=== PATIENT | female | born 1980 | race Caucasian/White ===

== ENCOUNTER 2017-05-06 20:46 | Emergency (ER) | payer MEDICARE, MEDICAID ==
[~2017-05-06] VITALS: Ht 160 cm; Wt 68.0 kg
[2017-05-06] MEDS ORDERED: TOPAMAX50 MG PO (21:05)
[2017-05-06] MEDS ORDERED: FLORICAL TABLE1 EACH PO (21:06)
[2017-05-06] MEDS ORDERED: ACID CONTROL150 MG PO (21:06)
[2017-05-06] MEDS ORDERED: OMEPRAZOLE20 MG PO (21:07)
--- OUTSIDE RECORDS SUMMARY | 2017-05-06 21:26 | XMS | Continuity of Care Document ---
Demographics + + + | Address | [address] | | | [place] [address] | + + + | Home Phone | | + + + | Preferred Language | Unknown | + + + | Marital Status | Unknown | + + + | Sabianism Affiliation | Unknown | + + + | Race | Unknown | + + + | Ethnic Group | Unknown | + + + Author + + + | Author | [facility] | + + + | Organization | [facility] | + + + | Address | Unknown | + + + | Phone | Unavailable | + + + Care Team Providers + + + + | Care Degreasing Solution Mixer Name | Role | Phone | + + + + | Unknown | Unavailable | Unavailable | + + + + Insurance Providers + + + + + | Payer Name | Policy Number | Subscriber Name | Relationship | + + + + + | MEDICARE CRITICAL | [id number] | | SAME PATIENT | | ACCESS | | | | + + + + + Chief Complaint and Reason for Visit + +----+ | Reason for Visit | ER | + +----+ Problems No problem information available. Medications Current Home Medications + +--------+-------+-------+ + + +--------+ | Medicati | Dose | Units | Route | Directio | Days/Qty | Instruct | Start | | on | | | | ns | | ions | Date | + +--------+-------+-------+ + + +--------+ | Cholecal | 50,000 | UNIT | ORAL | ONCE | | | | | ciferol | | | | DAILY | | | | | (Vitamin | | | | | | | | | D3) | | | | | | | | | (Vitamin | | | | | | | | | D) | | | | | | | | | 50,000 | | | | | | | | | UNIT | | | | | | | | | CAPSULE | | | | | | | | + +--------+-------+-------+ + + +--------+ | Folic | 1 | MG | ORAL | ONCE | | | | | Acid 1 | | | | DAILY | | | | | MG | | | | | | | | | TABLET | | | | | | | | + +--------+-------+-------+ + + +--------+ | Lamotrig | 150 | MG | | TWICE | | | | | ine | | | | DAILY | | | | | (Unknown | | | | | | | | | | | | | | | | | | Strength | | | | | | | | | ) TABLET | | | | | | | | + +--------+-------+-------+ + + +--------+ | Levothyr | 100 | MCG | ORAL | EVERY | | | | | oxine | | | | MORNING | | | | | Sodium | | | | BEFORE | | | | | 100 MCG | | | | MEAL | | | | | TABLET | | | | | | | | + +--------+-------+-------+ + + +--------+ | Ranitidi | 150 | MG | ORAL | ONCE | | | | | ne Hcl | | | | DAILY | | | | | 150 MG | | | | | | | | | TABLET | | | | | | | | + +--------+-------+-------+ + + +--------+ | Topirama | 100 | MG | ORAL | TWICE | | | | | te 100 | | | | DAILY | | | | | MG | | | | | | | | | TABLET | | | | | | | | + +--------+-------+-------+ + + +--------+ Past Home Medications + + +---------+ + | Medication | Directions | Ordered | Status | + + +---------+ + | Oxycodone | THREE TIMES DAILY | Unknown | Discontinued | | Hcl/Acetaminophen | | | | | (Oxycodone-Apap | | | | | 5-325 Mg Tab) 1 | | | | | Each Tablet Tablet, | | | | | 1 Tab Oral | | | | + + +---------+ + Social History + + + + + | Query | Response | Start Date | Stop Date | + + + + + | Smoking Status/ | Current Every Day | | | | | Smoker | | | + + + + + Hospital Discharge Instructions No hospital discharge instructions. Plan of Care + + + | Discharge Date | 04/11/17 | + + + | Disposition | DISCHARGE HOME ROUTINE HOME | + + + | Condition at Discharge | Stable | + + + | Instructions/Education Provided | Ingrown Nail (ED) | + + + | Forms Provided | Home Medications/Allergy Form | + + + | Prescriptions | See Medications Section | + + + | Referrals | Unknown - | | | | | | [facility] | | | | | | Reason(s) for Referral: | | | Notes: | | | Call today for an appointment | + + + Functional Status + + + + | Query | Response | Date Recorded | + + + + | Weight LB: | 147.00 | April 11, 2017 2:44pm | + + + + | KG: | 66.67 | April 11, 2017 2:44pm | + + + + | HEIGHT: FT. | 5 | April 11, 2017 2:44pm | + + + + | IN. | 3.00 | April 11, 2017 2:44pm | + + + + Allergies, Adverse Reactions, Alerts + +---------+ + +--------+ + | Allergen | Type | Severity | Reaction | Status | Last Updated | + +---------+ + +--------+ + | PENICILLINS | Allergy | Severe | ANAPHALAXIS | Active | 12/10/16 | + +---------+ + +--------+ + | ALBUTEROL | Allergy | Severe | Anaphylaxis | Active | 12/10/16 | + +---------+ + +--------+ + | IBUPROFEN | Allergy | Severe | Anaphylaxis | Active | 12/10/16 | + +---------+ + +--------+ + | DIPHENHYDRAM | Allergy | Severe | ANAPHALAXIS | Active | 12/10/16 | | INE | | | | | | + +---------+ + +--------+ + Immunizations No Known History of Immunizations. Vital Signs + + + + | Vital Reading | Collection Date/Time | Result | + + + + | Blood Pressure | 04/11/17 3:07pm | 97/57 | + + + + | Temperature | 04/11/17 3:07pm | 98.1 F | + + + + | Respiratory Rate | 04/11/17 3:07pm | 22 | + + + + | Pulse Rate | 04/11/17 3:07pm | 75 | + + + + | Bedside Pulse Oximetry | 04/11/17 3:07pm | 97 | + + + + | Height | 04/11/17 2:44pm | 5 ft 3 in | + + + + | Height | 04/11/17 2:44pm | 160.02 cm | + + + + | Weight | 04/11/17 2:44pm | 147 lb | + + + + | Weight | 04/11/17 2:44pm | 66.67 kg | + + + + | Body Mass Index | 04/11/17 2:44pm | 26.0 kg/m2 | + + + + Results Laboratory Results + + +---------+-------+ + + + + | Test | Result | Units | Flags | Referenc | Collecti | Result | Comments | | Name | | | | e | on | Date/Carlos | | | | | | | | Date/Carlos | e | | | | | | | | e | | | + + +---------+-------+ + + + + | Hemoglob | 12.8 | G/dL | | 11.6-15. | 12/10/16 | 12/10/16 | | | in | | | | 5 | 1:05pm | 1:14pm | | + + +---------+-------+ + + + + | Hematocr | 37.7 | % | | 35-46 | 12/10/16 | 12/10/16 | | | it | | | | | 1:05pm | 1:14pm | | + + +---------+-------+ + + + + | Red | 4.22 | M/uL | | 3.80-5.2 | 12/10/16 | 12/10/16 | | | Blood | | | | 0 | 1:05pm | 1:14pm | | | Count | | | | | | | | + + +---------+-------+ + + + + | Mean | 89.4 | fL | | 81.0-100 | 12/10/16 | 12/10/16 | | | Corpuscu | | | | .0 | 1:05pm | 1:14pm | | | lar | | | | | | | | | Volume | | | | | | | | + + +---------+-------+ + + + + | Mean | 30.2 | pg | | 27.0-34. | 12/10/16 | 12/10/16 | | | Corpuscu | | | | 0 | 1:05pm | 1:14pm | | | lar | | | | | | | | | Hemoglob | | | | | | | | | in | | | | | | | | + + +---------+-------+ + + + + | Mean | 33.8 | g/dL | | 33.0-35. | 12/10/16 | 12/10/16 | | | Corpuscu | | | | 5 | 1:05pm | 1:14pm | | | lar | | | | | | | | | Hemoglob | | | | | | | | | in | | | | | | | | | Concent | | | | | | | | + + +---------+-------+ + + + + | Red Cell | 14.4 | % | | 11.0-15. | 12/10/16 | 12/10/16 | | | | | | | 0 | 1:05pm | 1:14pm | | | Distribu | | | | | | | | | tion | | | | | | | | | Width | | | | | | | | + + +---------+-------+ + + + + | Platelet | 291 | K/uL | | 150-400 | 12/10/16 | 12/10/16 | | | Count | | | | | 1:05pm | 1:14pm | | + + +---------+-------+ + + + + | White | 7.0 | K/uL | | 4.8-10.8 | 12/10/16 | 12/10/16 | | | Blood | | | | | 1:05pm | 1:14pm | | | Count | | | | | | | | + + +---------+-------+ + + + + | Neutroph | 54.8 | % | | 40.0-80. | 12/10/16 | 12/10/16 | | | ils (%) | | | | 0 | 1:05pm | 1:14pm | | | (Auto) | | | | | | | | + + +---------+-------+ + + + + | Lymphocy | 30.7 | % | | 15.0-45. | 12/10/16 | 12/10/16 | | | dea (%) | | | | 0 | 1:05pm | 1:14pm | | | (Auto) | | | | | | | | + + +---------+-------+ + + + + | Monocyte | 7.5 | % | | 0.0-12.0 | 12/10/16 | 12/10/16 | | | s (%) | | | | | 1:05pm | 1:14pm | | | (Auto) | | | | | | | | + + +---------+-------+ + + + + | Eosinoph | 6.0 | % | | 0.0-7.0 | 12/10/16 | 12/10/16 | | | ils (%) | | | | | 1:05pm | 1:14pm | | | (Auto) | | | | | | | | + + +---------+-------+ + + + + | Basophil | 1.0 | % | | 0.0-2.0 | 12/10/16 | 12/10/16 | | | s (%) | | | | | 1:05pm | 1:14pm | | | (Auto) | | | | | | | | + + +---------+-------+ + + + + | Nucleate | 0 | | | | 12/10/16 | 12/10/16 | | | d RBC | | | | | 1:05pm | 1:14pm | | | Relative | | | | | | | | | Count | | | | | | | | | (auto) | | | | | | | | + + +---------+-------+ + + + + | Absolute | 3.80 | k/uL | | 2.00-7.3 | 12/10/16 | 12/10/16 | | | | | | | 0 | 1:05pm | 1:14pm | | | Neutroph | | | | | | | | | ils | | | | | | | | | (auto) | | | | | | | | + + +---------+-------+ + + + + | Absolute | 2.2 | K/uL | | 1.20-3.2 | 12/10/16 | 12/10/16 | | | | | | | 0 | 1:05pm | 1:14pm | | | Lymphocy | | | | | | | | | dea | | | | | | | | | (auto) | | | | | | | | + + +---------+-------+ + + + + | Absolute | 0.50 | K/uL | | 0.30-0.8 | 12/10/16 | 12/10/16 | | | | | | | 0 | 1:05pm | 1:14pm | | | Monocyte | | | | | | | | | s (auto) | | | | | | | | + + +---------+-------+ + + + + | Absolute | 0.40 | K/uL | | 0.00-0.5 | 12/10/16 | 12/10/16 | | | | | | | 0 | 1:05pm | 1:14pm | | | Eosinoph | | | | | | | | | ils | | | | | | | | | (auto) | | | | | | | | + + +---------+-------+ + + + + | Absolute | 0.10 | K/uL | | 0.00-0.1 | 12/10/16 | 12/10/16 | | | | | | | 0 | 1:05pm | 1:14pm | | | Basophil | | | | | | | | | s (auto) | | | | | | | | + + +---------+-------+ + + + + | Nucleate | 0 | /100WBC | | 0-0 | 12/10/16 | 12/10/16 | | | d RBC | | | | | 1:05pm | 1:14pm | | | Absolute | | | | | | | | | Count | | | | | | | | | (auto) | | | | | | | | + + +---------+-------+ + + + + | Urine | URINE | | | | 12/10/16 | 12/10/16 | | | Source | | | | | 1:05pm | 1:16pm | | + + +---------+-------+ + + + + | Urine | YELLOW | | | YELLOW | 12/10/16 | 12/10/16 | | | Color | | | | | 1:05pm | 1:16pm | | + + +---------+-------+ + + + + | Urine | CLEAR | | | CLEAR | 12/10/16 | 12/10/16 | | | Appearan | | | | | 1:05pm | 1:16pm | | | ce | | | | | | | | + + +---------+-------+ + + + + | Urine | 1.015 | | | 1.000-1. | 12/10/16 | 12/10/16 | | | Specific | | | | 030 | 1:05pm | 1:16pm | | | [place] | | | | | | | | + + +---------+-------+ + + + + | Urine pH | 6.0 | | | 5.0 - | 12/10/16 | 12/10/16 | | | | | | | 8.0 | 1:05pm | 1:16pm | | + + +---------+-------+ + + + + | Urine | NEGATIVE | mg/dL | | NEGATIVE | 12/10/16 | 12/10/16 | | | Protein | | | | | 1:05pm | 1:16pm | | + + +---------+-------+ + + + + | Urine | NORMAL | mg/dL | | NEGATIVE | 12/10/16 | 12/10/16 | | | Glucose | | | | | 1:05pm | 1:16pm | | | (UA) | | | | | | | | + + +---------+-------+ + + + + | Urine | NEGATIVE | mg/dL | | NEGATIVE | 12/10/16 | 12/10/16 | | | Ketones | | | | | 1:05pm | 1:16pm | | + + +---------+-------+ + + + + | Urine | NEGATIVE | Cristopher/ul | | NEGATIVE | 12/10/16 | 12/10/16 | | | Occult | | | | | 1:05pm | 1:16pm | | | Blood | | | | | | | | + + +---------+-------+ + + + + | Urine | NEGATIVE | mg/dL | | NEGATIVE | 12/10/16 | 12/10/16 | | | Bilirubi | | | | | 1:05pm | 1:16pm | | | n | | | | | | | | + + +---------+-------+ + + + + | Urine | NEGATIVE | Arelis/uL | | NEGATIVE | 12/10/16 | 12/10/16 | | | Leukocyt | | | | | 1:05pm | 1:16pm | | | e | | | | | | | | | Esterase | | | | | | | | + + +---------+-------+ + + + + | Urine | NEGATIVE | | | NEGATIVE | 12/10/16 | 12/10/16 | | | Nitrite | | | | | 1:05pm | 1:16pm | | + + +---------+-------+ + + + + | Urine | NORMAL | mg/dL | | < 2.0 | 12/10/16 | 12/10/16 | | | Urobilin | | | | | 1:05pm | 1:16pm | | | ogen | | | | | | | | + + +---------+-------+ + + + + | N/A | NOT | | | | 12/10/16 | 12/10/16 | | | | INDICATE | | | | 1:05pm | 1:16pm | | | | D | | | | | | | + + +---------+-------+ + + + + | Urine | CULT NOT | | | | 12/10/16 | 12/10/16 | | | Culture | | | | | 1:05pm | 1:16pm | | | Indicate | INDICATE | | | | | | | | d | D | | | | | | | + + +---------+-------+ + + + + | Sodium | 132 | mmol/L | L | 136-145 | 12/10/16 | 12/10/16 | | | Level | | | | | 1:05pm | 1:26pm | | + + +---------+-------+ + + + + | Potassiu | 3.6 | mmol/L | | 3.5-5.1 | 12/10/16 | 12/10/16 | | | m Level | | | | | 1:05pm | 1:26pm | | + + +---------+-------+ + + + + | Chloride | 101 | mmol/L | | 98-107 | 12/10/16 | 12/10/16 | | | Level | | | | | 1:05pm | 1:26pm | | + + +---------+-------+ + + + + | Carbon | 23 | mmol/L | | 23-29 | 12/10/16 | 12/10/16 | | | Dioxide | | | | | 1:05pm | 1:26pm | | | Level | | | | | | | | + + +---------+-------+ + + + + | Anion | 11.6 | mmol/L | | 5-16 | 12/10/16 | 12/10/16 | | | Gap | | | | | 1:05pm | 1:26pm | | + + +---------+-------+ + + + + | Creatini | 0.8 | mg/dL | | 0.6-1.3 | 12/10/16 | 12/10/16 | | | ne | | | | | 1:05pm | 1:26pm | | + + +---------+-------+ + + + + | Blood | 8 | mg/dL | | 6-20 | 12/10/16 | 12/10/16 | | | Urea | | | | | 1:05pm | 1:26pm | | | Nitrogen | | | | | | | | + + +---------+-------+ + + + + | BUN/Crea | 10.0 | Ratio | | 7.0-24.0 | 12/10/16 | 12/10/16 | | | tinine | | | | | 1:05pm | 1:26pm | | | Ratio | | | | | | | | + + +---------+-------+ + + + + | Glucose | 92.0 | mg/dL | | 65-110 | 12/10/16 | 12/10/16 | | | Level | | | | | 1:05pm | 1:26pm | | + + +---------+-------+ + + + + | Calcium | 8.8 | mg/dL | | 8.6-10.0 | 12/10/16 | 12/10/16 | | | Level | | | | | 1:05pm | 1:26pm | | + + +---------+-------+ + + + + | Serum | 7.3 | g/dL | | 6.0-8.3 | 12/10/16 | 12/10/16 | | | Total | | | | | 1:05pm | 1:26pm | | | Protein | | | | | | | | + + +---------+-------+ + + + + | Albumin | 4.3 | g/dL | | 3.5-5.0 | 12/10/16 | 12/10/16 | | | | | | | | 1:05pm | 1:26pm | | + + +---------+-------+ + + + + | Globulin | 3.0 | g/dL | | 2.3-3.5 | 12/10/16 | 12/10/16 | | | | | | | | 1:05pm | 1:26pm | | + + +---------+-------+ + + + + | Albumin/ | 1.4 | CALC | | 1.1-2.2 | 12/10/16 | 12/10/16 | | | Globulin | | | | | 1:05pm | 1:26pm | | | Ratio | | | | | | | | + + +---------+-------+ + + + + | Total | 0.4 | mg/dL | | 0.3-1.2 | 12/10/16 | 12/10/16 | | | Bilirubi | | | | | 1:05pm | 1:26pm | | | n | | | | | | | | + + +---------+-------+ + + + + | Alanine | 206 | IU/L | H | 14-54 | 12/10/16 | 12/10/16 | | | Aminotra | | | | | 1:05pm | 1:26pm | | | nsferase | | | | | | | | | | | | | | | | | | (ALT/SGP | | | | | | | | | T) | | | | | | | | + + +---------+-------+ + + + + | Alkaline | 278 | IU/L | H | 50-136 | 12/10/16 | 12/10/16 | | | | | | | | 1:05pm | 1:26pm | | | Phosphat | | | | | | | | | ase | | | | | | | | + + +---------+-------+ + + + + | Aspartat | 250 | IU/L | H | 15-41 | 12/10/16 | 12/10/16 | | | e Amino | | | | | 1:05pm | 1:26pm | | | Transf | | | | | | | | | (AST/SGO | | | | | | | | | T) | | | | | | | | + + +---------+-------+ + + + + | Amylase | 47 | U/L | | 28-100 | 12/10/16 | 12/10/16 | | | Level | | | | | 1:05pm | 1:26pm | | + + +---------+-------+ + + + + | Lipase | 26 | U/L | | 22-51 | 12/10/16 | 12/10/16 | | | | | | | | 1:05pm | 1:26pm | | + + +---------+-------+ + + + + | Estimat | > 60 | | | >60 | 12/10/16 | 12/10/16 | Limitati | | Glomerul | | | | | 1:05pm | 1:26pm | ons | | ar | | | | | | | apply. | | Filtrati | | | | | | | This | | on Rate | | | | | | | calculat | | | | | | | | | ion | | | | | | | | | includes | | | | | | | | | | | | | | | | | | variable | | | | | | | | | s | | | | | | | | | forserum | | | | | | | | | | | | | | | | | | creatini | | | | | | | | | ne, age, | | | | | | | | | race | | | | | | | | | and | | | | | | | | | gender. | | | | | | | | | This | | | | | | | | | estimate | | | | | | | | | applies | | | | | | | | | only to | | | | | | | | | stable | | | | | | | | | chronic | | | | | | | | | renal | | | | | | | | | disease | | | | | | | | | states. | | | | | | | | | Below60 | | | | | | | | | | | | | | | | | | ml/min/1 | | | | | | | | | .73 | | | | | | | | | square | | | | | | | | | meters, | | | | | | | | | the | | | | | | | | | prevalen | | | | | | | | | ce | | | | | | | | | ofcompli | | | | | | | | | cations | | | | | | | | | of CKD | | | | | | | | | increase | | | | | | | | | s, as | | | | | | | | | does the | | | | | | | | | risk | | | | | | | | | ofcardio | | | | | | | | | vascular | | | | | | | | | | | | | | | | | | disease. | + + +---------+-------+ + + + + | Influenz | NEGATIVE | | | NEGATIVE | 12/10/16 | 12/10/16 | | | a Type B | | | | | 1:05pm | 1:25pm | | | Antigen | | | | | | | | + + +---------+-------+ + + + + | Influenz | NEGATIVE | | | NEGATIVE | 12/10/16 | 12/10/16 | | | a Type A | | | | | 1:05pm | 1:25pm | | | Antigen | | | | | | | | + + +---------+-------+ + + + + | Hepatiti | Non | | | NR | 12/10/16 | 12/13/16 | | | s A IgM | Reactive | | | | 1:05pm | 9:11am | | | Antibody | | | | | | | | + + +---------+-------+ + + + + | Hepatiti | Non | | | NR | 12/10/16 | 12/13/16 | | | s B | Reactive | | | | 1:05pm | 9:11am | | | Surface | | | | | | | | | Antigen | | | | | | | | + + +---------+-------+ + + + + | Hepatiti | Non | | | NR | 12/10/16 | 12/13/16 | | | s B Core | Reactive | | | | 1:05pm | 9:11am | | | IgM | | | | | | | | | Antibody | | | | | | | | + + +---------+-------+ + + + + | Hepatiti | Non | | | NR | 12/10/16 | 12/13/16 | Hepatiti | | s C | Reactive | | | | 1:05pm | 9:11am | s C: | | Antibody | | | | | | | Absence | | | | | | | | | of | | | | | | | | | antibody | | | | | | | | | | | | | | | | | | suggests | | | | | | | | | no past | | | | | | | | | | | | | | | | | | Hepatiti | | | | | | | | | sC virus | | | | | | | | | | | | | | | | | | infectio | | | | | | | | | n. Since | | | | | | | | | | | | | | | | | | antibody | | | | | | | | | | | | | | | | | | developm | | | | | | | | | ent may | | | | | | | | | bedelaye | | | | | | | | | d up to | | | | | | | | | 6 months | | | | | | | | | after | | | | | | | | | infectio | | | | | | | | | n, | | | | | | | | | retestin | | | | | | | | | g may | | | | | | | | | beindica | | | | | | | | | sommer. | + + +---------+-------+ + + + + | Hepatiti | SEE | | | () | 12/10/16 | 12/13/16 | No | | s | BELOW | | | | 1:05pm | 9:11am | serologi | | Interpre | | | | | | | c | | tation | | | | | | | evidence | | | | | | | | | of HAV, | | | | | | | | | HBV or | | | | | | | | | HCV | | | | | | | | | infectio | | | | | | | | | n.Test | | | | | | | | | Performe | | | | | | | | | d by | | | | | | | | | [facility], | | | | | | | | | [address], | | | | | | | | | [place], | | | | | | | | | [place] | | | | | | | | | [id number] | + + +---------+-------+ + + + + | Lamotrig | 4.6 | ug/mL | | 3.0-14.0 | 12/10/16 | 12/12/16 | The | | ine | | | | | 1:05pm | 12:48pm | proposed | | (Lamicta | | | | | | | | | l) Level | | | | | | | therapeu | | | | | | | | | tic | | | | | | | | | range | | | | | | | | | for | | | | | | | | | seizure | | | | | | | | | control | | | | | | | | | is 3.0to | | | | | | | | | 14.0 | | | | | | | | | ug/mL. | | | | | | | | | Concentr | | | | | | | | | ations | | | | | | | | | that | | | | | | | | | exceed | | | | | | | | | 15 ug/mL | | | | | | | | | | | | | | | | | | maycontr | | | | | | | | | ibute to | | | | | | | | | adverse | | | | | | | | | | | | | | | | | | effects. | | | | | | | | | | | | | | | | | | Pharmoki | | | | | | | | | netics | | | | | | | | | varies | | | | | | | | | widelywi | | | | | | | | | th co | | | | | | | | | medicati | | | | | | | | | ons | | | | | | | | | and/or | | | | | | | | | compromi | | | | | | | | | sed | | | | | | | | | renal | | | | | | | | | function | | | | | | | | | . | | | | | | | | | TestPerf | | | | | | | | | ormed by | | | | | | | | | [facility], | | | | | | | | | [address], | | | | | | | | | [place], | | | | | | | | | [place] | | | | | | | | | [id number] | + + +---------+-------+ + + + + | Topirama | 3.9 | ug/mL | | 2.0-25.0 | 12/10/16 | 12/12/16 | No | | te Level | | | | | 1:05pm | 12:48pm | referenc | | | | | | | | | e range | | | | | | | | | establis | | | | | | | | | hed.Ther | | | | | | | | | apueutic | | | | | | | | | Range: | | | | | | | | | 2.0 to | | | | | | | | | 25.0 | | | | | | | | | ug/mLTox | | | | | | | | | ic: Not | | | | | | | | | well | | | | | | | | | establis | | | | | | | | | hedPharm | | | | | | | | | acokinet | | | | | | | | | ics | | | | | | | | | varies | | | | | | | | | widely, | | | | | | | | | particul | | | | | | | | | kristen | | | | | | | | | withco-m | | | | | | | | | edicatio | | | | | | | | | ns, age, | | | | | | | | | and/or | | | | | | | | | compromi | | | | | | | | | sed | | | | | | | | | renal | | | | | | | | | function | | | | | | | | | .Adverse | | | | | | | | | effects | | | | | | | | | may | | | | | | | | | include | | | | | | | | | somnolen | | | | | | | | | ce, | | | | | | | | | fatigue, | | | | | | | | | | | | | | | | | | anddizzi | | | | | | | | | ness. | | | | | | | | | Test | | | | | | | | | Performe | | | | | | | | | d by | | | | | | | | | [facility], | | | | | | | | | [address] | [address],[place] | | | | | | | | | [place], [place] | | | | | | | | | [id number] | + + +---------+-------+ + + + + Procedures No Known History of Procedures. Encounters + + + + + + | Encounter | Location | Arrival/Admit | Discharge/Depar | Attending | | | | Date | t Date | Provider | + + + + + + | Departed | [facility] | 04/11/17 2:33pm | 04/11/17 3:10pm | [facility] | | Emergency | Hospital | | | | + + + + + + | Departed | [facility] | 12/10/16 | 12/10/16 1:39pm | Marianela Siddiqui | | Emergency | Hospital | 11:56am | | K | + + + + + +"
[2017-05-06] MEDS ORDERED: BACITRAYCIN PLU28 GM TOP (21:30)
[2017-05-06] MEDS ORDERED: TRAMADOL HCL50 MG PO (21:30)
== END 2017-05-06 22:06 | disposition home or self-care (01) ==
LOC: ED 20:46
DX: G89.18 Other acute postprocedural pain (principal); M79.675 Pain in left toe(s); M79.674 Pain in right toe(s); S90.112A Contusion of left great toe without damage to nail, initial encounter; S90.111A Contusion of right great toe without damage to nail, initial encounter; F17.200 Nicotine dependence, unspecified, uncomplicated; Z98.84 Bariatric surgery status; Z90.710 Acquired absence of both cervix and uterus; Z90.89 Acquired absence of other organs; Z88.0 Allergy status to penicillin; Z88.1 Allergy status to other antibiotic agents; Z88.6 Allergy status to analgesic agent; Z79.899 Other long term (current) drug therapy; X58.XXXA Exposure to other specified factors, initial encounter
CPT/HCPCS: 99283

== ENCOUNTER 2018-02-06 22:34 | Emergency (ER) | payer MEDICARE, OTHER ==
[~2018-02-06] VITALS: Ht 160 cm; Wt 68.0 kg
[~2018-02-06 22:34] MED LIST: ACID CONTROL150 MG PO; BACITRAYCIN PLU28 GM TOP; FLORICAL TABLE1 EACH PO; OMEPRAZOLE20 MG PO; TOPAMAX50 MG PO; TRAMADOL HCL50 MG PO
[2018-02-06] MEDS ORDERED: VITAMIN D350000 UNIT PO (22:54)
[2018-02-06] MEDS ORDERED: LAMOTRIGINE25 MG PO (22:54)
[2018-02-06] MEDS ORDERED: SYNTHROID100 MCG PO (22:54)
[2018-02-06] MEDS ORDERED: FOLIC ACID1 MG PO (22:54)
--- OUTSIDE RECORDS SUMMARY | 2018-02-06 23:12 | XMS | Encounter Summary ---
Demographics + + + | Address | [address] | | | [place] [address] | + + + | Home Phone | | + + + | Preferred Language | Unknown | + + + | Marital Status | | + + + | Orthodoxy Affiliation | 1073 | + + + | Race | Unknown | + + + | Ethnic Group | Unknown | + + + Author + + + | Author | [facility] | | | and [place] | + + + | Organization | [facility] | | | and [place] | + + + | Address | Unknown | + + + | Phone | Unavailable | + + + Support + + +---------+ + | Name | Relationship | Address | Phone | + + +---------+ + | Elaine Zambrano | ECON | Unknown | | + + +---------+ + | Rosalia Zambrano | ECON | Unknown | | + + +---------+ + Care Team Providers + +------+ + | Care Digital Sales Manager Name | Role | Phone | + +------+ + | Alberto Christine | PCP | | + +------+ + Reason for Visit +--------+ + | Reason | Comments | +--------+ + | Pain | | +--------+ + Encounter Details +--------+ + + + + | Date | Type | Department | Care Team | Description | +--------+ + + + + | 01/30/ | Emergency | [facility] | Darian Ventura | Incisional pain | | 2018 | | [facility] | MD Deon [address] | (Primary Dx) | | | | CENTER [address] | [facility] | | | | | [place] | [place] [address] | | | | | [address] | [phone] | | | | | [phone] | | | +--------+ + + + + Social History + + + +--------+ + | Tobacco Use | Types | Packs/Day | Years | Date | | | | | Used | | + + + +--------+ + | Current Every Day | Cigarettes | 0.5 | 23 | Started: 02/07/1993 | | Smoker | | | | | + + + +--------+ + + +---+---+--------+ | Smokeless Tobacco: | | | Quit: | | Former User | | | 2009 | + +---+---+--------+ + + | Comments: notes she used to smoke 5 ppd | + + + + +---------+ + | Alcohol Use | Drinks/We | oz/Week | Comments | | | ek | | | + + +---------+ + | No | 0 | 0.0 | | | | Standard | | | | | drinks or | | | | | | | | | | equivalen | | | | | t | | | + + +---------+ + + + + | Sex Assigned at | Date Recorded | | | | + + + | Not on file | | + + + as of this encounter Last Filed Vital Signs + + + + | Vital Sign | Reading | Time Taken | + + + + | Blood Pressure | 112/67 | 01/30/20182253 PDT | + + + + | Pulse | 69 | 01/30/20182253 PDT | + + + + | Temperature | 36.6 C (97.9 F) | 01/30/20182205 PDT | + + + + | Respiratory Rate | 16 | 01/30/20182253 PDT | + + + + | Oxygen Saturation | 97% | 01/30/20182253 PDT | + + + + | Inhaled Oxygen | - | - | | Concentration | | | + + + + | Weight | 63 kg (138 lb 14.2 | 01/30/20182205 PDT | | | oz) | | + + + + | Height | - | - | + + + + | Body Mass Index | 24.6 | 01/30/20182205 PDT | + + + + in this encounter Functional Status + + + + | Functional Status | Response | Date of Assessment | + + + + | Are you deaf or do you have serious | No | 11/27/2017 | | difficulty hearing? | | | + + + + | Are you blind or do you have serious | No | 11/27/2017 | | difficulty seeing, even when wearing | | | | glasses? | | | + + + + | Do you have serious difficulty walking or | No | 11/27/2017 | | climbing stairs? (5 years old or older) | | | + + + + | Do you have difficulty dressing or bathing? | No | 11/27/2017 | | (5 years old or older) | | | + + + + | Because of a physical, mental, or emotional | No | 11/27/2017 | | condition, do you have difficulty doing | | | | errands alone such as visiting a doctor's | | | | office or shopping? [15 years old or | | | | older)] | | | + + + + + + + + | Cognitive Status | Response | Date of Assessment | + + + + | Because of a physical, mental, or emotional | No | 11/27/2017 | | condition, do you have serious difficulty | | | | concentrating, remembering, or making | | | | decisions? (5 years old or older) | | | + + + + as of this encounter Medications at Time of Discharge + + + +---------+ + + | Medication | Sig. | Disp. | Refills | Start | End Date | | | | | | Date | | + + + +---------+ + + | aluminum & | Take 30 mLs by mouth | | 0 | 08/22/20 | | | magnesium | every 4 hours as | | | 16 | | | hydroxide-simethicon | needed for | | | | | | e (MAALOX PLUS | Indigestion. | | | | | | REGULAR STRENGTH) | | | | | | | 200-200-20 mg/5 mL | | | | | | | suspension | | | | | | + + + +---------+ + + | ergocalciferol | Take 50,000 Units by | | | | | | (VITAMIN D-2) 50,000 | mouth Once a week. | | | | | | units capsule | | | | | | + + + +---------+ + + | | Inhale 1 puff into | 1 each | 11 | 04/21/20 | | | fluticasone-salmeter | the lungs Twice | | | 15 | | | ol (ADVAIR) 500-50 | Daily. | | | | | | mcg/puff diskus | | | | | | | inhaler | | | | | | + + + +---------+ + + | folic acid 1 mg | Take 1 tablet by | 30 | 2 | 11/09/19 | | | tablet | mouth Daily. | tablet | | 16 | | + + + +---------+ + + | furosemide (LASIX) | Take 1 tablet by | 30 | 0 | 12/05/19 | | | 20 mg tablet | mouth Daily. | tablet | | 18 | | + + + +---------+ + + | ipratropium | Inhale 2 puffs into | | | | | | (ATROVENT HFA) 17 | the lungs every 6 | | | | | | mcg/puff inhaler | hours as needed for | | | | | | | Wheezing. | | | | | + + + +---------+ + + | lactulose 10 g/15 | Take 30 mLs by mouth | 240 mL | 2 | 11/27/19 | | | mL solution | 2 times daily. For | | | 18 | | | | constipation | | | | | + + + +---------+ + + | lamoTRIgine | Take 150 mg by mouth | | | | | | (LAMICTAL) 150 MG | 2 times daily. | | | | | | tablet | | | | | | + + + +---------+ + + | levalbuterol | Inhale 2 puffs into | | | | | | (XOPENEX HFA) 45 | the lungs every 6 | | | | | | mcg/puff inhaler | hours as needed for | | | | | | | Wheezing. | | | | | + + + +---------+ + + | levothyroxine | Take 100 mcg by | | | 07/18/20 | | | (SYNTHROID) 100 mcg | mouth every morning | | | 17 | | | tablet | (before breakfast). | | | | | + + + +---------+ + + | omeprazole | Take 20 mg by mouth | | | | | | (PRILOSEC) 20 mg | 2 times daily | | | | | | capsule | (before meals). | | | | | + + + +---------+ + + | ondansetron | Take 1 tablet by | 24 | 0 | 10/26/20 | | | (ZOFRAN ODT) 4 mg | mouth every 8 hours | tablet | | 17 | | | disintegrating | as needed for | | | | | | tablet | Nausea. | | | | | + + + +---------+ + + | raNITIdine | Take 150 mg by mouth | | | 11/23/19 | | | (ZANTAC) 150 MG | 2 times daily. | | | 16 | | | capsule | | | | | | + + + +---------+ + + | risperiDONE | | | | 11/14/19 | | | (RISPERDAL) 0.5 mg | | | | 18 | | | tablet | | | | | | + + + +---------+ + + | rizatriptan | as needed. | | | 08/08/20 | | | (MAXALT) 10 mg | | | | 17 | | | tablet | | | | | | + + + +---------+ + + | SYMBICORT 160-4.5 | | | | 11/09/19 | | | MCG/ACT inhaler | | | | 18 | | + + + +---------+ + + | tiZANidine | | | | 11/28/19 | | | (ZANAFLEX) 4 mg | | | | 18 | | | tablet | | | | | | + + + +---------+ + + | topiramate | Take 50 mg by mouth | | | | | | (TOPAMAX) 50 MG | 2 times daily. | | | | | | tablet | | | | | | + + + +---------+ + + | diazePAM (VALIUM) | Take 1-2 tablets by | 90 | 1 | 01/10/20 | | | 5 mg tablet | mouth every 6 hours | tablet | | 18 | 8 | | | as needed for Muscle | | | | | | | spasms. | | | | | + + + +---------+ + + | gabapentin | Take 1 capsule by | 90 | 2 | 01/10/20 | | | (NEURONTIN) 300 mg | mouth 3 times daily. | capsule | | 18 | 8 | | capsule | | | | | | + + + +---------+ + + | oxyCODONE 10 MG | Take 1-2 tablets by | 70 | 0 | 01/19/20 | | | TABS | mouth every 4 hours | tablet | | 18 | 8 | | | as needed. Max 10 | | | | | | | tabs a day.May only | | | | | | | be filled at | | | | | | | [facility] and must | | | | | | | last 7 days.I will | | | | | | | refill on 01/25 | | | | | + + + +---------+ + + as of this encounter Plan of Treatment +--------+---------+ + + + | Date | Type | Specialty | Care Team | Description | +--------+---------+ + + + | 02/08/ | Office | Rehabilitation | Manuel Sparks, | | | 2017 | Visit | | DO [address] | | | | | | [address] [place], | | | | | | [place] [address] | | | | | | [phone] | | | | | | | | | | | | Himanshu Champion | | | | | | D, PT | | +--------+---------+ + + + | 02/15/ | Office | Rehabilitation | Manuel Sparks, | | | 2017 | Visit | | DO [address] | | | | | | [address] [place], | | | | | | [place] [address] | | | | | | [phone] | | | | | | | | | | | | Himanshu Champion | | | | | | D, PT | | +--------+---------+ + + + | 02/20/ | Office | Rehabilitation | Manuel Sparks, | | | 2017 | Visit | | DO [address] | | | | | | [address] [place], | | | | | | [place] [address] | | | | | | [phone] | | | | | | | | | | | | Himanshu Champion | | | | | | D, PT | | +--------+---------+ + + + | 02/22/ | Office | Rehabilitation | Manuel Sparks, | | | 2017 | Visit | | DO [address] | | | | | | [address] [place], | | | | | | [place] [address] | | | | | | [phone] | | | | | | | | | | | | Himanshu Champion | | | | | | D, PT | | +--------+---------+ + + + | 02/22/ | Office | General Surgery | Matthew Garnica | | | 2017 | Visit | | MD Guzman [facility] [address] | | | | [address] [place] | | | | | | [place] [address] | | | | | | [phone] | | | | | | | | +--------+---------+ + + + | 02/27/ | Office | Rehabilitation | Manuel Sparks, | | | 2017 | Visit | | DO [address] | | | | | | [address] [place], | | | | | | [place] [address] | | | | | | [phone] | | | | | | | | | | | | Himanshu Champion | | | | | | D, PT | | +--------+---------+ + + + | 03/01/ | Office | Rehabilitation | Manuel Sparks, | | | 2017 | Visit | | DO [address] | | | | | | [facility] [address] [place], | | | | | | [place] [address] | | | | | | [phone] | | | | | | | | | | | | Himanshu Champion | | | | | | D, PT | | +--------+---------+ + + + | 03/29/ | Office | Cardiology | Prem Call, | | | 2017 | Visit | | MD [address] | | | | | | [place], | | | | | | [place] [address] | | | | | | [phone] | | | | | | | | +--------+---------+ + + + + +--------+ + + | Name | Priori | Associated Diagnoses | Date/Time | | | ty | | | + +--------+ + + | ED INFORMATION EXCHANGE | Routin | | 01/30/2018 2144 PDT | | | e | | | + +--------+ + + as of this encounter Visit Diagnoses + + | Diagnosis | + + | Incisional pain - Primary | + + | Disturbance of skin sensation | + + Administered Medications + +--------+ +------+------+ + | Medication Order | MAR | Action | Dose | Rate | Site | | | Action | Date | | | | + +--------+ +------+------+ + | HYDROmorphone (DILAUDID) | Given | 01/30/2018 | 1 mg | | Deltoid- | | injection 1 mg 1 mg, | | 22:35 | | | Left | | Intramuscular, ONCE, e 01/30/18 | | PDT | | | | | at 2225, For 1 dose | | | | | | + +--------+ +------+------+ + +---+---+ | | | +---+---+ + +-------+ +------+---+---+ | ondansetron (ZOFRAN ZANE) | Given | 01/30/2018 | 4 mg | | | | disintegrating tablet 4 mg 4 mg, | | 22:34 | | | | | Oral, ONCE, e 01/30/18 at 2225, | | PDT | | | | | For 1 dose | | | | | | + +-------+ +------+---+---+ +---+---+ | | | +---+---+ in this encounter"
--- OUTSIDE RECORDS SUMMARY | 2018-02-06 23:12 | XMS | Encounter Summary ---
Demographics + + + | Address | [address] | | | [place] [address] | + + + | Home Phone | | + + + | Preferred Language | Unknown | + + + | Marital Status | | + + + | Rastafari Affiliation | 1073 | + + + | Race | Unknown | + + + | Ethnic Group | Unknown | + + + Author + + + | Author | [facility] | | | and [place] | + + + | Organization | [facility] | | | and [...] Team Providers + +------+ + | Care Meat Loiner Name | Role | Phone | + +------+ + | Alberto Christine | PCP | | + +------+ + Reason for Visit + + + | Reason | Comments | + + + | Back Pain | Proc2 Had low back surgery on of this year per . | | | Bridger and . Early this am a dog jumped on her when she was | | | sleeping. Did not have her brace on. Pain is in abdomen, back and | | | left leg. Leg has hurt since surgery. | + + + | Back Pain | Has no difficulty with urinating or bowel movements. | + + + Encounter Details +--------+---------+ + + + | Date | Type | Department | Care Team | Description | +--------+---------+ + + + | 01/31/ | Office | [facility] | Darian Caban | Chronic bilateral | | 2017 | Visit | CARE [address] | B, DO [address] | low back pain, with | | | | [place], [place] | [place] | sciatica presence | | | | [phone] | [id number] | unspecified (Primary | | | | [phone] | | Dx) | +--------+---------+ + + + Social History + + [...] + + + | Blood Pressure | 117/79 | 01/31/20181536 PDT | + + + + | Pulse | 92 | 01/31/20181536 PDT | + + + + | Temperature | 36.7 C (98.1 F) | 01/31/20181536 PDT | + + + + | Respiratory Rate | 18 | 01/31/20181536 PDT | + + + + | Oxygen Saturation | 100% | 01/31/20181536 PDT | + + + + | Inhaled Oxygen | - | - | | Concentration | | | + + + + | Weight | 61.4 kg (135 lb 5.8 | 01/31/20181536 PDT | | | oz) | | + + + + | Height | 160 cm (5' 3") | 01/31/20181536 PDT | + + + + | Body Mass Index | 23.98 | 01/31/20181536 PDT | + + + + in [...] + + + as of this encounter Progress Notes Darian Caban DO - 01/31/2018 1530 PDTFormatting of this note may be different from the original. Subjective: Chief Complaint: Back Pain (Proc2 Had low back surgery on of this year per Dr. Jaydon nickerson and . Early this am a dog jumped on her when she was sleeping. Did not have her bra ce on. Pain is in abdomen, back and left leg. Leg has hurt since surgery.) and Back Pain (Meyer s no difficulty with urinating or bowel movements.) HPI 37-year-old female presents to the urgent care clinic for chronic lower back pain. She had an ALIF from L4-S1 done on 16 November 2017. Patient states since this time she has had chr onic back and left leg pain. Her significant other states that she was found down by a dog this morning. Old records indicate that she was seen in the emergency department with a pas t 3 days consecutively, with the same complaints. She has been fired by her primary care pr Himanshu dyer. He has also been dismissed from Dr. Manuel Sparks's service for her ch ronic abuse/possibly selling narcotics. Significant other once again states that she needs something for pain. Urine drug screen from ED visit on 30 December 2017 is positive for both op iates and benzodiazepines. Patient here does not appear to be in any acute distress, is smi ling. She is able to ambulate with a rolling walker. She was also able to get up out of a chair, walked to the [facility] step up and sit down without grimacing or showing any signs of a cute pain. She denies any difficulty with bowel or bladder, to include incontinence retenti on. Patient's medications, allergies, past medical, surgical, social and family histories were reviewed and updated as appropriate. Review of Systems Constitutional: Negative for chills and fever. HENT: Negative for congestion and sore throat. Respiratory: Negative for cough. Cardiovascular: Negative for chest pain and leg swelling. Gastrointestinal: Negative for abdominal pain, nausea and vomiting. Genitourinary: Negative for dysuria. Musculoskeletal: Positive for back pain. Skin: Negative for rash. Objective: BP 117/79 | Pulse 92 | Temp 36.7 C (98.1 F) (Temporal) | Resp 18 | Ht 1.6 m (5' 3") | Wt 61.4 kg (135 lb 5.8 oz) | LMP (LMP Unknown) | SpO2 100% | BMI 23.98 kg/m Physical Exam Constitutional: She appears well-developed. Patient walked into the room with a normal gait, does not appear to be in any acute distres s HENT: Right Ear: External ear normal. Left Ear: External ear normal. Mouth/Throat: Oropharynx is clear and moist. Eyes: Pupils are equal, round, and reactive to light. Neck: Neck supple. Cardiovascular: Normal heart sounds. Pulmonary/Chest: Breath sounds normal. Abdominal: Soft. Bowel sounds are normal. She exhibits no distension. There is no tendernes s. Vertical incision is clean dry and intact, without any signs or infection Musculoskeletal: Normal range of motion. Neurological: She displays normal reflexes. No sensory deficit. Coordination normal. Skin: Skin is warm. Assessment and Plans: Chronic back pain: This is a very difficult patient, due to the necessity of her lower back pain, and the poss ibility of her ongoing drug seeking behavior. ( Please look at previous records, to include notes from Dr. Sparks's office) I told her and her significant other that I would not be pre scribing any narcotic pain medications. The patient did not seem to be upset at this, but t he significant other, continued to press the issue. I informed them that she would probably need to be seen by a chronic pain physician. Told them, there was a chronic pain center in the [facility]. Patient already knew of the facility. Patient left the room, smiling, rosanne uld my hand and thanked me for the visit. in this encounter Plan of Treatment +--------+---------+ + [...] | | | | | | [place] [address] | | | | | | [phone] | | | | | | | [...] | | | | | | [place] [address] | | | | | | [phone] | | | | | | | [...] | | | | | | [place] [address] | | | | | | [phone] | | | | | | | [...] | | | | | | [place] [address] | | | | | | [phone] | | | | | | | | | | | | Himanshu Champion | | | | | | D, PT | | +--------+---------+ + + + | 02/22/ | Office | General Surgery | Matthew Garnica | | | 2017 | Visit | | MD Thomas, [facility] [address] | | | [address] [place] | | | | | | [place] [address] | | | | | | [phone] | | | | | | | | +--------+---------+ + + + | 02/27/ | Office | Rehabilitation | Manuel Sparks, | | | 2017 | Visit | | DO [address] | | | | | | [address] [place], | | | | | | [place] [address] | | | | | | [phone] | | | | | | | | | | | | Himanshu Champion | | | | | | D, PT | | +--------+---------+ + + + | 03/01/ | Office | Rehabilitation | Manuel Sparks, | | | 2017 | Visit | | DO [address] | | | | | | [address] [place], | | | | | | [place] [address] | | | | | | [phone] | | | | | | | | | | | | Himanshu Champion | | | | | | Luzma, PT | | +--------+---------+ + + + | 03/29/ | Office | Cardiology | Prem Call, | | | 2017 | Visit | | MD [address] | | | | | | [place], | | | | | | [place] [address] | | | | | | [phone] | | | | | | | | +--------+---------+ + + + as of this encounter Visit Diagnoses + + | Diagnosis | + + | Chronic bilateral low back pain, with sciatica presence unspecified - Primary | + +
--- OUTSIDE RECORDS SUMMARY | 2018-02-06 23:12 | XMS | Clinical Summary ---
Demographics + + + | Address | [address] | | | [place] [address] | + + + | Home Phone | | + + + | Preferred Language | Unknown | + + + | Marital Status | | + + + | Uatsdin Affiliation | [id number] | + + + | Race | Unknown | + + + | Ethnic Group | Unknown | + + + Author + + + | Author | [facility] | | | and [place] | + + + | Organization | [facility] | | | and [place] | + + + | Address | Unknown | + + + | Phone | Unavailable | + + + Support + + +---------+ + | Name | Relationship | Address | Phone | + + +---------+ + | Iesha Zambrano | ECON | Unknown | | + + +---------+ + | Rosalia Zambrano | ECON | Unknown | | + + +---------+ + Care Team Providers + +------+ + | Care Chemical Sales Representative Name | Role | Phone | + +------+ + | Alberto Christine | PP | | + +------+ + Allergies + + + + + + | Active Allergy | Reactions | Severity | Noted | Comments | | | | | Date | | + + + + + + | Albuterol | Swelling | High | 03/02/20 | Tongue swelling | | | | | 14 | | + + + + + + | Amoxicillin | Anaphylaxis | High | 02/24/20 | | | | | | 16 | | + + + + + + | Ciprofloxacin | Shortness Of Breath, | High | 03/27/20 | Stomach pain and | | | Other (See | | 15 | vomitting | | | Comments) | | | | + + + + + + | Clarithromycin | Anaphylaxis | High | | | + + + + + + | Diphenhydramine | Anaphylaxis | High | | | + + + + + + | Fluoxetine | Other (See Comments) | Low | 03/27/20 | Crawling skin | | | | | 15 | | + + + + + + | Hydrocodone | Nausea And Vomiting | Medium | 06/13/20 | | | | | | 17 | | + + + + + + | Hydroxyzine Pamoate | Anaphylaxis | High | 03/27/20 | | | | | | 15 | | + + + + + + | Ibuprofen | Swelling | High | 03/02/20 | Throat Swelling | | | | | 14 | | + + + + + + | Methocarbamol | Shortness Of Breath, | High | 03/27/20 | Other reaction(s): | | | Other (See | | 15 | chest pain Chest | | | Comments) | | | pain | + + + + + + | Paroxetine | Shortness Of Breath | High | 02/24/20 | | | | | | 16 | | + + + + + + | Penicillins | Anaphylaxis | High | | | + + + + + + | Prednisone | Shortness Of Breath | High | 04/21/20 | Throat swells up | | | | | 15 | | + + + + + + | Propranolol | Nausea And Vomiting | Medium | 03/27/20 | | | | | | 15 | | + + + + + + | Sertraline | Other (See Comments) | Low | 03/27/20 | Crawling skin | | | | | 15 | | + + + + + + | Tramadol | Other (See Comments) | High | 12/30/19 | Tramadol | | | | | 18 | | + + + + + + Current Medications + + + +---------+------+------+-------+ | Prescription | Sig. | Disp. | Refills | Star | End | Statu | | | | | | t | Date | s | | | | | | Date | | | + + + +---------+------+------+-------+ | levalbuterol | Inhale 2 puffs into | | | | | Activ | | (XOPENEX HFA) 45 | the lungs every 6 | | | | | e | | mcg/puff inhaler | hours as needed for | | | | | | | | Wheezing. | | | | | | + + + +---------+------+------+-------+ | ipratropium | Inhale 2 puffs into | | | | | Activ | | (ATROVENT HFA) 17 | the lungs every 6 | | | | | e | | mcg/puff inhaler | hours as needed for | | | | | | | | Wheezing. | | | | | | + + + +---------+------+------+-------+ | | Inhale 1 puff into | 1 each | 11 | 06/2 | | Activ | | fluticasone-salmeter | the lungs Twice | | | 3/20 | | e | | ol (ADVAIR) 500-50 | Daily. | | | 15 | | | | mcg/puff diskus | | | | | | | | inhaler | | | | | | | + + + +---------+------+------+-------+ | folic acid 1 mg | Take 1 tablet by | 30 | 2 | 01/ | | Activ | | tablet | mouth Daily. | tablet | | 1/20 | | e | | | | | | 16 | | | + + + +---------+------+------+-------+ | omeprazole | Take 20 mg by mouth | | | | | Activ | | (PRILOSEC) 20 mg | 2 times daily | | | | | e | | capsule | (before meals). | | | | | | + + + +---------+------+------+-------+ | lamoTRIgine | Take 150 mg by mouth | | | | | Activ | | (LAMICTAL) 150 MG | 2 times daily. | | | | | e | | tablet | | | | | | | + + + +---------+------+------+-------+ | ergocalciferol | Take 50,000 Units by | | | | | Activ | | (VITAMIN D-2) 50,000 | mouth Once a week. | | | | | e | | units capsule | | | | | | | + + + +---------+------+------+-------+ | topiramate | Take 50 mg by mouth | | | | | Activ | | (TOPAMAX) 50 MG | 2 times daily. | | | | | e | | tablet | | | | | | | + + + +---------+------+------+-------+ | aluminum & | Take 30 mLs by mouth | | 0 | 08/2 | | Activ | | magnesium | every 4 hours as | | | 2/20 | | e | | hydroxide-simethicon | needed for | | | 16 | | | | e (MAALOX PLUS | Indigestion. | | | | | | | REGULAR STRENGTH) | | | | | | | | 200-200-20 mg/5 mL | | | | | | | | suspension | | | | | | | + + + +---------+------+------+-------+ | raNITIdine | Take 150 mg by mouth | | | / | | Activ | | (ZANTAC) 150 MG | 2 times daily. | | | 03/18 | | e | | capsule | | | | 16 | | | + + + +---------+------+------+-------+ | levothyroxine | Take 100 mcg by | | | 06/30 | | Activ | | (SYNTHROID) 100 mcg | mouth every morning | | | 07/19 | | e | | tablet | (before breakfast). | | | 17 | | | + + + +---------+------+------+-------+ | rizatriptan | as needed. | | | 07/30 | | Activ | | (MAXALT) 10 mg | | | | 020 | | e | | tablet | | | | 17 | | | + + + +---------+------+------+-------+ | ondansetron | Take 1 tablet by | 24 | 0 | 12/ | | Activ | | (ZOFRAN ODT) 4 mg | mouth every 8 hours | tablet | | 06/18 | | e | | disintegrating | as needed for | | | 17 | | | | tablet | Nausea. | | | | | | + + + +---------+------+------+-------+ | lactulose 10 g/15 | Take 30 mLs by mouth | 240 mL | 2 | 01/2 | | Activ | | mL solution | 2 times daily. For | | | 9/20 | | e | | | constipation | | | 18 | | | + + + +---------+------+------+-------+ | SYMBICORT 160-4.5 | | | | 01/1 | | Activ | | MCG/ACT inhaler | | | | 1/20 | | e | | | | | | 18 | | | + + + +---------+------+------+-------+ | tiZANidine | | | | 01/3 | | Activ | | (ZANAFLEX) 4 mg | | | | 0/20 | | e | | tablet | | | | 18 | | | + + + +---------+------+------+-------+ | risperiDONE | | | | 01/1 | | Activ | | (RISPERDAL) 0.5 mg | | | | 6/20 | | e | | tablet | | | | 18 | | | + + + +---------+------+------+-------+ | furosemide (LASIX) | Take 1 tablet by | 30 | 0 | 02/0 | | Activ | | 20 mg tablet | mouth Daily. | tablet | | 6/20 | | e | | | | | | 18 | | | + + + +---------+------+------+-------+ | cyclobenzaprine | Take 1 tablet by | 20 | 0 | 04/0 | 04/1 | Activ | | (FLEXERIL) 10 mg | mouth 3 times daily | tablet | | 5/20 | 9/20 | e | | tablet | as needed for Muscle | | | 18 | 18 | | | | spasms for up to 14 | | | | | | | | days. | | | | | | + + + +---------+------+------+-------+ | diazePAM (VALIUM) | Take 0.5-1 tablets | 90 | 0 | 02/2 | 03/1 | Disco | | 5 mg tablet | by mouth every 6 | tablet | | 1/20 | 3/20 | ntinu | | | hours as needed. | | | 18 | 18 | ed | + + + +---------+------+------+-------+ | oxyCODONE | Take 1 tablet by | 120 | 0 | 03/0 | 03/1 | Disco | | (ROXICODONE) 5 mg | mouth every 6 hours | tablet | | 2/20 | 2/20 | ntinu | | tablet | as needed for Pain. | | | 18 | 18 | ed | | | Take 1-2 tablets | | | | | | | | every 4-6 hours as | | | | | | | | needed for pain | | | | | | + + + +---------+------+------+-------+ | oxyCODONE 10 MG | Take 1 tablet by | 120 | 0 | 03/1 | 03/2 | Disco | | TABS | mouth every 4 hours | tablet | | 2/20 | 1/20 | ntinu | | | as needed for Pain. | | | 18 | 18 | ed | + + + +---------+------+------+-------+ | diazePAM (VALIUM) | Take 1-2 tablets by | 90 | 1 | 03/1 | 04/0 | Disco | | 5 mg tablet | mouth every 6 hours | tablet | | 3/20 | 4/20 | ntinu | | | as needed for Muscle | | | 18 | 18 | ed | | | spasms. | | | | | | + + + +---------+------+------+-------+ | gabapentin | Take 1 capsule by | 90 | 2 | 03/1 | 04/0 | Disco | | (NEURONTIN) 300 mg | mouth 3 times daily. | capsule | | 3/20 | 4/20 | ntinu | | capsule | | | | 18 | 18 | ed | + + + +---------+------+------+-------+ | oxyCODONE 10 MG | Take 1 tablet by | 120 | 0 | 03/2 | 03/2 | Disco | | TABS | mouth every 4 hours | tablet | | 2/20 | 2/20 | ntinu | | | as needed for Pain. | | | 18 | 18 | ed | + + + +---------+------+------+-------+ | oxyCODONE 10 MG | Take 1-2 tablets by | 70 | 0 | 03/2 | 04/0 | Disco | | TABS | mouth every 4 hours | tablet | | 2/20 | /20 | ntinu | | | as needed. Max 10 | | | 18 | 18 | ed | | | tabs a day.May only | | | | | | | | be filled at | | | | | | | | [facility] in [facility] | | | | | | | | [place], [place] and must | | | | | | | | last 7 days.I will | | | | | | | | refill on 01/25 | | | | | | + + + +---------+------+------+-------+ Active Problems + + + | Problem | Noted Date | + + + | Left leg pain | 01/26/2018 | + + + | Influenza B | 11/25/2017 | + + + | Osteoarthritis of lumbar spine | 11/22/2017 | + + + + + | Overview: Osteoarthritis of spine with radiculopathy, lumbar | | region (M47.26), Spinal stenosis, lumbar region, without | | neurogenic claudication (M48.06), Lumbar radiculopathy (M54.16), | | Chronic right-sided low back pain with right-sided sciatica | | (M54.41, G89.29) | + + + + + | Smoker - Daily | 11/22/2017 | + + + | Degeneration of intervertebral disc of cervical region | 09/06/2017 | + + + | H/O gastric bypass | 09/06/2017 | + + + | History of renal calculi | 09/06/2017 | + + + | Hypomagnesemia | 06/18/2016 | + + + | Dizziness, nonspecific | 06/18/2016 | + + + | Chest pain, midsternal | 06/18/2016 | + + + + + | Overview: Stress test 10/05/2016 shows | | electrocardiographically normal stress test, excellent functional | | capacity, normal blood pressure response to exercise, moderate | | risk according to the luque treadmill score due to chest pain with | | exercise. Myranda De La Cruz MD. | + + + + + | Moderate protein-calorie malnutrition (HCC) | 06/18/2016 | + + + | Dehydration | 06/18/2016 | + + + | Chronic left-sided weakness | 06/18/2016 | + + + | Anxiety and depression | 06/18/2016 | + + + | Bacterial UTI | 06/18/2016 | + + + | Symptomatic hypotension | 06/17/2016 | + + + + + | Overview: Echocardiogram 06/18/2016 shows normal 2-D | | echo/M-mode/Doppler/color Doppler study. | + + + + + | Symptomatic sinus bradycardia | 06/17/2016 | + + + | Generalized weakness | 06/17/2016 | + + + | Recurrent falls | 06/17/2016 | + + + | Elevated LFTs | 06/17/2016 | + + + | Medication side effect, initial encounter | 06/17/2016 | + + + | Nephrolithiasis | 01/08/2016 | + + + | Cervical radiculopathy | 10/02/2015 | + + + + + | Overview: S/P C4-C6 cervical fusion by Dr. 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 | | Marital Status: | | Children: 4 | | Exercise: walks daily | | Sunscreen: never | | Caffeine: 10+ cups daily | | Seatbelt Use: 100% | + + + + + | Pulmonary emphysema (HCC) | 08/31/2015 | + + + | Chronic pain syndrome | 08/31/2015 | + + + | Vocal cord dysfunction | 06/05/2015 | + + + | Snoring | 05/26/2015 | + + + | Multiple allergies | 04/21/2015 | + + + | Gastroesophageal reflux disease without esophagitis | 04/21/2015 | + + + | Acute kidney failure (HCC) | 05/30/2013 | + + + | OSTEOARTHRITIS, LUMBOSACRAL SPINE | 04/03/2012 | + + + | Depression | 01/05/2011 | + + + | ANXIETY STATE, UNSPECIFIED | 01/05/2011 | + + + + + | Overview: ICD-10 Record update | | | | Overview: | | chronic | | | | IMO Problem List Replacement - 2017_Regulatory_1 | + + + + + | Hypothyroidism | 01/05/2011 | + + + | Cannabis abuse | 01/05/2011 | + + + | Tobacco use disorder | 01/05/2011 | + + + | SEIZURE DISORDER- NEUROLOGIST [facility] H[facility]EN [facility] | 01/05/2011 | + + + | Anemia | 01/05/2011 | + + + + + | Overview: Overview: | | cant keep iron down, gets B12 | | | | Dx Name changed by system update on 08/11/2017 | + + + + + | VITAMIN B12 DEFICIENCY | 01/05/2011 | + + + | BIPOLAR DISORDER UNSPECIFIED | 01/05/2011 | + + + + + | Overview: ICD-10 Record update | + + + + + | Functional disorder of stomach | 05/01/2007 | + + + + + | Overview: Overview: ELEVATED liver enzymes/alk phos, OPEN | | HAZEL 2004, do U/S if neg HepIMO Problem List Replacement - | | 2016_Regulatory_1 | |IMO Problem List Replacement - 2016_Regulatory_1 | + + + + + | Asthma - INHALERS Used | 03/05/2007 | + + + + + | Overview: Overview: | | Dx name chaged by system update 12/06/2016 | + + + + + | Insomnia | 03/05/2007 | + + + + + | Overview: Overview: | | Temazepam denied 05-01-07 DM | | | | Dx Name changed by system update on 08/11/2017 | + + + + + | Migraine headache | 03/05/2007 | + + + + + | Overview: Overview: | | IMO Problem List Replacement - 2016_Regulatory_1 | + + +---------+ + | Obesity | 03/05/2007 | +---------+ + + + | Overview: Overview: | | gastric bypass 2002 @ 400lbs @ [facility] | | | | Dx Name changed by system update on 08/11/2017 | + + + + + | Hypertension | 10/30/1999 | + + + | DEGENERATIVE DISC DISEASE, LUMBAR SPINE | | + + + | BACK PAIN, LUMBAR | | + + + | DRUG ABUSE, HX OF ILLEGAL | | + + + + + | Overview: ICD-10 Record update | + + + +---+ | PE (pulmonary embolism) | | + +---+ + + | Overview: Following gastric bypass surgery | | 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 | + + + +---+ | Stroke (HCC) | | + +---+ | Shortness of breath | | + +---+ | Reactive airway disease | | + +---+ | Nonspecific abnormal results of function study of pulmonary | | | system | | + +---+ | Lumbago | | + +---+ | Disorder of liver | | + +---+ | Emphysema of lung (HCC) | | + +---+ | Diabetes mellitus type II - DIET Control | | + +---+ + + | Overview: diet controlled | + + + +---+ | DDD (degenerative disc disease), lumbar | | + +---+ Encounters +--------+ + + + + | Date | Type | Specialty | Care Team | Description | +--------+ + + + + | 02/01/ | Emergency | | Zane Jones, | Chronic midline low | | 2017 | | | MD | back pain with | | | | | | bilateral sciatica | | | | | | (Primary Dx) | +--------+ + + + + | 01/31/ | Office | | Darian Caban | Chronic bilateral | | 2017 | Visit | | B, DO | low back pain, with | | | | | | sciatica presence | | | | | | unspecified (Primary | | | | | | Dx) | +--------+ + + + + | 01/30/ | Emergency | | Darian Ventura | Incisional pain | | 2017 | | | MD Deon | (Primary Dx) | +--------+ + + + + | 01/27/ | Emergency | | Levon Lott, | Laceration of | | 2018 - | | | MD Jaguar Dunne | multiple sites of | | | | | MD Jamie | left upper | | 01/28/ | | | | extremity, initial | | 2017 | | | | encounter (Primary | | | | | | Dx); Bipolar | | | | | | affective disorder, | | | | | | currently manic, | | | | | | moderate ([facility]); | | | | | | Chronic pain | | | | | | syndrome; Chronic | | | | | | bilateral low back | | | | | | pain without | | | | | | sciatica | +--------+ + + + + | 01/26/ | Office | | Manuel Sparks, | Chronic midline low | | 2017 | Visit | | DO Jaycee, | back pain with | | | | | Himanshu Segal PT | bilateral sciatica | | | | | | (Primary Dx); Lumbar | | | | | | spondylosis; S/P | | | | | | lumbar fusion; Left | | | | | | leg pain | +--------+ + + + + | 01/25/ | Emergency | | Demario Wilson, | Pain of lower | | 2017 | | | | extremity, | | | | | | unspecified | | | | | | laterality (Primary | | | | | | Dx) | +--------+ + + + + | 01/24/ | Telephone | | Manuel Sparks, | Appointment Question | 2017 | | | DO | | +--------+ + + + + | 01/23/ | Telephone | | Zane Villanueva MD | Care Coordination | | 2017 | | | | | +--------+ + + + + | 01/22/ | Clinical | | Manuel Sparks, | Medication | | 2017 | Support | | DO | management (Primary | | | | | | Dx) | +--------+ + + + + | 01/22/ | Telephone | | Matthew Garnica | No Show | | 2017 | | | MD Guzman FACS | | +--------+ + + + + | 01/22/ | Documentati | | Wali Marquez PT | No Show | | 2017 | on | | | | +--------+ + + + + | 01/18/ | Telephone | | Manuel Sparks, | Rx/Medication Pick | | 2017 | | | DO | Up; Medication | | | | | | Management | +--------+ + + + + | 01/18/ | Orders Only | | Patience Ordaz | S/P lumbar fusion | | 2017 | | | KWAKU Hahn | (Primary Dx); Misuse | | | | | | of drugs (HCC); | | | | | | Arthralgia, | | | | | | unspecified joint | +--------+ + + + + | 01/17/ | Emergency | | Levon Lott, | Acute bilateral low | | 2018 | | | MD | back pain without | | | | | | sciatica (Primary | | | | | | Dx) | +--------+ + + + + | 01/17/ | Refill | | Manuel Sparks, | Medication Refill; | | 2017 | | | DO | Medication Problem | +--------+ + + + + | 01/16/ | Telephone | | Manuel Sparks, | Fall | | 2017 | | | DO | | +--------+ + + + + | 01/15/ | Emergency | | Zane Jones, | Fall from bed, | | 2017 | | | MD | initial encounter | | | | | | (Primary Dx); Acute | | | | | | pain of left | | | | | | shoulder; Acute | | | | | | post-operative pain | +--------+ + + + + | 01/09/ | Office | | Manuel Sparks, | Lumbar spondylosis | | 2017 | Visit | | DO | (Primary Dx); S/P | | | | | | lumbar fusion | +--------+ + + + + | 01/05/ | Telephone | | Manuel Sparks, | ED Follow-up; Case | | 2017 | | | DO | Management (possible | | | | | | SNF placement) | +--------+ + + + + | 01/04/ | Emergency | | Jaguar Dunne, | Left-sided low back | | 2017 | | | MD | pain with left-sided | | | | | | sciatica, | | | | | | unspecified | | | | | | chronicity (Primary | | | | | | Dx) | +--------+ + + + + | 01/02/ | Hospital | | Manuel Sparks, | Lumbar | | 2018 | Encounter | | DO | radiculopathy; S/P | | | | | | lumbar fusion | +--------+ + + + + | 01/01/ | Orders Only | | Manuel Sparks, | Lumbar radiculopathy | | 2017 | | | DO | (Primary Dx); S/P | | | | | | lumbar fusion | +--------+ + + + + | 01/01/ | Telephone | | Manuel Sparks, | Other | | 2017 | | | DO | | +--------+ + + + + | 12/29/ | Office | | Patience Ordaz | Status post lumbar | 2017 | Visit | | KWAKU Hahn | spinal fusion | | | | | | (Primary Dx); Lumbar | | | | | | radiculopathy | +--------+ + + + + | 12/28/ | Hospital | | Manuel Sparks, | Other spondylosis | | 2017 | Encounter | | DO | with radiculopathy, | | | | | | lumbar region; S/P | | | | | | lumbar fusion | +--------+ + + + + | 12/25/ | Office | | Matthew Garnica | Osteoarthritis of | | 2017 | Visit | | MD Guzman FACS | spine with | | | | | | radiculopathy, | | | | | | lumbar region | | | | | | (Primary Dx); Lumbar | | | | | | radiculopathy; | | | | | | Neurogenic | | | | | | claudication; | | | | | | Chronic midline low | | | | | | back pain with | | | | | | bilateral sciatica; | | | | | | Spinal stenosis of | | | | | | lumbar region, | | | | | | unspecified whether | | | | | | neurogenic | | | | | | claudication present | +--------+ + + + + | 12/22/ | Telephone | | Manuel Sparks, | Appointment | | 2017 | | | DO | | +--------+ + + + + | 12/20/ | Refill | | Manuel Sparks, | Medication Refill | | 2017 | | | DO | | +--------+ + + + + | 12/20/ | Telephone | | Manuel Sparks, | Other | | 2017 | | | DO | | +--------+ + + + + | 12/19/ | Office | | Juan David Haile, | Encounter for | | 2017 | Visit | | PA | postoperative wound | | | | | | check (Primary Dx) | +--------+ + + + + | 12/18/ | Emergency | | Darian Ventura | Scott (Primary Dx); | | 2017 | | | MD Deon | Chronic low back | | | | | | pain, unspecified | | | | | | back pain | | | | | | laterality, with | | | | | | sciatica presence | | | | | | unspecified; Opioid | | | | | | dependence with | | | | | | opioid-induced | | | | | | disorder (HCC) | +--------+ + + + + | 12/13/ | Office | | Juan David Haile, | Encounter for | | 2018 | Visit | | PA | postoperative wound | | | | | | check (Primary Dx) | +--------+ + + + + | 12/12/ | Telephone | | Manuel Sparks, | Other | | 2017 | | | DO | | +--------+ + + + + | 12/11/ | Telephone | | Heidy Bethea, | Case Management | | 2018 | | | RN | (shower chair) | +--------+ + + + + | 12/10/ | Emergency | | Deon Mckeon | jayro Elizondo | | 2017 | | | Steven Nye MD | encounter (Primary | | | | | | Dx); Acute bilateral | | | | | | low back pain | | | | | | without sciatica | +--------+ + + + + | 12/06/ | Office | | Patience Oradz | S/P lumbar fusion | | 2018 | Visit | | [facility]U Hahn | (Primary Dx); Wound | | | | | | infection after | | | | | | surgery, initial | | | | | | encounter; Overuse | | | | | | of medication | +--------+ + + + + | 12/06/ | Orders Only | | Patience Ordaz | Status post lumbar | | 2017 | | | [facility]WAKU Hahn | spinal fusion; Wound | | | | | | drainage | +--------+ + + + + | 12/06/ | Orders Only | | Patience Ordaz | Wound drainage | | 2017 | | | [facility] Hahn | (Primary Dx); Status | | | | | | post lumbar spinal | | | | | | fusion | +--------+ + + + + | 12/05/ | Emergency | | Deon Mckeon | Back pain, | | 2017 | | | Steven Nye MD | unspecified back | | | | | | location, | | | | | | unspecified back | | | | | | pain laterality, | | | | | | unspecified | | | | | | chronicity (Primary | | | | | | Dx); Lower extremity | | | | | | edema | +--------+ + + + + | 12/05/ | Hospital | | Alberto Christine, | Leg swelling; Deep | | 2017 | Encounter | | SENIOR STRUCTURAL ENGINEER | venous thrombosis of | | | | | | pelvic vein | +--------+ + + + + | 12/05/ | Refill | | Manuel Sparks, | Medication Refill; | | 2017 | | | DO | Coordination Of Care | | | | | | (PCP, OP CM, ED); | | | | | | Results, Imaging | +--------+ + + + + | 12/05/ | Ancillary | | Alberto Christine, | Leg swelling; Deep | | 2018 | Orders | | SENIOR STRUCTURAL ENGINEER | venous thrombosis of | | | | | | pelvic vein | +--------+ + + + + | 12/04/ | Emergency | | Sherwin, | Hypotension, | | 2017 | | | MD Dano | unspecified | | | | | | hypotension type | | | | | | (Primary Dx); | | | | | | Polypharmacy; Leg | | | | | | swelling | +--------+ + + + + | 12/04/ | Office | | Zane Guardado, | Patient left after | | 2017 | Visit | | | triage (Primary Dx) | +--------+ + + + + | 12/01/ | Telephone | | Manuel Sparks, | Post Op (Post-op | | 2017 | | | DO | call) | +--------+ + + + + | 11/28/ | Emergency | | Deon Mckeon | Left leg pain | | 2017 | | | Steven Nye MD | (Primary Dx) | +--------+ + + + + | 11/28/ | Telephone | | Bridger, Manuel A, | Post-op Problem | | 2018 | | | DO | | +--------+ + + + + | 11/23/ | Hospital | | Manuel Sparks, | S/P lumbar fusion | | 2018 - | Encounter | | DO | (Primary Dx); | | | | | | Right-sided low back | | 11/27/ | | | | pain without | | 2017 | | | | sciatica, | | | | | | unspecified | | | | | | chronicity; | | | | | | Hypotension due to | | | | | | drugs; Symptomatic | | | | | | hypotension; Seizure | | | | | | ([facility]); ONESIMO (acute | | | | | | kidney injury) | | | | | | ([facility]); Degenerative | | | | | | disc disease, lumbar | +--------+ + + + + +---+ + | | Discharge | | | Summaries | | | - Sushma, | | | Patience | | | [place], | | | [facility] - | | | 11/27/2017 | | | 0912 PST | | | Formatting | | | of this | | | note may be | | | different | | | from the | | | original.YIN | | | ELLIOT | | | SUMMARYPt. | | | Name/Age/DO | | | B: Clare | | | Melly Chavez | | | 37 y.o. | | | 1980 | | | | | | Medical | | | Record | | | Number: | | | [id number] | | | Date of | | | Admission: | | | 11/23/2017 | | | Date | | | of | | | Discharge: | | | | | | 11/27/2017Ad | | | mitting | | | Physician: | | | Manuel A | | | Bridger, DO | | | | | | PCP: Alberto | | | B. 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- | | | NEUROLOGIST | | | | | | AT | | | [facility] | | | | | | Anemia | | | VITAMIN | | | B12 | | | DEFICIENCY | | | | | | BIPOLAR | | | DISORDER | | | UNSPECIFIED | | |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 | Needed | | | : | | | NoInst | | | rument | | | s/Spec | | | ial | | | Equipm | | | ent: | | | C-Arm, | | | | | | Drill, | | | | | | Micros | | | cope, | | | METRx, | | | | | | O-arm, | | | | | | Naviga | | | tion | | | Instru | | | ments, | | | | | | Stealt | | | h | | | Biolog | | | ics: | | | Infuse | | | , | | | grafto | | | n All | | | biolog | | | ics | | | approv | | | edTabl | | | e: | | | Jackso | | | n | | | Frame, | | | OSI | | | Flat | | | Top | | | REP: | | | Angel | | | Edy | | | | | | Implan | | | ts: | | | Diverg | | | ence-L | | | , | | | Voyage | | | r | +---+--------+ | | | | | Specia | | | l | | | Needs | | | Angel | | | | | | Edy | | | - | | | Diverg | | | ence-L | | | , | | | Voyage | | | rAll | | | biolog | | | ics | | | approv | | | edTabl | | | e: | | | Jackso | | | n | | | Frame, | | | OSI | | | Flat | | | Top | +---+--------+ from Last 3 Months Results CBC w/ Auto Differential (01/27/20181913) + + + + | Component | Value | Ref Range | + + + + | WBC | 6.6 | 4.0 - 11.0 K/uL | + + + + | RBC | 4.48 | 3.70 - 5.20 M/uL | + + + + | Hgb | 14.1 | 11.5 - 16.0 g/dL | + + + + | Hct | 41.9 | 34.0 - 47.0 % | + + + + | MCV | 93.7 | 83.0 - 101.0 fL | + + + + | MCH | 31.5 | 28.0 - 35.0 pg | + + + + | MCHC | 33.6 | 32.0 - 36.0 g/dL | + + + + | RDW-CV | 15.0 (H) | <15.0 % | + + + + | Platelet Count | 262 | 140 - 440 K/uL | + + + + | MPV | 8.8 | fL | + + + + | % Neutrophils | 50.4 | 45.0 - 82.0 % | + + + + | % Lymphocytes | 33.0 | 20.0 - 45.0 % | + + + + | % Monocytes | 6.6 | 4.0 - 12.0 % | + + + + | % Eosinophils | 8.5 (H) | 0.0 - 5.0 % | + + + + | % Basophils | 1.5 (H) | 0.0 - 1.0 % | + + + + | Absolute Neutrophils | 3.30 | 1.80 - 8.50 K/uL | + + + + | Absolute Lymphocytes | 2.20 | 0.60 - 3.20 K/uL | + + + + | Absolute Monocytes | 0.40 | 0.00 - 1.00 K/uL | + + + + | Absolute Eosinophils | 0.60 (H) | 0.00 - 0.40 K/uL | + + + + | Absolute Basophils | 0.10 | 0.00 - 0.10 K/uL | + + + + + + + | Specimen | Performing Laboratory | + + + | Blood | [facility] [address] | | | [place] [address] | + + + TSH (01/27/20181913) + + + + | Component | Value | Ref Range | + + + + | TSH | 0.10 (L)Comment: This is a third generation | 0.45 - 5.33 uIU/mL | | | TSH test. | | + + + + + + + | Specimen | Performing Laboratory | + + + | Blood | [facility] [address] | | | [place] [address] | + + + Lipase (01/27/20181913) + +-------+ + | Component | Value | Ref Range | + +-------+ + | LIPASE | 34 | 0 - 60 U/L | + +-------+ + + + + | Specimen | Performing Laboratory | + + + | Blood | [facility] [address] | | | [place] [address] | + + + Ethanol (01/27/2018 1914) + +-------+ + | Component | Value | Ref Range | + +-------+ + | ALCOHOL, | <5 | <400 mg/dL | | SERUM/PLASMA | | | + +-------+ + + + + | Specimen | Performing Laboratory | + + + | Blood | [facility] [address] | | | [place] [address] | + + + Acetaminophen Level (01/27/20181913) + +-------+ + | Component | Value | Ref Range | + +-------+ + | Acetaminophen Level | <10 | <10 ug/mL | + +-------+ + + + + | Specimen | Performing Laboratory | + + + | Blood | [facility] [address] | | | [place] [address] | + + + Salicylate Level (01/27/20181913) + +-------+ + | Component | Value | Ref Range | + +-------+ + | Salicylate | <4.0 | <30.0 mg/dL | + +-------+ + + + + | Specimen | Performing Laboratory | + + + | Blood | [facility] [address] | | | [place] [address] | + + + Comprehensive Metabolic Panel (01/27/20181913)Only the most recent of 2 results within the time period is included. + + + + | Component | Value | Ref Range | + + + + | NA | 140 | 136 - 149 mmol/L | + + + + | K | 3.7 | 3.5 - 5.1 mmol/L | + + + + | CL | 109 | 98 - 109 mmol/L | + + + + | CO2 | 26 | 24 - 31 mmol/L | + + + + | ANION GAP | 5 | 3 - 16 mmol/L | + + + + | GLUCOSE | 94 | 70 - 109 mg/dL | + + + + | BUN | 8 | 7 - 18 mg/dL | + + + + | Creatinine, | 0.64 | 0.60 - 1.30 mg/dL | | Serum/Plasma | | | + + + + | eGFR if not | >60Comment: GLOMERULAR FILTRATION | >=60 mL/min/1.73m2 | | OMANI | RATE,ESTIMATED mL/min/1.42t2Gwpx than | | | | 60 Chronic kidney disease,if found over | | | | a 3-month period.Less than 15 Kidney | | | | failureFor Americans,multiply the | | | | calculated GFR by 1.21. | | | | | | | | | | + + + + | CALCIUM | 9.1 | 8.3 - 10.5 mg/dL | + + + + | ALBUMIN | 3.6 | 3.2 - 5.0 g/dL | + + + + | BILIRUBIN TOTAL | 0.5Comment: This is an appended report. | 0.1 - 1.5 mg/dL | | | These results have been appended to a | | | | previously preliminary verified report. | | + + + + | Total protein | 5.7 (L) | 6.0 - 7.8 g/dL | + + + + | AST | 24Comment: This is an appended report. | 10 - 42 U/L | | | These results have been appended to a | | | | previously preliminary verified report. | | + + + + | ALT | 15Comment: This is an appended report. | 6 - 45 U/L | | | These results have been appended to a | | | | previously preliminary verified report. | | + + + + | ALK PHOS | 185 (H)Comment: This is an appended report. | 40 - 110 U/L | | | These results have been appended to a | | | | previously preliminary verified report. | | + + + + | GLOBULIN | 2.1 | 2.1 - 3.8 g/dL | + + + + | Albumin/Globulin | 1.7 | 0.8 - 2.0 | | ratio | | | + + + + | BUN/CREA | 12.5 | | + + + + + + + | Specimen | Performing Laboratory | + + + | Blood | [facility] | | | [place] [address] | + + + Drugs of Abuse, Screen, Urine (01/27/2018 225)Only the most recent of 2 results within the time period is included. + + + + | Component | Value | Ref Range | + + + + | Amphetamine Screen, | Negative | Negative | | Urine | | | + + + + | Barbiturates Screen, | Negative | Negative | | Urine | | | + + + + | Benzodiazepines, | Positive (A) | Negative | | Urine, Screen | | | + + + + | Cannabinoids Screen, | Negative | Negative | | Urine | | | + + + + | Cocaine Screen, | Negative | Negative | | Urine | | | + + + + | Methadone Screen, | Negative | Negative | | Urine | | | + + + + | Opiates Screen, | Positive (A) | Negative | | Urine | | | + + + + + + + | Specimen | Performing Laboratory | + + + | Urine - Urine, clean | [facility] | | catch | [place] [address] | + + + ECG 12 lead (01/27/2018 1850) + + + + | Component | Value | Ref Range | + + + + | VENTRICULAR RATE EKG | 69 | BPM | + + + + | ATRIAL RATE | 69 | BPM | + + + + | P-R INTERVAL | 152 | ms | + + + + | QRS DURATION | 104 | ms | + + + + | Q-T INTERVAL | 422 | ms | + + + + | Q-T INTERVAL | 452 | ms | | (CORRECTED) | | | + + + + | P WAVE AXIS | 45 | degrees | + + + + | QRS AXIS | 18 | degrees | + + + + | T AXIS | 27 | degrees | + + + + | INTERPRETATION TEXT | Normal sinus rhythmNormal ECGWhen compared | | | | with ECG of 21-OCT-2017 03:26,No | | | | significant change was foundConfirmed by | | | | KAILEE DENG MD ([id number]) on 01/29/2018 | | | | 6:07:15 PM | | | | | | + + + + + + + | Specimen | Performing Laboratory | + + + | | [facility] | + + + Drugs of Abuse, Opiates, Confirm, Urine (01/22/2018 1142) + + + + | Component | Value | Ref Range | + + + + | Opiates Screen, | Comment: See Scanned Report | | | Urine | | | + + + + + + + | Specimen | Performing Laboratory | + + + | Urine | [facility] [address] [facility] | | | [place] [address] | + + + XR Knee Left 1 - 2 Vw (01/15/20185) + + | Narrative | + + | CLINICAL INFORMATION: SHOULDER PAIN. COMPARISON: None. FINDINGS: 2 views of | | the left knee. Bones: No fracture or dislocation. No periostitis. Joints: | | Mild medial compartment joint space narrowing. No significant joint effusion. | | Soft tissue: No acute soft tissue abnormality identified. IMPRESSION - No acute | | osseous abnormality. Mild medial compartment osteoarthritis. Dictated and Signed | | by: Jermain Alejandro MD Electronically signed: 01/15/2018 6:29 PM | + + + + | Procedure Note | + + | Tang, Rad Results In - 01/15/2018 1832 PDT CLINICAL INFORMATION: SHOULDER PAIN. | | | | COMPARISON: None. | | | | FINDINGS: | | 2 views of the left knee. | | | | Bones: No fracture or dislocation. No periostitis. | | | | Joints: Mild medial compartment joint space narrowing. No significant joint | | effusion. | | | | Soft tissue: No acute soft tissue abnormality identified. | | | | IMPRESSION - | | No acute osseous abnormality. | | | | Mild medial compartment osteoarthritis. | | | | Dictated and Signed by: Jermain Alejandro MD | | Electronically signed: 01/15/2018 6:29 PM | + + XR Lumbar Spine 2 or 3 Vw (01/15/2018 1704)Only the most recent of 5 results within the period is included. + + | Narrative | + + | CLINICAL INFORMATION: SHOULDER PAIN. COMPARISON: MRI dated 01/02/2018 and | | radiographs 12/28/2017 FINDINGS: AP and lateral views of the lumbosacral | | spine. Posterior pedicle screw and mary jo and anterior screw and plate fusion changes | | at L4-S1 with stable positioning of the interbody graft markers. No evidence of | | hardware complication. Stable lumbar alignment. Normal height of the vertebral | | bodies. Multiple sternal clips are noted. IMPRESSION - Stable fusion changes at | | L4-S1. No acute lumbar spine abnormality. Dictated and Signed by: | | Jermain Alejandro MD Electronically signed: 01/15/2018 6:22 PM | + + + + | Procedure Note | + + | Tang, Rad Results In - 01/15/2018 1825 PDT CLINICAL INFORMATION: SHOULDER PAIN. | | | | COMPARISON: MRI dated 01/02/2018 and radiographs 12/28/2017 | | | | FINDINGS: | | AP and lateral views of the lumbosacral spine. | | | | Posterior pedicle screw and mary jo and anterior screw and plate fusion changes at | | L4-S1 with stable positioning of the interbody graft markers. No evidence of | | hardware complication. | | | | Stable lumbar alignment. Normal height of the vertebral bodies. | | | | Multiple sternal clips are noted. | | | | IMPRESSION - | | Stable fusion changes at L4-S1. No acute lumbar spine abnormality. | | | | Dictated and Signed by: Jermain Alejandro MD | | Electronically signed: 01/15/2018 6:22 PM | + + XR Shoulder Left 2 + Vw (01/15/2018 1704) + + | Narrative | + + | CLINICAL INFORMATION: SHOULDER PAIN. COMPARISON: None available. FINDINGS: 3 | | views of the left shoulder. Bones: No acute fracture or dislocation. Joints: | | Mild glenohumeral joint space narrowing. Mild AC joint hypertrophy. Soft tissue: | | No acute soft tissue abnormality. IMPRESSION - No acute abnormality. Mild | | glenohumeral and acromioclavicular joint degeneration. Dictated and Signed by: | | Jermain Alejandro MD Electronically signed: 01/15/2018 6:28 PM | + + + + | Procedure Note | + + | Khris Beckwith Results In - 01/15/2018 1831 PDT CLINICAL INFORMATION: SHOULDER PAIN. | | | | COMPARISON: None available. | | | | FINDINGS: | | 3 views of the left shoulder. | | | | Bones: No acute fracture or dislocation. | | | | Joints: Mild glenohumeral joint space narrowing. Mild AC joint hypertrophy. | | | | Soft tissue: No acute soft tissue abnormality. | | | | IMPRESSION - | | No acute abnormality. | | | | Mild glenohumeral and acromioclavicular joint degeneration. | | | | Dictated and Signed by: Jermain Alejandro MD | | Electronically signed: 01/15/2018 6:28 PM | + + MRI Lumbar Spine wo Contrast (01/02/2018 1552) + + | Narrative | + + | EXAM: MRI LUMBAR SPINE WO CONTRAST dated 01/02/2018 3:07 PM HISTORY:Lumbar | | radiculopathy COMPARISON: Lumbar spine radiographs dated December 28, 2017. Lumbar | | spine MRI dated October 19, 2017. TECHNIQUE: Multiplanar multisequence MR imaging | | of the lumbar spine without contrast. This is performed on a 1.5Tesla MRI scanner. | | FINDINGS:There are 5 lumbar-type vertebral bodies. This is either assumed for | | counting purposes or documented on prior studies. No scoliosis. No significant | | spondylolisthesis. Stable alignment at L4-L5 and L5-S1. Anterior, posterior, and | | interbody graft changes at L4-L5 and L5-S1. Integrity of the hardware cannot be | | determined on this study. I cannot confirm solid osseous fusion across the involved | | disc levels. The remaining lumbar disc levels are normal. There are hemangiomas in | | L2 and L3. No compression deformities. The conus terminates at the T12-L1 | | level. The visible distal cord is unremarkable. T12-L1 and L1-L2 are unremarkable | | and unchanged as seen on the sagittal sequence. The following levels are evaluated | | in the axial plane: L2-3: No significant central stenosis or neural foraminal | | narrowing. No significant interval change. L3-4: No significant central stenosis | | or neural foraminal narrowing. No significant interval change. L4-5: | | Postoperative changes. Patent central spinal canal and patent neural foramen. | | L5-S1: There is a high taper of the thecal sac. Postoperative changes. There is a | | component of soft tissue material that is likely disc protrusion centrally. This does | | not contribute to narrowing of the central spinal canal. It is not affecting the | | traversing S1 nerve roots. The central spinal canal at this level remains | | unchanged. The neural foramen at this level are patent. There is a small fluid | | signal structure in the left pelvis along the left external iliac artery. This | | measures 15 mm. It could be a lymphocele or residual postoperative | | seroma. Partial visualization of follicles in both ovaries. Relatively diffuse | | subcutaneous edema from the lower thoracic spine through the sacrum. There is some | | mild paraspinous muscle edema at and above the operative levels. IMPRESSION - | | There are posterior, anterior, and interbody fusion changes at L4-L5 through | | L5-S1. Integrity of the hardware cannot be determined on this study. I cannot | | confirm solid osseous fusion across the involved levels. The central spinal canal | | and neural foramen are patent at the operative level L4-L5. The central spinal | | canal and neural foramen are stable at the operative level of L5-S1. There is a | | high taper of the thecal sac at L5-S1. Diffuse subcutaneous edema and areas of edema | | in the paraspinous musculature. No focal fluid collections in the paraspinous muscles | | or subcutaneous soft tissues. Dictated and Signed by: Jairo Powell MD | | Electronically signed: 01/02/2018 4:33 PM | + + + + | Procedure Note | + + | Tang, Rad Results In - 01/02/2018 1636 PST EXAM: MRI LUMBAR SPINE WO CONTRAST dated | | 01/02/2018 3:07 PMHISTORY:Lumbar radiculopathyCOMPARISON: Lumbar spine radiographs dated | | December 28, 2017. Lumbar spine MRIdated October 19, 2017.TECHNIQUE: Multiplanar | | multisequence MR imaging of the lumbar spine withoutcontrast. This is performed on a | | 1.5Tesla MRI scanner. FINDINGS:There are 5 lumbar-type vertebral bodies. This is either | | assumed forcounting purposes or documented on prior studies. No scoliosis. No | | significantspondylolisthesis. Stable alignment at L4-L5 and L5-S1. Anterior, | | posterior,and interbody graft changes at L4-L5 and L5-S1. Integrity of the | | hardwarecannot be determined on this study. I cannot confirm solid osseous fusionacross | | the involved disc levels. The remaining lumbar disc levels are normal. There are | | hemangiomas in L2 and L3. No compression deformities. The conusterminates at the | | T12-L1 level. The visible distal cord is unremarkable. T12-L1 and L1-L2 are | | unremarkable and unchanged as seen on the sagittalsequence.The following levels are | | evaluated in the axial plane:L2-3: No significant central stenosis or neural foraminal | | narrowing. Nosignificant interval change.L3-4: No significant central stenosis or | | neural foraminal narrowing. Nosignificant interval change. L4-5: Postoperative | | changes. Patent central spinal canal and patent neuralforamen. L5-S1: There is a high | | taper of the thecal sac. Postoperative changes. Thereis a component of soft tissue | | material that is likely disc protrusion centrally. This does not contribute to narrowing | | of the central spinal canal. It is notaffecting the traversing S1 nerve roots. The | | central spinal canal at this levelremains unchanged. The neural foramen at this level | | are patent.There is a small fluid signal structure in the left pelvis along the | | leftexternal iliac artery. This measures 15 mm. It could be a lymphocele orresidual | | postoperative seroma. Partial visualization of follicles in bothovaries. Relatively | | diffuse subcutaneous edema from the lower thoracic spinethrough the sacrum. There is | | some mild paraspinous muscle edema at and abovethe operative levels.IMPRESSION - There | | are posterior, anterior, and interbody fusion changes at L4-L5 throughL5-S1. Integrity | | of the hardware cannot be determined on this study. I cannotconfirm solid osseous | | fusion across the involved levels.The central spinal canal and neural foramen are patent | | at the operative levelL4-L5.The central spinal canal and neural foramen are stable at | | the operative level ofL5-S1.There is a high taper of the thecal sac at L5-S1.Diffuse | | subcutaneous edema and areas of edema in the paraspinous musculature. No focal fluid | | collections in the paraspinous muscles or subcutaneous softtissues.Dictated and Signed | | by: Jairo Powell MD Electronically signed: 01/02/2018 4:33 PM | | This does not contribute to narrowing of the central spinal canal. It is not | |affecting the traversing S1 nerve roots. The central spinal canal at this level | |remains unchanged. The neural foramen at this level are patent. | | | |There is a small fluid signal structure in the left pelvis along the left | |external iliac artery. This measures 15 mm. It could be a lymphocele or | |residual postoperative seroma. Partial visualization of follicles in both | |ovaries. Relatively diffuse subcutaneous edema from the lower thoracic spine | |through the sacrum. There is some mild paraspinous muscle edema at and above | |the operative levels. | | | |IMPRESSION - | | | |There are posterior, anterior, and interbody fusion changes at L4-L5 through | |L5-S1. Integrity of the hardware cannot be determined on this study. I cannot | |confirm solid osseous fusion across the involved levels. | | | |The central spinal canal and neural foramen are patent at the operative level | |L4-L5. | | | |The central spinal canal and neural foramen are stable at the operative level of | |L5-S1. | | | |There is a high taper of the thecal sac at L5-S1. | | | |Diffuse subcutaneous edema and areas of edema in the paraspinous musculature. | |No focal fluid collections in the paraspinous muscles or subcutaneous soft | |tissues. | | | |Dictated and Signed by: Jairo Powell MD | | Electronically signed: 01/02/2018 4:33 PM | + + Culture, Wound, Smear (12/06/2017 1610) + + + + | Component | Value | Ref Range | + + + + | Culture | 4+ Staphylococcus epidermidis | | | | Comment: | | | | Probable contaminant | | | | Consistent with skin ryan. | | + + + + | Gram Stain Result | No white blood cells (PMNs) seen | | + + + + | Gram Stain Result | No squamous epithelial cells seen | | + + + + | Gram Stain Result | 2+ Gram positive cocci | | + + + + + + + | Specimen | Performing Laboratory | + + + | Wound - Abdomen | [facility] | | | [place] [address] | + + + CT Abdomen Pelvis w Contrast (12/05/2017 1238) + + | Narrative | + + | CT ABDOMEN PELVIS W CONTRAST 12/05/2017 11:58 AM HISTORY: UNILAT LEG SWELLING & DVT | | PELVIS CALL REPORT [phone]. COMPARISON: Multiple priors PROTOCOL: Axial | | images of the abdomen and pelvis were obtained after administration of 80 mL Omnipaque | | 350. Coronal and sagittal reformations were acquired. FINDINGS: LUNG BASE: | | Bibasilar dependent, prominent patchy airspace disease thought to represent atelectasis | | with component of pneumonia not entirely excluded but thought less likely. No evidence | | of pericardial or pleural effusion. HEPATOBILIARY: Mild intrahepatic and extrahepatic | | biliary ductal dilatation, thought to be within normal limits in this patient status | | post cholecystectomy and unchanged since 2016. Mild enlargement of the liver. No | | suspicious hepatic mass identified. Multiple subhepatic/hepatic calcifications are | | noted which are unchanged and presumably benign. SPLEEN: Normal | | parenchyma. No evidence of mass or splenomegaly. PANCREASE: Normal parenchyma. No | | evidence of pancreatic ductal dilation. ADRENAL GLANDS: No evidence of nodule, mass or | | suspicious thickening. KIDNEYS: Bilateral kidneys are without evidence of suspicious | | mass, calculus, or hydronephrosis. BOWEL: Similar postsurgical changes seen related to | | the gastroesophageal junction without evidence of acute abnormality in this region. | | VASCULATURE: Aorta is nonaneurysmal and without evidence of dissection. No evidence of | | DVT within the visualized common femoral and external iliac chain venous structures. | | LYMPH NODES: Interval development of multiple prominent, but subthreshold left | | superficial inguinal lymph nodes. PERITONEUM: No evidence of free air or suspicious | | implants. BLADDER: Mild diffuse thickening of the bladder wall which is nondistended. | | REPRODUCTIVE: Uterus appears to be surgically absent. Redemonstration of multiple | | predominantly simple appearing cystic lesions within the bilateral adnexa and compared | | with multiple prior CTs. Small amount of free fluid seen within the pelvis. SOFT | | TISSUES: Extensive edematous changes are seen in the anterior, lateral, and | | posterolateral left thigh soft tissues. Midline laparotomy scar is present. BONES: | | There are no acute osseous abnormalities. Anterior and posterior fixation hardware is | | seen at L4-S1 without evidence of hardware complication. IMPRESSION - 1. No acute | | intra-abdominal abnormality identified. No evidence of DVT on CT imaging. | | 2. Extensive left posterolateral, lateral, and anterior thigh soft tissue swelling | | which may represent edema or infectious etiologies. 3. Linear and slightly patchy | | bibasilar airspace disease is thought to represent atelectasis with superimposed | | pneumonia unable to be entirely excluded. 4. Similar to slightly decreased size of | | multiple cystic lesions identified within bilateral adnexa when compared with multiple | | prior CTs. 5. Mild hepatomegaly. 6. Thickening of the bladder wall, thought related to | | nondistention with cystitis unable to be entirely excluded. Dictated and | | Signed by: Klever Cole MD Electronically signed: 12/05/2017 2:16 PM | + + + + | Procedure Note | + + | Tang, Rad Results In - 12/05/[address] ABDOMEN PELVIS W CONTRAST 12/05/2017 11:58 | | AMHISTORY: UNILAT LEG SWELLING & DVT PELVISCALL REPORT [phone].COMPARISON: | | Multiple priorsPROTOCOL: Axial images of the abdomen and pelvis were obtained | | afteradministration of 80 mL Omnipaque 350. Coronal and sagittal reformations | | wereacquired.FINDINGS:LUNG BASE: Bibasilar dependent, prominent patchy airspace disease | | thought torepresent atelectasis with component of pneumonia not entirely excluded | | butthought less likely. No evidence of pericardial or pleural effusion. HEPATOBILIARY: | | Mild intrahepatic and extrahepatic biliary ductal dilatation,thought to be within normal | | limits in this patient status post cholecystectomyand unchanged since 2016. Mild | | enlargement of the liver. No suspicious hepaticmass identified. Multiple | | subhepatic/hepatic calcifications are noted which areunchanged and presumably benign. | | SPLEEN: Normal parenchyma. No evidence of mass or splenomegaly.PANCREASE: Normal | | parenchyma. No evidence of pancreatic ductal dilation.ADRENAL GLANDS: No evidence of | | nodule, mass or suspicious thickening.KIDNEYS: Bilateral kidneys are without evidence of | | suspicious mass, calculus, orhydronephrosis.BOWEL: Similar postsurgical changes seen | | related to the gastroesophagealjunction without evidence of acute abnormality in this | | region.VASCULATURE: Aorta is nonaneurysmal and without evidence of dissection. | | Noevidence of DVT within the visualized common femoral and external iliac chainvenous | | structures. LYMPH NODES: Interval development of multiple prominent, but subthreshold | | leftsuperficial inguinal lymph nodes. PERITONEUM: No evidence of free air or suspicious | | implants.BLADDER: Mild diffuse thickening of the bladder wall which is | | nondistended.REPRODUCTIVE: Uterus appears to be surgically absent. Redemonstration | | ofmultiple predominantly simple appearing cystic lesions within the bilateraladnexa and | | compared with multiple prior CTs. Small amount of free fluid seenwithin the pelvis.SOFT | | TISSUES: Extensive edematous changes are seen in the anterior, lateral, | | andposterolateral left thigh soft tissues. Midline laparotomy scar is present.BONES: | | There are no acute osseous abnormalities. Anterior and posterior fixationhardware is | | seen at L4-S1 without evidence of hardware complication.IMPRESSION -1. No acute | | intra-abdominal abnormality identified. No evidence of DVT on CTimaging.2. Extensive | | left posterolateral, lateral, and anterior thigh soft tissueswelling which may represent | | edema or infectious etiologies.3. Linear and slightly patchy bibasilar airspace disease | | is thought to representatelectasis with superimposed pneumonia unable to be entirely | | excluded.4. Similar to slightly decreased size of multiple cystic lesions | | identifiedwithin bilateral adnexa when compared with multiple prior CTs.5. Mild | | hepatomegaly.6. Thickening of the bladder wall, thought related to nondistention | | withcystitis unable to be entirely excluded.Dictated and Signed by: Klever Cole MD | | Electronically signed: 12/05/2017 2:16 PM | |adnexa and compared with multiple prior CTs. Small amount of free fluid seen | |within the pelvis. | |SOFT TISSUES: Extensive edematous changes are seen in the anterior, lateral, and | |posterolateral left thigh soft tissues. Midline laparotomy scar is present. | |BONES: There are no acute osseous abnormalities. Anterior and posterior fixation | |hardware is seen at L4-S1 without evidence of hardware complication. | | | |IMPRESSION - | |1. No acute intra-abdominal abnormality identified. No evidence of DVT on CT | |imaging. | |2. Extensive left posterolateral, lateral, and anterior thigh soft tissue | |swelling which may represent edema or infectious etiologies. | |3. Linear and slightly patchy bibasilar airspace disease is thought to represent | |atelectasis with superimposed pneumonia unable to be entirely excluded. | |4. Similar to slightly decreased size of multiple cystic lesions identified | |within bilateral adnexa when compared with multiple prior CTs. | |5. Mild hepatomegaly. | |6. Thickening of the bladder wall, thought related to nondistention with | |cystitis unable to be entirely excluded. | | | | | | | | | |Dictated and Signed by: Klever Cole MD | | Electronically signed: 12/05/2017 2:16 PM | + + Extra Green Top Tube (12/04/2017 1503) + +-------+ + | Component | Value | Ref Range | + +-------+ + | Extra Green Top Tube | Done | | + +-------+ + + + + | Specimen | Performing Laboratory | + + + | Blood | [facility] [address] | | | [place] [address] | + + + B Type Natriuretic Peptide (12/04/2017 1503) + +-------+ + | Component | Value | Ref Range | + +-------+ + | BNP | 94 | <100 pg/mL | + +-------+ + + + + | Specimen | Performing Laboratory | + + + | Blood | [facility] [address] | | | [place] [address] | + + + VAS Lower Extremity Venous Left (12/04/2017 1400)Only the most recent of 2 results within t he time period is included. + + | Narrative | + + | EXAM: VAS LOWER EXTREMITY VENOUS LEFT dated 12/04/2017 1:31 PM. HISTORY: LEG | | SWELLING. COMPARISON: November 28, 2017 patient TECHNIQUE: Compression sonography | | was performed from the groin through the popliteal fossa in the Left lower | | extremity. Grayscale and spectral Doppler analysis is performed. FINDINGS: There | | is phasic respiratory flow in all areas sampled. There is response to Valsalva in | | the common femoral vein. There is response to calf augmentation in all areas | | sampled. There is normal and complete compressibility in all areas sampled. There | | are no visible thrombi. There is respiratory phasic flow in the sampled portion of | | the Right common femoral vein. IMPRESSION - No evidence for deep venous | | thrombosis in the left lower extremity. The preliminary findings were conveyed to | | the ordering provider, by the plant operator, immediately following the exam. | | Dictated and Signed by: Jairo Powell MD Electronically signed: 12/04/2017 4:13 PM | | | + + + + | Procedure Note | + + | Tang, Rad Results In - 12/04/2017 1617 PST EXAM: VAS LOWER EXTREMITY VENOUS LEFT dated | | 12/04/2017 1:31 PM.HISTORY: LEG SWELLING.COMPARISON: November 28, 2017 patientTECHNIQUE: | | Compression sonography was performed from the groin through thepopliteal fossa in the | | Left lower extremity. Grayscale and spectral Doppleranalysis is performed.FINDINGS: | | There is phasic respiratory flow in all areas sampled. There isresponse to Valsalva in | | the common femoral vein. There is response to calfaugmentation in all areas sampled. | | There is normal and complete compressibilityin all areas sampled. There are no visible | | thrombi.There is respiratory phasic flow in the sampled portion of the Right | | commonfemoral vein. IMPRESSION -No evidence for deep venous thrombosis in the left | | lower extremity.The preliminary findings were conveyed to the ordering provider, by | | thesonographer, immediately following the exam.Dictated and Signed by: Jairo Powell | | Electronically signed: 12/04/2017 4:13 PM | |augmentation in all areas sampled. There is normal and complete compressibility | |in all areas sampled. There are no visible thrombi. | | | |There is respiratory phasic flow in the sampled portion of the Right common | |femoral vein. | | | |IMPRESSION - | | | |No evidence for deep venous thrombosis in the left lower extremity. | | | |The preliminary findings were conveyed to the ordering provider, by the | |plant operator, immediately following the exam. | | | | | |Dictated and Signed by: Jairo Powell MD | | Electronically signed: 12/04/2017 4:13 PM | + + CBC with Differential (12/04/2017 4805)Only the most recent of 5 results within the time katie guerin is included. + + + + | Component | Value | Ref Range | + + + + | WBC | 6.1 | 4.0 - 11.0 K/uL | + + + + | RBC | 3.52 (L) | 3.70 - 5.20 M/uL | + + + + | Hgb | 10.5 (L) | 11.5 - 16.0 g/dL | + + + + | Hct | 33.1 (L) | 34.0 - 47.0 % | + + + + | MCV | 94.1 | 83.0 - 101.0 fL | + + + + | MCH | 29.9 | 28.0 - 35.0 pg | + + + + | MCHC | 31.8 (L) | 32.0 - 36.0 g/dL | + + + + | RDW-CV | 13.2 | <15.0 % | + + + + | Platelet Count | 462 (H) | 140 - 440 K/uL | + + + + | MPV | 7.4 | fL | + + + + | % Neutrophils | 55.1 | 45.0 - 82.0 % | + + + + | % Lymphocytes | 25.6 | 20.0 - 45.0 % | + + + + | % Monocytes | 10.5 | 4.0 - 12.0 % | + + + + | % Eosinophils | 7.6 (H) | 0.0 - 5.0 % | + + + + | % Basophils | 1.2 (H) | 0.0 - 1.0 % | + + + + | Absolute Neutrophils | 3.40 | 1.80 - 8.50 K/uL | + + + + | Absolute Lymphocytes | 1.60 | 0.60 - 3.20 K/uL | + + + + | Absolute Monocytes | 0.60 | 0.00 - 1.00 K/uL | + + + + | Absolute Eosinophils | 0.50 (H) | 0.00 - 0.40 K/uL | + + + + | Absolute Basophils | 0.10 | 0.00 - 0.10 K/uL | + + + + + + + | Specimen | Performing Laboratory | + + + | Blood | [facility] [address] | | | [place] [address] | + + + Lactic Acid (12/04/20171335) + +-------+ + | Component | Value | Ref Range | + +-------+ + | LACTATE | 1.5 | 0.5 - 2.2 mmol/L | + +-------+ + + + + | Specimen | Performing Laboratory | + + + | Blood | [facility] [address] | | | [place] [address] | + + + POC Blood Gases (12/04/2017 1248) + + + + | Component | Value | Ref Range | + + + + | Specimen Source | Vein | | + + + + | pH, POC | 7.364 | 7.3 - 7.45 | + + + + | HCO3, POC | 20.7 (L) | 21.0 - 28.0 mmol/L | + + + + | TCO2, POC | 21.8 (L) | 22.0 - 29.0 mmol/L | + + + + | Base Excess, POC | -4.2 (L) | -2.0 - 3.0 mmol/L | + + + + | Base Excess, | -4.7 (L) | -2.0 - 3.0 mmol/L | | Extracellular fluid, | | | | POC | | | + + + + | O2 Sat, POC | 74 (L) | 90 - 100 % | + + + + | PCO2, POC | 36.3 | 35.0 - 50.0 mmHg | + + + + | PO2, POC | 40.4 | 25.0 - 50.0 mmHg | + + + + + + + | Specimen | Performing Laboratory | + + + | | [facility] [address] | | | [place] [address] | + + + XR Chest AP Portable (12/04/2017 1244)Only the most recent of 2 results within the time per iod is included. + + | Narrative | + + | SINGLE AP CHEST 12/04/2017 12:44 PM CLINICAL HISTORY: LEG SWELLING COMPARISON: | | Radiography November 24 and more remote exams FINDINGS: There is similar borderline | | to mild enlargement of the cardiac silhouette. Mediastinum and pulmonary vasculature | | are otherwise unremarkable. Somewhat platelike opacities in the lung bases are more | | pronounced and likely accentuated by low lung volumes. The upper lung stewart are | | clear. No pneumothorax or pleural effusion is visible. ACDF hardware is again | | evident. IMPRESSION - 1. PLATELIKE BASILAR OPACITY FAVORING AT LEAST A | | COMPONENT OF ATELECTASIS IN THE SETTING OF LOW LUNG VOLUMES. CONSIDER FOLLOW-UP PA | | AND LATERAL RADIOGRAPHS. 2. BORDERLINE TO MILD ENLARGEMENT OF THE CARDIAC | | SILHOUETTE. Dictated and Signed by: Raghu Ly MD Electronically signed: | | 12/04/2017 2:39 PM | + + + + | Procedure Note | + + | Tang, Rad Results In - 12/04/2017 1443 PST SINGLE AP CHEST 12/04/2017 12:44 PM | | | | CLINICAL HISTORY: LEG SWELLING | | | | COMPARISON: Radiography November 24 and more remote exams | | | | FINDINGS: There is similar borderline to mild enlargement of the cardiac | | silhouette. Mediastinum and pulmonary vasculature are otherwise unremarkable. | | Somewhat platelike opacities in the lung bases are more pronounced and likely | | accentuated by low lung volumes. The upper lung stewart are clear. No | | pneumothorax or pleural effusion is visible. ACDF hardware is again evident. | | | | IMPRESSION - | | | | 1. PLATELIKE BASILAR OPACITY FAVORING AT LEAST A COMPONENT OF ATELECTASIS IN | | THE SETTING OF LOW LUNG VOLUMES. CONSIDER FOLLOW-UP PA AND LATERAL RADIOGRAPHS. | | | | 2. BORDERLINE TO MILD ENLARGEMENT OF THE CARDIAC SILHOUETTE. | | | | Dictated and Signed by: Raghu Ly MD | | Electronically signed: 12/04/2017 2:39 PM | + + Basic Metabolic Panel (11/27/2017 0902)Only the most recent of 4 results within the time pe riod is included. + + + + | Component | Value | Ref Range | + + + + | NA | 135 (L) | 136 - 149 mmol/L | + + + + | K | 3.4 (L) | 3.5 - 5.1 mmol/L | + + + + | CL | 109 | 98 - 109 mmol/L | + + + + | CO2 | 20 (L) | 24 - 31 mmol/L | + + + + | ANION GAP | 6 | 3 - 16 mmol/L | + + + + | GLUCOSE | 93 | 70 - 109 mg/dL | + + + + | BUN | 7 | 7 - 18 mg/dL | + + + + | Creatinine, | 0.63 | 0.60 - 1.30 mg/dL | | Serum/Plasma | | | + + + + | eGFR if not | >60Comment: GLOMERULAR FILTRATION | >=60 mL/min/1.73m2 | | OMANI | RATE,ESTIMATED mL/min/1.00e8Pmhv than | | | | 60 Chronic kidney disease,if found over | | | | a 3-month period.Less than 15 Kidney | | | | failureFor Americans,multiply the | | | | calculated GFR by 1.21. | | | | | | | | | | + + + + | CALCIUM | 8.5 | 8.3 - 10.5 mg/dL | + + + + | BUN/CREA | 11.1 | | + + + + + + + | Specimen | Performing Laboratory | + + + | Blood | [facility] [address] | | | [place] [address] | + + + POC Glucose (11/27/2017 0645)Only the most recent of 16 results within the time period is i ncluded. + +-------+ + | Component | Value | Ref Range | + +-------+ + | Glucose, POC | 108 | 70 - 109 mg/dL | + +-------+ + + + + | Specimen | Performing Laboratory | + + + | Blood | [facility] [address] | | | [place] [address] | + + + Slide Review, Peripheral Smear (11/26/2017 0600) + + + + | Component | Value | Ref Range | + + + + | WBC MORPHOLOGY | Normal | | + + + + | PLT MORPHOLOGY | Normal | | + + + + | HYPOCHROMIA | Slight (A) | (none) | + + + + + + + | Specimen | Performing Laboratory | + + + | Blood | [facility] [address] | | | [place] [address] | + + + + + | Narrative | + + | No Platelet clumps seen | + + Urinalysis with Microscopic with Culture if Indicated (11/24/2017 1154) + + + + | Component | Value | Ref Range | + + + + | COLOR | Yellow | Light Yellow, | | | | Yellow, Straw | + + + + | CLARITY | Clear | Clear | + + + + | PH UA | 5.0 | 5.0 - 8.0 | + + + + | Specific [place] | 1.011 | 1.001 - 1.030 | + + + + | PROTEIN UA | Negative | Negative | + + + + | BLOOD UA | Moderate (A) | Negative | + + + + | GLUCOSE UA | Negative | Negative | + + + + | KETONES UA | Negative | Negative | + + + + | BILIRUBIN UA | Negative | Negative | + + + + | NITRITE UA | Negative | Negative | + + + + | LEUKOCYTES ESTERASE | Small (A) | Negative | | UA | | | + + + + | UROBILINOGEN UA | Negative | 0.2 mg/dL, 1.0 | | | | mg/dL, Negative | + + + + | WBC UA | 15-25 (A) | 0 - 2 /HPF | + + + + | WBC CLUMPS UA | Few (A) | None Seen /HPF | + + + + | RBC UA | 10-15 (A) | 0 - 2 /HPF | + + + + | SQUAMOUS EPITHELIAL | 2-5 (A) | 0 - 2 /LPF | | UA | | | + + + + | BACTERIA UA | 1+ (A) | Negative /HPF | + + + + | MUCUS UA | Present (A) | Negative /LPF | + + + + | HYALINE CASTS UA | 0-2 | 0 - 2 /LPF | + + + + + + + | Specimen | Performing Laboratory | + + + | Urine - Urine, Wright | [facility] [address] | | catheter | [place] [address] | + + + Culture, Urine (11/24/2017 1154) + + + + | Component | Value | Ref Range | + + + + | Culture | No Growth | | + + + + + + + | Specimen | Performing Laboratory | + + + | Urine - Urine, Wright | [facility] [address] | | catheter | [place] [address] | + + + Influenza A and B RNA, NAAT (11/24/2017 1153) + + + + | Component | Value | Ref Range | + + + + | Influenza A PCR | Negative | Negative | + + + + | Influenza B PCR | Positive (A) | Negative | + + + + + + + | Specimen | Performing Laboratory | + + + | Respiratory - | [facility] [address] | | Nasopharynx | [place] [address] | + + + Culture, Blood (11/24/2017 1125)Only the most recent of 2 results within the time period is included. + + + + | Component | Value | Ref Range | + + + + | Culture | No growth after 5 days incubation. | | + + + + + + + | Specimen | Performing Laboratory | + + + | Blood - Peripheral | [facility] [address] | | Blood | [place] [address] | + + + Magnesium (11/24/2017 0446) + +---------+ + | Component | Value | Ref Range | + +---------+ + | MG | 1.5 (L) | 1.8 - 2.5 mg/dL | + +---------+ + + + + | Specimen | Performing Laboratory | + + + | Blood | [facility] [address] | | | [place] [address] | + + + Hepatic Function Panel (11/24/2017 0446) + +---------+ + | Component | Value | Ref Range | + +---------+ + | BILIRUBIN TOTAL | 0.6 | 0.1 - 1.5 mg/dL | + +---------+ + | Total protein | 4.1 (L) | 6.0 - 7.8 g/dL | + +---------+ + | ALBUMIN | 2.4 (L) | 3.2 - 5.0 g/dL | + +---------+ + | AST | 77 (H) | 10 - 42 U/L | + +---------+ + | ALT | 54 (H) | 6 - 45 U/L | + +---------+ + | ALK PHOS | 103 | 40 - 110 U/L | + +---------+ + | GLOBULIN | 1.7 (L) | 2.1 - 3.8 g/dL | + +---------+ + | Albumin/Globulin | 1.4 | 0.8 - 2.0 | | ratio | | | + +---------+ + | Bilirubin, Direct | 0.20 | 0.00 - 0.20 mg/dl | + +---------+ + + + + | Specimen | Performing Laboratory | + + + | Blood | [facility] [address] | | | [place] [address] | + + + Culture, MRSA (11/23/20172102)Only the most recent of 2 results within the time period is included. + + + + | Component | Value | Ref Range | + + + + | Culture | Negative for MRSA by chromogenic agar | | | | method | | + + + + + + + | Specimen | Performing Laboratory | + + + | Respiratory - Nares | [facility] [address] | | | [place] [address] | + + + FL David Statdashawn No Charge (11/23/2017 1403) + + + | Specimen | Performing Laboratory | + + + | | [facility] | + + + + + | Narrative | + + | No Radiologist interpretation, please see Chart Review. | + + Anesthesia Perineural Note (11/23/2017 0827) + + | Narrative | + + | Elaina Palomo MD 11/23/2017 8:28 Perineural Procedure Note | | 11/23/2017 8:02 Nerve block: transverse abdominis plane Laterality: bilateral | | Continuous block with catheter: No Provider requested procedure: Dr. Manuel Sparks DO | | Indication: postoperative analgesia Preprocedure check: patient identified, | | procedure and rescue equipment checked, preevaluation including airway assessment | | complete, risks/benefits discussed, consent obtained, timeout performed, | | reassessment prior to procedure and monitors applied Patient position: supine | | Preparation: chlorhexidine/isopropyl alcohol Technique: ultrasound Radiology image | | stored in patient's chart: ultrasound Needle: insulated and stimulating Needle size: | | 21 g Needle length: 4 in Depth of nerve/plexus: 5 cm Medication administered through: | | needle and incremental injection Negative findings: no blood aspirated and no | | paresthesia Test response dose: negative Total volume of local anesthetic solution | | administered: 60 mL Attempts: 1 Ease of procedure: easy Comments: TAP block | | discussed with patient and available family members prior to surgery, they agree to | | proceed. Blocks being done at the request of the surgeon and the patient. All | | questions answered. Utilizing the ultrasound a scan was made from the right iliac | | crest to the costal margin. The external oblique, internal oblique and transversus | | abdominus muscles were identified. Under direct and constant needle tip | | visualization, the needle was passed until the tip of the needle was just beneath the | | internal oblique muscle. 5 cc increments of local anesthetic with a 30 second pause | | between injections. No heme tachycardia was noted. The patient tolerated the | | procedure well, no complication was noted. Utilizing the ultrasound a scan was | | made from the left iliac crest to the costal margin. The external oblique, | | internal oblique and transversus abdominus muscles were identified. Under direct | | and constant needle tip visualization, the needle was passed until the tip of the | | needle was just beneath the internal oblique muscle. 5 cc increments of local | | anesthetic with a 30 second pause between injections. No heme tachycardia was | | noted. The patient tolerated the procedure well, no complication was noted. | | See anesthesia record for medications and amounts given. Image placed into patients | | chart. [id number] Please see anesthesia record or flowsheet for vital sign | | documentation and see anesthesia record or MAR for all medication documentation. | | Performing provider: ELAINA PALOMO Electronically Signed by: Elaina Carter | | MD Dewey ESig date/time: 11/23/2017 8:27 | | | + + + + | Procedure Note | + + | Elaina Palomo MD - 11/23/2017 0827 PST Perineural Procedure Note11/23/2017 | | 8:02Nerve block: transverse abdominis planeLaterality: bilateralContinuous block with | | catheter: NoProvider requested procedure: Dr. Manuel Sparks DOIndication: postoperative | | analgesiaPreprocedure check: patient identified, procedure and rescue equipment checked, | | preevaluation including airway assessment complete, risks/benefits discussed, consent | | obtained, timeout performed, reassessment prior to procedure and monitors appliedPatient | | position: supinePreparation: chlorhexidine/isopropyl alcoholTechnique: | | ultrasoundRadiology image stored in patient's chart: ultrasoundNeedle: insulated and | | stimulatingNeedle size: 21 gNeedle length: 4 inDepth of nerve/plexus: 5 cmMedication | | administered through: needle and incremental injectionNegative findings: no blood | | aspirated and no paresthesiaTest response dose: negativeTotal volume of local anesthetic | | solution administered: 60 mLAttempts: 1Ease of procedure: easyComments: TAP block | | discussed with patient and available family members prior to surgery, they agree to | | proceed. Blocks being done at the request of the surgeon and the patient. All | | questions answered. Utilizing the ultrasound a scan was made from the right iliac crest | | to the costal margin. The external oblique, internal oblique and transversus abdominus | | muscles were identified. Under direct and constant needle tip visualization, the | | needle was passed until the tip of the needle was just beneath the internal oblique | | muscle. 5 cc increments of local anesthetic with a 30 second pause between injections. | | No heme tachycardia was noted. The patient tolerated the procedure well, no | | complication was noted.Utilizing the ultrasound a scan was made from the left iliac | | crest to the costal margin. The external oblique, internal oblique and transversus | | abdominus muscles were identified. Under direct and constant needle tip visualization, | | the needle was passed until the tip of the needle was just beneath the internal oblique | | muscle. 5 cc increments of local anesthetic with a 30 second pause between injections. | | No heme tachycardia was noted. The patient tolerated the procedure well, no | | complication was noted.See anesthesia record for medications and amounts given. Image | | placed into patients chart.[id number] see anesthesia record or flowsheet for | | vital sign documentation and see anesthesia record or MAR for all medication | | documentation.Performing provider: ELAINA PALOMO GElectronically Signed by: Elaina | | Emma Palomo MD ESig date/time: 11/23/2017 8:27 | |visualization, the needle was passed until the tip of the needle was just beneath the inter nal oblique muscle. 5 cc increments of local anesthetic with a 30 second pause between inje ctions. No heme tachycardia was | |noted. The patient tolerated the procedure well, no complication was noted. | | | |See anesthesia record for medications and amounts given. Image placed into patients chart. | |[id number] | | | | | |Please see anesthesia record or flowsheet for vital sign documentation and see anesthesia r ecord or ANGLE for all medication documentation. | | | | | |Performing provider: ELAINA PALOMO | | | | | | | |Electronically Signed by: Elaina Palomo MD ESig date/time: 8:27 | + + Anesthesia Airway Note (11/23/2017 0824) + + | Narrative | + + | Elaina Palomo MD 11/23/2017 8:27 Anesthesia Airway Placement | | 11/23/2017 8:00 Preprocedure check: patient identified, oxygen, airway assessed, patient | | reassessment prior to induction, airway equipment checked and suction Mask | | ventilation: easy Successful technique: Mac Laryngoscope blade size: 3 Airway | | grade: 1 (Full view of glottis) Other equipment: stylette Attempts: 1 Airway type: | | endotracheal Size: 6.5 Cuffed: cuffed Route, reference point: right side of mouth | | Tube depth: 22 cm Tube secured with: adhesive tape Trauma: none Tube placement | | verification: carbon dioxide detection, equal bilateral breath sounds and bilateral | | chest rise Performing provider: ELAINA PALOMO Comments: Head initially in | | neurtral Position. Smooth IV induction, mask airway established. Direct | | Laryngoscopy, ETT placed under direct vision. BSEB/ETCO2 (auscultation and | | capnography) to confirm placement. Depth noted. Ventilator on. | | Electronically Signed by: Elaina Palomo, | | ESig date/time: 11/23/2017 8:24 | | | + + + + | Procedure Note | + + | Elaina Palomo MD - 11/23/2017 0824 [facility] Anesthesia Airway Placement11/23/2017 | | 8:00Preprocedure check: patient identified, oxygen, airway assessed, patient | | reassessment prior to induction, airway equipment checked and suctionMask ventilation: | | easySuccessful technique: MacLaryngoscope blade size: 3 Airway grade: 1 (Full view of | | glottis)Other equipment: styletteAttempts: 1Airway type: endotrachealSize: 6.5Cuffed: | | cuffedRoute, reference point: right side of mouthTube depth: 22 cmTube secured with: | | adhesive tapeTrauma: noneTube placement verification: carbon dioxide detection, equal | | bilateral breath sounds and bilateral chest risePerforming provider: ELAINA PALOMO | | GComments: Head initially in neurtral Position.Smooth IV induction, mask airway | | established.Direct Laryngoscopy, ETT placed under direct vision. BSEB/ETCO2 | | (auscultation and capnography) to confirm placement. Depth noted. Ventilator | | on.Electronically Signed by: Elaina Palomo MD ESi | | date/time: 11/23/2017 8:24 | |Route, reference point: right side of mouth | |Tube depth: 22 cm | |Tube secured with: adhesive tape | |Trauma: none | |Tube placement verification: carbon dioxide detection, equal bilateral breath sounds and bi lateral chest rise | |Performing provider: ELAINA PALOMO | | | |Comments: Head initially in neurtral Position. | | | |Smooth IV induction, mask airway established. | | | |Direct Laryngoscopy, ETT placed under direct vision. BSEB/ETCO2 (auscultation and capnogra phy) to confirm placement. Depth noted. Ventilator on. | | | | | |Electronically Signed by: MD Manish Silverg date/time: 11/23/2017 8:24 | | | + + Type and Screen (11/23/2017 0640) + + + + | Component | Value | Ref Range | + + + + | ABO | O | | + + + + | Rh Type | Positive | | + + + + | Antibody Screen | Negative | | + + + + + + + | Specimen | Performing Laboratory | + + + | Blood | [facility] - [facility]OD [facility] Janette Hale | | | [place] [address] | + + + XR Chest 2 VW (11/09/2017 1259) + + | Narrative | + + | CLINICAL INFORMATION: Pre operative clearance. COMPARISON: 05/13/2017. | | FINDINGS: Frontal and lateral views of the chest. Lungs: No focal airspace | | disease, pleural effusion, or pneumothorax. Heart/mediastinum: Cardiac silhouette | | is of normal size. Central pulmonary vasculature has a normal appearance. Bones: No | | acute osseous abnormality appreciated. Cervical spinal fusion hardware. Other: | | Cholecystectomy clips are evident. IMPRESSION - Normal 2 view chest. Dictated | | and Signed by: Jermain Alejandro MD Electronically signed: 11/13/2017 2:52 PM | + + + + | Procedure Note | + + | Tang, Rad Results In 11/13/2017 1455 PST CLINICAL INFORMATION: Pre operative | | clearance.COMPARISON: 05/13/2017.FINDINGS: Frontal and lateral views of the chest. Lungs: | | No focal airspace disease, pleural effusion, or pneumothorax. Heart/mediastinum: | | Cardiac silhouette is of normal size. Central pulmonaryvasculature has a normal | | appearance.Bones: No acute osseous abnormality appreciated. Cervical spinal | | fusionhardware.Other: Cholecystectomy clips are evident.IMPRESSION - Normal 2 view | | chest.Dictated and Signed by: Jermain Alejandro MD Electronically signed: 11/13/2017 2:52 | | PM | | | |Heart/mediastinum: Cardiac silhouette is of normal size. Central pulmonary | |vasculature has a normal appearance. | | | |Bones: No acute osseous abnormality appreciated. Cervical spinal fusion | |hardware. | | | |Other: Cholecystectomy clips are evident. | | | |IMPRESSION - Normal 2 view chest. | | | |Dictated and Signed by: Jermain Alejandro MD | | Electronically signed: 11/13/2017 2:52 PM | + + from Last 3 Months Insurance + +--------+ +--------+ +---------+ | Payer | Benefi | Subscriber | Type | Phone | Address | | | t Plan | ID | | | | | | / | | | | | | | Group | | | | | + +--------+ +--------+ +---------+ | MEDICARE | MEDICA | xxxxxxxxxxx | Medica | +1-- | | | | RE | | re | 555 | | | | PART A | | | | | | | AND B | | | | | + +--------+ +--------+ +---------+ | MEDICARE | MEDICA | xxxxxxxxxxx | Medica | +1- | | | | RE | | re | [phone] | | | | PART A | | | | | | | AND B | | | | | + +--------+ +--------+ +---------+ | MEDICAID [place] | MEDICA | xxxxxxxxxxx | Medica | [phone]- | | | | ID | | id | [id number] | | | | [place] | | | | | | | [place] | | | | | + +--------+ +--------+ +---------+ + +--------+ +--------+ + + | Guarantor Name | Accoun | Relation to | Date | Phone | Billing Address | | | t Type | Patient | of | | | | | | | | | | + +--------+ +--------+ + + | CLARE CHAVEZ | Person | Self [birth year] | Home: | [address] | | | al/Fam | | 1979 | [phone] | [place] | | | myron | | | [phone] | [phone] | + +--------+ +--------+ + + | CLARE CHAVEZ | Third | Self | [birth year] | Home: | [address] | | | Democrat | | 1979 | [phone] | [place] | | | [place] | | | [phone] | | | ity | | | | | + +--------+ +--------+ + +
--- OUTSIDE RECORDS SUMMARY | 2018-02-06 23:12 | XMS | Encounter Summary ---
Demographics + + + | Address | [address] | | | [place] [address] | + + + | Home Phone | | + + + | Preferred Language | Unknown | + + + | Marital Status | | + + + | Christian Affiliation | [id number] | + + + | Race | Unknown | + + + | Ethnic Group | Unknown | + + + Author + + + | Author | [facility] | | | and Shaunana | + + + | Organization | [facility] | | | [...] Team Providers + +------+ + | Care Veneer Sawyer Name | Role | Phone | + +------+ + | Alberto Christine | PCP | | + +------+ + Reason for Visit + + + | Reason | Comments | + + + | Initial Assessment | | + + + Evaluate & Treat (Urgent) + + + + + + + | Status | Reason | Specialty | Diagnoses / | Referred By | Referred To | | | | | Procedures | Contact | Contact | + + + + + + + | Authorized | Specialty | Physical | Diagnoses | Bridger, | Wali Marquez | | | Services | Therapy / | Lumbar | Manuel Macdonald DO | B, PT | | | Required | Rehabilitatio | spondylosis | [address] | | | | | n | S/P lumbar | [address] | | | | | | fusion | [address] | | | | | | | [place], | | | | | | | [place] [address] | | | | | | | Phone: | | | | | | | [phone] | | | | | | | Fax: | | | | | | | [phone] | | + + + + + + + Encounter Details +--------+---------+ + + + | Date | Type | Department | Care Team | Description | +--------+---------+ + + + | 01/26/ | Office | [facility] | Manuel Sparks, | Chronic midline low | | 2018 | Visit | [facility] | DO [address] | back pain with | | | | [address] [place] | [address] [place], | bilateral sciatica | | | | [place] [address] | [place] [address] | (Primary Dx); Lumbar | | | | [phone] | [phone] | spondylosis; S/P | | | | | | lumbar fusion; Left | | | | | Himanshu Champion | leg pain | | | | | D, PT | | +--------+---------+ + + + Social History [...] this encounter Last Filed Vital Signs + +---------+ + | Vital Sign | Reading | Time Taken | + +---------+ + | Blood Pressure | 105/86 | 01/26/2018 1032 PDT | + +---------+ + | Pulse | 85 | 01/26/2018 1032 PDT | + +---------+ + | Temperature | - | - | + +---------+ + | Respiratory Rate | - | - | + +---------+ + | Oxygen Saturation | 98% | 01/26/20182 PDT | + +---------+ + | Inhaled Oxygen | - | - | | Concentration | | | + +---------+ + | Weight | - | - | + +---------+ + | Height | - | - | + +---------+ + | Body Mass Index | - | - | + +---------+ + in this encounter Functional Status + [...] + as of this encounter Progress Notes Himanshu Champion, PT - 01/26/2018 1015 PDTFormatting of this note may be different from the original. [facility] [address] [place] [address] Physical Therapy Initial Assessment Date: 01/26/2018 Patient Information Patient Name: Clare Courtney Date of : 1980 Age: 37 y.o. History Problem Left Leg Pain Diabetes mellitus type II - DIET Control diet controlled Mechanism of injury: lumbar fusion due to chronic low back pain. History of symptoms: hx of chronic low back pain with leg pain and difficulty walking that has progressed to the point of needing a lumbar fusion. She has a extensive medical hx with a past stroke, hx of kidney failure and CHF, anxiety depression and bipolar disorder with a hx of illegal drug abuse. Previous level of function and limitations: chronic pain Work status:not working Living situation: Lives with Social History Social History Marital status: Spouse name: N/A Number of children: 2 Years of education: N/A Occupational History [employer] Social History Main Topics Smoking status: Current Every Day Smoker Packs/day: 0.50 Years: 23.00 Types: Cigarettes Start date: 02/07/1993 Smokeless tobacco: Former User Quit date: 2008 Comment: notes she used to smoke 5 ppd Alcohol use No Drug use: No Comment: states she has been clean since age 15 Sexual activity: Yes Other Topics Concern Not on file Social History Narrative Lives: in [place] Grew up: [place], [place] Has previously lived in: [facility] and [place], [place] Exposure to toxic chemicals: no Exposure to asbestos: no Exposure to tuberculosis: no Has had a PPD or Quantiferon before: no Has pets at home: dog, denies being allergic to these Has ever owned birds: yes, in [facility] Other animal exposures: no Hobbies: gambling Encounter Diagnoses Code Name Primary? M54.41, M54.42, G89.29 Chronic midline low back pain with bilateral sciatica Yes M47.816 Lumbar spondylosis Z98.1 S/P lumbar fusion M79.605 Left leg pain Date of Onset: 11/23/2017 Referring Provider: Manuel Sparks DO No history on file. 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 utility Back pain with radiation Benign essential hypertension 10/1999 Bipolar 1 disorder (HCC) Bipolar disorder (HCC) has been admitted for overdose as well Bronchitis, acute Calf pain, left Candidiasis of vulva and vagina Cervical radiculitis Chest pain CHF (congestive heart failure) ([facility]) Constipation Contusion, lower leg COPD (chronic obstructive pulmonary disease) ([facility]) Cubital tunnel syndrome DDD (degenerative disc disease), lumbar Depression 10/1993 Disorder of liver DM type 2 (diabetes mellitus, type 2) ([facility]) diet controlled Drug abuse Dysuria Emphysema of lung ([facility]) Encounter for blood transfusion Eustachian tube dysfunction Exposure to STD Fall Flaccid hemiplegia and hemiparesis Affecting right wrist Folate deficiency anemia Full dentures Full dentures uppper & lower Gangrene ([facility]) Complication of abdominal surgery Headache Heart murmur 11/19/2009 benign echo 12/2012 Hemoptysis High risk sexual behavior Hypotension Hypothyroidism 01/05/2011 Hypovitaminosis D 05/21/2010 Influenza due to novel influenza A Insomnia 10/30/2000 Left shoulder pain Lumbago Menometrorrhagia Menorrhagia 01/29/2013 Microscopic hematuria Nausea with vomiting Nondependent opioid abuse, continuous Nonspecific abnormal results of function study of pulmonary system Orthopnea Other problems related to lifestyle Cutting Palpitations PE (pulmonary embolism) Following gastric bypass surgery PTSD (post-traumatic stress disorder) Reactive airway disease Rotator cuff sprain Scabies Seizures ([facility]) 05/02/2010 diagnosed at [facility] Shortness of breath Sinusitis, acute Stroke ([facility]) TMJ syndrome Tobacco use Traumatic bursitis Vitamin B deficiency 12/10/2009 Past Surgical History: Procedure Laterality Date ABDOMINAL HERNIA REPAIR 2-3 ABDOMINOPLASTY 1998 CARPAL TUNNEL RELEASE 2009 CERVICAL SPINE SURGERY Anterior 05/06/2016 Procedure: C4-5 and C5-6 Anterior Cervical Discectomy with Fusion and Plating ; Surgeon: Manuel pSarks DO; Location: [facility] MAIN OR SECTION 1998, 1997 CHOLECYSTECTOMY ENDOSCOPY 12/2014 Dr. Marin GASTRIC BYPASS SURGERY 1996 HYSTERECTOMY LAMINECTOMY N/A 11/23/2017 Procedure: L4-5, L5-S1 Anterior Lumbar Interbody Fusion w/ Posterolateral Fusion; Surgeon : Manuel Sparks DO; Location: [facility] MAIN OR TONSILLECTOMY AND ADENOIDECTOMY 1990 TUBAL LIGATION 1998 Family History Problem Relation Age of Onset Hypertension Mother Arthritis Mother Kidney disease Mother Allergies Mother Asthma Mother Sleep Apnea Mother Heart attack Father High blood pressure Father Sleep Apnea Father Seizures Father Hypertension Brother Sleep Apnea Brother Asthma Daughter Mental illness Daughter Sleep Apnea Daughter Developmental History Allergies Allergen Reactions Albuterol Swelling Tongue swelling Amoxicillin Anaphylaxis Ciprofloxacin Shortness Of Breath and Other (See Comments) Stomach pain and vomitting Clarithromycin Anaphylaxis Diphenhydramine Anaphylaxis Hydroxyzine Pamoate Anaphylaxis Ibuprofen Swelling Throat Swelling Methocarbamol Shortness Of Breath and Other (See Comments) Other reaction(s): chest pain Chest pain Paroxetine Shortness Of Breath Penicillins Anaphylaxis Prednisone Shortness Of Breath Throat swells up Tramadol Other (See Comments) Tramadol Hydrocodone Nausea And Vomiting Propranolol Nausea And Vomiting Fluoxetine Other (See Comments) Crawling skin Sertraline Other (See Comments) Crawling skin Prior Treatment: Acute hospital setting - within the last sixty days Rehab Precautions Office Visit from 01/26/2018 in [facility] Rehab Precautions Precautions Cardiac concerns Precautions Comments fall risk Learning Style Patient's Optimum Learning Style: listening, reading, observation, performance of task Pain Assessment: Pain Rating Pre Assessment: 9 Location: low back and left leg. EVALUATION: SUBJECTIVE: History of Presenting Problem: Clare Courtney is a 37 y.o. female who presents to therapy with a hx of chronic low back pain with leg pain and difficulty walking that has progressed to the point of needing a lumbar fusion. She has a extensive medical hx with a p ast stroke, hx of kidney failure and CHF, anxiety depression and bipolar disorder with a hx of illegal drug abuse. She has not been doing very well since the lumbar fusion with continu ed pain and difficulty with walking. She has been into ER 3 times since her surgery and h as fallen multiple times since her surgery as well. She states that she has a Wheel chair th at she uses at home due to her left leg giving out on her. She states that she falls a few t imes a day due to her left leg giving out on her. She has been seeking pain medication from ER, and multiple pharmacies when she should still have pain medication from prior scripts. P t states that there are times that she feels like she just wants to . PT asked her if she had proper support and she stated she had been contacted by a therapist. PT also asked if s he had a plan to kill herself and she stated that she did not. Functional Limitations: walking, driving and cooking. Precaution/special problems: cardiac precautions, kidney disease, liver disease. Patient s Goals: I would like to be able to get my left leg better. OBJECTIVE: Vitals: Vital Signs Pulse: 85 BP: 105/86 SpO2: 98 % MEWS Total Score: 0 Observation/Posture/Alignment: fwd flexed, ambulating with 4WW Gait: Fairly equivalent step length. Dorsiflexion during gait was WFL although pt could not move more than a few degrees upon testing. Functional Movements: Sit<>Stand: Normal, able to get up without using hands for support. Sit<>Supine: Needed cueing for use of log roll, pt fear avoidant to move left leg and lift it onto the bed. Double leg squat: NT Single leg squat: L= NT R= NT Toe Walking: NT, due to concern of falling Heel Walking: NT, due to concern of falling Balance: Fair. Pt did not display any LOB during gait and transfers. Pt let go of walker while walking without LOB. ROM: UE: NT LE: L LE very gaureded although ROM within normal limits. R LE full hip and knee mobilit y. Strength: UE: NT LE: L LE 3-/5, R LE 4-/5 Palpation: NT Neurovascular: NT Outcome Measure: Patient was tested with the oswestry. With a score of 84%. Standardized Tests: Oswestry Disability Index (ROD) Pain Intensity: 4 - The pain is very severe at the moment Personal Care: 4 - I need help every day in most aspects of my care Liftin - I can lift only very light weights Walkin - I can only walk with crutches or a cane Sittin - Pain prevents me from sitting for more than 10 minutes Standin - Pain prevents me from standing more than 10 minutes Sleepin - Because of pain I get less than 4 hours sleep Sex life (if applicable): 5 - Pain prevents any sex life at all Social Life: 5 - I have hardly any social life because of my pain Travelin - My pain prevents all travel except for visits to the doctor/therapist or hos pital Oswestry Disability Index Score (Calculated): 42 Oswestry Disability Percentage Score: 84 Oswestry Disability Index Goal: reduce oswestry score by 15% or greater to show improved ab ility to perform ADL's Oswestry Disability Index Goal Status: oswestry score of 84% Special Tests: Assessment Patient presents to physical therapy with low back and left leg pain S/P lumbar fusion. Obj ective exam reveals impairments with strength, pain, fear avoidance, and impaired balance. T hese impairments are causing functional limitations with walking, standing, sitting, transfe rs and stair ambulation , which are restricting this patient's ability to participate in AD L's. Signs and symptoms are consistent with chronic pain and fear avoidance with recent lumb ar fusion. This patient would benefit from aquatic therapy to help reach their functional go als. The relative density of the water will provide support to joints and weak muscles allow ing less stress on joints while strengthening. The fluid resistance of water will provide mu ltiple planes of resistance and assistance during exercise. The turbulence of the water will provide movement forces to work against and to increase circulation. Hydrostatic pressure p rovides compressive support which will assist in core bracing. The warm moving water will he lp to reduce stiffness and decrease pain, which will help to improve function. Complexities contributing to frequency and duration of therapy: hx of stroke, misuse of pain medication, hx of illegal drug use, chronic back pain, anxiety, depression, bipolar disorder, impaired liver function, impaired kidney function, CHF, hypotensive, bradycardia, seizure disorder. Rehabilitation potential: Patient demonstrates fair potential to achieve established goals and fair potential to achieve prior status to address the documented impairments by particip ating in skilled physical therapy services. Goals: Patient Specific Functional Scale Goal 1: able to walk for 15 min with 4WW to improve funct ional mobility and reduce fall risk Patient Specific Functional Scale Goal 1 Status: 0 Patient Specific Functional Scale Goal 2: pt to use 4WW and practice safe decision making i n her home to eliminate near daily falls. Patient Specific Functional Scale Goal 2 Status: 0 Oswestry Disability Index Goal: reduce oswestry score by 15% or greater to show improved ab ility to perform ADL's Oswestry Disability Index Goal Status: oswestry score of 84% PT G-Codes Functional Assessment Tool Used: oswestry Score: 84% Functional Limitation: Mobility: Walking and moving around Mobility: Walking and Moving Around Current Status (G8978): At least 60 percent but less th an 80 percent impaired, limited or restricted Mobility: Walking and Moving Around Goal Status (G8979): At least 20 percent but less than 40 percent impaired, limited or restricted Plan Date of Onset: 11/23/2017 Start of Care Date: 01/26/2018 Requested # of Visits: 16 visits 2x/week for 8 wks Certification From: 01/26/2018 Certification To: 03/23/2018 Treatment Plan/Interventions PT [id number] - Therapeutic [id number] - Neuromuscular [id number] - Gait Macario [id number] - Therapeutic [id number] - Manual [id number] - Self Care/Home [id number] - Aquatic Therapy/Exercises Patient and/or family has indicated understanding of treatment needs and actively participa sommer in the creation of this plan for care. Today's Treatment Start Time: 1015 Stop time: 1100 Duration: 45 minutes Timed Treatment Codes: 15 minutes # of PT Visits: 1 Objective: Education of rehab timeline, focus and expectations. Education of pain modulation with use of ice/MHP, positioning, pacing and movement strategies for self care. Educated pt about pain and fear avoidance including nervous system sensitivity with chronic pain. Next Visit: begin aquatic therapy. Planning on 6-8 visits in the aquatics. Electronically signed by: Himanshu Champion, PT, 01/26/2018 16:48 Patient Name: Clare Courtney/: 1980/ in this encounter Plan of Treatment +--------+---------+ [...] | | | | | | [place] [address] | | | | | | [phone] | | | | | | | [...] | | | | | | [place] [address] | | | | | | [phone] | | | | | | | [...] | | | | | | [place] [address] | | | | | | [phone] | | | | | | | [...] | | | | | | [place] [address] | | | | | | [phone] | | | | | | | [...] | | | | | [place] [address] | | | | | | [phone] | | | | | | | | +--------+---------+ + + + | 02/27/ | Office | Rehabilitation | Manuel Sparks, | | | 2017 | Visit | | DO [address] | | | | | | [address] [place], | | | | | | [place] [address] | | | | | | [phone] | | | | | | | [...] | | | | | | [place] [address] | | | | | | [phone] | | | | | | | | | | | | Himanshu Champion | | | | | | Luzma, PT | | +--------+---------+ + + + | 03/29/ | Office | Cardiology | Prem Call, | | | 2017 | Visit | | MD [address] | | | | | | [place], | | | | | | [place] [address] | | | | | | [phone] | | | | | | | | +--------+---------+ + + + as of this encounter Visit Diagnoses + + | Diagnosis | + + | Chronic midline low back pain with bilateral sciatica - Primary | + + | Lumbar spondylosis | + + | Lumbosacral spondylosis without myelopathy | + + | S/P lumbar fusion | + + | Arthrodesis status | + + | Left leg pain | + + | Pain in limb | + +"
--- OUTSIDE RECORDS SUMMARY | 2018-02-06 23:12 | XMS | Encounter Summary ---
Demographics + + + | Address | [address] | | | [place] [address] | + + + | Home Phone | | + + + | Preferred Language | Unknown | + + + | Marital Status | | + + + | Methodist Affiliation | 1073 | + + + | Race | Unknown | + + + | Ethnic Group | Unknown | + + + Author + + + | Author | [facility] | | | and [place] | + + + | Organization | [facility] | | | [...] Team Providers + +------+ + | Care Intermission Coordinator Name | Role | Phone | + +------+ + | Alberto Christine | PCP | | + +------+ + Reason for Visit + + + | Reason | Comments | + + + | Suicidal Thoughts | | + + + Encounter Details +--------+ + + + + | Date | Type | Department | Care Team | Description | +--------+ + + + + | 01/27/ | Emergency | [facility] | Levon Lott, | Laceration of | | 2018 - | | [facility] EM[facility] | [address] | multiple sites of | | | | CENTER [address] | [place] | left upper | | 01/28/ | | [place] | [address] [address] | extremity, initial | | 2018 | | [address] | MD Jamie [address] | encounter (Primary | | | | [phone] | ST [place] | Dx); Bipolar | | | | | [address] | affective disorder, | | | | | | currently manic, | | | | | | moderate (HCC); | | | | | | Chronic pain | | | | | | syndrome; Chronic | | | | | | bilateral low back | | | | | | pain without | | | | | | sciatica | +--------+ + + + + Social [...] | | Former User | | | 2008 | + +---+---+--------+ + + | Comments: [...] + + + | Blood Pressure | 106/73 | 01/28/2018 0013 PDT | + + + + | Pulse | 83 | 01/28/201812 PDT | + + + + | Temperature | 36.3 C (97.4 F) | 01/27/20181805 PDT | + + + + | Respiratory Rate | 18 | 01/28/201812 PDT | + + + + | Oxygen Saturation | 98% | 01/28/201812 PDT | + + + + | Inhaled Oxygen | - | - | | Concentration | | | + + + + | Weight | 63.5 kg (140 lb) | 01/27/20181805 PDT | + + + + | Height | 160 cm (5' 3") | 01/27/20181805 PDT | + + + + | Body Mass Index | 24.8 | 01/27/20181805 PDT | + + + + in [...] mLs by mouth | | 0 | 06/20/20 | | | magnesium | every 4 [...] | | | | | | | [facility] | | | | | | | [place] and must | | | | | [...] | | | | | | [place] [address] | | | | | | [phone] | | | | | | | [...] | | | | | | [place] [address] | | | | | | [phone] | | | | | | | [...] | | | | | | [place] [address] | | | | | | [phone] | | | | | | | [...] [place], | | | | | | [place] [address] | | | | | | [phone] | | | | | | | [...] | | | | | | [place] [address] | | | | | | [phone] | | | | | | | | +--------+---------+ + + + | 02/27/ | Office | Rehabilitation | Manuel Sparks, | | | 2017 | Visit | | DO [address] | | | | | | [address] [place], | | | | | | [place] [address] | | | | | | [phone] | | | | | | | [...] [place], | | | | | | [place] [address] | | | | | | [phone] | | | | | | | | | | | | Himanshu Champion | | | | | | D, PT | | +--------+---------+ + + + | 03/29/ | Office | Cardiology | Prem Call, | | | 2017 | Visit | | [address] | | | | | | [place], | | | | | | [place] [address] | | | | | | [phone] | | | | | | | | +--------+---------+ + + + + +--------+ + + | Name | Priori | Associated Diagnoses | Date/Time | | | ty | | | + +--------+ + + | ED INFORMATION EXCHANGE | Routin | | 01/27/20181801 PDT | | | e | | | + +--------+ + + as of this encounter Results TSH (01/27/20181913) + + + + | Component | Value | Ref Range | + + + + | TSH | 0.10 (L)Comment: This is a third generation | 0.45 - 5.33 uIU/mL | | | TSH test. | | + + + + + + + | Specimen | Performing Laboratory | + + + | Blood | [facility] [address] | | | [place] [address] | + + + Ethanol (01/27/2018 1914) + +-------+ + | Component | Value | Ref Range | + +-------+ + | ALCOHOL, | <5 | <400 mg/dL | | SERUM/PLASMA | | | + +-------+ + + + + | Specimen | Performing Laboratory | + + + | Blood | [facility] [address] | | | [place] [address] | + + + Acetaminophen Level (01/27/20181913) + +-------+ + | Component | Value | Ref Range | + +-------+ + | Acetaminophen Level | <10 | <10 ug/mL | + +-------+ + + + + | Specimen | Performing Laboratory | + + + | Blood | [facility] [address] | | | [place] [address] | + + + Salicylate Level (01/27/20181913) + +-------+ + | Component | Value | Ref Range | + +-------+ + | Salicylate | <4.0 | <30.0 mg/dL | + +-------+ + + + + | Specimen | Performing Laboratory | + + + | Blood | [facility] [address] | | | [place] [address] | + + + Lipase (01/27/20181913) + +-------+ + | Component | Value | Ref Range | + +-------+ + | LIPASE | 34 | 0 - 60 U/L | + +-------+ + + + + | Specimen | Performing Laboratory | + + + | Blood | [facility] [address] | | | [place] [address] | + + + Comprehensive Metabolic Panel (01/27/20181913) + + + + | Component [...] GLOMERULAR FILTRATION | >=60 mL/min/1.73m2 | | [place] | RATE,ESTIMATED mL/min/1.66t0Yzjc than | | | | 60 Chronic [...] | + + + | Blood | [facility] [address] | | | [place] [address] | + + + CBC w/ Auto Differential (01/27/20181913) + + [...] | + + + | Blood | [facility] [address] | | | [place] [address] | + + + Drugs of Abuse, Screen, Urine (01/27/2018 1858) + + + + | Component | [...] | Urine - Urine, clean | [facility] [address] | | catch | [place] [address] | + + + ECG 12 lead (01/27/20181849) + + + + | Component | [...] | INTERPRETATION TEXT | Normal sinus rhythmNormal ECGWhniraj compared | | | | with ECG of 21-OCT-2017 03:26,No | | | | significant change was foundConfirmed by | | | | KAILEE DENG MD ([id number]) on 01/29/2018 | | | | 6:07:15 PM | | | | | | + + + + + + + | Specimen | Performing Laboratory | + + + | | [facility] | + + + in this encounter Visit Diagnoses + + | Diagnosis | + + | Laceration of multiple sites of left upper extremity, initial encounter - Primary | + + | Bipolar affective disorder, currently manic, moderate (HCC) | + + | Bipolar I disorder, most recent episode (or current) manic, moderate | + + | Chronic pain syndrome | + + | Chronic bilateral low back pain without sciatica | + + Administered Medications + +--------+ +---------+------+ + | Medication Order | MAR | Action | Dose | Rate | Site | | | Action | Date | | | | + +--------+ +---------+------+ + | [id number] | Given | | 0.5 mLs | | Deltoid- | | pertussis (ADACEL, Tdap) vaccine | | 8 20:23 | | | Right | | injection 0.5 mL 0.5 mL, | | PDT | | | | | Intramuscular, ONE TIME VACCINE, | | | | | | | 01/27/18 at 2020, For 1 dose, | | | | | | | Keep in refrigerator. Give | | | | | | | patient education information. | | | | | | + +--------+ +---------+------+ + +---+---+ | | | +---+---+ in this encounter
--- OUTSIDE RECORDS SUMMARY | 2018-02-06 23:12 | XMS | Encounter Summary ---
Demographics + + + | Address | [address] | | | [place] [address] | + + + | Home Phone | | + + + | Preferred Language | Unknown | + + + | Marital Status | | + + + | Episcopal Affiliation | 1073 | + + + | Race | Unknown | + + + | Ethnic Group | Unknown | + + + Author + + + | Author | [facility] | | | and [place] | + + + | Organization | [facility] | | | and [place] | + + + | Address | Unknown | + + + | Phone | Unavailable | + + + Support + + +---------+ + | Name | Relationship | Address | Phone | + + +---------+ + | Elaine Zamrbano | ECON | Unknown | | + + +---------+ + | Rosalia Zambrano | ECON | Unknown | | + + +---------+ + Care Team Providers + +------+ + | Care Delivery Rn Name | Role | Phone | + +------+ + | Alberto Christine | PCP | | + +------+ + Reason for Visit + + + | Reason | Comments | + + + | Back Pain | | + + + Encounter Details +--------+ + + + + | Date | Type | Department | Care Team | Description | +--------+ + + + + | 02/01/ | Emergency | [facility] | Zane Jones, | Chronic midline low | | 2018 | | MED CTR EMER[facility]Y | MD [address] | back pain with | | | | CENTER [address] | [place], [place] | bilateral sciatica | | | | [place], [place] | [address] | (Primary Dx) | | | | [address] | | | | | | [phone] | | | +--------+ + + + [...] + + + + | Weight | - | - | + + + + | Height | - | - | + + + + | Body Mass Index | - | - | + + + + in this [...] + + + as of this encounter Discharge Instructions The following attachments cannot be sent through Care Everywhere.Back Pain, Relieving (Engl liam)in this encounter Medications at Time of Discharge [...] + + + +---------+ + + | cyclobenzaprine | Take 1 tablet by | 20 | 0 | 02/02/20 | | | (FLEXERIL) 10 mg | mouth 3 times daily | tablet | | 18 | 8 | | tablet | as needed for Muscle | | | | | | | spasms for up to 14 | | | | | | | days. | | | | | + + [...] | | | | | | [place] [address] | | | | | | [phone] | | | | | | | [...] | | | | | | [place] [address] | | | | | | [phone] | | | | | | | [...] | | | | | | [place] [address] | | | | | | [phone] | | | | | | | [...] [place], | | | | | | [place] [address] | | | | | | [phone] | | | | | | | [...] | | | | | | [place] [address] | | | | | | [phone] | | | | | | | | +--------+---------+ + + + | 02/27/ | Office | Rehabilitation | Manuel Sparks, | | | 2017 | Visit | | DO [address] | | | | | | [address] [place], | | | | | | [place] [address] | | | | | | [phone] | | | | | | | | | | | | Himanshu Champion | | | | | | D, PT | | +--------+---------+ + + + | 03/01/ | Office | Rehabilitation | Manuel Sparks, | | | 2017 | Visit | | DO [address] | | | | | | [address] [place], | | | | | | [place] [address] | | | | | | [phone] | | | | | | | | | | | | Himanshu Champion | | | | | | D, PT | | +--------+---------+ + + + | 03/29/ | Office | Cardiology | Prem Call, | | | 2017 | Visit | | [address] | | | | | | [place], | | | | | | [place] [address] | | | | | | [phone] | | | | | | | | +--------+---------+ + + + as of this encounter Visit Diagnoses + + | Diagnosis | + + | Chronic midline low back pain with bilateral sciatica - Primary | + + Administered Medications + + + +-------+------+------+ | Medication Order | MAR | Action | Dose | Rate | Site | | | Action | Date | | | | + + + +-------+------+------+ | cyclobenzaprine (FLEXARIL) | Dispense | 02/01/2018 | 10 mg | | | | tablet (ER Prepack) 10 mg 10 mg, | to Home | 4:24 | | | | | Oral, EVERY 8 HOURS PRN, Muscle | | PDT | | | | | spasms, Starting [facility] 02/01/18 at | | | | | | | 0418 | | | | | | + + + +-------+------+------+ +---+---+ | | | +---+---+ in this encounter"
--- OUTSIDE RECORDS SUMMARY | 2018-02-06 23:13 | XMS | Encounter Summary ---
Demographics + + + | Address | [address] | | | [place] [address] | + + + | Home Phone | | + + + | Preferred Language | Unknown | + + + | Marital Status | | + + + | Jainism Affiliation | 1073 | + + + | Race | Unknown | + + + | Ethnic Group | Unknown | + + + Author + + + | Author | [facility] | | | and [place] | + + + | Organization | [facility] | | | and [...] Team Providers + +------+ + | Care Flower Shop Manager Name | Role | Phone | + +------+ + | Alberto Christine | PCP | | + +------+ + Reason for Visit + + + | Reason | Comments | + + + | Care Coordination | | + + + Encounter Details +--------+ + + + + | Date | Type | Department | Care Team | Description | +--------+ + + + + | 01/23/ | Telephone | [facility] [place] | Zane Villanueva MD | Care Coordination | | 2017 | | NEUROSURGERY [address] | [address] [place] | | | | | [address] [facility] [address] | [address] [place] | | | | | [place], [place] | [address] | | | | | [address] | | | | | | [phone] | | | +--------+ + + + [...] + + + as of this encounter Functional Status + + + [...] + + + as of this encounter Plan [...] | | | | | | [place] [address] | | | | | | [phone] | | | | | | | [...] | | | | | | [place] [address] | | | | | | [phone] | | | | | | | | | | | | Himanshu Champion | | | | | | D, PT | | +--------+---------+ + + + | 02/20/ | Office | Rehabilitation | Manuel Sparks, | | | 2017 | Visit | | DO [address] | | | | | | [address] [place], | | | | | | [place] [address] | | | | | | [phone] | | | | | | | [...] | | | | | | [place] [address] | | | | | | [phone] | | | | | | | [...] [place] | | | | | | [place] [address] | | | | | | [phone] | | | | | | | | +--------+---------+ + + + | 02/27/ | Office | Rehabilitation | Manuel Sparks, | | | 2017 | Visit | | DO [address] | | | | | | [address] [place], | | | | | | [place] [address] | | | | | | [phone] | | | | | | | | | | | | Himanshu Champion | | | | | | D, PT | | +--------+---------+ + + + | 03/01/ | Office | Rehabilitation | Manuel Sparks, | | 2017 | Visit | | DO [address] | | | | | | [address] [place], | | | | | | [place] [address] | | | | | | [phone] | | | | | | | | | | | | Himanshu Champion | | | | | | D, PT | | +--------+---------+ + + + | 03/29/ | Office | Cardiology | Prem Call, | | | 2017 | Visit | | MD [address] | | | | | | [place], | | | | | | [place] [address] | | | | | | [phone] | | | | | | | | +--------+---------+ + + + as of this encounter Visit Diagnoses Not on filein this encounter"
--- OUTSIDE RECORDS SUMMARY | 2018-02-06 23:13 | XMS | Encounter Summary ---
Demographics + + + | Address | [address] | | | [place] [address] | + + + | Home Phone | | + + + | Preferred Language | Unknown | + + + | Marital Status | | + + + | Confucianism Affiliation | 1073 | + + + | Race | Unknown | + + + | Ethnic Group | Unknown | + + + Author + + + | Author | [facility] | | | and [place] | + + + | Organization | [facility] | | | [...] Team Providers + +------+ + | Care Capacity Planning Manager Name | Role | Phone | + +------+ + | Alberto Christine | PCP | | + +------+ + Reason for Visit +---------+ + | Reason | Comments | +---------+ + | No Show | | +---------+ + Encounter Details +--------+ + + + + | Date | Type | Department | Care Team | Description | +--------+ + + + + | 01/22/ | Telephone | [facility] | Matthew Garnica | No Show | | 2018 | | SURGERY [address] | MD Thomas, FACS [address] | | | | | [address] [place], [place] | [address] [facility] | | | | | [address] | [place] [address] | | | | | [phone] | [phone] | | | | | | | | +--------+ + [...] | Visit | | DO [address] | | | | | | [address] [place], | | | | | | [place] [address] | | | | | | [phone] | | | | | | | | | | | | Himanshu Champion | | | | | | Luzma PT | | +--------+---------+ + + + | 02/15/ | Office | Rehabilitation | Manuel Sparks, | | | 2017 | Visit | | DO [address] | | | | | | [address] [place], | | | | | | [place] [address] | | | | | | [phone] | | | | | | | [...] | | | | | | [place] [address] | | | | | | [phone] | | | | | | | [...] | | | | | | [place] [address] | | | | | | [phone] | | | | | | | [...] | | | | | [place] [address] | | | | | | [phone] | | | | | | | | +--------+---------+ + + + | 02/27/ | Office | Rehabilitation | Manuel Sparks, | | | 2017 | Visit | | DO [address] | | | | | | [address] [place], | | | | | | [place] [address] | | | | | | [phone] | | | | | | | [...] | | | | | | [place] [address] | | | | | | [phone] | | | | | | | | | | | | Himanshu Champion | | | | | | D, PT | | +--------+---------+ + + + | 03/29/ | Office | Cardiology | Prem Call, | | | 2017 | Visit | | MD [address] | | | | | | [place], | | | | | | [place] [address] | | | | | | [phone] | | | | | | | | +--------+---------+ + + + as of this encounter Visit Diagnoses Not on filein this encounter"
--- OUTSIDE RECORDS SUMMARY | 2018-02-06 23:13 | XMS | Encounter Summary ---
Demographics + + + | Address | [address] | | | [place] [address] | + + + | Home Phone | | + + + | Preferred Language | Unknown | + + + | Marital Status | | + + + | Sikh Affiliation | 1073 | + + + | Race | Unknown | + + + | Ethnic Group | Unknown | + + + Author + + + | Author | [facility] | | | and [place] | + + + | Organization | [facility] | | | [...] Team Providers + +------+ + | Care Screen Printing Paster Name | Role | Phone | + +------+ + | Alberto Christine | PCP | | + +------+ + Reason for Visit + + + | Reason | Comments | + + + | Appointment Question | | + + + Encounter Details +--------+ + + + + | Date | Type | Department | Care Team | Description | +--------+ + + + + | 01/24/ | Telephone | [facility] [place] | Manuel Sparks, | Appointment Question | | 2017 | | NEUROSURGERY [address] | DO [address] | | | | | [address] | [address] [place], | | | | | [place] | [place] [address] | | | | | [address] | [phone] | | | | | [phone] | | | +--------+ + + + [...] [place], | | | | | | [place] [address] | | | | | | [phone] | | | | | | | [...] | | | | | | [place] [address] | | | | | | [phone] | | | | | | | [...] | | | | | | [place] [address] | | | | | | [phone] | | | | | | | [...] [place], | | | | | | [place] [address] | | | | | | [phone] | | | | | | | | | | | | Himanshu Champion | | | | | | D, PT | | +--------+---------+ + + + | 02/22/ | Office | General Surgery | Matthew Garnica | | | 2017 | Visit | | MD Guzman FACS [address] | | | | | | [address] | | | | | | [place] [address] | | | | | | [phone] | | | | | | | | +--------+---------+ + + + | 02/27/ | Office | Rehabilitation | Manuel Sparks, | | | 2017 | Visit | | DO [address] | | | | | | [address] [place], | | | | | | [place] [address] | | | | | | [phone] | | | | | | | | | | | | Himanshu Champion | | | | | | D, PT | | +--------+---------+ + + + | 03/01/ | Office | Rehabilitation | Manuel pSarks, | | | 2017 | Visit | | DO [address] | | | | | | [address] [place], | | | | | | [place] [address] | | | | | | [phone] | | | | | | | | | | | | Himanshu Champion | | | | | | D, PT | | +--------+---------+ + + + | 03/29/ | Office | Cardiology | Prem Call, | | | 2017 | Visit | | [address] | | | | | | [place], | | | | | | [place] [address] | | | | | | [phone] | | | | | | | | +--------+---------+ + + + as of this encounter Visit Diagnoses Not on filein this encounter"
--- OUTSIDE RECORDS SUMMARY | 2018-02-06 23:13 | XMS | Encounter Summary ---
Demographics + + + | Address | [address] | | | [place] [address] | + + + | Home Phone | | + + + | Preferred Language | Unknown | + + + | Marital Status | | + + + | Tenriism Affiliation | 1073 | + + + | Race | Unknown | + + + | Ethnic Group | Unknown | + + + Author + + + | Author | [facility] | | | and [place] | + + + | Organization | [facility] | | | [...] Team Providers + +------+ + | Care Office Receptionist Name | Role | Phone | + [...] + + | 01/25/ | Emergency | [facility] | Demario Wilson, | Pain of lower | | 2017 | | [facility] | MD [address] | extremity, | | | | CENTER [address] | [place] | unspecified | | | | [place], [place] | [phone] | laterality (Primary | | | | [address] | | Dx) | | | | [phone] | | | +--------+ + + + [...] + + + | Blood Pressure | 98/61 | 01/25/20181117 PDT | + + + + | Pulse | 107 | 01/25/20181117 PDT | + + + + | Temperature | - | - | + + + + | Respiratory Rate | 16 | 01/25/20181117 PDT | + + + + | Oxygen Saturation | 99% | 01/25/20181117 PDT | + + + + | Inhaled Oxygen | - | - | | Concentration | | | + + + + | Weight | 65 kg (143 lb 4.8 | 01/25/20181117 PDT | | | oz) | | + + + + | Height | - | - | + + + + | Body Mass Index | 25.38 | 01/25/20181117 PDT | + + + + in [...] following attachments cannot be sent through Care Everywhere.Pain, Measuring Your (Engl liam)in this encounter Medications at Time [...] | SYMBICORT 160-4.5 | | | | 01/11/20 | | | MCG/ACT inhaler | | [...] | | | | | | | [facility] | | | | | | | [facility] Dc and must | | | | | [...] | | | | | | [place] [address] | | | | | | [phone] | | | | | | | [...] | | | | | | [place] [address] | | | | | | [phone] | | | | | | | [...] | | | | | | [place] [address] | | | | | | [phone] | | | | | | | [...] [place], | | | | | | [place] [address] | | | | | | [phone] | | | | | | | [...] | | | | | | [place], [place] [address] | | | | | | [phone] | | | | | | | | +--------+---------+ + + + | 02/27/ | Office | Rehabilitation | Manuel Sparks, | | | 2017 | Visit | | DO [address] | | | | | | [address] [place], | | | | | | [place] [address] | | | | | | [phone] | | | | | | | | | | | | Himanshu Champion | | | | | | D, PT | | +--------+---------+ + + + | 03/01/ | Office | Rehabilitation | Manuel Sparks, | | | 2017 | Visit | | [address] | | | | | | [address] [place], | | | | | | [place] [address] | | | | | | [phone] | | | | | | | | | | | | Himanshu Champion | | | | | | D, PT | | +--------+---------+ + + + | 03/29/ | Office | Cardiology | Prem Call, | | | 2017 | Visit | | [address] | | | | | | [place], | | | | | | [place] [address] | | | | | | [phone] | | | | | | | | +--------+---------+ + + + + +--------+ + + | Name | Priori | Associated Diagnoses | Date/Time | | | ty | | | + +--------+ + + | ED INFORMATION EXCHANGE | Routin | | 01/25/2018 1055 PDT | | | e | | | + +--------+ + + as of this encounter Visit Diagnoses + + | Diagnosis | + + | Pain of lower extremity, unspecified laterality - Primary | + + Administered Medications + +--------+---------+------+------+------+ | Medication Order | MAR | Action | Dose | Rate | Site | | | Action | Date | | | | + +--------+---------+------+------+------+ + +---+ | HYDROmorphone (DILAUDID) | | | injection 0.4 mg 0.4 mg, | | | Intramuscular, EVERY 1 HOUR PRN, | | | Pain, Starting [facility] 01/25/18 at | | | 1153 | | + +---+ | | | + +---+ in this encounter"
--- OUTSIDE RECORDS SUMMARY | 2018-02-06 23:14 | XMS | Encounter Summary ---
Demographics + + + | Address | [address] | | | [place] [address] | + + + | Home Phone | | + + + | Preferred Language | Unknown | + + + | Marital Status | | + + + | Moravian Affiliation | 1073 | + + + | Race | Unknown | + + + | Ethnic Group | Unknown | + + + Author + + + | Author | [facility] | | | and Shaunana | + + + | Organization | [facility] | | | [...] Team Providers + +------+ + | Care Sort Supervisor Name | Role | Phone | + +------+ + | Alberto Christine | PCP | | + +------+ + Reason for Visit + + + | Reason | Comments | + + + | Shoulder Pain | | + + + Encounter Details +--------+ + + + + | Date | Type | Department | Care Team | Description | +--------+ + + + + | 01/15/ | Emergency | [facility] | Zane Jones, | Fall from bed, | | 2017 | | MED CTR EMER[facility]Y | MD [address] | initial encounter | | | | CENTER [address] | [place] | (Primary Dx); Acute | | | | [place] | [address] | pain of left | | | | [address] | | shoulder; Acute | | | | [phone] | | post-operative pain | +--------+ + + + + Social [...] + + + | Blood Pressure | 128/71 | 01/15/20181621 PDT | + + + + | Pulse | 71 | 01/15/20181621 PDT | + + + + | Temperature | 35.5 C (95.9 F) | 01/15/20181621 PDT | + + + + | Respiratory Rate | 16 | 01/15/20181621 PDT | + + + + | Oxygen Saturation | 98% | 01/15/20181621 PDT | + + + + | Inhaled Oxygen | - | - | | Concentration | | | + + + + | Weight | 65.8 kg (145 lb) | 01/15/20181621 PDT | + + + + | Height | 160 cm (5' 3") | 01/15/20181621 PDT | + + + + | Body Mass Index | 25.69 | 01/15/2018 1622 PDT | + + + + in [...] + as of this encounter Discharge Instructions Zane Jones MD - 01/15/2018Your x-rays are normal Nothing appears broken Please talk with your Neurosurgeon and your doctor about your pain medications The following attachments cannot be sent through Care Everywhere.Fall Prevention (Italian)i n this encounter Medications at Time of Discharge [...] + | oxyCODONE 10 MG | Take 1 tablet by | 120 | 0 | 01/09/20 | | | TABS | mouth every 4 hours | tablet | | 18 | 8 | | | as needed for Pain. | | | | | + + [...] | | | | | | [place] [address] | | | | | | [phone] | | | | | | | [...] | | | | | | [place] [address] | | | | | | [phone] | | | | | | | [...] | | | | | | [place] [address] | | | | | | [phone] | | | | | | | | | | | | Himanshu Champion | | | | | | D, PT | | +--------+---------+ + + + | 02/22/ | Office | Rehabilitation | Manuel Sparks, | | | 2017 | Visit | | DO [address] | | | | | | [place], | | | | | | [place] [address] | | | | | | [phone] | | | | | | | [...] [place] | | | | | | [place] [address] | | | | | | [phone] | | | | | | | | +--------+---------+ + + + | 02/27/ | Office | Rehabilitation | Manuel Sparks, | | | 2017 | Visit | | DO [address] | | | | | | [address] [place], | | | | | | [place] [address] | | | | | | [phone] | | | | | | | [...] | | | | | | [place] [address] | | | | | | [phone] | | | | | | | | | | | | Himanshu Champion | | | | | | D, PT | | +--------+---------+ + + + | 03/29/ | Office | Cardiology | Prem Call, | | | 2017 | Visit | | [address] | | | | | | [place], | | | | | | [place] [address] | | | | | | [phone] | | | | | | | | +--------+---------+ + + + as of this encounter Results XR Knee Left 1 - 2 Vw (01/15/2018 1705) + + | Narrative | + + [...] | Khris Beckwith Results In - 01/15/2018 1832 PDT CLINICAL [...] Lumbar Spine 2 or 3 Vw (01/15/2018 1704) + + | Narrative [...] | Tang, Rad Results In - 01/15/2018 1831 PDT CLINICAL [...] signed: 01/15/2018 6:28 PM | + + in this encounter Visit Diagnoses + + | Diagnosis | + + | Fall from bed, initial encounter - Primary | + + | Acute pain of left shoulder | + + | Acute post-operative pain | + + Administered Medications + +--------+ +------+------+------+ | Medication Order | MAR | Action | Dose | Rate | Site | | | Action | Date | | | | + +--------+ +------+------+------+ | HYDROmorphone (DILAUDID) tablet | Given | | 2 mg | | | | 2 mg 2 mg, Oral, ONCE, Mon | | 8 17:23 | | | | | 01/15/18 at 1640, For 1 dose | | PDT | | | | + +--------+ +------+------+------+ +---+---+ | | | +---+---+ in this encounter
--- OUTSIDE RECORDS SUMMARY | 2018-02-06 23:14 | XMS | Encounter Summary ---
Demographics + + + | Address | [address] | | | [place] [address] | + + + | Home Phone | | + + + | Preferred Language | Unknown | + + + | Marital Status | | + + + | Buddhism Affiliation | 1073 | + + + | Race | Unknown | + + + | Ethnic Group | Unknown | + + + Author + + + | Author | [facility] | | | and [...] Team Providers + +------+ + | Care Hardware Installer Name | Role | Phone | + +------+ + | Alberto Christine | PCP | | + +------+ + Reason for Visit +--------+ + | Reason | Comments | +--------+ + | Fall | | +--------+ + Encounter Details +--------+ + + + + | Date | Type | Department | Care Team | Description | +--------+ + + + + | 01/16/ | Telephone | [facility] [place] | Manuel Sparks, | Fall | | 2017 | | NEUROSURGERY [address] | DO [address] | | | | | [address] | [address] [place], | | | | | [place], [place] | [place] [address] | | | | | [address] | [phone] | | | | | [phone] | | | +--------+ + + + [...] | | | | | | [place] [address] | | | | | | [phone] | | | | | | | [...] | | | | | | [place] [address] | | | | | | [phone] | | | | | | | [...] | | | | | | [place] [address] | | | | | | [phone] | | | | | | | [...] | | | | | | [place] [address] | | | | | | [phone] | | | | | | | [...] | | | | | [place] [address] | | | | | | [phone] | | | | | | | | +--------+---------+ + + + | 02/27/ | Office | Rehabilitation | Manuel Sparks, | | | 2017 | Visit | | DO [address] | | | | | | [address] [place], | | | | | | [place] [address] | | | | | | [phone] | | | | | | | [...] | | | | | | [place] [address] | | | | | | [phone] | | | | | | | | | | | | Himanshu Champion | | | | | | D, PT | | +--------+---------+ + + + | 03/29/ | Office | Cardiology | Prem Call, | | | 2017 | Visit | | MD [address] | | | | | | [place], | | | | | | [place] [address] | | | | | | [phone] | | | | | | | | +--------+---------+ + + + as of this encounter Visit Diagnoses Not on filein this encounter"
--- OUTSIDE RECORDS SUMMARY | 2018-02-06 23:14 | XMS | Encounter Summary ---
Demographics + + + | Address | [address] | | | [place] [address] | + + + | Home Phone | | + + + | Preferred Language | Unknown | + + + | Marital Status | | + + + | Advent Affiliation | 1073 | + + + | Race | Unknown | + + + | Ethnic Group | Unknown | + + + Author + + + | Author | [facility] | | | and Shaunana | + + + | Organization | [facility] | | [...] Team Providers + +------+ + | Care Wire Winder Name | Role | Phone | + +------+ + | Alberto Christine | PCP | | + +------+ + Reason for Visit + + + | Reason | Comments | + + + | Leg Pain | | + + + Encounter Details +--------+ + + + + | Date | Type | Department | Care Team | Description | +--------+ + + + + | 01/04/ | Emergency | [facility] | Jaguar Dunne, | Left-sided low back | | 2018 | | MED CTR EMERGENCY | MD [address] | pain with left-sided | | | | CENTER [address] | [place], [place] | sciatica, | | | | [place], [place] | [address] | unspecified | | | | [address] | | chronicity (Primary | | | | [phone] | | Dx) | +--------+ + + + + Social [...] + + + | Blood Pressure | 151/95 | 01/04/20182218 PST | + + + + | Pulse | 104 | 01/04/20182218 PST | + + + + | Temperature | 36.4 C (97.6 F) | 01/04/20182218 PST | + + + + | Respiratory Rate | 20 | 01/04/20182218 PST | + + + + | Oxygen Saturation | 98% | 01/04/20182218 PST | + + + + | Inhaled Oxygen | - | - | | Concentration | | | + + + + | Weight | 64.9 kg (143 lb 1.3 | 01/04/20182218 PST | | | oz) | | + + + + | Height | - | - | + + + + | Body Mass Index | 25.35 | 01/04/20182218 PST | + + + + in this [...] + as of this encounter Discharge Instructions Jaguar Dunne MD - 01/04/2018Follow-up in Dr. Sparks's clinic in the morning.in this enc ounter Medications at Time of Discharge + + [...] + + | diazePAM (VALIUM) | Take 0.5-1 tablets | 90 | 0 | 12/20/19 | | | 5 mg tablet | by mouth every 6 | tablet | | 18 | 8 | | | hours as needed. | | | | | + + + +---------+ + + | oxyCODONE | Take 1 tablet by | 120 | 0 | 12/30/19 | | | (ROXICODONE) 5 mg | mouth every 6 hours | tablet | | 18 | 8 | | tablet | as needed for Pain. | | | | | | | Take 1-2 tablets | | | | | | | every 4-6 hours as | | | | | | | needed for pain | | | | | + + [...] | | | | | | [place] [address] | | | | | | [phone] | | | | | | | [...] | | | | | | [place] [address] | | | | | | [phone] | | | | | | | [...] | | | | | | [place] [address] | | | | | | [phone] | | | | | | | | | | | | Himanshu Champion | | | | | | D, PT | | +--------+---------+ + + + | 02/22/ | Office | Rehabilitation | Manuel Sparks, | | | 2017 | Visit | | DO [address] | | | | | | [place], | | | | | | [place] [address] | | | | | | [phone] | | | | | | | [...] [place] | | | | | | [place] [address] | | | | | | [phone] | | | | | | | | +--------+---------+ + + + | 02/27/ | Office | Rehabilitation | Manuel Sparks, | | | 2017 | Visit | | DO [address] | | | | | | [address] [place], | | | | | | [place] [address] | | | | | | [phone] | | | | | | | | | | | | Himanshu Champion | | | | | | D, PT | | +--------+---------+ + + + | 03/01/ | Office | Rehabilitation | Manuel Sparks, | | | 2017 | Visit | | DO [address] | | | | | | [address] [place], | | | | | | [place] [address] | | | | | | [phone] | | | | | | | | | | | | Himanshu Champion | | | | | | D, PT | | +--------+---------+ + + + | 03/29/ | Office | Cardiology | Prem Call, | | | 2017 | Visit | | [place] [address] | | | | | | [place], | | | | | | [place] [address] | | | | | | [phone] | | | | | | | | +--------+---------+ + + + as of this encounter Visit Diagnoses + + | Diagnosis | + + | Left-sided low back pain with left-sided sciatica, unspecified chronicity - Primary | + + Administered Medications + +--------+ +-------+------+------+ | Medication Order | MAR | Action | Dose | Rate | Site | | | Action | Date | | | | + +--------+ +-------+------+------+ | oxyCODONE (ROXICODONE) tablet | Given | 01/04/2018 | 15 mg | | | | 15 mg 15 mg, Oral, ONCE, Michelle | | 22:51 | | | | | 01/04/18 at 2240, For 1 dose | | PST | | | | + +--------+ +-------+------+------+ +---+---+ | | | +---+---+ + + + + +---+---+ | oxyCODONE-acetaminophen | Dispense | 01/04/2018 | 1 tablet | | | | (PERCOCET) 5-325 mg per tablet | to Home | 22:52 | | | | | (ED prepack) 1-2 tablet 1-2 | | PST | | | | | tablet, Oral, EVERY 6 HOURS PRN, | | | | | | | Pain, Starting Michelle 01/04/18 at | | | | | | | 2239, Patient Address: | | | | | | + + + + +---+---+ +---+---+ | | | +---+---+ in this encounter"
--- OUTSIDE RECORDS SUMMARY | 2018-02-06 23:14 | XMS | Encounter Summary ---
Demographics + + + | Address | [address] | | | [place] [address] | + + + | Home Phone | | + + + | Preferred Language | Unknown | + + + | Marital Status | | + + + | Mosque Affiliation | 1073 | + + + | Race | Unknown | + + + | Ethnic Group | Unknown | + + + Author + + + | Author | [facility] | | | and Shaunana | + + + | Organization | [facility] | | | and [...] Team Providers + +------+ + | [facility] Name | Role | Phone | + +------+ + | Alberto Christine | PCP | | + +------+ + Encounter Details +--------+ + + + + | Date | Type | Department | Care Team | Description | +--------+ + + + + | 01/18/ | Orders Only | [facility] [place] | Patience Ordaz | S/P lumbar fusion | | 2018 | | NEUROSURGERY [address] | [address]WAKU Hahn [address] | (Primary Dx); Misuse | | | | [address] | [place], | of drugs ([facility]); | | | | [place], [place] | [place] [address] | Arthralgia, | | | | [address] | [phone] | unspecified joint | | | | [phone] | | | +--------+ + + + [...] | Visit | | DO [address] [facility] | | | | | | [address] [place], | | | | | | [place] [address] | | | | | | [phone] | | | | | | | | | | | | Himanshu Champion | | | | | | Luzma PT | | +--------+---------+ + + + | 04/19/ | Office | Rehabilitation | Manuel Sparks, | | | 2017 | Visit | | DO [address] | | | | | | [address] [place], | | | | | | [place] [address] | | | | | | [phone] | | | | | | | [...] | | | | | | [place] [address] | | | | | | [phone] | | | | | | | [...] | | | | | | [place] [address] | | | | | | [phone] | | | | | | | | | | | | Himanshu Champion | | | | | | D, PT | | +--------+---------+ + + + | 02/22/ | Office | General Surgery | Matthew Garnica | | | 2017 | Visit | | I, , [address] | | | | | [address] [place] | | | | | | [place] [address] | | | | | | [phone] | | | | | | | | +--------+---------+ + + + | 02/27/ | Office | Rehabilitation | Manuel Sparks, | | | 2017 | Visit | | DO [address] | | | | | | [address] [place], | | | | | | [place] [address] | | | | | | [phone] | | | | | | | [...] | | | | | | [place] [address] | | | | | | [phone] | | | | | | | | | | | | Himanshu Champion | | | | | | D, PT | | +--------+---------+ + + + | 03/29/ | Office | Cardiology | Prem Call, | | | 2017 | Visit | | [address] | | | | | | [place], | | | | | | [place] [address] | | | | | | [phone] | | | | | | | | +--------+---------+ + + + as of this encounter Results Drugs of Abuse, Opiates, Confirm, Urine (01/22/2018 1142) + + + + | Component | Value | Ref Range | + + + + | Opiates Screen, | Comment: See Scanned Report | | | Urine | | | + + + + + + + | Specimen | Performing Laboratory | + + + | Urine | [facility] [id number] [facility] | | | [place] [address] | + + + Drugs of Abuse, Screen, Urine (01/22/2018 1142) + + + + [...] + + + | Opiates Screen, | Negative | Negative | | Urine | | | + + + + + + + | Specimen | Performing Laboratory | + + + | Urine | [facility] [address] | | | [place] [address] | + + + in this encounter Visit Diagnoses + + | Diagnosis | + + | S/P lumbar fusion - Primary | + + | Arthrodesis status | + + | Misuse of drugs (HCC) | + + | Other, mixed, or unspecified nondependent drug abuse, unspecified | + + | Arthralgia, unspecified joint | + +"
--- OUTSIDE RECORDS SUMMARY | 2018-02-06 23:14 | XMS | Encounter Summary ---
Demographics + + + | Address | [address] | | | [place] [address] | + + + | Home Phone | | + + + | Preferred Language | Unknown | + + + | Marital Status | | + + + | Nondenominational Affiliation | [id number] | + + + | Race | Unknown | + + + | Ethnic Group | Unknown | + + + Author + + + | Author | [facility] | | | and Shaunana | + + + | Organization | [facility] | | | [...] Providers + +------+ + | Care Office Administration Name | Role | Phone | + +------+ + | Alberto Christine | PCP | | + +------+ + Reason for Referral Evaluate & Treat (Urgent) + + + [...] | | | | | | | [place], | | | | | | | [place] [address] | | | | | | | Phone: | | | | | | | [phone] | | | | | | | Fax: | | | | | | | [phone] | | + + + + + + + Encounter Details +--------+---------+ + + + | Date | Type | Department | Care Team | Description | +--------+---------+ + + + | 01/09/ | Office | [facility] [place] | Manuel Sparks, | Lumbar spondylosis | | 2018 | Visit | NEUROSURGERY [address] | DO [address] | (Primary Dx); S/P | | | | [address] | [address] [place], | lumbar fusion | | | | [place], [place] | [place] [address] | | | | | [address] | [phone] | | | | | [phone] | | | +--------+---------+ + + + Social [...] + + + | Blood Pressure | 112/68 | 01/09/2018818 PDT | + + + + | Pulse | 83 | 01/09/2018818 PDT | + + + + | Temperature | - | - | + + + + | Respiratory Rate | - | - | + + + + | Oxygen Saturation | - | - | + + + + | Inhaled Oxygen | - | - | | Concentration | | | + + + + | Weight | 64.9 kg (143 lb) | 01/09/2018818 PDT | + + + + | Height | 160 cm (5' 3") | 01/09/2018818 PDT | + + + + | Body Mass Index | 25.33 | 01/09/2018818 PDT | + + + + in [...] + + + as of this encounter Instructions Patient Instructions - Manuel Sparks DO 01/09/2018814 PDTPlease start physical thera py and focus on working to avoid any more falls. Please start gabapentin. Please follow-up with me in 1 month to reassess.in this encounter Progress Notes Manuel Sparks DO - 01/09/2018814 PDTFormatting of this note may be different from the original. Manuel Sparks DO [address] [facility], [address] [place] [address] FAX: NEUROSURGERY SURGICAL FOLLOW-UP CHIEF COMPLAINT: No chief complaint on file. HISTORY OF PRESENT ILLNESS: The patient is a 37 y.o. female that had an ALIF L4-S1 by me f or back pain, leg pain, and leg weakness 11/23/17. She returns and overall is doing poorly. The patient complains of ongoing left leg pain and weakness. She has had falls at home. She complains of the left leg swelling with ambulation. The patient has been walking as much a s possible. She is still taking pain medications at this point. The patient has had No iss ues with her surgical site. She does say her right leg pain and weakness is improved. She is unable to specify the location of the left leg pain. CURRENT MEDICATIONS: Current Outpatient Prescriptions Medication Sig Dispense Refill aluminum & magnesium hydroxide-simethicone (MAALOX PLUS REGULAR STRENGTH) 200-200-20 mg /5 mL suspension Take 30 mLs by mouth every 4 hours as needed for Indigestion. 0 diazePAM (VALIUM) 5 mg tablet Take 1-2 tablets by mouth every 6 hours as needed for Mus sly spasms. 90 tablet 1 ergocalciferol (VITAMIN D-2) 50,000 units capsule Take 50,000 Units by mouth Once a wee k. fluticasone-salmeterol (ADVAIR) 500-50 mcg/puff diskus inhaler Inhale 1 puff into the l ungs Twice Daily. 1 each 11 folic acid 1 mg tablet Take 1 tablet by mouth Daily. 30 tablet 2 furosemide (LASIX) 20 mg tablet Take 1 tablet by mouth Daily. 30 tablet 0 gabapentin (NEURONTIN) 300 mg capsule Take 1 capsule by mouth 3 times daily. 90 capsule 2 ipratropium (ATROVENT HFA) 17 mcg/puff inhaler Inhale 2 puffs into the lungs every 6 ho urs as needed for Wheezing. lactulose 10 g/15 mL solution Take 30 mLs by mouth 2 times daily. For constipation 240 mL 2 lamoTRIgine (LAMICTAL) 150 MG tablet Take 150 mg by mouth 2 times daily. levalbuterol (XOPENEX HFA) 45 mcg/puff inhaler Inhale 2 puffs into the lungs every 6 ho urs as needed for Wheezing. levothyroxine (SYNTHROID) 100 mcg tablet Take 100 mcg by mouth every morning (before br eakfast). omeprazole (PRILOSEC) 20 mg capsule Take 20 mg by mouth 2 times daily (before meals). ondansetron (ZOFRAN ODT) 4 mg disintegrating tablet Take 1 tablet by mouth every 8 hour s as needed for Nausea. 24 tablet 0 oxyCODONE 10 MG TABS Take 1 tablet by mouth every 4 hours as needed for Pain. 120 table t 0 raNITIdine (ZANTAC) 150 MG capsule Take 150 mg by mouth 2 times daily. risperiDONE (RISPERDAL) 0.5 mg tablet rizatriptan (MAXALT) 10 mg tablet as needed. SYMBICORT 160-4.5 MCG/ACT inhaler tiZANidine (ZANAFLEX) 4 mg tablet topiramate (TOPAMAX) 50 MG tablet Take 50 mg by mouth 2 times daily. No current facility-administered medications for this visit. ALLERGIES: Allergies Allergen Reactions Albuterol Swelling Tongue swelling [...] skin Sertraline Other (See Comments) Crawling skin SOCIAL HISTORY: The patient reports that she has been smoking Cigarettes. She started smoking about 24 ye ars ago. She has a 11.50 pack-year smoking history. She quit smokeless tobacco use about 9 y ears ago. She reports that she does not drink alcohol or use drugs. REVIEW OF SYSTEMS GENERALLY: + fever, + night sweats, + anemia, + fatigue, no recent profound weight change s. EYES: No eye problems, no use of corrective lenses, no eye injury, no double vision, no bl indness. EARS, NOSE, AND THROAT: No changes in taste or smell, no hearing difficulty, no ringing in the ears, no ear drainage, + dizziness, no voice changes, no difficulty swallowing, no sign ificant snoring, no sleep apnea, no sinus problems, no major dental work. NEUROLOGICALLY: Please see the review of systems discussed above in the history of present illness. In addition, the patient has numbness/pain of arms, numbness/pain of legs, awake with numbness/pain, weakness, muscle aching, coordination difficulty, pain in back , tremor/ shaking, seizures, headaches, migraine, confusion. PSYCHIATRIC: + depression, + sleeping difficulty, no sleep disorders, + anxiety, + bipolar disorder, no psychotic episodes. CARDIOVASCULAR: No heart attacks, no heart murmur, no heart fluttering, no chest pain, no ankle swelling. LUNG DISEASE: No shortness of breath, no cough, no tuberculosis, no bloody cough, no asth ma, no emphysema/COPD. GASTROINTESTINAL: No bowel disease, no nausea or vomiting, no rectal bleeding, no constipa tion, no stool incontinence, no liver disease, no gallbladder disease, no abdominal pain, no ulcers. KIDNEY DISEASE: No urinary frequency, no painful or difficult urination, no incontinence. ENDOCRINE: No diabetes, no thyroid disease, no osteopenia or osteoporosis, no breast drain age. SKIN: No breast lumps, no skin changes, no rashes, no itches. HEMATOLOGIC/LYMPHATIC: No enlarged lymph nodes, no easy or unusual bleeding, no personal h istory of cancer. RHEUMATOLOGIC: No joint arthritis, no rheumatoid arthritis. INTERIM PHYSICAL EXAMINATION: Blood pressure 112/68, pulse 83, height 1.6 m (5' 3"), weight 64.9 kg (143 lb), not current ly . Body mass index is 25.33 kg/m. GENERAL: Clare Courtney is in no acute distress with unlabored respirations. SPINE: The patient s incisions are healing well without drainage, significant erythema, o r discharge EXTREMITIES: No lower extremity edema. NEUROLOGICAL EXAMINATION: MENTAL STATUS: The patient is awake, alert, and oriented. She follows simple and complex commands MOTOR EXAM: Motor strength is 4/5 left lower extremity and 4+/5 right lower extremity. Effo rt is questionable. This is unchanged from the preoperative exam. She is able to ambulate well on exam. SENSORY EXAM: The sensory examination improved from the preoperative exam on the right. She complains of left leg pain in no specific distribution. RADIOGRAPHIC REVIEW: MRI of the lumbar spine from 01/02/18 demonstrates postoperative changes L4-S1. There is inte rval improvement on disc space height and alignment. There is a persistent disc bulge at L5- S1 with no significant stenosis. ASSESSMENT: S/P ALIF L4-S1: Encounter Diagnoses Name Primary? Lumbar spondylosis Yes S/P lumbar fusion Past Medical History: Diagnosis Date Abdominal pain LLQ Abdominal wall cellulitis Abscess of Bartholin's gland Abscess of vulva Acute kidney failure (HCC) 05/2013 Acute URI Adjustment disorder with anxiety Allergic rhinitis Anal polyp Anemia 12/03/2009 unsure, gets blood transfusions periodically Anxiety 12/03/2009 Arthritis Asthma Asthma, moderate persistent, uncomplicated 04/21/2015 Problem list gas [employer] Back pain with radiation Benign essential hypertension 10/1999 Bipolar 1 disorder ([facility]) Bipolar disorder ([facility]) has been admitted for overdose as well Bronchitis, acute Calf pain, left Candidiasis of vulva and vagina Cervical radiculitis Chest pain CHF (congestive heart failure) ([facility]) Constipation Contusion, lower leg COPD (chronic obstructive pulmonary disease) ([facility]) Cubital tunnel syndrome DDD (degenerative disc disease), lumbar Depression 10/1993 Disorder of liver DM type 2 (diabetes mellitus, type 2) ([facility]) diet controlled Drug abuse Dysuria Emphysema of lung ([facility]) Encounter for blood transfusion Eustachian tube dysfunction Exposure to STD Fall Flaccid hemiplegia and hemiparesis Affecting right wrist Folate deficiency anemia Full dentures Full dentures uppper & lower Gangrene ([facility]) Complication of abdominal surgery Headache Heart murmur [...] airway disease Rotator cuff sprain Scabies Seizures ([facility]) 05/02/2010 diagnosed at [facility] Shortness of breath Sinusitis, acute Stroke ([facility]) TMJ syndrome Tobacco use Traumatic bursitis Vitamin B deficiency 12/10/2009 PLAN: Overall, the patient is doing poorly. This was discussed with her today. I am concerned ab out her ability to cope at home and would like her to start physical therapy right away. She is agreeable to the plan. I will also prescribe gabapentin. We discussed steroids, but she says she is intolerant to them. She will follow-up with me in 4-6 weeks to reassess, or sooner if needed. ELECTRONICALLY SIGNED BY: Manuel Sparks DO, 01/09/2018 10:15in this encounter Plan of Treatment +--------+---------+ + + + | Date | Type | Specialty | Care Team | Description | +--------+---------+ + + + | 02/08/ | Office | Rehabilitation | Manuel Sparks, | | | 2017 | Visit | | DO [address] | | | | | | [address] [place], | | | | | | [place] [address] | | | | | | [phone] | | | | | | | [...] | | | | | | [place] [address] | | | | | | [phone] | | | | | | | [...] | | | | | | [place] [address] | | | | | | [phone] | | | | | | | [...] | | | | | | [place] [address] | | | | | | [phone] | | | | | | | [...] | | | | | | [place] [address] | | | | | | [phone] | | | | | | | | +--------+---------+ + + + | 02/27/ | Office | Rehabilitation | Manuel Sparks, | | | 2017 | Visit | | DO [address] | | | | | | [address] [place], | | | | | | [place] [address] | | | | | | [phone] | | | | | | | [...] | | | | | | [place] [address] | | | | | | [phone] | | | | | | | | | | | | Himanshu Champion | | | | | | D, PT | | +--------+---------+ + + + | 03/29/ | Office | Cardiology | HelderrashidreyesPrem, | | | 2017 | Visit | | MD [address] | | | | | | [place], | | | | | | [place] [address] | | | | | | [phone] | | | | | | | | +--------+---------+ + + + + +--------+ + + | Name | Priori | Associated Diagnoses | Order Schedule | | | ty | | | + +--------+ + + | * [facility] | Routin | Lumbar spondylosis | Ordered: 01/09/2018 | | Referral | e | S/P lumbar fusion | | + +--------+ + + as of this encounter Visit Diagnoses + + | Diagnosis | + + | Lumbar spondylosis - Primary | + + | Lumbosacral spondylosis without myelopathy | + + | S/P lumbar fusion | + + | Arthrodesis status | + +
--- OUTSIDE RECORDS SUMMARY | 2018-02-06 23:14 | XMS | Encounter Summary ---
Demographics + + + | Address | [address] | | | [place] [address] | + + + | Home Phone | | + + + | Preferred Language | Unknown | + + + | Marital Status | | + + + | Mormonism Affiliation | 1073 | + + + | Race | Unknown | + + + | Ethnic Group | Unknown | + + + Author + + + | Author | [facility] | | | and [...] Team Providers + +------+ + | Care Glue Spreader Name | Role | Phone | + +------+ + | Alberto Christine | PCP | | + +------+ + Reason for Visit + + + | Reason | Comments | + + + | Medication Refill | | + + + | Medication Problem | | + + + Encounter Details +--------+--------+ + + + | Date | Type | Department | Care Team | Description | +--------+--------+ + + + | 01/17/ | Refill | [facility] [place] | Manuel Sparks, | Medication Refill; | | 2017 | | NEUROSURGERY [address] | DO [address] | Medication Problem | | | | [address] | [address] [place], | | | | | [place], [place] | [place] [address] | | | | | [address] | [phone] | | | | | [phone] | | | +--------+--------+ + + + Social History + + [...] [place], | | | | | | [place] [address] | | | | | | [phone] | | | | | | | [...] | | | | | | [place] [address] | | | | | | [phone] | | | | | | | [...] | | | | | | [place] [address] | | | | | | [phone] | | | | | | | [...] | | | | | | [place] [address] | | | | | | [phone] | | | | | | | [...] | | | | | | [place] [address] | | | | | | [phone] | | | | | | | | +--------+---------+ + + + | 02/27/ | Office | Rehabilitation | Manuel Sparks, | | | 2017 | Visit | | DO [address] | | | | | | [address] [place], | | | | | | [place] [address] | | | | | | [phone] | | | | | | | [...] [place], | | | | | | [place] [address] | | | | | | [phone] | | | | | | | | | | | | Himanshu Champion | | | | | | D, PT | | +--------+---------+ + + + | 03/29/ | Office | Cardiology | Prem Call, | | | 2017 | Visit | | [address] | | | | | | [place], | | | | | | [place] [address] | | | | | | [phone] | | | | | | | | +--------+---------+ + + + as of this encounter Visit Diagnoses Not on filein this encounter"
--- OUTSIDE RECORDS SUMMARY | 2018-02-06 23:14 | XMS | Encounter Summary ---
Demographics + + + | Address | [address] | | | [place] [address] | + + + | Home Phone [...] | Author | [facility] | | | and Shaunana [...] Team Providers + +------+ + | Care Ward Attendant Name | Role | Phone | + [...] + + | 01/22/ | Documentati | [facility] | Wali Marquez, PT | No Show | | 2018 | on | [facility] | | | | | | [address] | | | | | | [place] [address] | | | | | | [phone] | | | +--------+ + + + [...] + as of this encounter Progress Notes [place] Marquez, PT - 01/22/2018 [facility] [address] [place] [address] Cancellation/No Show Date: 01/22/2018 Patient Information Patient Name: lCare Courtney Date of : 1980 Age: 37 y.o. Reason for missed visit: No show for physical therapy initial evaluation Phone call placed: yes - patient states she overslept Plan: reschedule Electronically signed by: [place] Marquez, PT, 01/22/2018 9:53 Patient Name: Clare Courtney/: 1980/ in this [...] | | | | | | [place] [address] | | | | | | [phone] | | | | | | | [...] | | | | | | [place] [address] | | | | | | [phone] | | | | | | | [...] | | | | | | [place] [address] | | | | | | [phone] | | | | | | | [...] | | | | | | [place] [address] | | | | | | [phone] | | | | | | | [...] | | | | | [place] [address] | | | | | | [phone] | | | | | | | | +--------+---------+ + + + | 02/27/ | Office | Rehabilitation | Manuel Sparks, | | | 2017 | Visit | | DO [address] | | | | | | [address] [place], | | | | | | [place] [address] | | | | | | [phone] | | | | | | | | | | | | Himanshu Champion | | | | | | D, PT | | +--------+---------+ + + + | 03/01/ | Office | Rehabilitation | Manuel Sparks, | | | 2017 | Visit | | [address] | | | | | | [address] [place], | | | | | | [place] [address] | | | | | | [phone] | | | | | | | | | | | | Himanshu Champion | | | | | | Luzma PT | | +--------+---------+ + + + | 03/29/ | Office | Cardiology | Prem Call, | | | 2017 | Visit | | [address] | | | | | | [place], | | | | | | [place] [address] | | | | | | [phone] | | | | | | | | +--------+---------+ + + + as of this encounter Visit Diagnoses Not on filein this encounter"
--- OUTSIDE RECORDS SUMMARY | 2018-02-06 23:14 | XMS | Encounter Summary ---
Demographics + + + | Address | [address] | | | [place] [address] | + + + | Home Phone | | + + + | Preferred Language | Unknown | + + + | Marital Status | | + + + | Yarsanism Affiliation | 1073 | + + + | Race | Unknown | + + + | Ethnic Group | Unknown | + + + Author + + + | Author | [facility] | | | and [place]un[place] | + + + | Organization | [facility] | | | [...] Team Providers + +------+ + | Care Poured Wall Foreman Name | Role | Phone | + +------+ + | Alberto Christine | PCP | | + +------+ + Reason for Visit + + + | Reason | Comments | + + + | Follow-up | Pill Count | + + + Encounter Details +--------+ + + + + | Date | Type | Department | Care Team | Description | +--------+ + + + + | 01/22/ | Clinical | [facility] [place] | Manuel Sparks, | Medication | | 2017 | Support | NEUROSURGERY [address] | DO [address] | management (Primary | | | | [address] | [address] [place], | Dx) | | | | [place] | [place] [address] | | | | | [address] | [phone] | | | | | [phone] | | | +--------+ + + + [...] | Visit | | DO [address] | | | | | | [address] [place], | | | | | | [place] [address] | | | | | | [phone] | | | | | | | [...] | | | | | | [place] [address] | | | | | | [phone] | | | | | | | [...] | | | | | | [place] [address] | | | | | | [phone] | | | | | | | [...] | | | | | | [place] [address] | | | | | | [phone] | | | | | | | [...] | | | | | | [place] [address] | | | | | | [phone] | | | | | | | | +--------+---------+ + + + | 02/27/ | Office | Rehabilitation | Manuel Sparks, | | | 2017 | Visit | | DO [address] | | | | | | [address] [place], | | | | | | [place] [address] | | | | | | [phone] | | | | | | | [...] | | | | | | [place] [address] | | | | | | [phone] | | | | | | | | | | | | Himanshu Champion | | | | | | Luzma, PT | | +--------+---------+ + + + | 03/29/ | Office | Cardiology | Prem Call, | | | 2017 | Visit | | MD [address] | | | | | | [place], | | | | | | [place] [address] | | | | | | [phone] | | | | | | | | +--------+---------+ + + + as of this encounter Visit Diagnoses + + | Diagnosis | + + | Medication management - Primary | + + | Encounter for other specified aftercare | + +"
--- OUTSIDE RECORDS SUMMARY | 2018-02-06 23:14 | XMS | Encounter Summary ---
Demographics + + + | Address | [address] | | | [place] [address] | + + + | Home Phone | | + + + | Preferred Language | Unknown | + + + | Marital Status | | + + + | Confucianist Affiliation | 1073 | + + + | Race | Unknown | + + + | Ethnic Group | Unknown | + + + Author + + + | Author | [facility] | | | and Shaunana | + + + | Organization | [facility] | | | [...] Team Providers + +------+ + | Care Allergy Specialist Name | Role | Phone | + +------+ + | Alberto Christine | PCP | | + +------+ + Reason for Referral Diagnostic/Screening (Urgent) +--------+--------+ + + + + | Status | Reason | Specialty | Diagnoses / | Referred By | Referred To | | | | | Procedures | Contact | Contact | +--------+--------+ + + + + | Closed | | Radiology | Diagnoses | Bridger, | [facility] | | | | | Lumbar | Manuel Macdonald DO | [address] | | | | | radiculopath | [address] | [place], | | | | | y S/P | [address] | [place] | | | | | lumbar | [address] | [address] | | | | | fusion | [place], | Phone: | | | | | Procedures | [place] [address] | [phone] | | | | | MRI Lumbar | Phone: | Fax: | | | | | Spine wo | [phone] | [phone] | | | | | Contrast | Fax: | | | | | | | [phone] | | +--------+--------+ + + + + Diagnostic/Screening (Urgent) +--------+--------+ + + + + | Status | Reason | Specialty | Diagnoses / | Referred By | Referred To | | | | | Procedures | Contact | Contact | +--------+--------+ + + + + | Closed | | Radiology | Diagnoses | Bridger, | [facility] | | | | | Lumbar | Manuel Macdonald DO | [address] | | | | | radiculopath | [address] | [place], | | | | | y S/P | [address] | [place] | | | | | lumbar | [address] | [address] | | | | | fusion | [place], | Phone: | | | | | Procedures | [place] [address] | [phone] | | | | | MRI Lumbar | Phone: | Fax: | | | | | Spine wo | [phone] | [phone] | | | | | Contrast | Fax: | | | | | | | [phone] | | +--------+--------+ + + + + Reason for Visit Diagnostic/Screening (Urgent) +--------+--------+ + + + + | Status | Reason | Specialty | Diagnoses / | Referred By | Referred To | | | | | Procedures | Contact | Contact | +--------+--------+ + + + + | Closed | | Radiology | Diagnoses | Bridger, | [facility] | | | | | Lumbar | Manuel Macdonald DO | [address] | | | | | radiculopath | [address] | [place], | | | | | y S/P | [address] | [place] | | | | | lumbar | [address] | [address] | | | | | fusion | [place], | Phone: | | | | | Procedures | [place] [address] | [phone] | | | | | MRI Lumbar | Phone: | Fax: | | | | | Spine wo | [phone] | [phone] | | | | | Contrast | Fax: | | | | | | | [phone] | | +--------+--------+ + + + + Encounter Details +--------+ + + + + | Date | Type | Department | Care Team | Description | +--------+ + + + + | /06/ | Hospital | [facility] | Manuel Sparks, | Lumbar | | 2018 | Encounter | MED CTR MRI [address] | DO [address] | radiculopathy; S/P | | | | [place], | [address] [place], | lumbar fusion | | | | [place] [address] | [place] [address] | | | | | [phone] | [phone] | | | | | | | [...] Rehabilitation | Manuel Sparks, | | | 2018 | Visit | | DO [address] | | | | | | [address] [place], | | | | | | [place] [address] | | | | | | [phone] | | | | | | | [...] | | | | | | [place] [address] | | | | | | [phone] | | | | | | | [...] | | | | | | [place] [address] | | | | | | [phone] | | | | | | | [...] | | | | | | [place] [address] | | | | | | [phone] | | | | | | | [...] | | | | | | [place] [address] | | | | | | [phone] | | | | | | | | +--------+---------+ + + + | 02/27/ | Office | Rehabilitation | Manuel Sparks, | | | 2017 | Visit | | DO [address] | | | | | | [address] [place], | | | | | | [place] [address] | | | | | | [phone] | | | | | | | [...] | | | | | | [place] [address] | | | | | | [phone] | | | | | | | | | | | | Himanshu Champion | | | | | | Luzma PT | | +--------+---------+ + + + | 03/29/ | Office | Cardiology | Prem Call, | | | 2017 | Visit | | [address] | | | | | | [place], | | | | | | [place] [address] | | | | | | [phone] | | | | | | | | +--------+---------+ + + + as of this encounter Results MRI Lumbar Spine wo Contrast (01/02/2018 1552) [...] signed: 01/02/2018 4:33 PM | + + in this encounter Visit Diagnoses + + | Diagnosis | + + | Lumbar radiculopathy | + + | Thoracic or lumbosacral neuritis or radiculitis, unspecified | + + | S/P lumbar fusion | + + | Arthrodesis status | + +"
--- OUTSIDE RECORDS SUMMARY | 2018-02-06 23:14 | XMS | Encounter Summary ---
Demographics + + + | Address | [address] | | | [place] [address] | + + + | Home Phone | | + + + | Preferred Language | Unknown | + + + | Marital Status | | + + + | Yazdanism Affiliation | 1073 | + + + | Race | Unknown | + + + | Ethnic Group | Unknown | + + + Author + + + | Author | [facility] | | | and Shaunana | + + + | Organization | [facility] | | | and [...] Team Providers + +------+ + | Care International Recruiter Name | Role | Phone | + +------+ + | Alberto Christine | PCP | | + +------+ + Reason for Visit + + + | Reason | Comments | + + + | ED Follow-up | | + + + | Case Management | possible SNF placement | + + + Encounter Details +--------+ + + + + | Date | Type | Department | Care Team | Description | +--------+ + + + + | 01/05/ | Telephone | [facility] | Manuel Sparks, | ED Follow-up; Case | | 2018 | | NEUROSUR[address]ERY [address] | DO [address] | Management (possible | | | | [address] | [address] [place], | SNF placement) | | | | [place], [place] | [place] [address] | | | | | [address] | [phone] | | | | | [phone] | | | +--------+ + + + [...] | | | | | | [place] [address] | | | | | | [phone] | | | | | | | [...] | | | | | | [place] [address] | | | | | | [phone] | | | | | | | [...] | | | | | | [place] [address] | | | | | | [phone] | | | | | | | [...] | | | | | | [place] [address] | | | | | | [phone] | | | | | | | | | | | | Himanshu Champion | | | | | | D, PT | | +--------+---------+ + + + | 02/22/ | Office | General Surgery | Matthew Garnica | | | 2017 | Visit | | [place], , [address] | | | | | | [address] [place] | | | | | | [place] [address] | | | | | | [phone] | | | | | | | | +--------+---------+ + + + | 02/27/ | Office | Rehabilitation | Manuel Sparks, | | | 2017 | Visit | | DO [address] | | | | | | [address] [place], | | | | | | [place] [address] | | | | | | [phone] | | | | | | | [...] | | | | | | [place] [address] | | | | | | [phone] | | | | | | | | | | | | Himanshu Cahmpion | | | | | | Luzma PT | | +--------+---------+ + + + | 03/29/ | Office | Cardiology | Prem Call, | | | 2017 | Visit | | [address] | | | | | | [place], | | | | | | [place] [address] | | | | | | [phone] | | | | | | | | +--------+---------+ + + + as of this encounter Visit Diagnoses Not on filein this encounter"
--- OUTSIDE RECORDS SUMMARY | 2018-02-06 23:14 | XMS | Encounter Summary ---
Demographics + + + | Address | [address] | | | [place] [address] | + + + | Home Phone | | + + + | Preferred Language | Unknown | + + + | Marital Status | | + + + | Protestant Affiliation | 1073 | + + + | Race | Unknown | + + + | Ethnic Group | Unknown | + + + Author + + + | Author | [facility] | | | and Shaunana | + + + | Organization | [facility] | | [...] Team Providers + +------+ + | Care Professor Of Chemistry Name | Role | Phone | + +------+ + | Alberto Christine | PCP | | + +------+ + Reason for Visit + + + | Reason | Comments | + + + | Rx/Medication Pick | | | Up | | + + + | Medication | | | Management | | + + + Encounter Details +--------+ + + + + | Date | Type | Department | Care Team | Description | +--------+ + + + + | 01/18/ | Telephone | [facility] | Manuel Sparks, | Rx/Medication Pick | | 2017 | | NEUR[address]UR[address] | DO [address] | Up; Medication | | | | [address] | [address] [place], | Management | | | | [place] | [place] [address] | | | | | [address] | [phone] | | | | | [phone] | | | +--------+ + + + [...] | | | | | | [place] [address] | | | | | | [phone] | | | | | | | [...] | | | | | | [place] [address] | | | | | | [phone] | | | | | | | [...] | | | | | | [place] [address] | | | | | | [phone] | | | | | | | [...] | | | | | | [place] [address] | | | | | | [phone] | | | | | | | [...] | | | | | [place] [address] | | | | | | [phone] | | | | | | | | +--------+---------+ + + + | 02/27/ | Office | Rehabilitation | Manuel Sparks, | | | 2017 | Visit | | DO [address] | | | | | | [address] [place], | | | | | | [place] [address] | | | | | | [phone] | | | | | | | | | | | | Himanshu Champion | | | | | | D, PT | | +--------+---------+ + + + | 03/01/ | Office | Rehabilitation | Manuel Sparks, | | | 2017 | Visit | | [address] | | | | | | [address] [place], | | | | | | [place] [address] | | | | | | [phone] | | | | | | | | | | | | Himanshu Champion | | | | | | D, PT | | +--------+---------+ + + + | 03/29/ | Office | Cardiology | Prem Call, | | | 2017 | Visit | | [address] | | | | | | [place], | | | | | | [place] [address] | | | | | | [phone] | | | | | | | | +--------+---------+ + + + as of this encounter Visit Diagnoses Not on filein this encounter"
--- OUTSIDE RECORDS SUMMARY | 2018-02-06 23:14 | XMS | Encounter Summary ---
Demographics + + + | Address | [address] | | | [place] [address] | + + + | Home Phone | | + + + | Preferred Language | Unknown | + + + | Marital Status | | + + + | Uatsdin Affiliation | 1073 | + + + | Race | Unknown | + + + | Ethnic Group | Unknown | + + + Author + + + | Author | [facility] | | | and Shaunana | + + + | Organization | [facility] | | | [...] Team Providers + +------+ + | Care Bottle Washer Name | Role | Phone | + +------+ + | Alberto Christine | PCP | | + +------+ + Reason for Visit + + + | Reason | Comments | + + + | Leg Pain | | + + + | Back Pain | | + + + Encounter Details +--------+ + + + + | Date | Type | Department | Care Team | Description | +--------+ + + + + | 01/17/ | Emergency | [facility] | Levon Lott, | Acute bilateral low | | 2018 | | [facility] | MD [address] | back pain without | | | | CENTER [address] | [place] | sciatica (Primary | | | | [place] | [address] | Dx) | | | | [address] | | | | | | [phone] | | | +--------+ + + + [...] + + + | Blood Pressure | 125/74 | 01/17/20182049 PDT | + + + + | Pulse | 84 | 01/17/20182049 PDT | + + + + | Temperature | 36.1 C (96.9 F) | 01/17/20182 PDT | + + + + | Respiratory Rate | 18 | 01/17/20182049 PDT | + + + + | Oxygen Saturation | 98% | 01/17/20182049 PDT | + + + + | Inhaled Oxygen | - | - | | Concentration | | | + + + + | Weight | 65.8 kg (145 lb) | 01/17/20181831 PDT | + + + + | Height | 160 cm (5' 3") | 01/17/20181831 PDT | + + + + | Body Mass Index | 25.69 | 01/17/20181831 PDT | + + + + in [...] sent through Care Everywhere.Back Pain, Relieving (Engl liam)Getting Into and Out of Bed, Back Safety (Scottish)in this encounter Medications at Time of Discharge [...] tablet by | 120 | 0 | 01/19/20 | | | [...] | | | | | [place] in [facility] | | | | | | | [place] and must | | | | | | | last 7 days.I will | | | | | | | refill on 3/29 | | | | | + + [...] [place], | | | | | | [place] [address] | | | | | | [phone] | | | | | | | [...] | | | | | | [place] [address] | | | | | | [phone] | | | | | | | | | | | | Himanshu Champion | | | | | | D, PT | | +--------+---------+ + + + | 02/20/ | Office | Rehabilitation | Manuel Sparks, | | | 2017 | Visit | | DO [address] | | | | | | [address] [place], | | | | | | [place] [address] | | | | | | [phone] | | | | | | | | | | | | Himanshu Champion | | | | | | D, PT | | +--------+---------+ + + + | 02/22/ | Office | Rehabilitation | Manuel Sparks, | | | 2017 | Visit | | DO [address] | | | | | | [address] [place], | | | | | | [place] [address] | | | | | | [phone] | | | | | | | [...] | | | | | [place] [address] | | | | | | [phone] | | | | | | | | +--------+---------+ + + + | 02/27/ | Office | Rehabilitation | Manuel Sparks, | | | 2017 | Visit | | DO [address] | | | | | | [address] [place], | | | | | | [place] [address] | | | | | | [phone] | | | | | | | [...] | | | | | | [place] [address] | | | | | | [phone] | | | | | | | | | | | | Himanshu Champion | | | | | | D, PT | | +--------+---------+ + + + | 03/29/ | Office | Cardiology | HelderPrem wilson, | | | 2017 | Visit | | MD [address] | | | | | | [place], | | | | | | [place] [address] | | | | | | [phone] | | | | | | | | +--------+---------+ + + + + +--------+ + + | Name | Priori | Associated Diagnoses | Date/Time | | | ty | | | + +--------+ + + | ED INFORMATION EXCHANGE | Routin | | 01/17/2018 1723 PDT | | | e | | | + +--------+ + + as of this encounter Visit Diagnoses + + | Diagnosis | + + | Acute bilateral low back pain without sciatica - Primary | + + Administered Medications + + + + +------+------+ | Medication Order | MAR | Action | Dose | Rate | Site | | | Action | Date | | | | + + + + +------+------+ | oxyCODONE-acetaminophen | Dispense | | 1 tablet | | | | (PERCOCET) 5-325 mg per tablet | to Home | 8 20:54 | | | | | (ED prepack) 1 tablet 1 tablet, | | PDT | | | | | Oral, EVERY 6 HOURS PRN, Pain, | | | | | | | Starting 01/17/18 at 2044, | | | | | | | [address] | | | | | | | [address] | | | | | | + + + + +------+------+ +---+---+ | | | +---+---+ in this encounter
--- OUTSIDE RECORDS SUMMARY | 2018-02-06 23:15 | XMS | Encounter Summary ---
Demographics + + + | Address | [address] | | | [place] [address] | + + + | Home Phone | | + + + | Preferred Language | Unknown | + + + | Marital Status | | + + + | Holiness Affiliation | 1073 | + + + | Race | Unknown | + + + | Ethnic Group | Unknown | + + + Author + + + | Author | [facility] | | | and Shaunana | + + + | Organization | [facility] | | | [...] Team Providers + +------+ + | Care Lawn Mower Mechanic Name | Role | Phone | + +------+ + | Alberto Christine | PCP | | + +------+ + Reason for Visit +--------+ + | Reason | Comments | +--------+ + | Other | | +--------+ + Encounter Details +--------+ + + + + | Date | Type | Department | Care Team | Description | +--------+ + + + + | 12/20/ | Telephone | [facility] [place] | Manuel Sparks, | Other | | 2017 | | NEUROSURGERY [address] | DO [address] | | | | | [address] | [address] [place], | | | | | [place], [place] | [place] [address] | | | | | [address] | [phone] | | | | | [phone] | | | +--------+ + + + [...] | | | | | | [place] [address] | | | | | | [phone] | | | | | | | [...] | | | | | | [place] [address] | | | | | | [phone] | | | | | | | [...] | | | | | | [place] [address] | | | | | | [phone] | | | | | | | [...] | | | | | | [place] [address] | | | | | | [phone] | | | | | | | [...] | | | | | [place] [address] | | | | | | [phone] | | | | | | | | +--------+---------+ + + + | 02/27/ | Office | Rehabilitation | Manuel Sparks, | | | 2017 | Visit | | DO [address] | | | | | | [address] [place], | | | | | | [place] [address] | | | | | | [phone] | | | | | | | [...] | | | | | | [place] [address] | | | | | | [phone] | | | | | | | | | | | | Himanshu Champion | | | | | | D, PT | | +--------+---------+ + + + | 03/29/ | Office | Cardiology | Prem Call, | | | 2017 | Visit | | MD [address] | | | | | | [place], | | | | | | [place] [address] | | | | | | [phone] | | | | | | | | +--------+---------+ + + + as of this encounter Visit Diagnoses Not on filein this encounter"
--- OUTSIDE RECORDS SUMMARY | 2018-02-06 23:15 | XMS | Encounter Summary ---
Demographics + + + | Address | [address] | | | [place] [address] | + + + | Home Phone | | + + + | Preferred Language | Unknown | + + + | Marital Status | | + + + | Restorationist Affiliation | 1073 | + + + | Race | Unknown | + + + | Ethnic Group | Unknown | + + + Author + + + | Author | [facility] | | | and Shaunana | + + + | Organization | [facility] | | | [...] Team Providers + +------+ + | Care Frame Stripper Name | Role | Phone | + +------+ + | Alberto Christine | PCP | | + +------+ + Reason for Visit + + + | Reason | Comments | + + + | Appointment | | + + + Encounter Details +--------+ + + + + | Date | Type | Department | Care Team | Description | +--------+ + + + + | 12/22/ | Telephone | [facility] [place] | Manuel Sparks, | Appointment | | 2018 | | NEUROSUR[address]ERY [address] | DO [address] | | | | | [address] | [address] [place], | | | | | [place], [place] | [place] [address] | | | | | [address] | [phone] | | | | | [phone] | | | +--------+ + + + [...] [place], | | | | | | [place] [address] | | | | | | [phone] | | | | | | | [...] | | | | | | [place] [address] | | | | | | [phone] | | | | | | | [...] | | | | | | [place] [address] | | | | | | [phone] | | | | | | | [...] | | | | | | [place] [address] | | | | | | [phone] | | | | | | | | | | | | Jaycee, Himanshu | | | | | | D, PT | | +--------+---------+ + + + | 02/22/ | Office | General Surgery | Matthew Garnica | | | 2017 | Visit | | MD [facility] [address] | | | | | | [address] [place] | | | | | | [place] [address] | | | | | | [phone] | | | | | | | | +--------+---------+ + + + | 02/27/ | Office | Rehabilitation | Manuel Sparks, | | | 2017 | Visit | | DO [address] | | | | | | [address] [place], | | | | | | [place] [address] | | | | | | [phone] | | | | | | | [...] | | | | | | [place] [address] | | | | | | [phone] | | | | | | | | | | | | Himanshu Champion | | | | | | D, PT | | +--------+---------+ + + + | 03/29/ | Office | Cardiology | Prem Call, | | | 2017 | Visit | | MD [address] | | | | | | [place], | | | | | | [place] [address] | | | | | | [phone] | | | | | | | | +--------+---------+ + + + as of this encounter Visit Diagnoses Not on filein this encounter"
--- OUTSIDE RECORDS SUMMARY | 2018-02-06 23:15 | XMS | Encounter Summary ---
Demographics + + + | Address | [address] | | | [place] [address] | + + + | Home Phone | | + + + | Preferred Language | Unknown | + + + | Marital Status | | + + + | Jew Affiliation | 1073 | + + + | Race | Unknown | + + + | Ethnic Group | Unknown | + + + Author + + + | Author | [facility] | | | and Shaunana | + + + | Organization | [facility] | | | [...] Team Providers + +------+ + | Care Sand Screener Name | Role | Phone | + [...] + + | 12/12/ | Telephone | [facility] [place] | Manuel Sparks, | Other | | 2017 | | NEUROSURGERY [address] | DO [address] | | | | | [address] | [address] [place], | | | | | [place], [place] | [place] [address] | | | | | [address] | [phone] | | | | | [phone] | | | +--------+ + + + [...] | | | | | | [place] [address] | | | | | | [phone] | | | | | | | [...] | | | | | | [place] [address] | | | | | | [phone] | | | | | | | [...] | | | | | | [place] [address] | | | | | | [phone] | | | | | | | [...] | | | | | | [place] [address] | | | | | | [phone] | | | | | | | [...] | | | | | [place] [address] | | | | | | [phone] | | | | | | | | +--------+---------+ + + + | 02/27/ | Office | Rehabilitation | Manuel Sparks, | | | 2017 | Visit | | DO [address] | | | | | | [address] [place], | | | | | | [place] [address] | | | | | | [phone] | | | | | | | [...] | | | | | | [place] [address] | | | | | | [phone] | | | | | | | | | | | | Himanshu Champion | | | | | | D, PT | | +--------+---------+ + + + | 03/29/ | Office | Cardiology | Prem Call, | | | 2017 | Visit | | MD [address] | | | | | | [place], | | | | | | [place] [address] | | | | | | [phone] | | | | | | | | +--------+---------+ + + + as of this encounter Visit Diagnoses Not on filein this encounter"
--- OUTSIDE RECORDS SUMMARY | 2018-02-06 23:15 | XMS | Encounter Summary ---
Demographics + + + | Address | [address] | | | [place] [address] | + + + | Home Phone | | + + + | Preferred Language | Unknown | + + + | Marital Status | | + + + | Baptist Affiliation | 1073 | + + + | Race | Unknown | + + + | Ethnic Group | Unknown | + + + Author + + + | Author | [facility] | | | and Shaunana | + + + | Organization | [facility] | | [...] Team Providers + +------+ + | Care Director Banking Name | Role | Phone | + [...] | Manuel Macdonald DO | [address] | | | | | radiculopath | [address] | [place], | | | | | y S/P | [address] | [place] | | | | | lumbar | [address] | [address] | | | | | fusion | [place], | Phone: | | | | | Procedures | [place] [address] | [phone] | | | | | MRI Lumbar | Phone: | Fax: | | | | | Spine wo | [phone] | [phone] | | | | | Contrast | Fax: | | | | | | | [phone] | | +--------+--------+ + + + + Encounter Details +--------+ + + + + | Date | Type | Department | Care Team | Description | +--------+ + + + + | 03/05/ | Orders Only | [facility] [place] | Manuel Sparks, | Lumbar radiculopathy | | 2018 | | NEUROSURGERY [address] | DO [address] | (Primary Dx); S/P | | | | [address] | [address] [place], | lumbar fusion | | | | [place], [place] | [place] [address] | | | | | [address] | [phone] | | | | | [phone] | | | +--------+ + + + [...] [place], | | | | | | [place] [address] | | | | | | [phone] | | | | | | | [...] [place], | | | | | | [place] [address] | | | | | | [phone] | | | | | | | [...] | | | | | | [place] [address] | | | | | | [phone] | | | | | | | [...] | | | | | | [place] [address] | | | | | | [phone] | | | | | | | [...] | | | | | | [place] [address] | | | | | | [phone] | | | | | | | | +--------+---------+ + + + | 02/27/ | Office | Rehabilitation | Manuel Sparks, | | | 2017 | Visit | | DO [address] | | | | | | [address] [place], | | | | | | [place] [address] | | | | | | [phone] | | | | | | | [...] [place], | | | | | | [place] [address] | | | | | | [phone] | | | | | | | | | | | | Himanshu Champion | | | | | | D, PT | | +--------+---------+ + + + | 03/29/ | Office | Cardiology | Prem Call, | | | 2018 | Visit | | MD [facility] | | | | | | [place], | | | | | | [place] [address] | | | | | | [phone] | | | | | | | [...] Diagnosis | + + | Lumbar radiculopathy - Primary | + + | Thoracic or lumbosacral neuritis or radiculitis, unspecified | + + | S/P lumbar fusion | + + | Arthrodesis status | + +"
--- OUTSIDE RECORDS SUMMARY | 2018-02-06 23:15 | XMS | Encounter Summary ---
Demographics + + + | Address | [address] | | | [place] [address] | + + + | Home Phone | | + + + | Preferred Language | Unknown | + + + | Marital Status | | + + + | Jain Affiliation | [id number] | + + + | Race | Unknown | + + + | Ethnic Group | Unknown | + + + Author + + + | Author | [facility] | | | and Shaunana | + + + | Organization | [facility] | | [...] Team Providers + +------+ + | Care Docketing Specialist Name | Role | Phone | + +------+ + | Alberto Christine | PCP | | + +------+ + Reason for Visit + + + | Reason | Comments | + + + | Back Pain | | + + + Encounter Details +--------+---------+ + + + | Date | Type | Department | Care Team | Description | +--------+---------+ + + + | 12/13/ | Office | [facility] | Juan David Haile, | Encounter for | | 2017 | Visit | NEUROSURGERY [address] | [place] [address] | postoperative wound | | | | [address] [place] | check (Primary Dx) | | | | [place], [place] | [place] [address] | | | | | [address] | [phone] | | | | | [phone] | | | +--------+---------+ + + + [...] + + + | Blood Pressure | 92/51 | 12/13/20171053 PST | + + + + | Pulse | 115 | 12/13/20171053 PST | + + + + | Temperature | - | - | + + + + | Respiratory Rate | - | - | + + + + | Oxygen Saturation | - | - | + + + + | Inhaled Oxygen | - | - | | Concentration | | | + + + + | Weight | 68 kg (150 lb) | 12/13/20171053 PST | + + + + | Height | 160 cm (5' 3") | 12/13/20171053 PST | + + + + | Body Mass Index | 26.57 | 12/13/20171053 PST | + + + + in [...] of this encounter Instructions Patient Instructions - Juan David Haile PA - 12/13/2017 1030 PSTKeep the wound clean and dry as much as possible. Please only do sponge baths until Monday. Beginning Monday yo u can take regular showers but I do not want you to submerse this incision underwater. When showering on Monday please use the shower shingles that we have provided for you. I woul d like for you to continue on your antibiotics. I have given you an extra 5 day supply that you can take as a continuation of your previous 10 day prescription so that there is no giovanni ak in taking your antibiotic. We will see you back next Monday for a wound check.in this e ncounter Progress Notes Juan David Haile PA - 12/13/2017 1030 PSTFormatting of this note may be different from e original. NADYA Chaudhry [address] [facility], [address] [place], [place] [id number] FAX: NEUROSURGERY FOLLOW-UP CHIEF COMPLAINT: Chief Complaint Patient presents with Back Pain HISTORY OF PRESENT ILLNESS: The patient is a 37 y.o. female that had a L4-5, L5-S1 Anterio r Lumbar Interbody Fusion w/ Posterolateral Fusion for back pain around about one month. Sh e returns and overall is doing poorly. The patient complains of having a reaction to Oxycod one and being in significant pain. Patient states that she started having tremors from the oxycodone and is today asking for hydrocodone instead. Patient also informs me that earlier today a dog came and charged her and hit her in the stomach with the dogs head. This dog i s 150 pound Rottweiler and was reportedly running at full speed when she was hit. She was w earing her back brace at the time. The patient has been walking as much as directed. She i s not still taking pain medications at this point, due to reaction to prescribed medication. The patient has had no issues with her surgical site. Patient had a wound check done a week ago by [place] and was started on Bactrim. The cultur e results grew out for plus staph and Gram stain showed 2+ Gram positive cocci. Patient has been taking her Bactrim as prescribed and still has a couple of days left. REVIEW OF SYSTEMS GENERALLY: + fever, no night sweats, no anemia, no fatigue, no recent profound weight cal nges. EYES: No eye problems, no use of corrective lenses, no eye injury, no double vision, no bl indness. EARS, NOSE, AND THROAT: No changes in taste or smell, no hearing difficulty, no ringing in the ears, no ear drainage, no dizziness, no voice changes, no difficulty swallowing, no sig nificant snoring, no sleep apnea, no sinus problems, no major dental work. NEUROLOGICALLY: Please see the review of systems discussed above in the history of present illness. In addition, the patient has numbness/pain of arms and legs, awake with numbness/ pain, weakness, change in walk, pain in back, seizures, headaches, migraine. PSYCHIATRIC: + depression, + sleep disorders, + anxiety, + bipolar disorder, [...] RHEUMATOLOGIC: No joint arthritis, no rheumatoid arthritis. CURRENT MEDICATIONS: Current Outpatient Prescriptions Medication Sig Dispense Refill aluminum & magnesium hydroxide-simethicone (MAALOX PLUS REGULAR STRENGTH) 200-200-20 mg /5 mL suspension Take 30 mLs by mouth every 4 hours as needed for Indigestion. 0 diazePAM (VALIUM) 5 mg tablet Take 0.5-1 tablets by mouth every 6 hours as needed. 90 t ablet 0 ergocalciferol (VITAMIN D-2) 50,000 units capsule Take 50,000 Units by mouth Once a wee k. fluticasone-salmeterol (ADVAIR) 500-50 mcg/puff diskus inhaler Inhale 1 puff into the l ungs Twice Daily. 1 each 11 folic acid 1 mg tablet Take 1 tablet by mouth Daily. 30 tablet 2 furosemide (LASIX) 20 mg tablet Take 1 tablet by mouth Daily. 30 tablet 0 HYDROcodone-acetaminophen (NORCO) 10-325 mg per tablet Take 1-2 tablets by mouth every 4 hours as needed for Pain. 90 tablet 0 ipratropium (ATROVENT HFA) 17 mcg/puff inhaler Inhale [...] as needed for Nausea. 24 tablet 0 raNITIdine (ZANTAC) 150 MG capsule Take 150 mg by mouth 2 times daily. risperiDONE (RISPERDAL) 0.5 mg tablet rizatriptan (MAXALT) 10 mg tablet as needed. sulfamethoxazole-trimethoprim (BACTRIM DS) 800-160 mg per tablet Take 1 tablet by mouth 2 times daily for 5 days. 10 tablet 0 SYMBICORT 160-4.5 MCG/ACT inhaler tiZANidine (ZANAFLEX) 4 [...] Prednisone Shortness Of Breath Throat swells up Hydrocodone Nausea And Vomiting Propranolol Nausea And Vomiting Oxycodone Other (See Comments) Triggered Seizure symptoms Fluoxetine Other (See Comments) Crawling skin Sertraline Other (See Comments) Crawling skin SOCIAL HISTORY: The patient reports that she has been smoking Cigarettes. She started smoking about 24 ye ars ago. She has a 11.50 pack-year smoking history. She quit smokeless tobacco use about 9 y ears ago. She reports that she does not drink alcohol or use drugs. INTERIM PHYSICAL EXAMINATION: Blood pressure 92/51, pulse 115, height 1.6 m (5' 3"), weight 68 kg (150 lb), not currently . Body mass index is 26.57 kg/m. GENERAL: Clare Courtney is in no acute distress with unlabored respirations. SPINE: The proximal third of the incision looks great. The middle third has about 2 mm of separation with yellow exudate filling the space. The distal third has 2-3 mm of separation with the greatest separation occurring at the inferior aspect of the incision there is no a ctive drainage and the skin does not have a cellulitic appearance. It is not warm to touch and is nontender to touch. EXTREMITIES: No lower extremity edema. NEUROLOGICAL EXAMINATION: MENTAL STATUS: The patient is awake, alert, and oriented. She follows simple and complex commands MOTOR EXAM: Motor strength not examined today SENSORY EXAM: The sensory examination not examined today RADIOGRAPHIC REVIEW: No x-rays at today's visit ASSESSMENT: Encounter Diagnosis Name Primary? 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) Bipolar disorder ([facility]) has been admitted for overdose as well Bronchitis, acute Calf pain, left Candidiasis of vulva and vagina Cervical radiculitis Chest pain CHF (congestive heart failure) ([facility]) Constipation Contusion, lower leg COPD (chronic obstructive pulmonary disease) ([facility]) Cubital tunnel syndrome DDD (degenerative disc disease), lumbar Depression 10/1993 Disorder of liver DM type 2 (diabetes mellitus, type 2) ([facility]) diet controlled Drug abuse Dysuria Emphysema of lung ([facility]) Encounter for blood transfusion Eustachian tube dysfunction Exposure to STD Fall Flaccid hemiplegia and hemiparesis Affecting right wrist Folate deficiency anemia Full dentures Full dentures uppper & lower Gangrene ([facility]) Complication of abdominal surgery Headache Heart [...] airway disease Rotator cuff sprain Scabies Seizures ([facility]) 05/02/2010 diagnosed at [facility] Shortness of breath Sinusitis, acute Stroke ([facility]) TMJ syndrome Tobacco use Traumatic bursitis Vitamin B deficiency 12/10/2009 PLAN: The entire incision today was cleansed with 3 swabs of Betadine and 2 swabs of alcoho l. I then used a sterile technique to remove the yellow exudate from the center of the inci ronal. Minor bleeding was incurred during this time giving a fresh skin margins. These ronald ins were then reapproximated closely with Mastisol and Steri-Strips. Band-Aids were then pl aced over these Steri-Strips so that her pants and the brace would rub on the Band-Aids and not the Steri-Strips. Patient was instructed to only do a sponge bath until Monday. Begi nning Monday she can take showers she is not to take a bath. I did procure shower shingle s from [address] which patient can use while in the shower to keep the affected area dry. I have given her an extra 5 days of Bactrim which she can take continuously on top of her previous Bactrim prescription. Patient will return to see me in 1 week for a wound check ELECTRONICALLY SIGNED BY: NADYA Chaudhry, 12/13/2017 17:09 in this encounter Plan of Treatment +--------+---------+ [...] | | | | | | [place] [address] | | | | | | [phone] | | | | | | | [...] | | | | | | [place] [address] | | | | | | [phone] | | | | | | | [...] | | | | | | [place] [address] | | | | | | [phone] | | | | | | | [...] | | | | | | [place] [address] | | | | | | [phone] | | | | | | | | | | | | Himanshu Champion | | | | | | D, PT | | +--------+---------+ + + + | 02/22/ | Office | General Surgery | Matthew Garnica | | | 2017 | Visit | | MD [facility] [address] | | | | | [address] [place] | | | | | | [place] [address] | | | | | | [phone] | | | | | | | | +--------+---------+ + + + | 02/27/ | Office | Rehabilitation | Manuel Sparks, | | | 2017 | Visit | | DO [address] | | | | | | [address] [place], | | | | | | [place] [address] | | | | | | [phone] | | | | | | | | | | | | Himanshu Champion | | | | | | D, PT | | +--------+---------+ + + + | 03/01/ | Office | Rehabilitation | Manuel Sparks, | | | 2017 | Visit | | DO [address] | | | | | | [address] [place], | | | | | | [place] [address] | | | | | | [phone] | | | | | | | | | | | | Himanshu Champion | | | | | | D, PT | | +--------+---------+ + + + | 03/29/ | Office | Cardiology | Prem Call, | | | 2017 | Visit | | MD [address] | | | | | | [place], | | | | | | [place] [address] | | | | | | [phone] | | | | | | | | +--------+---------+ + + + as of this encounter Visit Diagnoses + + | Diagnosis | + + | Encounter for postoperative wound check - Primary | + + | Other specified aftercare following surgery | + +
--- OUTSIDE RECORDS SUMMARY | 2018-02-06 23:15 | XMS | Encounter Summary ---
Demographics + + + | Address | [address] | | | [place] [address] | + + + | Home Phone [...] + | Author | [facility] | | | and Shaunana [...] Team Providers + +------+ + | Care Automobile Damage Field Appraiser Name | Role | Phone | + +------+ + | Alberto Christine | PCP | | + +------+ + Reason for Visit + + + | Reason | Comments | + + + | Wound Check | | + + + Encounter Details +--------+---------+ + + + | Date | Type | Department | Care Team | Description | +--------+---------+ + + + | 12/19/ | Office | [facility] | Juan David Haile, | Encounter for | | 2017 | Visit | NEUROSURGERY [address] | [place] [address] | postoperative wound | | | | [address] [place] | check (Primary Dx) | | | | [place] | [place] [address] | | | | | [address] | [phone] | | | | | [phone] | | | +--------+---------+ + + + [...] + + + | Blood Pressure | 102/66 | 12/19/201754 PST | + + + + | Pulse | 106 | 12/19/201754 PST | + + + + | Temperature | - | - | + + + + | Respiratory Rate | - | - | + + + + | Oxygen Saturation | - | - | + + + + | Inhaled Oxygen | - | - | | Concentration | | | + + + + | Weight | 69.8 kg (153 lb 14.1 | 12/19/2017953 PST | | | oz) | | + + + + | Height | 160 cm (5' 3") | 12/19/2017953 PST | + + + + | Body Mass Index | 27.26 | 12/19/2017953 PST | + + + + in [...] of this encounter Instructions Patient Instructions - uJan David Haile PA - 12/19/2017 1000 PSTI will contact you late doug orellana and see how quickly we can get you in to see Dr. Garnica. In the mean time we will put on a temporary dressing. If you do not hear from us by tomorrow at 8:00 AM please call our off ice. Given you are allergy to oxycodone and hydrocodone it is very possible that you may have an allergy to tramadol as well. If you're symptoms of hives and itching comes back please sto p taking the medication and start taking Benadryl immediately.in this encounter Progress Notes Juan David Haile PA - 12/19/2017 1000 PSTSubjective: Patient presents to clinic today for a wound check. Patient has been using the shower shingles as recommended. However, she healy s not changed the initial Band-Aids that were put on from 1 week ago. She continues to smok e 5-7 cigarettes a day. She has denied any fever or chills and has not had any increased pa in over the incision. Patient was seen in the emergency room a couple of days ago severe rash that was believed t o be from her hydrocodone. Her significant other had asked that I put her back on Dilaudid which did not cause these problems for her. Objectively: Inspection of skin is warm dry and intact. No gross deformity. The proximal half of her incision looks good with some elements working better than it did last week. Ho wever, the lower half has a 4 cm length by 4 mm with dehiscence. As this wound has evolved the left lateral calf is resting more superficially against the right side margin which has adhered to subcutaneous fat. No significant foul odor or purulent fluid appreciated. Assessment: Status post anterior lumbar interbody fusion with consultations of wound healin g secondary to previous incisions from previous surgeries. This is further complicated by h er diabetes and ongoing smoking. Plan: The provider was once again cleansed with Betadine and alcohol. I think patient need s to be seen by Dr. Garnica. I tried calling him that he was unfortunately in the operating r oom. I have left a message and expect he will call me sometime later today. For now, I hav e simply put Steri-Strips over the affected area making certain that there is no further deh iscence. A 2 x 2 and Band-Aid were put over this area. I feel that this wound needs some m oderately aggressive intervention that could possibly be done in the office but may very wel l benefit from an operating room environment and possible consideration of wound VAC. Respect to her pain medication, given her time out from surgery I did not want to increase her pain medication back to Dilaudid as this has its own significant concerns. I did give h er a prescription for tramadol. She was informed that this may also cause a rash since it i s asymptomatic narcotic and shares properties with all narcotics. If her rash comes back sh e should stop taking the medication. I talked to her about taking Benadryl that she had inf ormed me that she is allergic to this as well. Patient is aware that if she has any difficu lty breathing she is to call the ambulance. The above note was dictated using milabent voice recognition software. It may have not been p roofread in entirety. Minor errors in grammar may occur. in this encounter Plan of Treatment +--------+---------+ [...] | | | | | | [place] [address] | | | | | | [phone] | | | | | | | [...] | | | | | | [place] [address] | | | | | | [phone] | | | | | | | [...] | | | | | | [place] [address] | | | | | | [phone] | | | | | | | [...] | | | | | | [place] [address] | | | | | | [phone] | | | | | | | [...] | | | | | [place] [address] | | | | | | [phone] | | | | | | | | +--------+---------+ + + + | 02/27/ | Office | Rehabilitation | Manuel Sparks, | | | 2017 | Visit | | DO [address] | | | | | | [address] [place], | | | | | | [place] [address] | | | | | | [phone] | | | | | | | [...] | | | | | | [place] [address] | | | | | | [phone] | | | | | | | | | | | | Himanshu Champion | | | | | | Luzma, PT | | +--------+---------+ + + + | 03/29/ | Office | Cardiology | Prem Call, | | | 2017 | Visit | | MD [address] | | | | | | [place], | | | | | | [place] [address] | | | | | | [phone] | | | | | | | | +--------+---------+ + + + as of this encounter Visit Diagnoses + + | Diagnosis | + + | Encounter for postoperative wound check - Primary | + + | Other specified aftercare following surgery | + +
--- OUTSIDE RECORDS SUMMARY | 2018-02-06 23:15 | XMS | Encounter Summary ---
Demographics + + + | Address | [address] | | | [place] [address] | + + + | Home Phone | | + + + | Preferred Language | Unknown | + + + | Marital Status | | + + + | Hoahaoism Affiliation | [id number] | + + + | Race | Unknown | + + + | Ethnic Group | Unknown | + + + Author + + + | Author | [facility] | | | and Shaun[place] | + + + | Organization | [facility] | | | and [...] Team Providers + +------+ + | Care Rn Concurrent Review Name | Role | Phone | + +------+ + | Alberto Christine | PCP | | + +------+ + Encounter Details +--------+ + + + + | Date | Type | Department | Care Team | Description | +--------+ + + + + | 12/28/ | Hospital | [facility] | Manuel Sparks, | Other spondylosis | | 2018 | Encounter | MED CTR XRAY [address] | DO [address] | with radiculopathy, | | | | [place] | [address] [place], | lumbar region; S/P | | | | [place] [address] | [place] [address] | lumbar fusion | | | | [phone] | [phone] | | | | | | | [...] + + + +---------+ + + | traMADol (ULTRAM) | Take 1-2 tablets | 90 | 0 | 12/19/19 | | | 50 mg tablet | orally every 4-6 | tablet | | 18 | 8 | | | hours as needed for | | | | | | | pain | | | | | + [...] | | | | | | [place] [address] | | | | | | [phone] | | | | | | | [...] | | | | | | [place] [address] | | | | | | [phone] | | | | | | | [...] | | | | | | [place] [address] | | | | | | [phone] | | | | | | | [...] | | | | | | [place] [address] | | | | | | [phone] | | | | | | | [...] | | | | | | [place] [address] | | | | | | [phone] | | | | | | | | +--------+---------+ + + + | 02/27/ | Office | Rehabilitation | Manuel Sparks, | | | 2017 | Visit | | DO [address] | | | | | | [address] [place], | | | | | | [place] [address] | | | | | | [phone] | | | | | | | [...] [place], | | | | | | [place] [address] | | | | | | [phone] | | | | | | | | | | | | Himanshu Champion | | | | | | D, PT | | +--------+---------+ + + + | 03/29/ | Office | Cardiology | Prem Call, | | | 2017 | Visit | | [address] | | | | | | [place], | | | | | | [place] [address] | | | | | | [phone] | | | | | | | | +--------+---------+ + + + as of this encounter Results XR Lumbar Spine 2 or 3 Vw (12/28/2017 1639) + + | Narrative | + + | XR LUMBAR SPINE 2 OR 3 VW 12/28/2017 4:39 PM HISTORY: S/P: lumbar fusion. | | COMPARISON: Multiple priors. FINDINGS: Again visualized are hardware for posterior | | fusion from L4 through S1 and for anterior fusion from L4 through L5 and L5 through S1 | | with spacer hardware at these levels. The hardware are intact. Bone mineralization is | | normal. Vertebral body height are preserved with no evidence for compression fractures. | | Disc height are maintained. Facet joints are intact. Visualized ribs and pelvic | | osseous structures show no acute findings. Cholecystectomy clips are present. Multiple | | clips are in the lower abdomen and pelvis. IMPRESSION - Stable anterior and | | posterior fusion from L4 through S1. Dictated and Signed by: Otis Whitaker MD | | Electronically signed: 12/28/2017 6:09 PM | + + + + | Procedure Note | + + | Tang, Rad Results In - 12/28/2017 1812 PST XR LUMBAR SPINE 2 OR 3 VW 12/28/2017 4:39 PM | | | | HISTORY: S/P: lumbar fusion. | | | | COMPARISON: Multiple priors. | | | | FINDINGS: | | Again visualized are hardware for posterior fusion from L4 through S1 and for | | anterior fusion from L4 through L5 and L5 through S1 with spacer hardware at | | these levels. The hardware are intact. Bone mineralization is normal. Vertebral | | body height are preserved with no evidence for compression fractures. Disc | | height are maintained. Facet joints are intact. Visualized ribs and pelvic | | osseous structures show no acute findings. Cholecystectomy clips are present. | | Multiple clips are in the lower abdomen and pelvis. | | | | IMPRESSION - | | Stable anterior and posterior fusion from L4 through S1. | | | | Dictated and Signed by: Otis Whitaker MD | | Electronically signed: 12/28/2017 6:09 PM | + + in this encounter Visit Diagnoses + + | Diagnosis | + + | Other spondylosis with radiculopathy, lumbar region | + + | S/P lumbar fusion | + + | Arthrodesis status | + +"
--- OUTSIDE RECORDS SUMMARY | 2018-02-06 23:15 | XMS | Encounter Summary ---
Demographics + + + | Address | [address] | | | [place] [address] | + + + | Home Phone | | + + + | Preferred Language | Unknown | + + + | Marital Status | | + + + | Christianity Affiliation | 1073 | + + + | Race | Unknown | + + + | Ethnic Group | Unknown | + + + Author + + + | Author | [facility] | | | and [place]un[place] | + + + | Organization | [facility] | | | [...] Team Providers + +------+ + | Care Internet Marketing Specialist Name | Role | Phone | + +------+ + | Alberto Christine | PCP | | + +------+ + Reason for Visit +--------+ + | Reason | Comments | +--------+ + | Rash | | +--------+ + Encounter Details +--------+ + + + + | Date | Type | Department | Care Team | Description | +--------+ + + + + | 12/18/ | Emergency | [facility] | Darian Ventuar | Scott (Primary Dx); | | 2017 | | [facility] | MD Deon [address] | Chronic low back | | | | CENTER [address] | [address] [place] | pain, unspecified | | | | [place], [place] | [place] [address] | back pain | | | | [address] | [phone] | laterality, with | | | | [phone] | | sciatica presence | | | | | | unspecified; Opioid | | | | | | dependence with | | | | | | opioid-induced | | | | | | disorder (HCC) | +--------+ + + + + Social [...] + + + | Blood Pressure | 113/70 | 12/18/20171939 PST | + + + + | Pulse | 114 | 12/18/20171939 PST | + + + + | Temperature | 37.1 C (98.8 F) | 12/18/20171939 PST | + + + + | Respiratory Rate | 16 | 12/18/20171939 PST | + + + + | Oxygen Saturation | 99% | 12/18/20171939 PST | + + + + | Inhaled Oxygen | - | - | | Concentration | | | + + + + | Weight | 65.8 kg (145 lb) | 12/18/20171939 PST | + + + + | Height | 160 cm (5' 3") | 12/18/20171939 PST | + + + + | Body Mass Index | 25.69 | 12/18/2017 1940 PST | + + + + in [...] mLs by mouth | | 0 | // | | | magnesium | every 4 [...] 0.5-1 tablets | 90 | 0 | 11/27/19 | | | 5 mg tablet | by mouth every 6 | tablet | | 18 | 8 | | | hours as needed. | | | | | + + + +---------+ + + | | Take 1-2 tablets by | 90 | 0 | 12/13/19 | | | HYDROcodone-acetamin | mouth every 4 hours | tablet | | 18 | 8 | | ophen (NORCO) 10-325 | as needed for Pain. | | | | | | mg per tablet | | | | | | + + + +---------+ + + | | Take 1 tablet by | 10 | 0 | 12/13/19 | | | sulfamethoxazole-tri | mouth 2 times daily | tablet | | 18 | 8 | | methoprim (BACTRIM | for 5 days. | | | | | | DS) 800-160 mg per | | | | | | | tablet [...] | | | | | | [place] [address] | | | | | | [phone] | | | | | | | [...] | | | | | | [place] [address] | | | | | | [phone] | | | | | | | [...] | | | | | | [place] [address] | | | | | | [phone] | | | | | | | | | | | | Himanshu Champion | | | | | | D, PT | | +--------+---------+ + + + | 02/22/ | Office | Rehabilitation | Manuel Sparks, | | | 2017 | Visit | | [address] | | | | | | [address] [place], | | | | | | [place] [address] | | | | | | [phone] | | | | | | | [...] | | | | | | [place] [address] | | | | | | [phone] | | | | | | | | +--------+---------+ + + + | 02/27/ | Office | Rehabilitation | Manuel Sparks, | | | 2017 | Visit | | DO [address] | | | | | | [address] [place], | | | | | | [place] [address] | | | | | | [phone] | | | | | | | [...] | | | | | | [place] [address] | | | | | | [phone] | | | | | | | | | | | | Himanshu Champion | | | | | | D, PT | | +--------+---------+ + + + | 03/29/ | Office | Cardiology | Prem Call, | | | 2017 | Visit | | [place] [address] | | | | | | [place], | | | | | | [place] [address] | | | | | | [phone] | | | | | | | | +--------+---------+ + + + + +--------+ + + | Name | Priori | Associated Diagnoses | Date/Time | | | ty | | | + +--------+ + + | ED INFORMATION EXCHANGE | Routin | | 12/18/2017 1834 PST | | | e | | | + +--------+ + + as of this encounter Visit Diagnoses + + | Diagnosis | + + | Rash - Primary | + + | Rash and other nonspecific skin eruption | + + | Chronic low back pain, unspecified back pain laterality, with sciatica presence | | unspecified | + + | Opioid dependence with opioid-induced disorder (HCC) | + + | Unspecified drug-induced mental disorder | + + Administered Medications + +--------+ +--------+------+ + | Medication Order | MAR | Action | Dose | Rate | Site | | | Action | Date | | | | + +--------+ +--------+------+ + | HYDROmorphone (DILAUDID) | Given | | 0.5 mg | | Ventrogl | | injection 0.5 mg 0.5 mg, | | 8 20:44 | | | uteal-Ri | | Intramuscular, ONCE, 12/18/17 | | PST | | | ght | | at 2030, For 1 dose | | | | | | + +--------+ +--------+------+ + +---+---+ | | | +---+---+ + +-------+ +------+---+---+ | ondansetron (ZOFRAN ODT) | Given | | 4 mg | | | | disintegrating tablet 4 mg 4 mg, | | 8 20:44 | | | | | Oral, ONCE, 12/18/17 at 2030, | | PST | | | | | For 1 dose | | | | | | + +-------+ +------+---+---+ +---+---+ | | | +---+---+ in this encounter
--- OUTSIDE RECORDS SUMMARY | 2018-02-06 23:15 | XMS | Encounter Summary ---
Demographics + + + | Address | [address] | | | [place] [address] | + + + | Home Phone | | + + + | Preferred Language | Unknown | + + + | Marital Status | | + + + | Pentecostalism Affiliation | 1073 | + + + | Race | Unknown | + + + | Ethnic Group | Unknown | + + + Author + + + | Author | [facility] | | [...] Team Providers + +------+ + | Care Coordinate Measuring Machine Operator Name | Role | Phone | + [...] Closed | | Radiology | Diagnoses | Sushma, | [facility] | | | | | Status post | Patience | [address] | | | | | lumbar | [facility] | [place], | | | | | spinal | [address] | [place] | | | | | fusion | [address] | [address] | | | | | Radiculopath | [place], | Phone: | | | | | y, lumbar | [place] [address] | [phone] | | | | | region | Phone: | Fax: | | | | | Spinal | [phone] | [phone] | | | | | stenosis, | Fax: | | | | | | lumbar | [phone] | | | | | | region | | | | | | | without | | | | | | | neurogenic | | | | | | | claudication | | | | | | | Procedures | | | | | | | MRI Lumbar | | | | | | | Spine wo | | | | | | | Contrast | | | +--------+--------+ + + + + Reason for Visit +---------+ + | Reason | Comments | +---------+ + | Post Op | 4W PO | +---------+ + Encounter Details +--------+---------+ + + + | Date | Type | Department | Care Team | Description | +--------+---------+ + + + | 12/29/ | Office | [facility] | Patience Ordaz | Status post lumbar | | 2017 | Visit | NEUROSURGERY [address] | [address] | spinal fusion | | | | [address] | [address] [place], | (Primary Dx); Lumbar | | | | [place], [place] | [place] [address] | radiculopathy | | | | [address] | [phone] | | | | | [phone] | | | +--------+---------+ + + + [...] + + + | Blood Pressure | 107/71 | 12/29/2017827 PST | + + + + | Pulse | 82 | 12/29/2017827 PST | + + + + | [...] Weight | 64.9 kg (143 lb) | 12/29/2017827 PST | + + + + | Height | 160 cm (5' 3") | 12/29/2017827 PST | + + + + | Body Mass Index | 25.33 | 12/29/2017827 PST | + + + + in [...] of this encounter Instructions Patient Instructions - German Mony Rocky, Derrick Boat Runner - 12/29/2017 0830 PSTYou may now slowly increase your lifting up to 15 pounds as tolerated. You may now reach overhead but it should only be 1-2 pounds. Please refrain from twisting for the next 8 weeks. Lastly, you w ill see Dr. Sparks in approximately 2 months where a new x-ray will be taken at that time. I n the meantime, you can also begin to wean out of your brace as instructed below. SPINE BRACE WEANING PROTOCOL (5 WEEKS) Below are instructions for weaning your brace. You can move through the weeks slower if yo u feel the need to do so, but the overall goal is to get you out of the brace slowly over th e next several weeks. WEEK 1 If you have been using your brace for activities like sleeping, showering, do not use the Web and Rank race for these activities any longer but continue using it for everything else. WEEK 2 Stop wearing your brace for sitting and short distance walking. You should use the brace f or anything more involved. WEEK 3 Stop using the brace for medium distance walking. You can bend and twist your back but sti ll proceed slowly with these activities. WEEK 4 Stop using the brace for everything but the most difficult tasks. You should now be able to go on long walks and lift more weight as directed. Add more bending and twisting as tolera sommer. WEEK 5 Stop using the brace for daily use. I would encourage you to use the brace in the future f or activities that you know might aggravate your back or cause pain. You should still work to strengthen your back and use good technique when slat pickler things and bending. in this encounter Progress Notes Patience Ordaz PA-C - 12/29/2017 0830 PSTFormatting of this note may be different f rom the original. Yeni Ordaz PA-C [address] [facility], [address] [place] [address] FAX: [phone] NEUROSURGERY FOLLOW-UP CHIEF COMPLAINT: Chief Complaint Patient presents with Post Op 4W PO HISTORY OF PRESENT ILLNESS: The patient is a 37 y.o. female that had a L4-5, L5-S1 Anterio r Lumbar Interbody Fusion w/ Posterolateral Fusion for back and bilateral leg pain, worse on the left leg about 4 weeks ago. She returns and overall is doing poorly. The patient comp lains of left leg weakness and pain. She has been seen a few times since surgery for wound c hecks and LLE swelling for unknown reason. The patient has been walking as much as directe d. She is still taking pain medications at this point. The patient has had mild issues wit h her surgical site. Her most recent surgical wound check was by Dr. Muir on 12/25/17 who r ecommended reevaluation of wound in 1 month. PT reported that the most recent rx for Ultram caused a seizure on discontinuation and has been put on her allergy list. CURRENT MEDICATIONS: Current Outpatient Prescriptions Medication Sig [...] tablet by mouth Daily. 30 tablet 0 ipratropium (ATROVENT HFA) 17 mcg/puff [...] needed for Nausea. 24 tablet 0 oxyCODONE (ROXICODONE) 5 mg tablet Take 1 tablet by mouth every 6 hours as needed for P ain. Take 1-2 tablets every 4-6 hours as needed for pain 120 tablet 0 raNITIdine (ZANTAC) 150 MG capsule [...] or use drugs. REVIEW OF SYSTEMS GENERALLY: No fever, no night sweats, + anemia, no fatigue, no recent profound weight [...] present illness. In addition, the patient has numbness and pain of arms and legs, awake with numbn ess and pain, weakness, change in walk, headaches, migraine. PSYCHIATRIC: + depression, + sleep [...] rheumatoid arthritis. INTERIM PHYSICAL EXAMINATION: Blood pressure 107/71, pulse 82, height 1.6 m (5' 3"), weight 64.9 kg (143 lb), not current ly . Body mass index is 25.33 kg/m. GENERAL: Clare Courtney is in no acute distress with unlabored respirations. SPINE: The patient s incisions are healing well with some minor drainage at the site of h er old pannus, no significant erythema, or discharge. EXTREMITIES: No lower extremity edema. NEUROLOGICAL EXAMINATION: MENTAL STATUS: The patient is awake, alert, and oriented. She follows simple and complex commands MOTOR EXAM: Motor strength is 4-/5 Dorsi flexion left foot. RLE 5/5 strength. This is wor sened when compared to the preoperative exam. SENSORY EXAM: The sensory examination is unchanged when compared to the preoperative exam. RADIOGRAPHIC REVIEW: The patient s x-rays show stable instrumentation and alignment and were reviewed with the patient today. There have been no interval changes since the immediate postoperative films . Complete fusion has not yet occurred, but this is normal and would not be expected at thi s time. ASSESSMENT: Encounter Diagnoses Name Primary? 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 Back pain with radiation Benign essential hypertension 10/1999 Bipolar 1 disorder ([facility]) Bipolar disorder ([facility]) has been admitted for overdose as well Bronchitis, acute Calf pain, left Candidiasis of vulva and vagina Cervical radiculitis Chest pain CHF (congestive heart failure) ([facility]) Constipation Contusion, lower leg COPD (chronic obstructive pulmonary disease) ([facility]) Cubital tunnel syndrome DDD (degenerative disc disease), lumbar Depression 10/1993 Disorder of liver DM type 2 (diabetes mellitus, type 2) ([facility]) diet controlled Drug abuse Dysuria Emphysema of lung ([facility]) Encounter for blood transfusion Eustachian tube dysfunction Exposure to STD Fall Flaccid hemiplegia and hemiparesis Affecting right wrist Folate deficiency anemia Full dentures Full dentures uppper & lower Gangrene ([facility]) Complication of abdominal surgery Headache [...] airway disease Rotator cuff sprain Scabies Seizures ([facility]) 05/02/2010 diagnosed at [facility] Shortness of breath Sinusitis, acute Stroke ([facility]) TMJ syndrome Tobacco use Traumatic bursitis Vitamin B deficiency 12/10/2009 PLAN: Overall, the patient is doing poorly. Her wound is coming along and has been followed with wound cultures that coincided with a work up for a cause of LLE swelling. She is reporting n ew LLE weakness and pain in a L5 dermatone since surgery. MRI of the lumbar spine will be o btained for further evaluation of weakness. We discussed increasing the patient s activities now allowing 15 pound lifting. The ashley ent will begin the process of brace weaning as directed. We would like the patient to advan ce slowly with this process and discussed this at length during today's visit. I would also like the patient to continue with postoperative rehabilitation and to advance with therapy as tolerated. We discussed that we can provide pain medications for up to 90 days after their surgical da te. We discussed the need to continue tapering pain medication. If they need longer term p ain medication, they should begin working on either pain management or with the primary care provider. We are hoping to see improvement over the coming weeks to months and plan to continue to fo llow this patient. The patient will follow-up in clinic in around 8 weeks for re-evaluation . ELECTRONICALLY SIGNED BY: Yeni Ordaz PA-C, 12/31/2017 10:01 in this encounter Plan of Treatment +--------+---------+ [...] | | | | | | [place] [address] | | | | | | [phone] | | | | | | | [...] | | | | | | [place] [address] | | | | | | [phone] | | | | | | | [...] | | | | | | [place] [address] | | | | | | [phone] | | | | | | | [...] | | | | | | [place] [address] | | | | | | [phone] | | | | | | | [...] [place] | | | | | | [place] [address] | | | | | | [phone] | | | | | | | | +--------+---------+ + + + | 02/27/ | Office | Rehabilitation | Manuel Sparks, | | | 2017 | Visit | | DO [address] | | | | | | [address] [place], | | | | | | [place] [address] | | | | | | [phone] | | | | | | | [...] | | | | | | [place] [address] | | | | | | [phone] | | | | | | | | | | | | Himanshu Champion | | | | | | D, PT | | +--------+---------+ + + + | 03/29/ | Office | Cardiology | Prem Call, | | | 2017 | Visit | | MD [address] | | | | | | [place], | | | | | | [place] [address] | | | | | | [phone] | | | | | | | | +--------+---------+ + + + + +--------+ + + | Name | Priori | Associated Diagnoses | Order Schedule | | | ty | | | + +--------+ + + | XR Lumbar Spine 2 or 3 Vw | Routin | Status post lumbar | Expected: 03/29/2018 | | | e | spinal fusion | (Approximate), | | | | | Expires: 12/28/2018 | + +--------+ + + | MRI Lumbar Spine wo Contrast | Routin | Status post lumbar | Expected: | | | e | spinal fusion | 12/29/2017, Expires: | | | | | 12/29/2018 | + +--------+ + + as of this encounter Visit Diagnoses + + | Diagnosis | + + | Status post lumbar spinal fusion - Primary | + + | Arthrodesis status | + + | Lumbar radiculopathy | + + | Thoracic or lumbosacral neuritis or radiculitis, unspecified | + +
--- OUTSIDE RECORDS SUMMARY | 2018-02-06 23:15 | XMS | Encounter Summary ---
Demographics + + + | Address | [address] | | | [place] [address] | + + + | Home Phone | | + + + | Preferred Language | Unknown | + + + | Marital Status | | + + + | Sikhism Affiliation | 1073 | + + + | Race | Unknown | + + + | Ethnic Group | Unknown | + + + Author + + + | Author | [facility] | | | and [place] | + + + | Organization | [facility] | | | [...] Team Providers + +------+ + | Care Medical Cash Poster Name | Role | Phone | + [...] + + | 01/01/ | Telephone | [facility] [place] | Manuel Sparks, | Other | | 2017 | | NEUROSURGERY [address] | DO [address] | | | | | [address] | [address] [place], | | | | | [place], [place] | [place] [address] | | | | | [address] | [phone] | | | | | [phone] | | | +--------+ + + + [...] | | | | | | [place] [address] | | | | | | [phone] | | | | | | | [...] | | | | | | [place] [address] | | | | | | [phone] | | | | | | | [...] | | | | | | [place] [address] | | | | | | [phone] | | | | | | | [...] | | | | | | [place] [address] | | | | | | [phone] | | | | | | | [...] | | | | | [place] [address] | | | | | | [phone] | | | | | | | | +--------+---------+ + + + | 02/27/ | Office | Rehabilitation | Manuel Sparks, | | | 2017 | Visit | | DO [address] | | | | | | [address] [place], | | | | | | [place] [address] | | | | | | [phone] | | | | | | | [...] | | | | | | [place] [address] | | | | | | [phone] | | | | | | | [...] | | | | | | [place] [address] | | | | | | [phone] | | | | | | | | +--------+---------+ + + + as of this encounter Visit Diagnoses Not on filein this encounter"
--- OUTSIDE RECORDS SUMMARY | 2018-02-06 23:15 | XMS | Encounter Summary ---
Demographics + + + | Address | [address] | | | [place] [address] | + + + | Home Phone | | + + + | Preferred Language | Unknown | + + + | Marital Status | | + + + | Amish Affiliation | 1073 | + + + | Race | Unknown | + + + | Ethnic Group | Unknown | + + + Author + + + | Author | [facility] | | | and Shaunana | + + + | Organization | [facility] | | | [...] Team Providers + +------+ + | Care Event Av Operator Name | Role | Phone | + +------+ + | Alberto Christine | PCP | | + +------+ + Reason for Visit +---------+ + | Reason | Comments | +---------+ + | Post Op | Anterior approach for spinal surgery--two levels ( L4/L5, and | | | L5/S1) | +---------+ + Evaluate & Treat (Routine) + + + + + + + | Status | Reason | Specialty | Diagnoses / | Referred By | Referred To | | | | | Procedures | Contact | Contact | + + + + + + + | Authorized | Specialty | General | Diagnoses | Bridger, | , | | | Services | Surgery | | Manuel Macdonald, | Matthew I, | | | Required | | Osteoarthrit | [address] | , [address] | | | | | is of spine | [address] | [address] | | | | | with | [address] | [place], | | | | | radiculopath | [place], | [place] [address] | | | | | y, lumbar | [place] [address] | Phone: | | | | | region | Phone: | [phone] | | | | | Lumbar | [phone] | Fax: | | | | | stenosis | Fax: | [phone] | | | | | Lumbar | [phone] | | | | | | radiculopath | | | | | | | y Chronic | | | | | | | midline low | | | | | | | back pain | | | | | | | with | | | | | | | bilateral | | | | | | | sciatica | | | | | | | Neurogenic | | | | | | | claudication | | | + + + + + + + Encounter Details +--------+---------+ + + + | Date | Type | Department | Care Team | Description | +--------+---------+ + + + | 12/25/ | Office | [facility] | FieldMatthew | Osteoarthritis of | | 2018 | Visit | SURGERY [address] | MD Thomas, FACS [address] | spine with | | | | [facility], [place] | [address] [facility] | radiculopathy, | | | | [address] | [place] [address] | lumbar region | | | | [phone] | [phone] | (Primary Dx); Lumbar | | | [...] | | | | claudication present | +--------+---------+ + + + Social History [...] + + + | Blood Pressure | - | - | + + + + | Pulse | 67 | 12/25/20171420 PST | + + + + | Temperature | 36.2 C (97.2 F) | 12/25/20171420 PST | + + + + | Respiratory Rate | 16 | 12/25/20171420 PST | + + + + | Oxygen Saturation | 97% | 12/25/20171420 PST | + + + + | Inhaled Oxygen | - | - | | Concentration | | | + + + + | Weight | 66.9 kg (147 lb 7.8 | 12/25/20171420 PST | | | oz) | | + + + + | Height | 160 cm (5' 3") | 12/25/20171420 PST | + + + + | Body Mass Index | 26.13 | 12/25/20171420 PST | + + + + in [...] + as of this encounter Progress Notes Matthew Garnica MD, FACS - 12/25/2017 1400 PSTFormatting of this note may be different from the original. Patient Identification: Clare Courtney 1980 Is a 37 y.o. female , a patient of MARY King. Patient is here with her . HISTORY OF PRESENT ILLNESS S: Date of surgery: 11/23/2017. Title of surgery: Anterior approach for spinal surgery--tw o levels (L4/L5, and L5-S1). Physician notes: Patient arrives 4 weeks S/P Anterior approach for spinal surgery--two levels (L4/L5, and L5 -S1). Patient has been in and out of the ED for LEFT leg tenderness and swelling. Today patient states her LEFT leg has improved but still swells. Patient states she is having pain at the incision site. Patient continues to smoke daily, states she is smoking less. Reports she is a diabetic. Imaging: XR LUMBAR SPINE 2 OR 3 VW 12/10/2017 6:04 PM FINDINGS: Intact appearance of the anterior and posterior lumbar fusion hardware extending from L4 through S1 without evidence of interval complication. Lumbar alignment is maintained. Disc heights are preserved. Vertebral body heights are maintained. Cholecystectomy clips are present. Left pelvic clips are seen. Evidence of likely prior hernia repair. IMPRESSION - No acute findings. Intact appearance of the L4-S1 fixation hardware. Dictated and Signed by: Klever Cole MD Electronically signed: 12/11/2017 8:[address] ABDOMEN PELVIS W CONTRAST 12/05/2017 11:58 AM FINDINGS: LUNG BASE: Bibasilar dependent, prominent patchy airspace disease thought to represent atelectasis with component of pneumonia not entirely excluded but thought less likely. No evidence of pericardial or pleural effusion. HEPATOBILIARY: Mild intrahepatic and extrahepatic biliary ductal dilatation, thought to be within normal limits in this patient status post cholecystectomy and unchanged since 2016. Mild enlargement of the liver. No suspicious hepatic mass identified. Multiple subhepatic/hepatic calcifications are noted which are unchanged and presumably benign. SPLEEN: Normal parenchyma. No evidence of mass or splenomegaly. PANCREASE: Normal parenchyma. No evidence of pancreatic ductal dilation. ADRENAL GLANDS: No evidence of nodule, mass or suspicious thickening. KIDNEYS: Bilateral kidneys are without evidence of suspicious mass, calculus, or hydronephrosis. BOWEL: Similar postsurgical changes seen related to the gastroesophageal junction without evidence of acute abnormality in this region. VASCULATURE: Aorta is nonaneurysmal and without evidence of dissection. No evidence of DVT within the visualized common femoral and external iliac chain venous structures. LYMPH NODES: Interval development of multiple prominent, but subthreshold left superficial inguinal lymph nodes. PERITONEUM: No evidence of free air or suspicious implants. BLADDER: Mild diffuse thickening of the bladder wall which is nondistended. REPRODUCTIVE: Uterus appears to be surgically absent. Redemonstration of multiple predominantly simple appearing cystic lesions within the bilateral adnexa and compared with multiple prior CTs. Small amount of free fluid seen within the pelvis. SOFT TISSUES: Extensive edematous changes are seen in the anterior, lateral, and posterolateral left thigh soft tissues. Midline laparotomy scar is present. BONES: There are no acute osseous abnormalities. Anterior and posterior fixation hardware is seen at L4-S1 without evidence of hardware complication. IMPRESSION - 1. No acute intra-abdominal abnormality identified. No evidence of DVT on CT imaging. 2. Extensive left posterolateral, lateral, and anterior thigh soft tissue swelling which may represent edema or infectious etiologies. 3. Linear and slightly patchy bibasilar airspace disease is thought to represent atelectasis with superimposed pneumonia unable to be entirely excluded. 4. Similar to slightly decreased size of multiple cystic lesions identified within bilateral adnexa when compared with multiple prior CTs. 5. Mild hepatomegaly. 6. Thickening of the bladder wall, thought related to nondistention with cystitis unable to be entirely excluded. VAS LOWER EXTREMITY VENOUS LEFT dated 12/04/2017 1:31 PM. FINDINGS: There is phasic respiratory flow in all areas sampled. There is response to Valsalva in the common femoral vein. There is response to calf augmentation in all areas sampled. There is normal and complete compressibility in all areas sampled. There are no visible thrombi. There is respiratory phasic flow in the sampled portion of the Right common femoral vein. IMPRESSION - No evidence for deep venous thrombosis in the left lower extremity. The preliminary findings were conveyed to the ordering provider, by the yard goods salesperson, immediately following the exam. Dictated and Signed by: Jairo Powell MD Electronically signed: 12/04/2017 4:13 PM PAST MEDICAL HISTORY Past Medical History: Diagnosis Date Abdominal pain LLQ Abdominal wall cellulitis Abscess of Bartholin's gland Abscess of vulva Acute kidney failure (HCC) 05/2013 Acute URI Adjustment disorder with anxiety Allergic rhinitis Anal polyp Anemia 12/03/2009 unsure, gets blood transfusions periodically Anxiety 12/03/2009 Arthritis Asthma Asthma, moderate persistent, uncomplicated 04/21/2015 Problem list clothes separator utility Back pain with radiation Benign essential hypertension 10/1999 Bipolar 1 disorder (HCC) Bipolar disorder (HCC) has been admitted for overdose as well Bronchitis, acute Calf pain, left Candidiasis of vulva and vagina Cervical radiculitis Chest pain CHF (congestive heart failure) (HCC) Constipation Contusion, lower leg COPD (chronic obstructive pulmonary disease) (HCC) Cubital tunnel syndrome DDD (degenerative disc disease), lumbar Depression 10/1993 Disorder of liver DM type 2 (diabetes mellitus, type 2) (HCC) diet controlled Drug abuse Dysuria Emphysema of lung (HCC) Encounter for blood transfusion Eustachian tube dysfunction Exposure to STD Fall Flaccid hemiplegia and hemiparesis Affecting right wrist Folate deficiency anemia Full dentures Full dentures uppper & lower Gangrene (HCC) Complication of abdominal surgery Headache Heart murmur [...] airway disease Rotator cuff sprain Scabies Seizures (HCC) 05/02/2010 diagnosed at [facility] Shortness of breath Sinusitis, acute Stroke ([facility]) TMJ syndrome Tobacco use Traumatic bursitis Vitamin B deficiency 12/10/2009 Past Surgical History: Procedure Laterality Date ABDOMINAL HERNIA REPAIR 2-3 ABDOMINOPLASTY 1998 CARPAL TUNNEL RELEASE 2009 CERVICAL SPINE SURGERY Anterior 05/06/2016 Procedure: C4-5 and C5-6 Anterior Cervical Discectomy with Fusion and Plating ; Surgeon: Manuel Sparks DO; Location: [facility] MAIN OR SECTION 1998, 1997 CHOLECYSTECTOMY ENDOSCOPY 12/2014 Dr. Marin GASTRIC BYPASS SURGERY 1996 HYSTERECTOMY LAMINECTOMY N/A 11/23/2017 Procedure: L4-5, L5-S1 Anterior Lumbar Interbody Fusion w/ Posterolateral Fusion; Surgeon : Manuel Sparks DO; Location: [facility] MAIN OR TONSILLECTOMY AND ADENOIDECTOMY 1990 TUBAL LIGATION 1998 Allergies Allergen Reactions Albuterol Swelling Tongue swelling [...] skin Sertraline Other (See Comments) Crawling skin Medications: Outpatient Encounter Prescriptions as of 12/25/2017 Medication Sig Dispense Refill aluminum & magnesium [...] 50 mg by mouth 2 times daily. traMADol (ULTRAM) 50 mg tablet Take 1-2 tablets orally every 4-6 hours as needed for pa in 90 tablet 0 No facility-administered encounter medications on file as of 12/25/2017. Family History: Her family history includes Allergies in her mother; Arthritis in her mother; Asthma in her daughter and mother; Heart attack in her father; High blood pressure in her father; Hyperte nsion in her brother and mother; Kidney disease in her mother; Mental illness in her daughte r; Seizures in her father; Sleep Apnea in her brother, daughter, father, and mother. Social History: She reports that she has been smoking Cigarettes. She started smoking about 24 years ago. She has a 11.50 pack-year smoking history. She quit smokeless tobacco use about 9 years ago. She reports that she does not drink alcohol or use drugs. PHYSICAL EXAM Pulse 67 | Temp 36.2 C (97.2 F) (Temporal) | Resp 16 | Ht 1.6 m (5' 3") | Wt 66.9 k g (147 lb 7.8 oz) | LMP (LMP Unknown) | SpO2 97% | BMI 26.13 kg/m Body mass index is 26.13 kg/m. PE: Gen: Well-developed, well-nourished, age appropriate. Abdomen: soft, non-tender,. Lower midline wound at old pannus fold--3 cm c 0.5 cm with 30 % granulation tissue. No undermining. No necrosis. Neuro: Alert and oriented x 3, Moving all 4 extremities. ASSESSMENT/PLAN Clare was seen today for post op. Diagnoses and all orders for this visit: Osteoarthritis of spine with radiculopathy, lumbar region Lumbar radiculopathy Neurogenic claudication Chronic midline low back pain with bilateral sciatica Spinal stenosis of lumbar region, unspecified whether neurogenic claudication present Patient recovering S/P Anterior approach for spinal surgery--two levels (L4/L5, and L5-S1). I have instructed patient to change bandage daily after showering. Wound is healing, but slowly. As the wound heals, it will Remodel. I would not recommend Re-suturing of the wo und. Suspect it would only get infected and delay further healing. Patient to return to clinic in 1 month Matthew Garnica MD, FACS Vascular and General Surgery I Veena Delgadillo am acting as a scribe on behalf of, and in the presence of Matthew atkins MD, FACS. I have reviewed and edited this note. Veena Delgadillo [facility] 12/25/17 I, Matthew Garnica MD, FACS, personally performed the services described in this docume ntation, as scribed by Veena Delgadillo CMA in my presence, and it is both accurate and complet e. Veena Delgadillo, [facility] 12/25/2017 14:49 CC: Wilver King this encounter Plan of Treatment +--------+---------+ + [...] | | | | | | [place] [address] | | | | | | [phone] | | | | | | | [...] | | | | | | [place] [address] | | | | | | [phone] | | | | | | | [...] | | | | | | [place] [address] | | | | | | [phone] | | | | | | | [...] | | | | | | [place] [address] | | | | | | [phone] | | | | | | | [...] | | | | | | [place] [address] | | | | | | [phone] | | | | | | | | +--------+---------+ + + + | 02/27/ | Office | Rehabilitation | Manuel Sparks, | | | 2017 | Visit | | DO [address] | | | | | | [address] [place], | | | | | | [place] [address] | | | | | | [phone] | | | | | | | [...] | | | | | | [place] [address] | | | | | | [phone] | | | | | | | | | | | | Himanshu Champion | | | | | | Luzma, PT | | +--------+---------+ + + + | 03/29/ | Office | Cardiology | Prem Call, | | | 2017 | Visit | | MD [address] | | | | | | [place], | | | | | | [place] [address] | | | | | | [phone] | | | | | | | | +--------+---------+ + + + as of this encounter Visit Diagnoses + + | Diagnosis | + + | Osteoarthritis of spine with radiculopathy, lumbar region - Primary | + + | Lumbar radiculopathy | + + | Thoracic or lumbosacral neuritis or radiculitis, unspecified | + + | Neurogenic claudication | + + | Spinal stenosis, lumbar region, with neurogenic claudication | + + | Chronic midline low back pain with bilateral sciatica | + + | Spinal stenosis of lumbar region, unspecified whether neurogenic claudication present | + +
--- OUTSIDE RECORDS SUMMARY | 2018-02-06 23:15 | XMS | Encounter Summary ---
Demographics + + + | Address | [address] | | | [place] [address] | + + + | Home Phone | | + + + | Preferred Language | Unknown | + + + | Marital Status | | + + + | Caodaism Affiliation | 1073 | + + + | Race | Unknown | + + + | Ethnic Group | Unknown | + + + Author + + + | Author | [facility] | | | and Shaunana | + + + | Organization | [facility] | | | [...] Team Providers + +------+ + | Care Elevator Serviceman Name | Role | Phone | + +------+ + | Alberto Christine | PCP | | + +------+ + Reason for Visit + + + | Reason | Comments | + + + | Medication Refill | | + + + Encounter Details +--------+--------+ + + + | Date | Type | Department | Care Team | Description | +--------+--------+ + + + | 12/20/ | Refill | [facility] | Manuel Sparks, | Medication Refill | | 2017 | | NEUROSURGERY [address] | DO [address] | | | | | [address] | [address] [place], | | | | | [place], [place] | [place] [address] | | | | | [address] | [phone] | | | | | [phone] | | | +--------+--------+ + + + [...] | | | | | | [place] [address] | | | | | | [phone] | | | | | | | [...] | | | | | | [place] [address] | | | | | | [phone] | | | | | | | [...] | | | | | | [place] [address] | | | | | | [phone] | | | | | | | [...] | | | | | | [place] [address] | | | | | | [phone] | | | | | | | [...] | | | | | | [place] [address] | | | | | | [phone] | | | | | | | | +--------+---------+ + + + | 02/27/ | Office | Rehabilitation | Manuel Sparks, | | | 2017 | Visit | | DO [address] | | | | | | [address] [place], | | | | | | [place] [address] | | | | | | [phone] | | | | | | | [...] [place], | | | | | | [place] [address] | | | | | | [phone] | | | | | | | | | | | | Himanshu Champion | | | | | | Luzma, PT | | +--------+---------+ + + + | 03/29/ | Office | Cardiology | Prem Call, | | | 2017 | Visit | | MD [address] | | | | | | [place], | | | | | | [place] [address] | | | | | | [phone] | | | | | | | | +--------+---------+ + + + as of this encounter Visit Diagnoses Not on filein this encounter"
--- OUTSIDE RECORDS SUMMARY | 2018-02-06 23:16 | XMS | Encounter Summary ---
Demographics + + + | Address | [address] | | | [place] [address] | + + + | Home Phone | | + + + | Preferred Language | Unknown | + + + | Marital Status | | + + + | Jainism Affiliation | 1073 | + + + | Race | Unknown | + + + | Ethnic Group | Unknown | + + + Author + + + | Author | [facility] | | | and [place]unana | + + + | Organization | [facility] | | | and [...] Team Providers + +------+ + | Care Risk Management Internship Name | Role | Phone | + +------+ + | Alberto Christine | PCP | | + +------+ + Reason for Visit + + + | Reason | Comments | + + + | Leg Swelling | | + + + Encounter Details +--------+ + + + + | Date | Type | Department | Care Team | Description | +--------+ + + + + | 12/04/ | Emergency | [facility] | [place], | Hypotension, | | 2018 | | [facility] | MD [address] | unspecified | | | | [address] | [address] | hypotension type | | | | [place], [place] | [place] [address] | (Primary Dx); | | | | [address] | [phone] | Polypharmacy; Leg | | | | [phone] | | swelling | +--------+ + + + + Social [...] + + + | Blood Pressure | 91/63 | 12/04/2017 1644 PST | + + + + | Pulse | 95 | 12/04/2017 1618 PST | + + + + | Temperature | 37.1 C (98.7 F) | 12/04/2017 1136 PST | + + + + | Respiratory Rate | 18 | 12/04/20171135 PST | + + + + | Oxygen Saturation | 100% | 12/04/20171617 PST | + + + + | Inhaled Oxygen | - | - | | Concentration | | | + + + + | Weight | 64.9 kg (143 lb) | 12/04/20171135 PST | + + + + | Height | 160 cm (5' 3") | 12/04/20171135 PST | + + + + | Body Mass Index | 25.33 | 12/04/20171135 PST | + + + + in [...] + + + +---------+ + + | HYDROmorphone | Take 1 tablet by | 120 | 0 | 11/27/19 | | | (DILAUDID) 2 mg | mouth every 4 hours | tablet [...] | | | | | | [place] [address] | | | | | | [phone] | | | | | | | [...] | | | | | | [place] [address] | | | | | | [phone] | | | | | | | [...] | | | | | | [place] [address] | | | | | | [phone] | | | | | | | [...] [place], | | | | | | [place] [address] | | | | | | [phone] | | | | | | | | | | | | Himanshu Champion | | | | | | D, PT | | +--------+---------+ + + + | 02/22/ | Office | General Surgery | Matthew Garnica | | | 2017 | Visit | | MD Thomas, [address] | | | | | | [address] | | | | | | [place] [address] | | | | | | [phone] | | | | | | | | +--------+---------+ + + + | 02/27/ | Office | Rehabilitation | Manuel Sparks, | | | 2017 | Visit | | DO [address] | | | | | | [address] [place], | | | | | | [place] [address] | | | | | | [phone] | | | | | | | [...] [place], | | | | | | [place] [address] | | | | | | [phone] | | | | | | | | | | | | Himanshu Champion | | | | | | D, PT | | +--------+---------+ + + + | 03/29/ | Office | Cardiology | Prem Call, | | | 2017 | Visit | | MD [address] | | | | | | [place], | | | | | | [place] [address] | | | | | | [phone] | | | | | | | | +--------+---------+ + + + + +--------+ + + | Name | Priori | Associated Diagnoses | Date/Time | | | ty | | | + +--------+ + + | ED INFORMATION EXCHANGE | Routin | | 12/04/2017 1129 PST | | | e | | | + +--------+ + + as of this encounter Results Extra Green Top Tube (12/04/2017 1503) + +-------+ + | Component | Value | Ref Range | + +-------+ + | Extra Green Top Tube | Done | | + +-------+ + + + + | Specimen | Performing Laboratory | + + + | Blood | [facility] [address] | | | [place] [address] | + + + B Type Natriuretic Peptide (12/04/2017 1503) + +-------+ + | Component | Value | Ref Range | + +-------+ + | BNP | 94 | <100 pg/mL | + +-------+ + + + + | Specimen | Performing Laboratory | + + + | Blood | [facility] [address] | | | [place] [address] | + + + VAS Lower Extremity Venous Left (12/04/2017 1400) + + | Narrative | + + [...] | | the ordering provider, by the lye boiler, immediately following the exam. | | Dictated and Signed by: Jairo Powell MD Electronically signed: 12/04/2017 4:13 PM | | | + + + + | Procedure Note | + + | Khris Beckwith Results In - 12/04/2017 1617 PST EXAM: [...] following the exam.Dictated and Signed by: Jairo Powell, | | Electronically signed: 12/04/2017 4:13 PM [...] to the ordering provider, by the | |lye boiler, immediately following the exam. | | | | | |Dictated and Signed by: Jairo Powell MD | | Electronically signed: 12/04/2017 4:13 PM | + + CBC with Differential (12/04/2017 1338) + + + + | Component | [...] | + + + | Blood | [facility] [address] | | | [place] [address] | + + + Lactic Acid (12/04/2017 1336) + +-------+ + | Component | Value | Ref Range | + +-------+ + | LACTATE | 1.5 | 0.5 - 2.2 mmol/L | + +-------+ + + + + | Specimen | Performing Laboratory | + + + | Blood | [facility] Janette [address] | | | [place] [address] | + + + POC Blood Gases [...] Laboratory | + + + | | [facility] [address] | | | [place] [address] | + + + XR Chest AP Portable (12/04/2017 1244) + + | Narrative | + + [...] + | Khris Beckwith Results In - 12/04/2017 1443 PST SINGLE [...] signed: 12/04/2017 2:39 PM | + + Comprehensive Metabolic Panel (12/04/2017 1236) + + + + | Component | Value | Ref Range | + + + + | NA | 139 | 136 - 149 mmol/L | + + + + | K | 3.9 | 3.5 - 5.1 mmol/L | + + + + | CL | 109 | 98 - 109 mmol/L | + + + + | CO2 | 24 | 24 - 31 mmol/L | + + + + | ANION GAP | 6 | 3 - 16 mmol/L | + + + + | GLUCOSE | 79 | 70 - 109 mg/dL | + + + + | BUN | 6 (L) | 7 - 18 mg/dL | + + + + | Creatinine, | 0.72 | 0.60 - 1.30 mg/dL | | Serum/Plasma | | | + + + + | eGFR if not | >60Comment: GLOMERULAR FILTRATION | >=60 mL/min/1.73m2 | | ANGUILLAN | RATE,ESTIMATED mL/min/1.35e3Agyg than | | | | 60 Chronic [...] + + + + | ALBUMIN | 2.5 (L) | 3.2 - 5.0 g/dL | + + + + | BILIRUBIN TOTAL | 0.6 | 0.1 - 1.5 mg/dL | + + + + | Total protein | 5.2 (L) | 6.0 - 7.8 g/dL | + + + + | AST | 16 | 10 - 42 U/L | + + + + | ALT | 12 | 6 - 45 U/L | + + + + | ALK PHOS | 163 (H) | 40 - 110 U/L | + + + + | GLOBULIN | 2.7 | 2.1 - 3.8 g/dL | + + + + | Albumin/Globulin | 0.9 | 0.8 - 2.0 | | ratio | | | + + + + | BUN/CREA | 8.3 | | + + + + + + + | Specimen | Performing Laboratory | + + + | Blood | [facility] [address] | | | [place] [address] | + + + in this encounter Visit Diagnoses + + | Diagnosis | + + | Hypotension, unspecified hypotension type - Primary | + + | Polypharmacy | + + | Issue of repeat prescriptions | + + | Leg swelling | + + | Swelling of limb | + + Administered Medications + +---------+ +--------+-------+------+ | Medication Order | MAR | Action | Dose | Rate | Site | | | Action | Date | | | | + +---------+ +--------+-------+------+ | sodium chloride 0.9% (NS) bolus | New Bag | 12/04/2017 | 1,000 | 2000 | | | 1,000 mL 1,000 mL, Intravenous, | | 12:50 | mLs | mL/hr | | | Administer over 30 Minutes, | | PST | | | | | ONCE, [facility] 12/04/17 at 1230, For 1 | | | | | | | dose | | | | | | + +---------+ +--------+-------+------+ +---+---+ | | | +---+---+ + +---------+ +--------+-------+---+ | sodium chloride 0.9% (NS) bolus | New Bag | 12/04/2017 | 1,000 | 2000 | | | 1,000 mL 1,000 mL, Intravenous, | | 13:53 | mLs | mL/hr | | | Administer over 30 Minutes, | | PST | | | | | ONCE, [facility] 12/04/17 at 1345, For 1 | | | | | | | dose | | | | | | + +---------+ +--------+-------+---+ +---+---+ | | | +---+---+ in this encounter
--- OUTSIDE RECORDS SUMMARY | 2018-02-06 23:16 | XMS | Encounter Summary ---
Demographics + + + | Address | [address] | | | [place] [address] | + + + | Home Phone | | + + + | Preferred Language | Unknown | + + + | Marital Status | | + + + | Jehovah'S Witness Affiliation | 1073 | + + + | Race | Unknown | + + + | Ethnic Group | Unknown | + + + Author + + + | Author | [facility] | | | and [...] Team Providers + +------+ + | Care Touch Up Worker Name | Role | Phone | + [...] + + | 12/10/ | Emergency | [facility] | Deon Mckeon | Fall, initial | | 2018 | | [facility] | Steven Nye MD | encounter (Primary | | | | CENTER [address] | [address] | Dx); Acute bilateral | | | | [place], [place] | [place], [place] | low back pain | | | | [address] | [address] | without sciatica | | | | [phone] | | | +--------+ + + + [...] + + + | Blood Pressure | 95/55 | 12/10/20171727 PST | + + + + | Pulse | 74 | 12/10/20171727 PST | + + + + | Temperature | 2.8 C (37 F) | 12/10/20171727 PST | + + + + | Respiratory Rate | 12 | 12/10/20171727 PST | + + + + | Oxygen Saturation | 99% | 12/10/20171727 PST | + + + + | Inhaled Oxygen | - | - | | Concentration | | | + + + + | Weight | 68 kg (150 lb) | 12/10/20171727 PST | + + + + | Height | 160 cm (5' 3") | 12/10/20171727 PST | + + + + | Body Mass Index | 26.57 | 12/10/20171727 PST | + + + + in [...] + as of this encounter Discharge Instructions Deon Mckeon MD - 12/10/2017Follow-up in neurosurgery clinic. Please try to walk as much as he can in the home. Wear your back brace for stabilization. Please follow-up with her primary care physician. Clinic pain medication to as little as needed - Even if you have to cut your pills in half. in this encounter Medications at Time of Discharge [...] HYDROmorphone | Take 1 tablet by | 6 | 0 | 12/05/19 | | | (DILAUDID) 2 mg | mouth every 6 hours | [...] tablet by | 120 | 0 | 12/06/19 | | | TABS | mouth every 4 hours | tablet | | 18 | 8 | | | as needed for Pain. | | | | | + + + +---------+ + + | | Take 1 tablet by | 20 | 0 | 12/06/19 | | | sulfamethoxazole-tri | mouth 2 times daily | tablet | | 18 | 8 | | methoprim (BACTRIM | for 10 days. | | | | | | [...] [place], | | | | | | [place] [address] | | | | | | [phone] | | | | | | | [...] | | | | | | [place] [address] | | | | | | [phone] | | | | | | | [...] | | | | | | [place] [address] | | | | | | [phone] | | | | | | | [...] | | | | | | [place] [address] | | | | | | [phone] | | | | | | | [...] | | | | | [place] [address] | | | | | | [phone] | | | | | | | | +--------+---------+ + + + | 02/27/ | Office | Rehabilitation | Manuel Sparks, | | | 2017 | Visit | | DO [address] | | | | | | [address] [place], | | | | | | [place] [address] | | | | | | [phone] | | | | | | | [...] | | | | | | [place] [address] | | | | | | [phone] | | | | | | | | | | | | Himanshu Champion | | | | | | D, PT | | +--------+---------+ + + + | 03/29/ | Office | Cardiology | Prem Call, | | | 2017 | Visit | | [address] [facility] | | | | | | [place], | | | | | | [place] [address] | | | | | | [phone] | | | | | | | | +--------+---------+ + + + + +--------+ + + | Name | Priori | Associated Diagnoses | Date/Time | | | ty | | | + +--------+ + + | ED INFORMATION EXCHANGE | Routin | | 12/10/2017 1650 PST | | | e | | | + +--------+ + + as of this encounter Results XR Lumbar Spine 2 or 3 Vw (12/10/2017 1804) + + | Narrative | + + | XR LUMBAR SPINE 2 OR 3 VW 12/10/2017 6:04 PM HISTORY: FALL. COMPARISON: | | 12/05/2017 FINDINGS: Intact appearance of the anterior and posterior lumbar fusion | | hardware extending from L4 through S1 without evidence of interval complication. Lumbar | | alignment is maintained. Disc heights are preserved. Vertebral body heights are | | maintained. Cholecystectomy clips are present. Left pelvic clips are seen. Evidence of | | likely prior hernia repair. IMPRESSION - No acute findings. Intact appearance | | of the L4-S1 fixation hardware. Dictated and Signed by: Klever Cole MD | | Electronically signed: 12/11/2017 8:58 AM | + + + + | Procedure Note | + + | Tang, Rad Results In - 12/11/2017 0901 PST XR LUMBAR SPINE 2 OR 3 VW 12/10/2017 6:04 PM | | | | HISTORY: FALL. | | | | COMPARISON: 12/05/2017 | | | | FINDINGS: | | Intact appearance of the anterior and posterior lumbar fusion hardware extending | | from L4 through S1 without evidence of interval complication. Lumbar alignment | | is maintained. Disc heights are preserved. Vertebral body heights are | | maintained. Cholecystectomy clips are present. Left pelvic clips are seen. | | Evidence of likely prior hernia repair. | | | | IMPRESSION - | | No acute findings. | | | | Intact appearance of the L4-S1 fixation hardware. | | | | Dictated and Signed by: Klever Cole MD | | Electronically signed: 12/11/2017 8:58 AM | + + in this encounter Visit Diagnoses + + | Diagnosis | + + | Fall, initial encounter - Primary | + + | Acute bilateral low back pain without sciatica | + +
--- OUTSIDE RECORDS SUMMARY | 2018-02-06 23:16 | XMS | Encounter Summary ---
Demographics + + + | Address | [address] | | | [place] [address] | + + + | Home Phone | | + + + | Preferred Language | Unknown | + + + | Marital Status | | + + + | Jainism Affiliation | 1073 | + + + | Race | Unknown | + + + | Ethnic Group | Unknown | + + + Author + + + | Author | [facility] | | | and Shaunana | + + + | Organization | [facility] | | [...] Team Providers + +------+ + | Care Deputy Court Clerk Name | Role | Phone | + +------+ + | Alberto Christine | PCP | | + +------+ + Reason for Visit + + + | Reason | Comments | + + + | Leg Swelling | bilaterally leg and feet, back surgery on 11/23 | + + + Encounter Details +--------+---------+ + + + | Date | Type | Department | Care Team | Description | +--------+---------+ + + + | 12/04/ | Office | [facility] | Zane Guardado, | Patient left after | | 2017 | Visit | CARE [address] | [address] | triage (Primary Dx) | | | | [place] | [facility] [place] | | | | | [address] | [address] | | | | | [phone] | | | +--------+---------+ + + + [...] + + + | Blood Pressure | 106/57 | 12/04/2017 1109 PST | + + + + | Pulse | 98 | 12/04/20171108 PST | + + + + | Temperature | 36.9 C (98.4 F) | 12/04/20171108 PST | + + + + | Respiratory Rate | 20 | 12/04/20171108 PST | + + + + | Oxygen Saturation | 98% | 12/04/20171108 PST | + + + + | Inhaled Oxygen | - | - | | Concentration | | | + + + + | Weight | 64.4 kg (142 lb) | 12/04/20171108 PST | + + + + | Height | 160 cm (5' 3") | 12/04/20171108 PST | + + + + | Body Mass Index | 25.15 | 12/04/20171108 PST | + + + + in [...] + as of this encounter Progress Notes Estrella Wilson RN - 12/04/2017 1100 PSTFormatting of this note may be different from the original. This is a Rapid Triage & this patient was not seen by a physician during this triage: Chief Complaint Patient presents with Leg Swelling bilaterally leg and feet, back surgery on 11/23 BP 106/57 | Pulse 98 | Temp 36.9 C (98.4 F) (Temporal) | Resp 20 | Ht 1.6 m (5' 3") | Wt 64.4 kg (142 lb) | LMP (LMP Unknown) | SpO2 98% | BMI 25.15 kg/m Relevant History related to today's visit: Past Medical History: Diagnosis Date Abdominal pain LLQ Abdominal wall cellulitis Abscess of Bartholin's gland Abscess of vulva Acute kidney failure (HCC) 05/2013 Acute URI Adjustment disorder with anxiety Allergic rhinitis Anal polyp Anemia 12/03/2009 unsure, gets blood transfusions periodically Anxiety 12/03/2009 Arthritis Asthma Asthma, moderate persistent, uncomplicated 04/21/2015 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 Guardado Emergency Room has been recommended for this patient. The patient has chosen: [facility] ED--[x] [place] [facility].-- [] Other: Reason for triage recommendation: Out of Scope of Practice or Complex Medical Needs Suspected Cardiac: [] Seizures: [] Advanced Respiratory Condition: [] Head Injury with LOC: [] Pre- Problems: [] Victim of Crime: [] Child/Elder Abuse: [] Severe Abdominal Pain: [] "Worst pain in life": [] Need for IV Medication: [] After-hours Radiology Reading needs by [facility]: [] Patient with complex workup needs to close to closing time: [] Patient in need of hospital admission: [] Patient at risk if to remain in Urgent Care: [x] Patient refused assessment during triage: [] The recommended mode of transportation is: Patient/Family Transport--X Staff Transport-- EMS-- Other: Patient has Accepted or Declined these recommendations: [x] Accept [] Decline Patient/guardian signature will be scanned in to EMR *Patient has been advised to the reasons that he/she is being triaged to the ED* [x] *Report has been called to the ED charge nurse regarding triage findings* [x] Nurse's name who took report: Cheli *The patient has been informed that the ED staff will be aware of his/her arrival, although patient may not be roomed immediately, they will be seen as soon as possible.* [x] in this encounter Plan of Treatment +--------+---------+ [...] | | | | | | [place] [address] | | | | | | [phone] | | | | | | | [...] | | | | | | [place] [address] | | | | | | [phone] | | | | | | | [...] | | | | | | [place] [address] | | | | | | [phone] | | | | | | | [...] | | | | | | [place] [address] | | | | | | [phone] | | | | | | | [...] | | | | | [place] [address] | | | | | | [phone] | | | | | | | | +--------+---------+ + + + | 02/27/ | Office | Rehabilitation | Manuel Sparks, | | | 2017 | Visit | | DO [address] | | | | | | [address] [place], | | | | | | [place] [address] | | | | | | [phone] | | | | | | | [...] | | | | | | [place] [address] | | | | | | [phone] | | | | | | | | | | | | Himanshu Champion | | | | | | D, PT | | +--------+---------+ + + + | 03/29/ | Office | Cardiology | HeldersriblakeSrihelder, | | | 2017 | Visit | | MD Janette Hale | | | | | | [place], | | | | | | [place] [address] | | | | | | [phone] | | | | | | | | +--------+---------+ + + + as of this encounter Visit Diagnoses + + | Diagnosis | + + | Patient left after triage - Primary | + +
--- OUTSIDE RECORDS SUMMARY | 2018-02-06 23:16 | XMS | Encounter Summary ---
Demographics + + + | Address | [address] | | | [place] [address] | + + + | Home Phone | | + + + | Preferred Language | Unknown | + + + | Marital Status | | + + + | Muslim Affiliation | 1073 | + + + | Race | Unknown | + + + | Ethnic Group | Unknown | + + + Author + + + | Author | [facility] | | | and Shaunana | + + + | Organization | [facility] | | [...] Team Providers + +------+ + | Care Fingernail Technician Name | Role | Phone | + +------+ + | Alberto Christine | PCP | | + +------+ + Reason for Visit + + + | Reason | Comments | + + + | Leg Pain | | + + + | Leg Swelling | | + + + Encounter Details +--------+ + + + + | Date | Type | Department | Care Team | Description | +--------+ + + + + | 11/28/ | [facility] | [facility] | Deon Mckeon | Left leg pain | | 2018 | | [facility] | Steven Nye MD | (Primary Dx) | | | | CENTER [address] | [address] | | | | | [place] | [place] | | | | | [address] | [id number] | | | | | [phone] | | | +--------+ + + + [...] + + + | Blood Pressure | 94/51 | 11/28/20171430 PST | + + + + | Pulse | 96 | 11/28/20171430 PST | + + + + | Temperature | 36.9 C (98.5 F) | 11/28/20171234 PST | + + + + | Respiratory Rate | 18 | 11/28/20171430 PST | + + + + | Oxygen Saturation | 96% | 11/28/20171430 PST | + + + + | Inhaled Oxygen | - | - | | Concentration | | | + + + + | Weight | 73.5 kg (162 lb) | 11/28/20171234 PST | + + + + | Height | 160 cm (5' 3") | 11/28/20171234 PST | + + + + | Body Mass Index | 28.7 | 11/28/2017 1235 PST | + + + + in [...] encounter Discharge Instructions Deon Mckeon MD - 11/28/2017Please follow-up with your primary care physici an. Return for severe worsening symptoms. Taking pain medication only as needed.in this en counter Medications at Time of Discharge + + [...] [place], | | | | | | [place] [address] | | | | | | [phone] | | | | | | | [...] | | | | | | [place] [address] | | | | | | [phone] | | | | | | | [...] | | | | | | [place] [address] | | | | | | [phone] | | | | | | | [...] | | | | | | [place] [address] | | | | | | [phone] | | | | | | | [...] | | | | | [place] [address] | | | | | | [phone] | | | | | | | | +--------+---------+ + + + | 02/27/ | Office | Rehabilitation | Manuel Sparks, | | | 2017 | Visit | | DO [address] | | | | | | [address] [place], | | | | | | [place] [address] | | | | | | [phone] | | | | | | | [...] | | | | | | [place] [address] | | | | | | [phone] | | | | | | | | | | | | Himanshu Champion | | | | | | D, PT | | +--------+---------+ + + + | 03/29/ | Office | Cardiology | Prem Call, | | | 2017 | Visit | | [address] | | | | | | [place], | | | | | | [place] [address] | | | | | | [phone] | | | | | | | | +--------+---------+ + + + + +--------+ + + | Name | Priori | Associated Diagnoses | Date/Time | | | ty | | | + +--------+ + + | ED INFORMATION EXCHANGE | Routin | | 11/28/2017 1230 PST | | | e | | | + +--------+ + + as of this encounter Results VAS Lower Extremity Venous Left (11/28/2017 1352) + + | Narrative | + + | EXAM: VAS LOWER EXTREMITY VENOUS LEFT dated 11/28/2017 1:07 PM. HISTORY: Leg pain | | and swelling. COMPARISON: None. TECHNIQUE: Compression sonography was performed | | from the groin through the popliteal fossa in the Left lower extremity. Grayscale | | and spectral Doppler analysis is performed. FINDINGS: There is phasic respiratory | | flow in all areas sampled. There is response to Valsalva in the common femoral | | vein. There is response to calf augmentation in all areas sampled. There is | | normal and complete compressibility in all areas sampled. There are no visible | | thrombi. IMPRESSION - No evidence for left lower extremity deep venous | | thrombosis. The preliminary findings were conveyed to the ordering provider, by the | | quality control coordinator, immediately following the exam. Dictated and Signed by: Jairo Villa | | MD Sherry Electronically signed: 11/28/2017 2:37 PM | + + + + | Procedure Note | + + | Tang, Rad Results In - 11/28/2017 1441 PST EXAM: VAS LOWER EXTREMITY VENOUS LEFT dated | | 11/28/2017 1:07 PM.HISTORY: Leg pain and swelling.COMPARISON: None.TECHNIQUE: | | Compression sonography was performed from [...] sampled. There are no visible | | thrombi.IMPRESSION -No evidence for left lower extremity deep venous thrombosis.The | | preliminary findings were conveyed to the ordering provider, by thesonographer, | | immediately following the exam.Dictated and Signed by: Jairo Poewll MD | | Electronically signed: 11/28/2017 2:37 PM | |response to Valsalva in the common femoral vein. There is response to calf | |augmentation in all areas sampled. There is normal and complete compressibility | |in all areas sampled. There are no visible thrombi. | | | | | | | |IMPRESSION - | | | |No evidence for left lower extremity deep venous thrombosis. | | | |The preliminary findings were conveyed to the ordering provider, by the | |quality control coordinator, immediately following the exam. | | | | | |Dictated and Signed by: Jairo Powell MD | | Electronically signed: 11/28/2017 2:37 PM | + + in this encounter Visit Diagnoses + + | Diagnosis | + + | Left leg pain - Primary | + + | Pain in limb | + + Administered Medications + +--------+ +------+------+------+ | Medication Order | MAR | Action | Dose | Rate | Site | | | Action | Date | | | | + +--------+ +------+------+------+ | HYDROmorphone (DILAUDID) tablet | Given | | 4 mg | | | | 4 mg 4 mg, Oral, ONCE, Tue | | 8 13:28 | | | | | 11/28/17 at 1315, For 1 dose | | PST | | | | + +--------+ +------+------+------+ +---+---+ | | | +---+---+ in this encounter
--- OUTSIDE RECORDS SUMMARY | 2018-02-06 23:16 | XMS | Encounter Summary ---
Demographics + + + | Address | [address] | | | [place] [address] | + + + | Home Phone [...] | Author | [facility] | | | and [...] Team Providers + +------+ + | Care Informaticist Name | Role | Phone | + [...] + + | 12/05/ | Emergency | [facility] | Deon Mckeon | Back pain, | | 2017 | | [facility] | Steven Nye MD | unspecified back | | | | CENTER [address] | [address] | location, | | | | [place], [place] | [place], [place] | unspecified back | | | | [address] | [address] | pain laterality, | | | | [phone] | | unspecified | | | | | | chronicity (Primary | | | | | | Dx); Lower extremity | | | | | | edema | +--------+ + + + + Social [...] + + + | Blood Pressure | 94/59 | 12/05/20171743 PST | + + + + | Pulse | 80 | 12/05/20171743 PST | + + + + | Temperature | 35.6 C (96 F) | 12/05/20171624 PST | + + + + | Respiratory Rate | 16 | 12/05/20171743 PST | + + + + | Oxygen Saturation | 99% | 12/05/20171743 PST | + + + + | Inhaled Oxygen | - | - | | Concentration | | | + + + + | Weight | 64.9 kg (143 lb) | 12/05/20171624 PST | + + + + | Height | 160 cm (5' 3") | 12/05/20171624 PST | + + + + | Body Mass Index | 25.33 | 12/05/2017 1625 PST | + + + + in [...] + as of this encounter Discharge Instructions Michelle Lockett RN - 12/05/2017Please follow-up in medical clinic. Return for sever e symptoms. Contact Dr. Dotson concerning chronic pain medication administration.in this encounter Medications at Time of Discharge [...] | | | | | | [place] [address] | | | | | | [phone] | | | | | | | [...] | | | | | | [place] [address] | | | | | | [phone] | | | | | | | [...] | | | | | | [place] [address] | | | | | | [phone] | | | | | | | [...] | | | | | | [place] [address] | | | | | | [phone] | | | | | | | | | | | | Himanshu Champion | | | | | | D, PT | | +--------+---------+ + + + | 02/22/ | Office | General Surgery | Matthew Garnica | | | 2017 | Visit | | MD [address] | | | | | | [address] | | | | | | [place], [place] [address] | | | | | | [phone] | | | | | | | | +--------+---------+ + + + | 02/27/ | Office | Rehabilitation | Manuel Sparks, | | | 2017 | Visit | | DO [address] | | | | | | [address] [place], | | | | | | [place] [address] | | | | | | [phone] | | | | | | | [...] | | | | | | [place] [address] | | | | | | [phone] | | | | | | | | | | | | Himanshu Champion | | | | | | D, PT | | +--------+---------+ + + + | 03/29/ | Office | Cardiology | Prem Call, | | | 2017 | Visit | | [address] | | | | | | [place], | | | | | | [place] [address] | | | | | | [phone] | | | | | | | | +--------+---------+ + + + + +--------+ + + | Name | Priori | Associated Diagnoses | Date/Time | | | ty | | | + +--------+ + + | ED INFORMATION EXCHANGE | Routin | | 12/05/2017 1601 PST | | | e | | | + +--------+ + + as of this encounter Results XR Lumbar Spine 2 or 3 Vw (12/05/20175) + + | Narrative | + + | EXAM:XR LUMBAR SPINE 2 OR 3 VW CLINICAL HISTORY: LEG SWELLING COMPARISON: | | Lumbar spine radiographs dated November 23, 2017. FINDINGS: Frontal and lateral | | views. Posterior, anterior, and interbody fusion changes at L4-S1. Intact | | hardware. No change in positioning of the interbody graft markers. No change in | | spinal alignment. Interval removal of the drain catheter. Hernia repair changes | | in the abdomen. IMPRESSION - No radiographic evidence for an interval | | complication. Dictated and Signed by: Jairo Powell MD Electronically signed: | | 12/05/2017 5:17 PM | + + + + | Procedure Note | + + | Tang, Rad Results In 12/05/2017 1721 PST EXAM:XR LUMBAR SPINE 2 OR 3 VW | | | | CLINICAL HISTORY: LEG SWELLING | | | | COMPARISON: Lumbar spine radiographs dated November 23, 2017. | | | | FINDINGS: Frontal and lateral views. Posterior, anterior, and interbody fusion | | changes at L4-S1. Intact hardware. No change in positioning of the interbody | | graft markers. No change in spinal alignment. Interval removal of the drain | | catheter. Hernia repair changes in the abdomen. | | | | IMPRESSION - | | | | No radiographic evidence for an interval complication. | | | | Dictated and Signed by: Jairo Powell MD | | Electronically signed: 12/05/2017 5:17 PM | + + in this encounter Visit Diagnoses + + | Diagnosis | + + | Back pain, unspecified back location, unspecified back pain laterality, unspecified | | chronicity - Primary | + + | Lower extremity edema | + + | Edema | + + Administered Medications + +--------+ +------+------+------+ | Medication Order | MAR | Action | Dose | Rate | Site | | | Action | Date | | | | + +--------+ +------+------+------+ | HYDROmorphone (DILAUDID) tablet | Given | 12/05/2017 | 2 mg | | | | 2 mg 2 mg, Oral, ONCE, Tue | | 16:54 | | | | | 12/05/17 at 1645, For 1 dose | | PST | | | | + +--------+ +------+------+------+ +---+---+ | | | +---+---+ in this encounter
--- OUTSIDE RECORDS SUMMARY | 2018-02-06 23:16 | XMS | Encounter Summary ---
Demographics + + + | Address | [address] | | | [place] [address] | + + + | Home Phone | | + + + | Preferred Language | Unknown | + + + | Marital Status | | + + + | Zoroastrian Affiliation | 1073 | + + + | Race | Unknown | + + + | Ethnic Group | Unknown | + + + Author + + + | Author | [facility] | | | and Shaunana | + + + | Organization | [facility] | | | and [...] Team Providers + +------+ + | Care Paving Machine Operator Name | Role | Phone | + +------+ + | Alberto Christine | PCP | | + +------+ + Reason for Visit + + + | Reason | Comments | + + + | Medication Refill | | + + + | Coordination Of Care | JEROME CM, ED | + + + | Results, Imaging | | + + + Encounter Details +--------+--------+ + + + | Date | Type | Department | Care Team | Description | +--------+--------+ + + + | 12/05/ | Refill | [facility] | Manuel Sparks, | Medication Refill; | | 2017 | | NEUROSURGERY [address] | DO [address] | Coordination Of Care | | | | [address] | [address] [place], | (PCP, OP CM, ED); | | | | [place] | [place] [address] | Results, Imaging | | | | [address] | [phone] | | | | | [phone] | | | +--------+--------+ + + + [...] | | | | | | [place] [address] | | | | | | [phone] | | | | | | | [...] | | | | | | [place] [address] | | | | | | [phone] | | | | | | | [...] | | | | | | [place] [address] | | | | | | [phone] | | | | | | | [...] | | | | | | [place] [address] | | | | | | [phone] | | | | | | | [...] | | | | | [place] [address] | | | | | | [phone] | | | | | | | | +--------+---------+ + + + | 02/27/ | Office | Rehabilitation | Manuel Sparks, | | | 2017 | Visit | | DO [address] | | | | | | [address] [place], | | | | | | [place] [address] | | | | | | [phone] | | | | | | | [...] | | | | | | [place] [address] | | | | | | [phone] | | | | | | | | | | | | Himanshu Champion | | | | | | D, PT | | +--------+---------+ + + + | 03/29/ | Office | Cardiology | Prem Call, | | | 2017 | Visit | | MD [address] | | | | | | [place], | | | | | | [place] [address] | | | | | | [phone] | | | | | | | | +--------+---------+ + + + as of this encounter Visit Diagnoses Not on filein this encounter"
--- OUTSIDE RECORDS SUMMARY | 2018-02-06 23:16 | XMS | Encounter Summary ---
Demographics + + + | Address | [address] | | | [place] [address] | + + + | Home Phone | | + + + | Preferred Language | Unknown | + + + | Marital Status | | + + + | Jewish Affiliation | 1073 | + + + | Race | Unknown | + + + | Ethnic Group | Unknown | + + + Author + + + | Author | [facility] | | | and Shaunana | + + + | Organization | [facility] | | [...] Team Providers + +------+ + | Care Psychology Professor Name | Role | Phone | + +------+ + | Alberto Christine | PCP | | + +------+ + Reason for Visit + + + | Reason | Comments | + + + | Case Management | shower chair | + + + Encounter Details +--------+ + + + + | Date | Type | Department | Care Team | Description | +--------+ + + + + | 12/11/ | Telephone | [facility] | Heidy Bethea, | Case Management | | 2018 | | [facility] | RN | (shower chair) | | | | MANAGEMENT [address] | | | | | | [place], | | | | | | [place] [address] | | | | | | [phone] | | | +--------+ + + + [...] | | | | | | [place] [address] | | | | | | [phone] | | | | | | | [...] | | | | | | [place] [address] | | | | | | [phone] | | | | | | | [...] | | | | | | [place] [address] | | | | | | [phone] | | | | | | | | | | | | Himanshu Champion | | | | | | D, PT | | +--------+---------+ + + + | 02/22/ | Office | Rehabilitation | aMnuel Sparks, | | | 2017 | Visit | | DO [address] | | | | | | [address] [place], | | | | | | [place] [address] | | | | | | [phone] | | | | | | | [...] | | | | | [place] [address] | | | | | | [phone] | | | | | | | | +--------+---------+ + + + | 02/27/ | Office | Rehabilitation | Manuel Sparks, | | | 2017 | Visit | | DO [address] | | | | | | [address] [place], | | | | | | [place] [address] | | | | | | [phone] | | | | | | | [...] | | | | | | [place] [address] | | | | | | [phone] | | | | | | | [...] | | | | | | [place] [address] | | | | | | [phone] | | | | | | | | +--------+---------+ + + + as of this encounter Visit Diagnoses Not on filein this encounter"
--- OUTSIDE RECORDS SUMMARY | 2018-02-06 23:16 | XMS | Encounter Summary ---
Demographics + + + | Address | [address] | | | [place] [address] | + + + | Home Phone | | + + + | Preferred Language | Unknown | + + + | Marital Status | | + + + | Mandaeism Affiliation | 1073 | + + + | Race | Unknown | + + + | Ethnic Group | Unknown | + + + Author + + + | Author | [facility] | | | and Shaunana | + + + | Organization | [facility] | | | [...] Team Providers + +------+ + | Care City Dispatcher Name | Role | Phone | + +------+ + | Alberto Christine | PCP | | + +------+ + Reason for Visit + + + | Reason | Comments | + + + | Post-op Problem | | + + + Encounter Details +--------+ + + + + | Date | Type | Department | Care Team | Description | +--------+ + + + + | 11/28/ | Telephone | [facility] [place] | Manuel Sparks, | Post-op Problem | | 2017 | | NEUROSURGERY [address] | DO [address] | | | | | [address] | [address] [place], | | | | | [place], [place] | [place] [address] | | | | | [address] | [phone] | | | | | [phone] | | | +--------+ + + + [...] | | | | | | [place] [address] | | | | | | [phone] | | | | | | | [...] | | | | | | [place] [address] | | | | | | [phone] | | | | | | | [...] | | | | | | [place] [address] | | | | | | [phone] | | | | | | | [...] | | | | | | [place] [address] | | | | | | [phone] | | | | | | | [...] | | | | | [place] [address] | | | | | | [phone] | | | | | | | | +--------+---------+ + + + | 02/27/ | Office | Rehabilitation | Manuel Sparks, | | | 2017 | Visit | | DO [address] | | | | | | [address] [place], | | | | | | [place] [address] | | | | | | [phone] | | | | | | | [...] | | | | | | [place] [address] | | | | | | [phone] | | | | | | | | | | | | Himanshu Champion | | | | | | Luzma, PT | | +--------+---------+ + + + | 03/29/ | Office | Cardiology | Prem Call, | | | 2017 | Visit | | MD Janette a[place]le | | | | | | [place], | | | | | | [place] [address] | | | | | | [phone] | | | | | | | | +--------+---------+ + + + as of this encounter Visit Diagnoses Not on filein this encounter"
--- OUTSIDE RECORDS SUMMARY | 2018-02-06 23:16 | XMS | Encounter Summary ---
Demographics + + + | Address | [address] | | | [place] [address] | + + + | Home Phone | | + + + | Preferred Language | Unknown | + + + | Marital Status | | + + + | Amish Affiliation | 1073 | + + + | Race | Unknown | + + + | Ethnic Group | Unknown | + + + Author + + + | Author | [facility] | | | and Shaunana | + + + | Organization | [facility] | | | [...] Team Providers + +------+ + | Care Top Lift Trimmer Name | Role | Phone | + +------+ + | Alberto Christine | PCP | | + +------+ + Encounter Details +--------+ + + + + | Date | Type | Department | Care Team | Description | +--------+ + + + + | 12/06/ | Orders Only | [facility] [place] | Patience Ordaz | Wound drainage | | 2018 | | NEUROSURGERY [address] | KWAKU Hahn [address] | (Primary Dx); Status | | | | [address] | [address] [place], | post lumbar spinal | | | | [place], [place] | [place] [address] | fusion | | | | [address] | [phone] | | | | | [phone] | | | +--------+ + + + [...] | Visit | | DO [address] [facility] | | | | | | [address] [place], | | | | | | [place] [address] | | | | | | [phone] | | | | | | | [...] | | | | | | [place] [address] | | | | | | [phone] | | | | | | | [...] | | | | | | [place] [address] | | | | | | [phone] | | | | | | | [...] | | | | | | [place] [address] | | | | | | [phone] | | | | | | | [...] | | | | | [place] [address] | | | | | | [phone] | | | | | | | | +--------+---------+ + + + | 02/27/ | Office | Rehabilitation | Manuel Sparks, | | | 2017 | Visit | | DO [address] | | | | | | [address] [place], | | | | | | [place] [address] | | | | | | [phone] | | | | | | | | | | | | Himanshu Champion | | | | | | D, PT | | +--------+---------+ + + + | 03/01/ | Office | Rehabilitation | Manuel Sparsk, | | | 2017 | Visit | | DO [address] | | | | | | [address] [place], | | | | | | [place] [address] | | | | | | [phone] | | | | | | | | | | | | Himanshu Champion | | | | | | D, PT | | +--------+---------+ + + + | 03/29/ | Office | Cardiology | Prem Call, | | | 2017 | Visit | | [address] | | | | | | [place], | | | | | | [place] [address] | | | | | | [phone] | | | | | | | | +--------+---------+ + + + as of this encounter Results Culture, Wound, Smear (12/06/2017 1610) + + [...] + + | Wound - Abdomen | [facility] | | | [place] [address] | + + + in this encounter Visit Diagnoses + + | Diagnosis | + + | Wound drainage - Primary | + + | Injury, other and unspecified, other specified sites, including multiple | + + | Status post lumbar spinal fusion | + + | Arthrodesis status | + +"
--- OUTSIDE RECORDS SUMMARY | 2018-02-06 23:16 | XMS | Encounter Summary ---
Demographics + + + | Address | [address] | | | [place] [address] | + + + | Home Phone | | + + + | Preferred Language | Unknown | + + + | Marital Status | | + + + | Taoism Affiliation | 1073 | + + + | Race | Unknown | + + + | Ethnic Group | Unknown | + + + Author + + + | Author | [facility] | | | and Shaunana | + + + | Organization | [facility] | | | [...] Team Providers + +------+ + | Care Manager Action Name | Role | Phone | + +------+ + | Alberto Christine | PCP | | + +------+ + Reason for Visit +---------+ + | Reason | Comments | +---------+ + | Post Op | Post-op call | +---------+ + Encounter Details +--------+ + + + + | Date | Type | Department | Care Team | Description | +--------+ + + + + | 12/01/ | Telephone | [facility] [place] | Manuel Sparks, | Post Op (Post-op | | 2017 | | NEUROSURGERY [address] | DO [address] | call) | | | | [address] | [address] [place], | | | | | [place], [place] | [place] [address] | | | | | [address] | [phone] | | | | | [phone] | | | +--------+ + + + [...] | | | | | | [place] [address] | | | | | | [phone] | | | | | | | [...] | | | | | | [place] [address] | | | | | | [phone] | | | | | | | [...] | | | | | | [place] [address] | | | | | | [phone] | | | | | | | [...] | | | | | | [place] [address] | | | | | | [phone] | | | | | | | [...] | | | | | | [place] [address] | | | | | | [phone] | | | | | | | | +--------+---------+ + + + | 02/27/ | Office | Rehabilitation | Manuel Sparks, | | | 2017 | Visit | | DO [address] | | | | | | [address] [place], | | | | | | [place] [address] | | | | | | [phone] | | | | | | | [...] | | | | | | [place] [address] | | | | | | [phone] | | | | | | | [...] | | | | | | [place] [address] | | | | | | [phone] | | | | | | | | +--------+---------+ + + + as of this encounter Visit Diagnoses Not on filein this encounter"
--- OUTSIDE RECORDS SUMMARY | 2018-02-06 23:16 | XMS | Encounter Summary ---
Demographics + + + | Address | [address] | | | [place] [address] | + + + | Home Phone | | + + + | Preferred Language | Unknown | + + + | Marital Status | | + + + | Restorationist Affiliation | 1073 | + + + | Race | Unknown | + + + | Ethnic Group | Unknown | + + + Author + + + | Author | [facility] | | | and Shaunana | + + + | Organization | [facility] | | | [...] Team Providers + +------+ + | Care Tank Stave Assembler Name | Role | Phone | + +------+ + | Alberto Christine | PCP | | + +------+ + Encounter Details +--------+ + + + + | Date | Type | Department | Care Team | Description | +--------+ + + + + | 12/06/ | Orders Only | [facility] [place] | Patience Ordaz | Status post lumbar | | 2018 | | NEUROSURGERY [address] | KWAKU Hahn [address] | spinal fusion; Wound | | | | [address] | [address] [place], | drainage | | | | [place], [place] | [place] [address] | | | | | [address] | [phone] | | | | | [phone] | | | +--------+ + + + [...] | Visit | | DO [address] [facility] | | | | | | [address] [place], | | | | | | [place] [address] | | | | | | [phone] | | | | | | | [...] | | | | | | [place] [address] | | | | | | [phone] | | | | | | | [...] | | | | | | [place] [address] | | | | | | [phone] | | | | | | | [...] | | | | | | [place] [address] | | | | | | [phone] | | | | | | | [...] | | | | | [place] [address] | | | | | | [phone] | | | | | | | | +--------+---------+ + + + | 02/27/ | Office | Rehabilitation | Manuel Sparks, | | | 2017 | Visit | | DO [address] | | | | | | [address] [place], | | | | | | [place] [address] | | | | | | [phone] | | | | | | | [...] | | | | | | [place] [address] | | | | | | [phone] | | | | | | | | | | | | Himanshu Champion | | | | | | D, PT | | +--------+---------+ + + + | 03/29/ | Office | Cardiology | Prem Call, | | | 2017 | Visit | | MD [address] | | | | | | [place], | | | | | | [place] [address] | | | | | | [phone] | | | | | | | [...] + | Wound - Abdomen | [facility] [place] [place] | | | [place] [address] | + + + in this encounter Visit Diagnoses + + | Diagnosis | + + | Status post lumbar spinal fusion | + + | Arthrodesis status | + + | Wound drainage | + + | Injury, other and unspecified, other specified sites, including multiple | + +"
--- OUTSIDE RECORDS SUMMARY | 2018-02-06 23:16 | XMS | Encounter Summary ---
Demographics + + + | Address | [address] | | | [place] [address] | + + + | Home Phone | | + + + | Preferred Language | Unknown | + + + | Marital Status | | + + + | Anglican Affiliation | 1073 | + + + | Race | Unknown | + + + | Ethnic Group | Unknown | + + + Author + + + | Author | [facility] | [...] Team Providers + +------+ + | Care Staffing Analyst Name | Role | Phone | + +------+ + | Alberto Christine | PCP | | + +------+ + Reason for Referral Diagnostic/Screening (Routine) +--------+--------+ + + + + | Status | Reason | Specialty | Diagnoses / | Referred By | Referred To | | | | | Procedures | Contact | Contact | +--------+--------+ + + + + | Closed | | Radiology | Diagnoses | [place], | [address] | | | | | Leg | Alberto B, | [address] | | | | | swelling | [employer] [address] | [place], | | | | | Deep venous | [address] | [place] [address] | | | | | thrombosis | [place], | Phone: | | | | | of pelvic | [place] | [phone] | | | | | vein | [address] | Fax: | | | | | Procedures | Phone: | [phone] | | | | | CT Abdomen | [phone] | | | | | | Pelvis w | Fax: | | | | | | Contrast | [phone] | | +--------+--------+ + + + + Diagnostic/Screening (Routine) +--------+--------+ + + + + | Status | Reason | Specialty | Diagnoses / | Referred By | Referred To | | | | | Procedures | Contact | Contact | +--------+--------+ + + + + | Closed | | Radiology | Diagnoses | [place], | [address] | | | | | Leg | Alberto B, | [address] | | | | | swelling | [employer] [address] | [place], | | | | | Deep venous | [address] | [place] [address] | | | | | thrombosis | [place], | Phone: | | | | | of pelvic | [place] | [phone] | | | | | vein | [address] | Fax: | | | | | Procedures | Phone: | [phone] | | | | | CT Abdomen | [phone] | | | | | | Pelvis w | Fax: | | | | | | Contrast | [phone] | | +--------+--------+ + + + + Reason for Visit Diagnostic/Screening (Routine) +--------+--------+ + + + + | Status | Reason | Specialty | Diagnoses / | Referred By | Referred To | | | | | Procedures | Contact | Contact | +--------+--------+ + + + + | Closed | | Radiology | Diagnoses | [place], | [address] | | | | | Leg | Alberto B, | [address] | | | | | swelling | [employer] [address] | [place], | | | | | Deep venous | [address] | [place] [address] | | | | | thrombosis | [place], | Phone: | | | | | of pelvic | [place] | [phone] | | | | | vein | [address] | Fax: | | | | | Procedures | Phone: | [phone] | | | | | CT Abdomen | [phone] | | | | | | Pelvis w | Fax: | | | | | | Contrast | [phone] | | +--------+--------+ + + + + Encounter Details +--------+ + + + + | Date | Type | Department | Care Team | Description | +--------+ + + + + | 12/05/ | Hospital | [facility] | Alberto Christine, | Leg swelling; Deep | | 2018 | Encounter | [facility] [address] | [employer] [address] [facility] [address] | venous thrombosis of | | | | [address] [place], | [place], [place] | pelvic vein | | | | [place] [address] | [address] | | | | | [phone] | [phone] | | | | | | | [...] [place], | | | | | | [place] [address] | | | | | | [phone] | | | | | | | [...] | | | | | | [place] [address] | | | | | | [phone] | | | | | | | [...] | | | | | | [place] [address] | | | | | | [phone] | | | | | | | [...] | | | | | | [place] [address] | | | | | | [phone] | | | | | | | | | | | | Himanshu Chapmion | | | | | | D, PT | | +--------+---------+ + + + | 02/22/ | Office | General Surgery | Matthew Garnica | | | 2017 | Visit | | MD Guzman FACS [address] | | | | | | [address] [place] | | | | | | [place] [address] | | | | | | [phone] | | | | | | | | +--------+---------+ + + + | 02/27/ | Office | Rehabilitation | Manuel Sparks, | | | 2017 | Visit | | DO [address] | | | | | | [address] [place], | | | | | | [place] [address] | | | | | | [phone] | | | | | | | [...] | | | | | | [place] [address] | | | | | | [phone] | | | | | | | | | | | | Himanshu Champion | | | | | | Luzma PT | | +--------+---------+ + + + | 03/29/ | Office | Cardiology | [place] Sri[place]er, | | | 2017 | Visit | | [address] | | | | | | [place], | | | | | | [place] [address] | | | | | | [phone] | | | | | | | | +--------+---------+ + + + as of this encounter Results CT Abdomen Pelvis w Contrast (12/05/2017 1238) + + | Narrative | + + | CT ABDOMEN PELVIS W CONTRAST 12/05/2017 11:58 AM HISTORY: UNILAT LEG SWELLING & DVT | | PELVIS CALL REPORT [phone]. COMPARISON: Multiple priors PROTOCOL: Axial | | [...] UNILAT LEG SWELLING & DVT PELVISCALL REPORT [phone].COMPARISON: | | Multiple priorsPROTOCOL: Axial images of [...] signed: 12/05/2017 2:16 PM | + + in this encounter Visit Diagnoses + + | Diagnosis | + + | Leg swelling | + + | Swelling of limb | + + | Deep venous thrombosis of pelvic vein | + + Administered Medications + +--------+ +--------+------+------+ | Medication Order | MAR | Action | Dose | Rate | Site | | | Action | Date | | | | + +--------+ +--------+------+------+ | iohexol (OMNIPAQUE 350) 350 | Given | 12/05/2017 | 80 mLs | | | | mg/mL injection 80 mL 80 mL, | | 12:27 | | | | | Intravenous, ONCE PRN, Other, for | | PST | | | | | CT contrast study, Starting Tue | | | | | | | 12/05/17 at 1239, For 1 dose, | | | | | | | Radiology | | | | | | + +--------+ +--------+------+------+ +---+---+ | | | +---+---+ in this encounter"
--- OUTSIDE RECORDS SUMMARY | 2018-02-06 23:16 | XMS | Encounter Summary ---
Demographics + + + | Address | [address] | | | [place] [address] | + + + | Home Phone | | + + + | Preferred Language | Unknown | + + + | Marital Status | | + + + | Synagogue Affiliation | 1073 | + + + | Race | Unknown | + + + | Ethnic Group | Unknown | + + + Author + + + | Author | [facility] | | | and Shaunana | + + + | Organization | [facility] | | [...] Team Providers + +------+ + | Care Marketing Coordinator Name | Role | Phone | [...] | Radiology | Diagnoses | [place], | [address] | | | | | Leg | Alberto B, | [address] [place] | | | | | swelling | [employer] DIRECT[employer] [address] | [place], | | | | | Deep venous | [address] | [place] [address] | | | | | thrombosis | [place], | Phone: | | | | | of pelvic | [place] | [phone] | | | | | vein | [address] | Fax: | | | | | Procedures | Phone: | [phone] | | | | | CT Abdomen | [phone] | | | | | | Pelvis w | Fax: | | | | | | Contrast | [phone] | | +--------+--------+ + + + + Encounter Details +--------+ + + + + | Date | Type | Department | Care Team | Description | +--------+ + + + + | 12/05/ | Ancillary | [facility] | Alberto Christine, | Leg swelling; Deep | | 2018 | Orders | MED CTR XRAY [address] | REGIONAL MARKETING DIRECTOR [address] | venous thrombosis of | | | | [place] | [place], [place] | pelvic vein | | | | [place] [address] | [address] | | | | | [phone] | [phone] | | | | | | | [...] | | | | | | [place] [address] | | | | | | [phone] | | | | | | | [...] | | | | | | [place] [address] | | | | | | [phone] | | | | | | | [...] | | | | | | [place] [address] | | | | | | [phone] | | | | | | | [...] | | | | | | [place] [address] | | | | | | [phone] | | | | | | | | | | | | Himanshu Champion | | | | | | D, PT | | +--------+---------+ + + + | 02/22/ | Office | General Surgery | Matthew Garnica | | | 2017 | Visit | | MD Thomas, FACS [address] | | | | | | [address] [place] | | | | | | [place] [address] | | | | | | [phone] | | | | | | | | +--------+---------+ + + + | 02/27/ | Office | Rehabilitation | Manuel Sparks, | | | 2017 | Visit | | DO [address] | | | | | | [address] [place], | | | | | | [place] [address] | | | | | | [phone] | | | | | | | [...] | | | | | | [place] [address] | | | | | | [phone] | | | | | | | | | | | | Himanshu Champion | | | | | | D, PT | | +--------+---------+ + + + | 03/29/ | Office | Cardiology | Prem Call, | | | 2018 | Visit | | MD [address] [place] | | | | | | [place], | | | | | | [place] [address] | | | | | | [phone] | | | | | | | | +--------+---------+ + + + as of this encounter Results CT Abdomen Pelvis w Contrast (12/05/2017 1238) + + | Narrative | + + | CT ABDOMEN PELVIS W CONTRAST 12/05/2017 11:58 AM HISTORY: UNILAT LEG SWELLING & DVT | | PELVIS CALL REPORT [phone]. COMPARISON: Multiple priors PROTOCOL: Axial | | [...] + | Khris Beckwith Results In - 12/05/[address] ABDOMEN PELVIS W CONTRAST 12/05/2017 11:58 | | AMHISTORY: UNILAT LEG SWELLING & DVT PELVISCALL REPORT [phone].COMPARISON: | | Multiple priorsPROTOCOL: Axial images of [...] venous thrombosis of pelvic vein | + +"
--- OUTSIDE RECORDS SUMMARY | 2018-02-06 23:16 | XMS | Encounter Summary ---
Demographics + + + | Address | [address] | | | [place] [address] | + + + | Home Phone | | + + + | Preferred Language | Unknown | + + + | Marital Status | | + + + | Latter Day Affiliation | 1073 | + + + | Race | Unknown | + + + | Ethnic Group | Unknown | + + + Author + + + | Author | [facility] | | | and Shaunana | + + + | Organization | [facility] | | | [...] Team Providers + +------+ + | Care Casino Porter Name | Role | Phone | + +------+ + | Alberto Christine | PCP | | + +------+ + Reason for Visit + + + | Reason | Comments | + + + | Follow-up | Discuss medication | + + + Encounter Details +--------+---------+ + + + | Date | Type | Department | Care Team | Description | +--------+---------+ + + + | 12/06/ | Office | [facility] | Patience Ordaz | S/P lumbar fusion | | 2018 | Visit | NEUR[address]URGERY [address] | [address] | (Primary Dx); Wound | | | | [address] | [place], | infection after | | | | [place] | [place] [address] | surgery, initial | | | | [address] | [phone] | encounter; Overuse | | | | [phone] | | of medication | +--------+---------+ + + + Social History [...] + + + | Blood Pressure | 94/55 | 12/06/20171500 PST | + + + + | Pulse | 78 | 12/06/20171500 PST | + + + + | Temperature | - | - | + + + + | Respiratory Rate | - | - | + + + + | Oxygen Saturation | - | - | + + + + | Inhaled Oxygen | - | - | | Concentration | | | + + + + | Weight | 75.9 kg (167 lb 6.4 | 12/06/20171500 PST | | | oz) | | + + + + | Height | 160 cm (5' 3") | 12/06/20171500 PST | + + + + | Body Mass Index | 29.65 | 12/06/2017 1501 PST | + + + + in [...] of this encounter Instructions Patient Instructions - Patience Ordaz PA-C - 12/06/2017 1445 PST1. Start Bactrim D S for possible infection. 2. Discontinue Dilaudid and start oxycodone 10 mg 1 tablet every 4 hours if needed. He cindi echols alternate this with muscle relaxers. 3. We will contact you with culture results.in this encounter Progress Notes Patience Ordaz PA-C - 12/06/2017 8491 PSTFormatting of this note may be different f rom the original. Yeni Ordaz PA-C [address] [facility] [address] [place] [address] FAX: [phone] NEUROSURGERY Follow up CHIEF COMPLAINT: Chief Complaint Patient presents with Follow-up Discuss medication Wound check HISTORY OF PRESENT ILLNESS: The patient is a 37 y.o. female returning post ALIF L4-S1 on to discuss medication use per nurse advisement and wound check. Pt called the office to refill dilaudid 2 mg #120. Further investigation from the nurse revealed patient was lonnie ing more than as prescribed. PT reports taking extra after some increased pain and reports left leg swelling that has resulted in an ED And PCP visit. PT saw Ned Christine 2 days ago w ith CT of the abdomen ordered. Imaging did not show an infection. Ultrasound of the lower e xtremities by the ED for DVT was also negative. 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 Back pain with radiation Benign essential hypertension 10/1999 Bipolar 1 disorder (HCC) Bipolar disorder (HCC) has been admitted for overdose as well Bronchitis, acute Calf pain, left Candidiasis of vulva and vagina Cervical radiculitis Chest pain CHF (congestive heart failure) (HCC) Constipation Contusion, lower leg COPD (chronic obstructive pulmonary disease) ([facility]) Cubital tunnel syndrome DDD (degenerative disc disease), lumbar Depression 10/1993 Disorder of liver DM type 2 (diabetes mellitus, type 2) ([facility]) diet controlled Drug abuse Dysuria Emphysema of lung ([facility]) Encounter for blood transfusion Eustachian tube [...] airway disease Rotator cuff sprain Scabies Seizures ([facility]) 05/02/2010 diagnosed at [facility] Shortness of breath Sinusitis, acute Stroke ([facility]) TMJ syndrome Tobacco use Traumatic bursitis Vitamin B deficiency 12/10/2009 PAST SURGICAL HISTORY: Past Surgical History: Procedure Laterality Date ABDOMINAL HERNIA REPAIR 2-3 ABDOMINOPLASTY 1997 CARPAL TUNNEL RELEASE 2009 CERVICAL SPINE SURGERY Anterior 05/06/2016 Procedure: C4-5 and C5-6 Anterior Cervical Discectomy with Fusion and Plating ; Surgeon: Manuel Sparks DO; Location: [facility] MAIN OR SECTION 1998, 1997 CHOLECYSTECTOMY ENDOSCOPY 12/2014 Dr. Marin GASTRIC BYPASS SURGERY 1996 HYSTERECTOMY LAMINECTOMY N/A 11/23/2017 Procedure: L4-5, L5-S1 Anterior Lumbar Interbody Fusion w/ Posterolateral Fusion; Surgeon : Manuel Sparks DO; Location: [facility] MAIN OR TONSILLECTOMY AND ADENOIDECTOMY 1990 TUBAL LIGATION 1998 CURRENT MEDICATIONS: Current Outpatient Prescriptions Medication Sig [...] tablet by mouth Daily. 30 tablet 0 HYDROmorphone (DILAUDID) 2 mg tablet Take 1 tablet by mouth every 6 hours as needed for Pain. 6 tablet 0 HYDROmorphone (DILAUDID) 2 mg tablet Take 1 tablet by mouth every 4 hours as needed for Pain. 120 tablet 0 ipratropium (ATROVENT HFA) 17 mcg/puff [...] tablet by mouth 2 times daily for 10 days. 20 tablet 0 SYMBICORT 160-4.5 MCG/ACT inhaler tiZANidine [...] does not drink alcohol or use drugs. FAMILY HISTORY: Family History Problem Relation Age of Onset Hypertension Mother Arthritis Mother Kidney disease Mother Allergies Mother Asthma Mother Sleep Apnea Mother Heart attack Father High blood pressure Father Sleep Apnea Father Seizures Father Hypertension Brother Sleep Apnea Brother Asthma Daughter Mental illness Daughter Sleep Apnea Daughter REVIEW OF SYSTEMS GENERALLY: + fever, + [...] dizziness, no voice changes, no difficulty swallowing, + sign ificant snoring, no sleep apnea, no sinus problems, no major dental work. NEUROLOGICALLY: Please see the review of systems discussed above in the history of present illness. In addition, the patient has numbness and pain in the arms and legs, awakens with numbness and pain, change in gait, pain in the back, seizures, migraines and confusion. PSYCHIATRIC: + depression, + sleep disorders, + [...] RHEUMATOLOGIC: No joint arthritis, no rheumatoid arthritis. PHYSICAL EXAMINATION: Blood pressure 94/55, pulse 78, height 1.6 m (5' 3"), weight 75.9 kg (167 lb 6.4 oz), not c urrently . Body mass index is 29.65 kg/m. GENERAL: Clare Courtney is in no acute distress with unlabored respirations. The patient does not appear uncomfortable throughout the exam today. HEENT: Head: Normocephalic/atraumatic with no areas of recent trauma. Eyes: Normal sclerae without icterus. Ears: No drainage or tenderness. Nasopharnyx: Clear without drainage. Oropharnyx: Clear without erythema. NECK (ANTERIOR): Supple and without palpable masses. CHEST: Clear to ausculation without crackles or wheeze. HEART: Regular rate and rhythm without murmurs. ABDOMEN: Soft, non-tender, non-distended, and without palpable masses. The patient is obese . SPINE: Anterior abdominal wound with sutures and stapes intact. Inferior incision line has clear drainage and mid to lower abdominal incision has white exudate behind incisional scab. Posterior incisions are covered with steristrips without signs of infection. EXTREMITIES: No cyanosis, clubbing. Distal pulses are palpable. PT has diffuse swelling LL E as compare to right, no erthythema associated TEST AND RADIOGRAPHIC REVIEW: ASSESSMENT: NEUROSURGICAL DIAGNOSES: S/P lumbar fusion Lower extremity swelling Pain medication overuse Soft tissue infection GENERAL DIAGNOSES: Past Medical History: Diagnosis Date Abdominal pain LLQ Abdominal wall cellulitis Abscess of Bartholin's gland Abscess of vulva Acute kidney failure (HCC) 05/2013 Acute URI Adjustment disorder with anxiety Allergic rhinitis Anal polyp Anemia 12/03/2009 unsure, gets blood transfusions periodically Anxiety 12/03/2009 Arthritis Asthma Asthma, moderate persistent, uncomplicated 04/21/2015 Problem list 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 Back pain with radiation Benign essential hypertension 10/1999 Bipolar 1 disorder (HCC) Bipolar disorder (HCC) has been admitted for overdose as well Bronchitis, acute Calf pain, left Candidiasis of vulva and vagina Cervical radiculitis Chest pain CHF (congestive heart failure) ([facility]) Constipation Contusion, lower leg COPD (chronic obstructive pulmonary disease) ([facility]) Cubital tunnel syndrome DDD (degenerative disc disease), lumbar Depression 10/1993 Disorder of liver DM type 2 (diabetes mellitus, type 2) ([facility]) diet controlled Drug abuse Dysuria Emphysema of lung ([facility]) Encounter for blood transfusion Eustachian tube dysfunction Exposure to STD Fall Flaccid hemiplegia and hemiparesis Affecting right wrist Folate deficiency anemia Full dentures Full dentures uppper & lower Gangrene ([facility]) Complication of abdominal surgery Headache Heart [...] sprain Scabies Seizures (HCC) 05/02/2010 diagnosed at [facility] Shortness of breath Sinusitis, acute Stroke ([facility]) TMJ syndrome Tobacco use Traumatic bursitis Vitamin B deficiency 12/10/2009 PLAN: Clare Courtney presents today to discuss medication refill, wound check and leg swelling. PT has agreed to change pain medication to Percocet and use it no more than prescribed. Abdo colleen incisional wound was swabbed for culture and sensitivity with Bactrim DS started. Ant ibiotics will be adjusted after C and S results obtained. I recommend we watch left lower l eg swelling with antibiotic use. PT reports not having showered for the last 2 weeks since surgery. She was given instructions for bandage and steristrip care and encouraged to showe r to keep the wound clean. ELECTRONICALLY SIGNED BY: Yeni Ordaz PA-C, 12/08/2017 6:06 in this encounter Plan of Treatment +--------+---------+ + + + | Date | Type | Specialty | Care Team | Description | +--------+---------+ + + + | 02/08/ | Office | Rehabilitation | Manuel Sparks, | | 2017 | Visit | | DO [address] | | | | | | [address] [place], | | | | | | [place] [address] | | | | | | [phone] | | | | | | | [...] | | | | | | [place] [address] | | | | | | [phone] | | | | | | | [...] | | | | | | [place] [address] | | | | | | [phone] | | | | | | | [...] | | | | | | [place] [address] | | | | | | [phone] | | | | | | | | | | | | Himanshu Champion | | | | | | D, PT | | +--------+---------+ + + + | 02/22/ | Office | General Surgery | Matthew | | | 2017 | Visit | | MD Guzman FACS [address] | | | | | [address] [place] | | | | | | [place] [address] | | | | | | [phone] | | | | | | | | +--------+---------+ + + + | 02/27/ | Office | Rehabilitation | Manuel Sparks, | | | 2017 | Visit | | DO [address] | | | | | | [address] [place], | | | | | | [place] [address] | | | | | | [phone] | | | | | | | [...] | | | | | | [place] [address] | | | | | | [phone] | | | | | | | | | | | | Himanshu Champion | | | | | | D, PT | | +--------+---------+ + + + | 03/29/ | Office | Cardiology | Prem Call, | | | 2017 | Visit | | MD [address] | | | | | | [place], | | | | | | [place] [address] | | | | | | [phone] | | | | | | | | +--------+---------+ + + + as of this encounter Visit Diagnoses + + | Diagnosis | + + | S/P lumbar fusion - Primary | + + | Arthrodesis status | + + | Wound infection after surgery, initial encounter | + + | Overuse of medication | + + | Personal history of noncompliance with medical treatment, presenting hazards to health | + +
--- OUTSIDE RECORDS SUMMARY | 2018-02-06 23:17 | XMS | Encounter Summary ---
Demographics + + + | Address | [address] | | | [place] [address] | + + + | Home Phone | | + + + | Preferred Language | Unknown | + + + | Marital Status | | + + + | Methodist Affiliation | 1073 | + + + | Race | Unknown | + + + | Ethnic Group | Unknown | + + + Author + + + | Author | [facility] | | | and [place]un[place] | + + + | Organization | [facility] | | | [...] Team Providers + +------+ + | Care Cake Cutter Machine Name | Role | Phone | + +------+ + | Alberto Christine | PCP | | + +------+ + Encounter Details +--------+ + + + + | Date | Type | Department | Care Team | Description | +--------+ + + + + | 01/25/ | Procedure | [facility] | | | | 2018 | Pass | [facility] | | | | | | [address] | | | | | | [place] | | | | | | [address] | | | | | | [phone] | | | +--------+ + + + [...] do you have serious | No | 06/20/2016 | | difficulty hearing? | | | + + + + | Are you blind or do you have serious | No | 06/20/2016 | | difficulty seeing, even when wearing | | | | glasses? | | | + + + + | Do you have serious difficulty walking or | No | 06/20/2016 | | climbing stairs? (5 years old or older) | | | + + + + | Do you have difficulty dressing or bathing? | No | 06/20/2016 | | (5 years old or older) | | | + + + + | Because of a physical, mental, or emotional | No | 06/20/2016 | | condition, do you have difficulty [...] physical, mental, or emotional | No | 06/20/2016 | | condition, do you have serious [...] | | | | | | [place] [address] | | | | | | [phone] | | | | | | | [...] | | | | | | [place] [address] | | | | | | [phone] | | | | | | | [...] | | | | | | [place] [address] | | | | | | [phone] | | | | | | | | | | | | Himanshu Champion | | | | | | D, PT | | +--------+---------+ + + + | 02/22/ | Office | Rehabilitation | Manuel Sparks, | | | 2017 | Visit | | DO [address] | | | | | | [address] [place], | | | | | | [place] [address] | | | | | | [phone] | | | | | | | [...] [place] | | | | | | [place], [place] [address] | | | | | | [phone] | | | | | | | | +--------+---------+ + + + | 02/27/ | Office | Rehabilitation | Manuel Sparks, | | | 2017 | Visit | | DO [address] | | | | | | [address] [place], | | | | | | [place] [address] | | | | | | [phone] | | | | | | | [...] | | | | | | [place] [address] | | | | | | [phone] | | | | | | | | | | | | Himanshu Champion | | | | | | D, PT | | +--------+---------+ + + + | 03/29/ | Office | Cardiology | Prem Call, | | | 2017 | Visit | | MD [address] | | | | | | [place], | | | | | | [place] [address] | | | | | | [phone] | | | | | | | | +--------+---------+ + + + as of this encounter Visit Diagnoses Not on filein this encounter"
--- OUTSIDE RECORDS SUMMARY | 2018-02-06 23:17 | XMS | Encounter Summary ---
Demographics + + + | Address | [address] | | | [place] [address] | + + + | Home Phone | | + + + | Preferred Language | Unknown | + + + | Marital Status | | + + + | Adventism Affiliation | 1073 | + + + | Race | Unknown | + + + | Ethnic Group | Unknown | + + + Author + + + | Author | [facility] | | | and [place]un[place] | + + + | Organization | [facility] | | | [...] Team Providers + +------+ + | Care Customs House Broker Name | Role | Phone | + +------+ + | Alberto Christine | PCP | | + +------+ + Reason for Visit + + + | Reason | Comments | + + + | Procedure | confirmation call | + + + Encounter Details +--------+ + + + + | Date | Type | Department | Care Team | Description | +--------+ + + + + | 11/21/ | Telephone | [facility] [place] | Manuel Sparks, | Procedure | | 2017 | | NEUROSURGERY [address] | DO [address] | (confirmation call ) | | | | [address] | [address] [place], | | | | | [place] | [place] [address] | | | | | [address] | [phone] | | | | | [phone] | | | +--------+ + + + [...] [place], | | | | | | [place] [address] | | | | | | [phone] | | | | | | | [...] | | | | | | [place] [address] | | | | | | [phone] | | | | | | | [...] | | | | | | [place] [address] | | | | | | [phone] | | | | | | | | | | | | Himanshu Champion | | | | | | D, PT | | +--------+---------+ + + + | 02/22/ | Office | Rehabilitation | Manuel pSarks, | | 2017 | Visit | | DO [address] | | | | | | [address] [place], | | | | | | [place] [address] | | | | | | [phone] | | | | | | | [...] | | | | | | [place] [address] | | | | | | [phone] | | | | | | | | +--------+---------+ + + + | 02/27/ | Office | Rehabilitation | Manuel Sparks, | | | 2017 | Visit | | DO [address] | | | | | | [address] [place], | | | | | | [place] [address] | | | | | | [phone] | | | | | | | [...] [place], | | | | | | [place] [address] | | | | | | [phone] | | | | | | | | | | | | Himanshu Champion | | | | | | D, PT | | +--------+---------+ + + + | 03/29/ | Office | Cardiology | Prem Call, | | | 2017 | Visit | | [address] | | | | | | [place], | | | | | | [place] [address] | | | | | | [phone] | | | | | | | | +--------+---------+ + + + as of this encounter Visit Diagnoses Not on filein this encounter"
--- OUTSIDE RECORDS SUMMARY | 2018-02-06 23:17 | XMS | Encounter Summary ---
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 5.1 mmol/L CL 110 (H) 98 - 109 mmol/L CO2 20 (L) 24 - 31 mmol/L ANION GAP 5 3 - 16 mmol/L GLUCOSE 96 70 - 109 mg/dL BUN 6 (L) 7 - 18 mg/dL Creatinine, Serum/Plasma 0.51 (L) 0.60 - 1.30 mg/dL eGFR if not >60 >=60 mL/min/1.73m2 CALCIUM 8.2 (L) 8.3 - 10.5 mg/dL BUN/CREA 11.8 CBC with Differential Result Value Ref Range WBC 6.5 4.0 - 11.0 K/uL RBC 3.48 (L) 3.70 - 5.20 M/uL Hgb 10.6 (L) 11.5 - 16.0 g/dL Hct 32.2 (L) 34.0 - 47.0 % MCV 92.6 83.0 - 101.0 fL MCH 30.3 28.0 - 35.0 pg MCHC 32.7 32.0 - 36.0 g/dL RDW-CV 13.6 <15.0 % Platelet Count 212 140 - 440 K/uL MPV 8.1 fL % Neutrophils 84.1 (H) 45.0 - 82.0 % % Lymphocytes 5.4 (L) 20.0 - 45.0 % % Monocytes 8.3 4.0 - 12.0 % % Eosinophils 1.7 0.0 - 5.0 % % Basophils 0.5 0.0 - 1.0 % Absolute Neutrophils 5.50 1.80 - 8.50 K/uL Absolute Lymphocytes 0.40 (L) 0.60 - 3.20 K/uL Absolute Monocytes 0.50 0.00 - 1.00 K/uL Absolute Eosinophils 0.10 0.00 - 0.40 K/uL Absolute Basophils 0.00 0.00 - 0.10 K/uL Magnesium Result Value Ref Range MG 1.5 (L) 1.8 - 2.5 mg/dL Hepatic Function Panel Result Value Ref Range BILIRUBIN TOTAL 0.6 0.1 - 1.5 mg/dL Total protein 4.1 (L) 6.0 - 7.8 g/dL ALBUMIN 2.4 (L) 3.2 - 5.0 g/dL AST 77 (H) 10 - 42 U/L ALT 54 (H) 6 - 45 U/L ALK PHOS 103 40 - 110 U/L GLOBULIN 1.7 (L) 2.1 - 3.8 g/dL Albumin/Globulin ratio 1.4 0.8 - 2.0 Bilirubin, Direct 0.20 0.00 - 0.20 mg/dl POC Glucose Result Value Ref Range Glucose, POC 101 70 - 109 mg/dL Level of consciousness: Alert and orientated to person, place, and time. Motor: Moving all extremities well. Sensations: Sensation intact. Incision: Dressing is clean, dry, and intact. ELMER 30 mL Assessment Clare Courtney is a 37 y.o. female s/p ALIF L4-S1 postoperative day # 1. Plan -Doing well -Postoperative hypotension - off pressors, appreciate hospitalist support -Increase diet/activity -PT/OT with brace status C -Pain control -DVT prophylaxis -DC plan: 3E today. Likely home in 2-3 days in this encounter Plan of Treatment +--------+---------+ [...] [place], | | | | | | [place] [address] | | | | | | [phone] | | | | | | | [...] | | | | | | [place] [address] | | | | | | [phone] | | | | | | | [...] | | | | | | [place] [address] | | | | | | [phone] | | | | | | | [...] | | | | | | [place] [address] | | | | | | [phone] | | | | | | | [...] | | | | | | [place] [address] | | | | | | [phone] | | | | | | | | +--------+---------+ + + + | 02/27/ | Office | Rehabilitation | Manuel Sparks, | | | 2017 | Visit | | DO [address] | | | | | | [address] [place], | | | | | | [place] [address] | | | | | | [phone] | | | | | | | | | | | | Himanshu Champion | | | | | | D, PT | | +--------+---------+ + + + | 03/01/ | Office | Rehabilitation | Manuel Sparks, | | | 2017 | Visit | | DO [address] | | | | | | [address] [place], | | | | | | [place] [address] | | | | | | [phone] | | | | | | | | | | | | Himanshu Champion | | | | | | D, PT | | +--------+---------+ + + + | 03/29/ | Office | Cardiology | Prem Call, | | | 2017 | Visit | | MD [address] | | | | | | [place], | | | | | | [place] [address] | | | | | | [phone] | | | | | | | | +--------+---------+ + + + as of this encounter Procedures + +--------+ + + + | [...] | | | 05/30/ | | | 2017:S | | | pecial | | | [...] Flat | | | Top | +---+--------+ in this encounter Results Basic Metabolic Panel (11/27/2017901) + + + + | Component | [...] GLOMERULAR FILTRATION | >=60 mL/min/1.73m2 | | COLOMBIAN | RATE,ESTIMATED mL/min/1.30w5Ejle than | | | | 60 Chronic [...] | + + + | Blood | [facility] [address] | | | [place] [address] | + + + CBC with Differential (11/27/2017901) + + + + | Component | Value | Ref Range | + + + + | WBC | 6.5 | 4.0 - 11.0 K/uL | + + + + | RBC | 3.18 (L) | 3.70 - 5.20 M/uL | + + + + | Hgb | 10.0 (L) | 11.5 - 16.0 g/dL | + + + + | Hct | 29.7 (L) | 34.0 - 47.0 % | + + + + | MCV | 93.4 | 83.0 - 101.0 fL | + + + + | MCH | 31.3 | 28.0 - 35.0 pg | + + + + | MCHC | 33.5 | 32.0 - 36.0 g/dL | + + + + | RDW-CV | 13.2 | <15.0 % | + + + + | Platelet Count | 216 | 140 - 440 K/uL | + + + + | MPV | 8.8 | fL | + + + + | % Neutrophils | 70.1 | 45.0 - 82.0 % | + + + + | % Lymphocytes | 15.2 (L) | 20.0 - 45.0 % | + + + + | % Monocytes | 9.7 | 4.0 - 12.0 % | + + + + | % Eosinophils | 4.1 | 0.0 - 5.0 % | + + + + | % Basophils | 0.9 | 0.0 - 1.0 % | + + + + | Absolute Neutrophils | 4.60 | 1.80 - 8.50 K/uL | + + + + | Absolute Lymphocytes | 1.00 | 0.60 - 3.20 K/uL | + + + + | Absolute Monocytes | 0.60 | 0.00 - 1.00 K/uL | + + + + | Absolute Eosinophils | 0.30 | 0.00 - 0.40 K/uL | + + + + | Absolute Basophils | 0.10 | 0.00 - 0.10 K/uL | + + + + + + + | Specimen | Performing Laboratory | + + + | Blood | [facility] [address] | | | [place] [address] | + + + POC Glucose (11/27/2017 0645) + +-------+ + | Component | Value | Ref Range | + +-------+ + | Glucose, POC | 108 | 70 - 109 mg/dL | + +-------+ + + + + | Specimen | Performing Laboratory | + + + | Blood | [facility] [address] | | | [place] [address] | + + + POC Glucose (11/26/20172035) + +---------+ + | Component | Value | Ref Range | + +---------+ + | Glucose, POC | 140 (H) | 70 - 109 mg/dL | + +---------+ + + + + | Specimen | Performing Laboratory | + + + | Blood | [facility] [address] | | | [place] [address] | + + + POC Glucose (11/26/20171718) + +-------+ + | Component | Value | Ref Range | + +-------+ + | Glucose, POC | 89 | 70 - 109 mg/dL | + +-------+ + + + + | Specimen | Performing Laboratory | + + + | Blood | [facility] [address] | | | [place] [address] | + + + POC Glucose (11/26/2017 1142) + +-------+ + | Component | Value | Ref Range | + +-------+ + | Glucose, POC | 81 | 70 - 109 mg/dL | + +-------+ + + + + | Specimen | Performing Laboratory | + + + | Blood | [facility] [address] | | | [place] [address] | + + + POC Glucose (11/26/2017809) + +-------+ + | Component | Value | Ref Range | + +-------+ + | Glucose, POC | 108 | 70 - 109 mg/dL | + +-------+ + + + + | Specimen | Performing Laboratory | + + + | Blood | [facility] [address] | | | [place] [address] | + + + POC Glucose (11/26/201719) + +-------+ + | Component | Value | Ref Range | + +-------+ + | Glucose, POC | 77 | 70 - 109 mg/dL | + +-------+ + + + + | Specimen | Performing Laboratory | + + + | Blood | [facility] [address] | | | [place] [address] | + + + Slide Review, Peripheral [...] + + + | Blood | [facility] | | | [place] [address] | + + + + + | Narrative | + + | No Platelet clumps seen | + + CBC with Differential (11/26/2017 0600) + + + + | Component | Value | Ref Range | + + + + | WBC | 9.4Comment: This is a corrected result. | 4.0 - 11.0 K/uL | | | Previous result was 8.1 K/uL on 11/26/2017 | | | | at 0731 PST | | + + + + | RBC | 2.72 (L)Comment: This is a corrected | 3.70 - 5.20 M/uL | | | result. Previous result was 2.78 M/uL on | | | | 11/26/2017 at 0731 PST | | + + + + | Hgb | 8.6 (L)Comment: This is a corrected result. | 11.5 - 16.0 g/dL | | | Previous result was 8.4 g/dL on 11/26/2017 | | | | at 0731 PST | | + + + + | Hct | 25.2 (L)Comment: This is a corrected | 34.0 - 47.0 % | | | result. Previous result was 25.7 % on | | | | 11/26/2017 at 0731 PST | | + + + + | MCV | 92.6Comment: This is a corrected result. | 83.0 - 101.0 fL | | | Previous result was 92.4 fL on 11/26/2017 at | | | | 0731 PST | | + + + + | MCH | 31.6Comment: This is a corrected result. | 28.0 - 35.0 pg | | | Previous result was 30.3 pg on 11/26/2017 at | | | | 0731 PST | | + + + + | MCHC | 34.1Comment: This is a corrected result. | 32.0 - 36.0 g/dL | | | Previous result was 32.8 g/dL on 11/26/2017 | | | | at 0731 PST | | + + + + | RDW-CV | 13.1Comment: This is a corrected result. | <15.0 % | | | Previous result was 13.3 % on 11/26/2017 at | | | | 0731 PST | | + + + + | Platelet Count | 154Comment: This is a corrected result. | 140 - 440 K/uL | | | Previous result was 141 K/uL on 11/26/2017 | | | | at 0731 PST | | + + + + | MPV | 9.5Comment: This is a corrected result. | fL | | | Previous result was 9.0 fL on 11/26/2017 at | | | | 0731 PST | | + + + + | % Neutrophils | 71.1 | 45.0 - 82.0 % | + + + + | % Lymphocytes | 16.0 (L) | 20.0 - 45.0 % | + + + + | % Monocytes | 9.3 | 4.0 - 12.0 % | + + + + | % Eosinophils | 2.9 | 0.0 - 5.0 % | + + + + | % Basophils | 0.7 | 0.0 - 1.0 % | + + + + | Absolute Neutrophils | 6.70 | 1.80 - 8.50 K/uL | + + + + | Absolute Lymphocytes | 1.50 | 0.60 - 3.20 K/uL | + + + + | Absolute Monocytes | 0.90 | 0.00 - 1.00 K/uL | + + + + | Absolute Eosinophils | 0.30 | 0.00 - 0.40 K/uL | + + + + | Absolute Basophils | 0.10 | 0.00 - 0.10 K/uL | + + + + + + + | Specimen | Performing Laboratory | + + + | Blood | [facility] [address] | | | [place] [address] | + + + Basic Metabolic Panel (11/26/2017599) + + + + | Component | Value | Ref Range | + + + + | NA | 134 (L) | 136 - 149 mmol/L | + + + + | K | 3.4 (L) | 3.5 - 5.1 mmol/L | + + + + | CL | 108 | 98 - 109 mmol/L | + + + + | CO2 | 20 (L) | 24 - 31 mmol/L | + + + + | ANION GAP | 6 | 3 - 16 mmol/L | + + + + | GLUCOSE | 82 | 70 - 109 mg/dL | + + + + | BUN | 7 | 7 - 18 mg/dL | + + + + | Creatinine, | 0.52 (L) | 0.60 - 1.30 mg/dL | | Serum/Plasma | | | + + + + | eGFR if not | >60Comment: GLOMERULAR FILTRATION | >=60 mL/min/1.73m2 | | COLOMBIAN | RATE,ESTIMATED mL/min/1.76a4Spth than | | | | 60 Chronic kidney disease,if found over | | | | a 3-month period.Less than 15 Kidney | | | | failureFor Americans,multiply the | | | | calculated GFR by 1.21. | | | | | | | | | | + + + + | CALCIUM | 8.4 | 8.3 - 10.5 mg/dL | + + + + | BUN/CREA | 13.5 | | + + + + + + + | Specimen | Performing Laboratory | + + + | Blood | [facility] [address] | | | [place] [address] | + + + POC Glucose (11/25/20172018) + +-------+ + | Component | Value | Ref Range | + +-------+ + | Glucose, POC | 82 | 70 - 109 mg/dL | + +-------+ + + + + | Specimen | Performing Laboratory | + + + | Blood | [facility] [address] | | | [place] [address] | + + + POC Glucose (11/25/2017 1616) + +-------+ + | Component | Value | Ref Range | + +-------+ + | Glucose, POC | 95 | 70 - 109 mg/dL | + +-------+ + + + + | Specimen | Performing Laboratory | + + + | Blood | [facility] [address] | | | [place] [address] | + + + POC Glucose (11/25/2017 1315) + +-------+ + | Component | Value | Ref Range | + +-------+ + | Glucose, POC | 89 | 70 - 109 mg/dL | + +-------+ + + + + | Specimen | Performing Laboratory | + + + | Blood | [facility] [address] | | | [place] [address] | + + + POC Glucose (11/25/2017729) + +-------+ + | Component | Value | Ref Range | + +-------+ + | Glucose, POC | 81 | 70 - 109 mg/dL | + +-------+ + + + + | Specimen | Performing Laboratory | + + + | Blood | [facility] [address] | | | [place] [address] | + + + POC Glucose (11/24/20171952) + +-------+ + | Component | Value | Ref Range | + +-------+ + | Glucose, POC | 99 | 70 - 109 mg/dL | + +-------+ + + + + | Specimen | Performing Laboratory | + + + | Blood | [facility] [address] | | | [place] [address] | + + + POC Glucose (11/24/20171749) + +-------+ + | Component | Value | Ref Range | + +-------+ + | Glucose, POC | 102 | 70 - 109 mg/dL | + +-------+ + + + + | Specimen | Performing Laboratory | + + + | Blood | [facility] [address] | | | [place] [address] | + + + Culture, Urine (11/24/2017 1154) + + + + | Component | Value | Ref Range | + + + + | Culture | No Growth | | + + + + + + + | Specimen | Performing Laboratory | + + + | Urine - Urine, Wright | [facility] [address] | | catheter | [place] [address] | + + + Urinalysis with Microscopic with Culture [...] | + + + + | Specific Jamul | 1.011 | 1.001 - 1.030 | [...] + | Urine - Urine, Wright | [facility] [address] | | catheter | [place] [address] | + + + Influenza A and [...] + + + | Respiratory - | [facility] [address] | | Nasopharynx | [place] [address] | + + + POC Glucose (11/24/2017 1131) + +---------+ + | Component | Value | Ref Range | + +---------+ + | Glucose, POC | 115 (H) | 70 - 109 mg/dL | + +---------+ + + + + | Specimen | Performing Laboratory | + + + | Blood | [facility] [address] | | | [place] [address] | + + + Culture, Blood (11/24/20171124) + + + + | Component | Value | Ref Range | + + + + | Culture | No growth after 5 days incubation. | | + + + + + + + | Specimen | Performing Laboratory | + + + | Blood - Peripheral | [facility] [address] | | Blood | [place] [address] | + + + Culture, Blood (11/24/2017 1125) + + + + | Component | Value | Ref Range | + + + + | Culture | No growth after 5 days incubation. | | + + + + + + + | Specimen | Performing Laboratory | + + + | Blood - Peripheral | [facility] [address] | | Blood | [place] [address] | + + + XR Chest AP Portable (11/24/2017 1106) + + | Narrative | + + | XR CHEST AP PORTABLE 11/24/2017 11:06 AM HISTORY: Fever and rales in the lungs ? | | Pneumonia. COMPARISON: Multiple priors. Findings: Heart size and aorta are | | normal. There appears to be gaseous distention of the esophagus that was not seen | | previously. Central pulmonary vasculature is normal. Mild linear atelectasis is in the | | left lung base. The right lung is clear. Fusion hardware is in the cervical spine. | | Slight right curvature of the thoracolumbar spine is present along with mild to | | moderate spondylosis. There are stable mild degenerative changes at the junction | | between the right first rib and the manubrium. Cholecystectomy clips are present. | | IMPRESSION - No acute findings. Mild linear atelectasis in left lung base. | | Apparent gaseous distention of the esophagus not seen previously. Dictated and | | Signed by: Otis Whitaker MD Electronically signed: 11/24/2017 11:27 AM | + + + + | Procedure Note | + + | Tang, Rad Results In - 11/24/2017 1131 PST XR CHEST AP PORTABLE 11/24/2017 11:06 AM | | | | HISTORY: Fever and rales in the lungs ? Pneumonia. | | | | COMPARISON: Multiple priors. | | | | Findings: | | Heart size and aorta are normal. There appears to be gaseous distention of the | | esophagus that was not seen previously. Central pulmonary vasculature is normal. | | Mild linear atelectasis is in the left lung base. The right lung is clear. | | Fusion hardware is in the cervical spine. Slight right curvature of the | | thoracolumbar spine is present along with mild to moderate spondylosis. There | | are stable mild degenerative changes at the junction between the right first rib | | and the manubrium. Cholecystectomy clips are present. | | | | IMPRESSION - | | No acute findings. | | | | Mild linear atelectasis in left lung base. | | | | Apparent gaseous distention of the esophagus not seen previously. | | | | Dictated and Signed by: Otis Whitaker MD | | Electronically signed: 11/24/2017 11:27 AM | + + POC Glucose (11/24/2017 0629) + +-------+ + | Component | Value | Ref Range | + +-------+ + | Glucose, POC | 101 | 70 - 109 mg/dL | + +-------+ + + + + | Specimen | Performing Laboratory | + + + | Blood | [facility] | | | [place] [address] | + + + Hepatic Function Panel [...] | + + + | Blood | [facility] [address] | | | [place] [address] | + + + Magnesium (11/24/2017 0446) + +---------+ + | Component | Value | Ref Range | + +---------+ + | MG | 1.5 (L) | 1.8 - 2.5 mg/dL | + +---------+ + + + + | Specimen | Performing Laboratory | + + + | Blood | [facility] [address] | | | [place] [address] | + + + CBC with Differential (11/24/2017 0446) + + + + | Component | Value | Ref Range | + + + + | WBC | 6.5 | 4.0 - 11.0 K/uL | + + + + | RBC | 3.48 (L) | 3.70 - 5.20 M/uL | + + + + | Hgb | 10.6 (L) | 11.5 - 16.0 g/dL | + + + + | Hct | 32.2 (L) | 34.0 - 47.0 % | + + + + | MCV | 92.6 | 83.0 - 101.0 fL | + + + + | MCH | 30.3 | 28.0 - 35.0 pg | + + + + | MCHC | 32.7 | 32.0 - 36.0 g/dL | + + + + | RDW-CV | 13.6 | <15.0 % | + + + + | Platelet Count | 212 | 140 - 440 K/uL | + + + + | MPV | 8.1 | fL | + + + + | % Neutrophils | 84.1 (H) | 45.0 - 82.0 % | + + + + | % Lymphocytes | 5.4 (L) | 20.0 - 45.0 % | + + + + | % Monocytes | 8.3 | 4.0 - 12.0 % | + + + + | % Eosinophils | 1.7 | 0.0 - 5.0 % | + + + + | % Basophils | 0.5 | 0.0 - 1.0 % | + + + + | Absolute Neutrophils | 5.50 | 1.80 - 8.50 K/uL | + + + + | Absolute Lymphocytes | 0.40 (L) | 0.60 - 3.20 K/uL | + + + + | Absolute Monocytes | 0.50 | 0.00 - 1.00 K/uL | + + + + | Absolute Eosinophils | 0.10 | 0.00 - 0.40 K/uL | + + + + | Absolute Basophils | 0.00 | 0.00 - 0.10 K/uL | + + + + + + + | Specimen | Performing Laboratory | + + + | Blood | [facility] [address] | | | [place] [address] | + + + Basic Metabolic Panel (11/24/2017 0446) + + + + | Component | Value | Ref Range | + + + + | NA | 135 (L) | 136 - 149 mmol/L | + + + + | K | 4.2 | 3.5 - 5.1 mmol/L | + + + + | CL | 110 (H) | 98 - 109 mmol/L | + + + + | CO2 | 20 (L) | 24 - 31 mmol/L | + + + + | ANION GAP | 5 | 3 - 16 mmol/L | + + + + | GLUCOSE | 96 | 70 - 109 mg/dL | + + + + | BUN | 6 (L) | 7 - 18 mg/dL | + + + + | Creatinine, | 0.51 (L) | 0.60 - 1.30 mg/dL | | Serum/Plasma | | | + + + + | eGFR if not | >60Comment: GLOMERULAR FILTRATION | >=60 mL/min/1.73m2 | | COLOMBIAN | RATE,ESTIMATED mL/min/1.77u3Gkpt than | | | | 60 Chronic kidney disease,if found over | | | | a 3-month period.Less than 15 Kidney | | | | failureFor Americans,multiply the | | | | calculated GFR by 1.21. | | | | | | | | | | + + + + | CALCIUM | 8.2 (L) | 8.3 - 10.5 mg/dL | + + + + | BUN/CREA | 11.8 | | + + + + + + + | Specimen | Performing Laboratory | + + + | Blood | [facility] [address] | | | [place] [address] | + + + POC Glucose (11/23/20172235) + +-------+ + | Component | Value | Ref Range | + +-------+ + | Glucose, POC | 101 | 70 - 109 mg/dL | + +-------+ + + + + | Specimen | Performing Laboratory | + + + | Blood | [facility] [address] | | | [place] [address] | + + + Basic Metabolic Panel (11/23/20172103) + + + + | Component | Value | Ref Range | + + + + | NA | 138 | 136 - 149 mmol/L | + + + + | K | 4.2 | 3.5 - 5.1 mmol/L | + + + + | CL | 113 (H) | 98 - 109 mmol/L | + + + + | CO2 | 20 (L) | 24 - 31 mmol/L | + + + + | ANION GAP | 5 | 3 - 16 mmol/L | + + + + | GLUCOSE | 109 | 70 - 109 mg/dL | + + + + | BUN | 8 | 7 - 18 mg/dL | + + + + | Creatinine, | 0.51 (L) | 0.60 - 1.30 mg/dL | | Serum/Plasma | | | + + + + | eGFR if not | >60Comment: GLOMERULAR FILTRATION | >=60 mL/min/1.73m2 | | COLOMBIAN | RATE,ESTIMATED mL/min/1.87l5Czeo than | | | | 60 Chronic kidney disease,if found over | | | | a 3-month period.Less than 15 Kidney | | | | failureFor Americans,multiply the | | | | calculated GFR by 1.21. | | | | | | | | | | + + + + | CALCIUM | 7.9 (L) | 8.3 - 10.5 mg/dL | + + + + | BUN/CREA | 15.7 | | + + + + + + + | Specimen | Performing Laboratory | + + + | Blood | [facility] [address] | | | [place] [address] | + + + CBC with Differential (11/23/20172103) + + + + | Component | Value | Ref Range | + + + + | WBC | 7.3 | 4.0 - 11.0 K/uL | + + + + | RBC | 3.75 | 3.70 - 5.20 M/uL | + + + + | Hgb | 11.3 (L) | 11.5 - 16.0 g/dL | + + + + | Hct | 35.3 | 34.0 - 47.0 % | + + + + | MCV | 93.9 | 83.0 - 101.0 fL | + + + + | MCH | 30.0 | 28.0 - 35.0 pg | + + + + | MCHC | 31.9 (L) | 32.0 - 36.0 g/dL | + + + + | RDW-CV | 13.5 | <15.0 % | + + + + | Platelet Count | 262 | 140 - 440 K/uL | + + + + | MPV | 8.0 | fL | + + + + | % Neutrophils | 84.2 (H) | 45.0 - 82.0 % | + + + + | % Lymphocytes | 7.1 (L) | 20.0 - 45.0 % | + + + + | % Monocytes | 7.5 | 4.0 - 12.0 % | + + + + | % Eosinophils | 1.0 | 0.0 - 5.0 % | + + + + | % Basophils | 0.2 | 0.0 - 1.0 % | + + + + | Absolute Neutrophils | 6.20 | 1.80 - 8.50 K/uL | + + + + | Absolute Lymphocytes | 0.50 (L) | 0.60 - 3.20 K/uL | + + + + | Absolute Monocytes | 0.60 | 0.00 - 1.00 K/uL | + + + + | Absolute Eosinophils | 0.10 | 0.00 - 0.40 K/uL | + + + + | Absolute Basophils | 0.00 | 0.00 - 0.10 K/uL | + + + + + + + | Specimen | Performing Laboratory | + + + | Blood | [facility] [address] | | | [place] [address] | + + + Culture, MRSA (11/23/20172102) + + + + | Component | Value | Ref Range | + + + + | Culture | Negative for MRSA by chromogenic agar | | | | method | | + + + + + + + | Specimen | Performing Laboratory | + + + | Respiratory - Nares | [facility] [address] | | | [place] [address] | + + + XR Lumbar Spine 2 or 3 Vw (11/23/20172047) + + | Narrative | + + | CLINICAL INFORMATION: post op lumbar surgery. COMPARISON: Radiographs dated | | 06/18/2016. MRI dated 10/19/2017. FINDINGS: AP and lateral views of the | | lumbosacral spine. Posterior pedicle screw and mary jo and anterior screw and plate | | fusion changes at L4-S1 with interbody graft spacers. No evidence to suggest | | hardware complication. Posterior surgical drain tubing in place. Normal lumbar | | alignment. Normal height of the vertebral bodies. IMPRESSION - No evidence of | | immediate complication. Dictated and Signed by: Jermain Alejandro MD | | Electronically signed: 11/23/2017 9:47 PM | + + + + | Procedure Note | + + | Tang, Rad Results In - 11/23/2017 2150 PST | | CLINICAL INFORMATION: post op lumbar surgery. | | | | COMPARISON: Radiographs dated 06/18/2016. MRI dated 10/19/2017. | | | | FINDINGS: | | AP and lateral views of the lumbosacral spine. | | | | Posterior pedicle screw and mary jo and anterior screw and plate fusion changes at | | L4-S1 with interbody graft spacers. No evidence to suggest hardware | | complication. Posterior surgical drain tubing in place. | | | | Normal lumbar alignment. Normal height of the vertebral bodies. | | | | | | IMPRESSION - No evidence of immediate complication. | | | | Dictated and Signed by: Jermain Alejandro MD | | Electronically signed: 11/23/2017 9:47 PM | + + FL C-Arm Stats No Charge (11/23/2017 1403) + + + | Specimen | Performing Laboratory | + + + | | [facility] | + + + + + | Narrative | + + | No Radiologist interpretation, please see Chart Review. | + + POC Glucose (11/23/2017 0655) + +-------+ + | Component | Value | Ref Range | + +-------+ + | Glucose, POC | 94 | 70 - 109 mg/dL | + +-------+ + + + + | Specimen | Performing Laboratory | + + + | Blood | [facility] | | | [place] [address] | + + + Type and Screen (11/23/201740) + + + + | Component | [...] + + + | Blood | [facility] | | | [place] [address] | + + + in this encounter Visit Diagnoses + + | Diagnosis | + + | Osteoarthritis of lumbar spine - Primary | + + | Lumbosacral spondylosis without myelopathy | + + | S/P lumbar fusion | + + | Arthrodesis status | + + | Right-sided low back pain without sciatica, unspecified chronicity | + + | Hypotension due to drugs | + + | Other iatrogenic hypotension | + + | Symptomatic hypotension | + + | SEIZURE DISORDER- NEUROLOGIST DR.CHENG XIAO SAUL | + + | Other convulsions | + + | ONESIMO (acute kidney injury) (HCC) | + + | Acute kidney failure, unspecified | + + | Degenerative disc disease, lumbar | + + | Degeneration of lumbar or lumbosacral intervertebral disc | + + | Hypothyroidism | + + | Unspecified hypothyroidism | + + | Diabetes mellitus type II - DIET Control | + + | Type II or unspecified type diabetes mellitus without mention of complication, not | | stated as uncontrolled | + + | Influenza B | + + | Influenza with other respiratory manifestations | + + Admitting Diagnoses + + | Diagnosis | + + | Osteoarthritis of spine with radiculopathy, lumbar region (M47.26), Spinal stenosis, | | lumbar region, without neurogenic claudication (M48.06), Lumbar radiculopathy (M54.16), | | Chronic right-sided low back pain with right-sided sciatica (M54.41, G89.29) | + + Administered Medications + +--------+ +--------+------+------+ | Medication Order | MAR | Action | Dose | Rate | Site | | | Action | Date | | | | + +--------+ +--------+------+------+ | acetaminophen (TYLENOL) tablet | Given | | 650 mg | | | | 650 mg 650 mg, Oral, EVERY 4 | | 8 9:27 | | | | | HOURS PRN, Pain, Fever, Starting | | PST | | | | | Michelle 11/23/17 at 2102 | | | | | | + +--------+ +--------+------+------+ +-------+ +--------+---+---+ | Given | | 650 mg | | | | | 8 4:42 | | | | | | PST | | | | +-------+ +--------+---+---+ | Given | | 650 mg | | | | | 8 13:10 | | | | | | PST | | | | +-------+ +--------+---+---+ +---+---+ | | | +---+---+ + +---------+ +------+-------+---+ | albumin 5% IVPB 25 g 25 g, | New Bag | | 25 g | 250 | | | Intravenous, Administer over 2 | | 8 9:42 | | mL/hr | | | Hours, ONCE, 11/25/17 at 0915, | | PST | | | | | For 1 dose | | | | | | + +---------+ +------+-------+---+ + +---+ | | | + +---+ | dextrose 50% injection 12.5 g | | | 12.5 g, Intravenous, PRN, Low | | | Blood Sugar, Starting [facility] 11/23/17 | | | at 1748 | | + +---+ | | | + +---+ + +-------+ +------+---+---+ | diazePAM (VALIUM) tablet 2 mg | Given | | 2 mg | | | | 2 mg, Oral, EVERY 8 HOURS PRN, | | 8 13:07 | | | | | Muscle spasms, Starting Sun | | PST | | | | | 11/26/17 at 1002, Use if | | | | | | | methocarbamol and cyclobenzaprine | | | | | | | ineffective or not ordered. | | | | | | + +-------+ +------+---+---+ +-------+ +------+---+---+ | Given | | 2 mg | | | | | 8 19:19 | | | | | | PST | | | | +-------+ +------+---+---+ +---+---+ | | | +---+---+ + +-------+ +------+---+---+ | diazePAM (VALIUM) tablet 2.5-5 | Given | | 5 mg | | | | mg 2.5-5 mg, Oral, EVERY 6 HOURS | | 8 10:50 | | | | | PRN, Muscle spasms, Starting Michelle | | PST | | | | | 11/23/17 at 2102, Use if | | | | | | | methocarbamol and cyclobenzaprine | | | | | | | ineffective or not ordered. | | | | | | + +-------+ +------+---+---+ +-------+ +------+---+---+ | Given | | 5 mg | | | | | 8 20:20 | | | | | | PST | | | | +-------+ +------+---+---+ | Given | | 5 mg | | | | | 8 7:20 | | | | | | PST | | | | +-------+ +------+---+---+ +---+---+ | | | +---+---+ + +-------+ +--------+---+---+ | docusate sodium (COLACE) | Given | | 100 mg | | | | capsule 100 mg 100 mg, Oral, 2 | | 8 8:51 | | | | | TIMES DAILY, First dose on Michelle | | PST | | | | | 11/23/17 at 2130, First line agent | | | | | | | for constipation | | | | | | + +-------+ +--------+---+---+ +-------+ +--------+---+---+ | Given | | 100 mg | | | | | 8 20:19 | | | | | | PST | | | | +-------+ +--------+---+---+ | Given | | 100 mg | | | | | 8 8:18 | | | | | | PST | | | | +-------+ +--------+---+---+ +---+---+ | | | +---+---+ + +-------+ +-------+---+ + | enoxaparin (LOVENOX) 40 mg/0.4 | Given | | 40 mg | | Abdomen- | | mL injection 40 mg 40 mg, | | 8 9:37 | | | LLQ | | Subcutaneous, EVERY 24 HOURS | | PST | | | | | (Daily), First dose on Sat | | | | | | | 11/25/17 at 0900 | | | | | | + +-------+ +-------+---+ + +-------+ +-------+---+ + | Given | | 40 mg | | Abdomen- | | | 8 8:50 | | | RLQ | | | PST | | | | +-------+ +-------+---+ + | Given | | 40 mg | | Abdomen- | | | 8 8:15 | | | LUQ | | | PST | | | | +-------+ +-------+---+ + +---+---+ | | | +---+---+ + +-------+ +-------+---+---+ | famotidine (PEPCID) tablet 20 | Given | | 20 mg | | | | mg 20 mg, Oral, 2 TIMES DAILY, | | 8 8:08 | | | | | First dose on [facility] 11/23/17 at 2130 | | PST | | | | + +-------+ +-------+---+---+ +-------+ +-------+---+---+ | Given | | 20 mg | | | | | 8 20:20 | | | | | | PST | | | | +-------+ +-------+---+---+ | Given | | 20 mg | | | | | 8 8:51 | | | | | | PST | | | | +-------+ +-------+---+---+ +---+---+ | | | +---+---+ + +-------+ +--------+---+---+ | fluticasone-salmeterol (ADVAIR) | Given | | 1 puff | | | | 500-50 mcg/puff diskus inhaler 1 | | 8 9:33 | | | | | puff (Patient Own Med) 1 puff, | | PST | | | | | Inhalation, RT BID, First dose on | | | | | | | 11/24/17 at 0900, Rinse mouth | | | | | | | after use. | | | | | | + +-------+ +--------+---+---+ +-------+ +--------+---+---+ | Given | | 1 puff | | | | | 8 21:32 | | | | | | PST | | | | +-------+ +--------+---+---+ | Given | | 1 puff | | | | | 8 8:03 | | | | | | PST | | | | +-------+ +--------+---+---+ +---+---+ | | | +---+---+ + +-------+ +--------+---+---+ | gabapentin (NEURONTIN) capsule | Given | | 600 mg | | | | 600 mg 600 mg, Oral, ONCE, Michelle | | 8 7:13 | | | | | 11/23/17 at 0645, For 1 dose, | | PST | | | | | Pre-op | | | | | | + +-------+ +--------+---+---+ +---+---+ | | | +---+---+ + +-------+ +--------+---+---+ | HYDROmorphone (DILAUDID) | Given | | 0.5 mg | | | | injection 0.2-0.5 mg 0.2-0.5 mg, | | 8 18:46 | | | | | Intravenous, EVERY 5 MIN PRN, | | PST | | | | | Pain, Starting Michelle 11/23/17 at | | | | | | | 1417, Maximum total dose 4 mg. | | | | | | | PACU IV Narcotic Priority: Only | | | | | | | use fentanyl for immediate | | | | | | | post-op pain (one dose) or | | | | | | | breakthrough pain when any other | | | | | | | IV narcotics ordered have been | | | | | | | ineffective (if ordered). If | | | | | | | both morphine and hydromorphone | | | | | | | are ordered, use morphine first, | | | | | | | and use hydromorphone if morphine | | | | | | | ineffective. | | | | | | + +-------+ +--------+---+---+ +-------+ +--------+---+---+ | Given | | 0.5 mg | | | | | 8 19:52 | | | | | | PST | | | | +-------+ +--------+---+---+ +---+---+ | | | +---+---+ + +-------+ +--------+---+---+ | HYDROmorphone (DILAUDID) | Given | | 0.5 mg | | | | injection 0.5 mg 0.5 mg, | | 8 18:00 | | | | | Intravenous, ONCE, [facility] 11/23/17 at | | PST | | | | | 1815, For 1 dose | | | | | | + +-------+ +--------+---+---+ +---+---+ | | | +---+---+ + +-------+ +--------+---+---+ | HYDROmorphone (DILAUDID) | Given | | 0.5 mg | | | | injection 0.5-1.5 mg 0.5-1.5 mg, | | 8 4:30 | | | | | Intravenous, EVERY 3 HOURS PRN, | | PST | | | | | Pain, Starting [facility] 11/23/17 at | | | | | | | 2102, If oral route not an | | | | | | | option. Slow IV push, not faster | | | | | | | than 0.3mg/minute. First dose | | | | | | | must be lowest dose, titrate to | | | | | | | effective dose by repeat of | | | | | | | lowest dose every 30 minutes prn | | | | | | | pain, may not exceed maximum dose | | | | | | | ordered per interval. Use Pasero | | | | | | | Sedation Scale. | | | | | | + +-------+ +--------+---+---+ +-------+ +--------+---+---+ | Given | | 0.5 mg | | | | | 8 5:58 | | | | | | PST | | | | +-------+ +--------+---+---+ | Given | | 1 mg | | | | | 8 9:27 | | | | | | PST | | | | +-------+ +--------+---+---+ +---+---+ | | | +---+---+ + +-------+ +--------+---+---+ | HYDROmorphone (DILAUDID) tablet | Given | | 1.5 mg | | | | 0.5-1.5 mg 0.5-1.5 mg, Oral, | | 8 16:10 | | | | | EVERY 4 HOURS PRN, Pain, Starting | | PST | | | | | Michelle 11/23/17 at 2102 | | | | | | + +-------+ +--------+---+---+ +-------+ +--------+---+---+ | Given | | 1.5 mg | | | | | 8 23:52 | | | | | | PST | | | | +-------+ +--------+---+---+ | Given | | 1.5 mg | | | | | 8 4:27 | | | | | | PST | | | | +-------+ +--------+---+---+ +---+---+ | | | +---+---+ + +-------+ +------+---+---+ | HYDROmorphone (DILAUDID) tablet | Given | | 2 mg | | | | 0.5-2 mg 0.5-2 mg, Oral, EVERY | | 8 21:49 | | | | | 4 HOURS PRN, Pain, Starting Sun | | PST | | | | | 11/26/17 at 0758 | | | | | | + +-------+ +------+---+---+ +-------+ +------+---+---+ | Given | | 2 mg | | | | | 8 4:32 | | | | | | PST | | | | +-------+ +------+---+---+ | Given | | 2 mg | | | | | 8 8:18 | | | | | | PST | | | | +-------+ +------+---+---+ + +---+ | | | + +---+ | insulin lispro (humaLOG | | | KWIKPEN) 100 units/mL injection | | | (pen) 0-6 Units 0-6 Units, | | | Subcutaneous, 4 TIMES DAILY WITH | | | MEALS & NIGHTLY, First dose on | | | Michelle 11/23/17 at 2100, CORRECTION | | | SCALE: Blood Glucose (BG) < | | | 150: None BG | | | 150-200: DAY: 1 units. NIGHT: 0 | | | units BG 201-250: DAY: 2 units. | | | NIGHT: 1 units BG 251-300: | | | DAY: 3 units. NIGHT: 2 units | | | BG 301-350: DAY: 4 units. NIGHT: | | | 3 units BG 351-400: DAY: 5 | | | units. NIGHT: 4 units BG > | | | 400 : DAY: 6 units. NIGHT: 5 | | | units | | | AND CALL PROVIDER Use DAY DOSE | | | for doses scheduled: AC, | | | NPO, Daytime [id number] Use NIGHT | | | DOSE for doses scheduled: | | | HS, 3AM, Nighttime [id number] | | + +---+ | | | + +---+ + +-------+ +---------+---+---+ | ipratropium (ATROVENT) 500 | Given | | 500 mcg | | | | mcg/2.5 mL nebulizer solution 500 | | 8 21:23 | | | | | mcg 500 mcg, Nebulization, RT | | PST | | | | | Q6H, First dose on Michelle 11/23/17 at | | | | | | | 2130 | | | | | | + +-------+ +---------+---+---+ +-------+ +---------+---+---+ | Given | | 500 mcg | | | | | 8 4:15 | | | | | | PST | | | | +-------+ +---------+---+---+ | Given | | 500 mcg | | | | | 8 8:00 | | | | | | PST | | | | +-------+ +---------+---+---+ +---+---+ | | | +---+---+ + +---------+ +---+---+---+ | lactated ringers (LR) infusion | New Bag | | | | | | at 10-100 mL/hr, Intravenous, | | 8 12:57 | | | | | CONTINUOUS, Starting Michelle 11/23/17 | | PST | | | | | at 0645, TKO. | | | | | | + +---------+ +---+---+---+ +---------+ +--------+-------+---+ | New Bag | | 1,000 | 100 | | | | 8 14:58 | mLs | mL/hr | | | | PST | | | | +---------+ +--------+-------+---+ | New Bag | | | 100 | | | | 8 16:48 | | mL/hr | | | | PST | | | | +---------+ +--------+-------+---+ +---+---+ | | | +---+---+ + +---------+ +---+-------+---+ | lactated ringers (LR) infusion | New Bag | | | 200 | | | at 200 mL/hr, Intravenous, | | 8 17:50 | | mL/hr | | | CONTINUOUS, Starting Michelle 11/23/17 | | PST | | | | | at 1745 | | | | | | + +---------+ +---+-------+---+ + + +---+-------+---+ | New Bag | | | 200 | | | | 8 1:35 | | mL/hr | | | | PST | | | | + + +---+-------+---+ | Rate/Dose Change | | | 100 | | | | 8 6:44 | | mL/hr | | | | PST | | | | + + +---+-------+---+ +---+---+ | | | +---+---+ + +-------+ +--------+---+---+ | lamoTRIgine (LAMICTAL) tablet | Given | | 150 mg | | | | 150 mg 150 mg, Oral, 2 TIMES | | 8 8:52 | | | | | DAILY, First dose on [facility] 11/23/17 | | PST | | | | | at 2130 | | | | | | + +-------+ +--------+---+---+ +-------+ +--------+---+---+ | Given | | 150 mg | | | | | 8 20:19 | | | | | | PST | | | | +-------+ +--------+---+---+ | Given | | 150 mg | | | | | 8 8:16 | | | | | | PST | | | | +-------+ +--------+---+---+ +---+---+ | | | +---+---+ + +-------+ +---------+---+---+ | levothyroxine (SYNTHROID) | Given | | 100 mcg | | | | tablet 100 mcg 100 mcg, Oral, | | 8 8:09 | | | | | DAILY BEFORE BREAKFAST, First | | PST | | | | | dose on 11/24/17 at 0730, Give | | | | | | | before breakfast. | | | | | | + +-------+ +---------+---+---+ +-------+ +---------+---+---+ | Given | | 100 mcg | | | | | 8 7:20 | | | | | | PST | | | | +-------+ +---------+---+---+ | Given | | 100 mcg | | | | | 8 6:42 | | | | | | PST | | | | +-------+ +---------+---+---+ +---+---+ | | | +---+---+ + +-------+ +--------+---+---+ | magnesium hydroxide (MILK OF | Given | | 30 mLs | | | | MAGNESIA) 400 mg/5 mL suspension | | 8 8:21 | | | | | 30 mL 30 mL, Oral, 2 TIMES DAILY | | PST | | | | | PRN, Constipation, Starting Michelle | | | | | | | 11/23/17 at 2102, If docusate, | | | | | | | senna, and polyethylene glycol | | | | | | | ineffective x 24 hours or not | | | | | | | ordered | | | | | | + +-------+ +--------+---+---+ +---+---+ | | | +---+---+ + +-------+ +-------+---+---+ | midodrine (PROAMATINE) tablet | Given | | 10 mg | | | | 10 mg 10 mg, Oral, 3 TIMES DAILY | | 8 11:40 | | | | | EARLY, First dose on 11/26/17 | | PST | | | | | at 1200, Avoid dosing after | | | | | | | evening meal or within 4 hours of | | | | | | | bedtime. | | | | | | + +-------+ +-------+---+---+ +-------+ +-------+---+---+ | Given | | 10 mg | | | | | 8 17:13 | | | | | | PST | | | | +-------+ +-------+---+---+ | Given | | 10 mg | | | | | 8 6:41 | | | | | | PST | | | | +-------+ +-------+---+---+ +---+---+ | | | +---+---+ + +-------+ +------+---+---+ | midodrine (PROAMATINE) tablet 5 | Given | | 5 mg | | | | mg 5 mg, Oral, 3 TIMES DAILY | | 8 10:51 | | | | | EARLY, First dose on 11/25/17 | | PST | | | | | at 1030, Avoid dosing after | | | | | | | evening meal or within 4 hours of | | | | | | | bedtime. | | | | | | + +-------+ +------+---+---+ +-------+ +------+---+---+ | Given | | 5 mg | | | | | 8 16:10 | | | | | | PST | | | | +-------+ +------+---+---+ | Given | | 5 mg | | | | | 8 7:20 | | | | | | PST | | | | +-------+ +------+---+---+ +---+---+ | | | +---+---+ + +---------+ +---------+---+ + | nicotine (NICODERM) 14 mg/24 hr | Patch | | 1 patch | | Arm-Rig | | 1 patch 1 patch, Transdermal, | Applied | 8 8:06 | | | t Upper | | DAILY, First dose on Mon11/24/17 | | PST | | | | | at 0900 | | | | | | + +---------+ +---------+---+ + + + +---------+---+ + | Patch Applied | | 1 patch | | Arm-Left | | | 8 8:49 | | | Upper | | | PST | | | | + + +---------+---+ + | Patch Applied | | 1 patch | | Deltoid- | | | 8 8:18 | | | Right | | | PST | | | | + + +---------+---+ + +---+---+ | | | +---+---+ + +---------+ +---------+-------+---+ | norepinephrine in NS (LEVOPHED) | New Bag | | 3 | 11.3 | | | 16 mcg/mL infusion 10 mcg/min | | 8 21:20 | mcg/min | mL/hr | | | (37.5 mL/hr), at 37.5 mL/hr, | | PST | | | | | Intravenous, TITRATED, Starting | | | | | | | [facility] 11/23/17 at 2014, Initial | | | | | | | dose: 3 mcg/min | | | | | | + +---------+ +---------+-------+---+ + + +---------+-------+---+ | Rate/Dose Change | | 2 | 7.5 | | | | 8 23:33 | mcg/min | mL/hr | | | | PST | | | | + + +---------+-------+---+ | Restarted | | 3 | 11.3 | | | | 8 14:49 | mcg/min | mL/hr | | | | PST | | | | + + +---------+-------+---+ +---+---+ | | | +---+---+ + +---------+ +---------+-------+---+ | norepinephrine in NS (LEVOPHED) | New Bag | | 3 | 11.3 | | | 16 mcg/mL infusion 1-30 mcg/min | | 8 14:50 | mcg/min | mL/hr | | | (3.75-112.5 mL/hr, rounded to | | PST | | | | | 3.8-112.5 mL/hr), at 3.8-112.5 | | | | | | | mL/hr, Intravenous, TITRATED, | | | | | | | Starting 11/24/17 at 2300, | | | | | | | Initial dose: 3 mcg/min | | | | | | + +---------+ +---------+-------+---+ + + +---------+-------+---+ | Rate/Dose Change | | 2 | 7.5 | | | | 8 19:30 | mcg/min | mL/hr | | | | PST | | | | + + +---------+-------+---+ +---+---+ | | | +---+---+ + +-------+ +-------+---+---+ | oseltamivir (TAMIFLU) capsule | Given | | 75 mg | | | | 75 mg 75 mg, Oral, 2 TIMES | | 8 8:08 | | | | | DAILY, First dose on Mon11/24/17 | | PST | | | | | at 1445, For 5 doses, Capsules | | | | | | | may be opened & contents | | | | | | | mixed with sweetened liquid such | | | | | | | as chocolate syrup. | | | | | | + +-------+ +-------+---+---+ +-------+ +-------+---+---+ | Given | | 75 mg | | | | | 8 20:20 | | | | | | PST | | | | +-------+ +-------+---+---+ | Given | | 75 mg | | | | | 8 8:51 | | | | | | PST | | | | +-------+ +-------+---+---+ +---+---+ | | | +---+---+ + +-------+ +-------+---+---+ | oseltamivir (TAMIFLU) capsule | Given | | 75 mg | | | | 75 mg 75 mg, Oral, 2 TIMES | | 8 20:20 | | | | | DAILY, First dose on 11/26/17 | | PST | | | | | at 2100, For 4 doses, Capsules | | | | | | | may be opened & contents | | | | | | | mixed with sweetened liquid such | | | | | | | as chocolate syrup. | | | | | | + +-------+ +-------+---+---+ +-------+ +-------+---+---+ | Given | | 75 mg | | | | | 8 8:18 | | | | | | PST | | | | +-------+ +-------+---+---+ +---+---+ | | | +---+---+ + +-------+ +-------+---+---+ | pantoprazole (PROTONIX) DR | Given | | 40 mg | | | | tablet 40 mg 40 mg, Oral, DAILY | | 8 8:09 | | | | | BEFORE BREAKFAST, First dose on | | PST | | | | | 11/24/17 at 0730 | | | | | | + +-------+ +-------+---+---+ +-------+ +-------+---+---+ | Given | | 40 mg | | | | | 8 7:20 | | | | | | PST | | | | +-------+ +-------+---+---+ | Given | | 40 mg | | | | | 8 6:42 | | | | | | PST | | | | +-------+ +-------+---+---+ +---+---+ | | | +---+---+ + +---------+ +---------+ +---+ | phenylephrine (ERICKA-SYNEPHRINE) | New Bag | | 50 | 30 mL/hr | | | 100 mcg/mL in sodium chloride | | 8 17:15 | mcg/min | | | | 0.9% 500 mL infusion 0-180 | | PST | | | | | mcg/min (0-108 mL/hr), at 0-108 | | | | | | | mL/hr, Intravenous, TITRATED, | | | | | | | Starting [facility] 11/23/17 at 1700, | | | | | | | Initial dose: 50 mcg/min | | | | | | + +---------+ +---------+ +---+ + + +---------+ +---+ | Rate/Dose Change | | 25 | 15 mL/hr | | | | 8 17:40 | mcg/min | | | | | PST | | | | + + +---------+ +---+ +---+---+ | | | +---+---+ + +-------+ +------+---+---+ | polyethylene glycol (MIRALAX) | Given | | 17 g | | | | powder 17 g 17 g, Oral, DAILY, | | 8 8:07 | | | | | First dose on Mon11/24/17 at | | PST | | | | | 0900, If docusate and senna | | | | | | | ineffective or not ordered | | | | | | + +-------+ +------+---+---+ +-------+ +------+---+---+ | Given | | 17 g | | | | | 8 8:49 | | | | | | PST | | | | +-------+ +------+---+---+ | Given | | 17 g | | | | | 8 8:15 | | | | | | PST | | | | +-------+ +------+---+---+ + +---+ | | | + +---+ | rizatriptan (MAXALT-TEXTILE SCIENCE TECHNICIAN) | | | disintegrating tablet 5 mg | | | (Patient Own Med) 5 mg, Oral, | | | DAILY PRN, MAY REPEAT X 1, | | | Migraine, Starting Michelle 11/23/17 at | | | 2122 | | + +---+ | | | + +---+ + +-------+ +--------+---+---+ | senna (SENOKOT) tablet 8.6 mg | Given | | 8.6 mg | | | | 8.6 mg, Oral, 2 TIMES DAILY, | | 8 8:08 | | | | | First dose on [facility] 11/23/17 at | | PST | | | | | 2130, If docusate ineffective or | | | | | | | not ordered | | | | | | + +-------+ +--------+---+---+ +-------+ +--------+---+---+ | Given | | 8.6 mg | | | | | 8 20:20 | | | | | | PST | | | | +-------+ +--------+---+---+ | Given | | 8.6 mg | | | | | 8 8:51 | | | | | | PST | | | | +-------+ +--------+---+---+ +---+---+ | | | +---+---+ + +---------+ +--------+-------+---+ | sodium chloride 0.9% (NS) | New Bag | | 1,000 | 100 | | | infusion at 100 mL/hr, | | 8 6:56 | mLs | mL/hr | | | Intravenous, CONTINUOUS, Starting | | PST | | | | | [facility] 11/23/17 at 0645, Pre-op | | | | | | + +---------+ +--------+-------+---+ +---+---+ | | | +---+---+ + +-------+ +-------+---+---+ | topiramate (TOPAMAX) tablet 50 | Given | | 50 mg | | | | mg 50 mg, Oral, 2 TIMES DAILY, | | 8 8:51 | | | | | First dose on [facility] 11/23/17 at | | PST | | | | | 2130, Reproductive Risk: Use | | | | | | | appropriate handling precautions. | | | | | | + +-------+ +-------+---+---+ +-------+ +-------+---+---+ | Given | | 50 mg | | | | | 8 20:19 | | | | | | PST | | | | +-------+ +-------+---+---+ | Given | | 50 mg | | | | | 8 8:17 | | | | | | PST | | | | +-------+ +-------+---+---+ +---+---+ | | | +---+---+ + +---------+ +-----+--------+---+ | vancomycin 1 g in sodium | New Bag | | 1 g | 166.7 | | | chloride 0.9% 250 mL IVPB 1 g, | | 8 7:29 | | mL/hr | | | Intravenous, Administer over 90 | | PST | | | | | Minutes, Prior to Incision, | | | | | | | Starting 10/02/17 at 0442, For | | | | | | | 1 dose, Administer within 1 hour | | | | | | | of surgical incision. Activate | | | | | | | system and mix before use. | | | | | | + +---------+ +-----+--------+---+ +-------+ +-----+---+---+ | Bolus | | 1 g | | | | | 8 7:35 | | | | | | PST | | | | +-------+ +-----+---+---+ +---+---+ | | | +---+---+ + +---------+ +-----+--------+---+ | vancomycin 1 g in sodium | New Bag | | 1 g | 166.7 | | | chloride 0.9% 250 mL IVPB 1 g, | | 8 22:25 | | mL/hr | | | Intravenous, Administer over 90 | | PST | | | | | Minutes, EVERY 12 HOURS INTERVAL, | | | | | | | First dose on [facility] 11/23/17 at | | | | | | | 2130, For 1 dose, Start 12 hours | | | | | | | after previous dose. Last dose | | | | | | | to be given within 24 hours of | | | | | | | surgery end time. Activate system | | | | | | | and mix before use. | | | | | | + +---------+ +-----+--------+---+ +---+---+ | | | +---+---+ in this encounter
--- OUTSIDE RECORDS SUMMARY | 2018-02-06 23:17 | XMS | Encounter Summary ---
Demographics + + + | Address | [address] | | | [place] [address] | + + + | Home Phone | | + + + | Preferred Language | Unknown | + + + | Marital Status | | + + + | Jainism Affiliation | [id number] | + + + | Race | Unknown | + + + | Ethnic Group | Unknown | + + + Author + + + | Author | [facility] | | | and Shaunana | + + + | Organization | [facility] | | | [...] Team Providers + +------+ + | Care Fitness Floor Attendant Name | Role | Phone | [...] | | | | | | | [place] LUMBAR | | | | | | | SPINE | | | | | | | FUSION,ANTER | | | | | | | APPRCH [place] | | | | | | | [...] | | | | | | SEGMENTS [place] | | | | | | | INSJ | | | | | | | BIOMCHN DEV | | | | | | | INTERVERTEBR | | | | | | | AL DSC SPC | | | | | | | W/ARTHRD [place] | | | | | | | INSJ | | | | | | | BIOMCHN DEV | | | | | | | INTERVERTEBR | | | | | | | AL DSC SPC | | | | | | | W/ARTHRD [place] | | | | | | | ARTHRODESIS | | | | | | | | | | | | | | POSTERIOR/PO | | | | | | | STEROLATERAL | | | | | | | LUMBAR [place] | | | | | | | SPINE | | | | | | | FUSN,POST | | | | | | | TECH,EA | | | | | | | ADDNL SGMT | | | | | | | [place] SPINE | | | | | | [...] + + + + | 11/23/ | Anesthesia | ANNABELLE ASHLEY | Ney Palomo | | | 2018 | Event | [facility] | MD Patricia [address] | | | | | [address] | [address] [place], [place] | | | | | [place], [place] | [address] | | | | | [address] | | | | | | [phone] | | | +--------+ + + + + Anesthesia Record + + + + + | Procedure Name | Responsible | Anesthesia Start | Anesthesia Stop Time | | | Anesthesiologist | Time | | + + + + + | L4-5, L5-S1 Anterior | Ney Palomo, | 11/23/17 0751 | 11/23/17 1420 | | Lumbar Interbody | MD | | | | Fusion w/ | | | | | Posterolateral | | | | | Fusion (N/A Spine | | | | | Lumbar) | | | | + + + + + +----+---+ + + | Da | T | Event | Comment | | te | i | | | | | m | | | | | e | | | +----+---+ + + | 01 | 0 | An Checkout | Pre-use anesthesia machine/equipment checkout. | | /2 | 7 | | | | 5/ | 3 | | | | 20 | 2 | | | | 18 | | | | +----+---+ + + | | 0 | Antibiotic | | | | 7 | Given | | | | 3 | | | | | 5 | | | +----+---+ + + | | 0 | An Start | Reassessment prior to anesthesia induction/procedure. | | | 7 | | | | | 5 | | | | | 1 | | | +----+---+ + + | | 0 | Preoxygenat | | | | 8 | ed | | | | 0 | | | | | 4 | | | +----+---+ + + | | 0 | An | | | | 8 | Induction | | | | 0 | | | | | 8 | | | +----+---+ + + | | 0 | An | | | | 8 | Intubation | | | | 0 | | | | | 9 | | | +----+---+ + + | | 0 | AN Bite | | | | 8 | Block | | | | 1 | | | | | 1 | | | +----+---+ + + | | 0 | [place] | | | | 8 | 43-degrees | | | | 1 | | | | | 5 | | | +----+---+ + + | | 0 | Pre-Procedu | | | | 8 | ral Timeout | | | | 1 | Completed | | | | 5 | | | +----+---+ + + | | 0 | First | | | | 8 | Inc/Proc St | | | | 2 | | | | | 1 | | | +----+---+ + + | | 0 | an edi now | BP cuff popping off Changed to a long blue cuff. | | | 8 | | | | | 5 | | | | | 4 | | | +----+---+ + + | | 1 | an edi now | Intermittent perfusion to leg | | | 0 | | | | | 0 | | | | | 9 | | | +----+---+ + + | | 1 | an edi now | | | | 0 | | | | | 2 | | | | | 5 | | | +----+---+ + + | | 1 | AN No | TOF 4/4 with sustained tetanus. | | | 3 | Residual | | | | 4 | NMB | | | | 0 | | | +----+---+ + + | | 1 | Breathing | | | | 3 | Spontaneous | | | | 4 | ly | | | | 2 | | | +----+---+ + + | | 1 | [place] off | | | | 4 | | | | | 0 | | | | | 3 | | | +----+---+ + + | | 1 | Oropharynx | | | | 4 | Suctioned | | | | 0 | | | | | 9 | | | +----+---+ + + | | 1 | An Stop | Patient handed off to recovery nurse. | | | 2 | | | | | 0 | | | +----+---+ + + | | 1 | Quick Note | In PACU, was called for low BP. Ordered a neosynephrine | | | 7 | | infusion. On arrival patient bp 85 systolic. C/O pain awake, | | | 3 | | alert. Spoke to hospitalist. Mcdonough what we could stop the | | | 0 | | phenylephrine infusion and bolus with IV fluids. Urine was | | | | | still dark and only 350 for the case despite 3500 total infusion | | | | | of crystalloids. He will assume care. | +----+---+ + + +------+ | Meds | +------+ + + + | Name | Total | + + + | midazolam | 2 mg | + + + | fentaNYL injection (2 mL) | 50 mcg | + + + | HYDROmorphone | 2 mg | + + + | ketamine | 75 mg | + + + | ketamine | 50 mg | + + + | propofol | 150 mg | + + + | propofol | 461.5 mg | + + + | lidocaine 2% (PF) | 460 mg | + + + | vecuronium | 15 mg | + + + | ondansetron | 4 mg | + + + | magnesium sulfate | 2 g | + + + | dexmedetomidine (PRECEDEX) 4 | 100 mcg | | mcg/mL in sodium chloride 0.9% | | | 100 mL infusion | | + + + | ePHEDrine | 50 mg | + + + | Phenylephrine 100mcg/mL SYRINGE | 2,000 mcg | + + + | ropivacaine 0.5% | 30 mL | + + + | vancomycin 1 g in sodium chloride | 1 g | | 0.9% 250 mL IVPB | | + + + | EPINEPHrine | 75 mcg | + + + | vasopressin | 1 Units | + + + | Phenylephrine 10mg/mL VIAL | 4,380 mcg | + + + | sodium chloride 0.9% (NS) | 1,000 mL | | infusion | | + + + | lactated ringers (LR) infusion | 2,600 mL | + + + + + | Name | + + | N2O Flow Rate (L/Min) | + + | O2 Flow Rate (L/Min) | + + | Insp O2 | + + | Exp SEV | + + | Exp YEVGENIY | + + | Air Flow Rate (L/Min) | + + + + | No blood administrations on file. | + + +--------+ + + + | Type | Details | Placement | Removal | +--------+ + + + | Brace/ | 02/23/16; 1630; right cock-up | 02/23/16 1630 by | | | Orthot | wrist splint | Marcelino Doe RN | | | ic/Ort | | | | | hosis | | | | +--------+ + + + | Incisi | 11/23/17; 1112; Bilateral; | 11/23/173 by | | | on | abdomen | Ariadna Encarnacion RN | | +--------+ + + + | Incisi | 11/23/17; 1114; Bilateral; back | 11/23/174 by | | | on | | Ariadna Encarnacion RN | | +--------+ + + + | Periph | 11/23/17; 0651; Right (IV start | 11/23/17 0651 by | 11/26/172256 by | | eral | by Patience Moon RN); Forearm; | Mona Abbott RN | Saul Bose RN | | IV | otbl-oeg-znstft catheter system; | | | | | 18 gauge, 1 1/4 in length; 2 (2 | | | | | attempts by JASON Dunn); hand and | | | | | wrist, tips intact; distraction, | | | | | intradermal injection, tolerated | | | | | well; 11/26/17; 2256 | | | +--------+ + + + | Airway | Placement Date: 11/23/17; | 11/23/17 0800 by | 11/23/17 1433 by | | | Placement Time: 0800 (created via | Ney Palomo, | Steve Serrano RN | | | procedure documentation); Mask | MD | | | | Ventilation: EZ; Airway Grade: 1; | | | | | Successful Technique: Mac; | | | | | Laryngoscope Blade Size: 3; | | | | | Attempts: 1; Airway Type: | | | | | endotracheal; Size: 6.5; Airway | | | | | Tube Secured At: 22; Trauma: | | | | | none; Other Equipment: stylette; | | | | | Placement Check: exhaled CO2 | | | | | detection device, bilateral chest | | | | | rise, breath sounds equal | | | | | bilaterally; Removal: removed by | | | | | RN, per protocol; Removal Date: | | | | | 11/23/17; Removal Time: 1433; | | | | | Additional Comments: Head | | | | | initially in neurtral Position. | | | | | Smooth IV induction, mask airway | | | | | established. Direct | | | | | Laryngoscopy, ETT placed under | | | | | direct vision. BSEB/ETCO2 | | | | | (auscultation and capnography) to | | | | | confirm placement. Depth noted. | | | | | Ventilator on. | | | +--------+ + + + | Periph | 11/23/17; 0800; Left; Anterior | 11/23/17 0800 by | 11/27/17 0959 by | | eral | (palmar); Forearm; | Ariadna Encarnacion RN | Marie Montana | | IV | jkki-sap-ucxsfr catheter system; | | JASON Whitlock | | | 20 gauge; 1; distal left hand; | | | | | appears comfortable, other (see | | | | | comments) (under general | | | | | anesthesia); short term use; | | | | | 11/27/17; 0959 | | | +--------+ + + + | Urethr | 11/23/17; 0800; indicated due to | 11/23/17 0800 by | 11/23/17 1433 by | | al | specific surgical procedure; All | Ariadna Encarnacion RN | Steve Serrano RN | | Cathet | elements; All elements; All | | | | er | elements; indwelling catheter | | | | | with core temperature probe; 100% | | | | | silicone; 16; None; 1; 10; 10; | | | | | other (see comments) (under | | | | | general anesthesia); drainage bag | | | | | to dependent drainage; 11/23/17; | | | | | 1433 (removed in OR) | | | +--------+ + + + | Drain/ | 11/23/17; 1352; #1; Left; | 11/23/17 1352 by | 11/25/17 1001 by | | Device | posterior; back; collapsible | Ariadna Encarnacion RN | Eriberto Styles RN | | Site | closed device; 10 fr round drain; | | | | | tip intact; short term use; | | | | | 11/25/17; 1001 | | | +--------+ + + + in this encounter Social History + + + +--------+ + [...] | Visit | | DO [address] | | | | | | [address] [place], | | | | | | [place] [address] | | | | | | [phone] | | | | | | | [...] | | | | | | [place] [address] | | | | | | [phone] | | | | | | | [...] | | | | | | [place] [address] | | | | | | [phone] | | | | | | | [...] | | | | | | [place] [address] | | | | | | [phone] | | | | | | | | | | | | Himanshu Champion | | | | | | D, PT | | +--------+---------+ + + + | 02/22/ | Office | General Surgery | Matthew Granica | | | 2017 | Visit | | MD Thomas, [address] | | | | | | [address] [place] | | | | | | [place] [address] | | | | | | [phone] | | | | | | | | +--------+---------+ + + + | 02/27/ | Office | Rehabilitation | Manuel Sparks, | | | 2017 | Visit | | DO [address] | | | | | | [address] [place], | | | | | | [place] [address] | | | | | | [phone] | | | | | | | [...] | | | | | | [place] [address] | | | | | | [phone] | | | | | | | | | | | | Himanshu Champion | | | | | | D, PT | | +--------+---------+ + + + | 03/29/ | Office | Cardiology | Prem Call, | | | 2017 | Visit | | [address] | | | | | | [place], | | | | | | [place] [address] | | | | | | [phone] | | | | | | | | +--------+---------+ + + + as of this encounter Results Anesthesia Perineural Note (11/23/2017826) + + | Narrative | + + | Ney Palomo MD 11/23/2017 8:28 Perineural Procedure Note [...] Image placed into patients | | chart. [id number] Please see anesthesia record or flowsheet for vital sign | | documentation and see anesthesia record or MAR for all medication documentation. | | Performing provider: NEY PALOMO Electronically Signed by: Ney Carter | | MD Dewey ESi date/time: 11/23/2017 8:27 | | | + + + + | Procedure Note | + + | Ney Palomo MD - 11/23/2017 0827 PST Perineural [...] given. Image | | placed into patients chart.[id number] see anesthesia record or flowsheet for | | vital sign documentation and see anesthesia record or MAR for all medication | | documentation.Performing provider: NEY PALOMO GElectronically Signed by: Ney | | MD Ethan Carrion date/time: 11/23/2017 8:27 | |visualization, the needle [...] given. Image placed into patients chart. | |[id number] | | | | | |Please see anesthesia record or flowsheet for vital sign documentation and see anesthesia r ecord or MAR for all medication documentation. | | | | | |Performing provider: NEY PALOMO | | | | | | | |Electronically Signed by: MD Ethan Silver date/time: 8:27 | + + Anesthesia Airway Note (11/23/2017 0824) + + | Narrative | + + | Ney Palomo MD 11/23/2017 8:27 Anesthesia Airway Placement [...] bilateral | | chest rise Performing provider: NEY PALOMO Comments: Head initially in | | neurtral Position. Smooth IV induction, mask airway established. Direct | | Laryngoscopy, ETT placed under direct vision. BSEB/ETCO2 (auscultation and | | capnography) to confirm placement. Depth noted. Ventilator on. | | Electronically Signed by: Ney Palomo, | Chanelle Long date/time: 11/23/2017 8:24 | | | + + + + | Procedure Note | + + | Ney Palomo MD - 11/23/2017 0824 [facility] Anesthesia Airway Placement11/23/2017 | | 8:00Preprocedure [...] breath sounds and bilateral chest risePerforming provider: NEY PALOMO | | GComments: Head initially in neurtral Position.Smooth IV induction, mask airway | | established.Direct Laryngoscopy, ETT placed under direct vision. BSEB/ETCO2 | | (auscultation and capnography) to confirm placement. Depth noted. Ventilator | | on.Electronically Signed by: MD Manish Silver | | date/time: 11/23/2017 8:24 | |Route, reference point: right side of mouth | |Tube depth: 22 cm | |Tube secured with: adhesive tape | |Trauma: none | |Tube placement verification: carbon dioxide detection, equal bilateral breath sounds and bi lateral chest rise | |Performing provider: NEY PALOMO | | | |Comments: Head initially in neurtral Position. | | | |Smooth IV induction, mask airway established. | | | |Direct Laryngoscopy, ETT placed under direct vision. BSEB/ETCO2 (auscultation and capnogra phy) to confirm placement. Depth noted. Ventilator on. | | | | | |Electronically Signed by: MD Ethan Silver date/time: 11/23/2017 8:24 | | | + + in this encounter Visit Diagnoses Not on filein this encounter Administered Medications + +---------+ +--------+-------+------+ | Medication Order | MAR | Action | Dose | Rate | Site | | | Action | Date | | | | + +---------+ +--------+-------+------+ | dexmedetomidine (PRECEDEX) 4 | New Bag | | 50 | 12.5 | | | mcg/mL in sodium chloride 0.9% | | 8 8:15 | mcg/hr | mL/hr | | | 100 mL infusion CONTINUOUS PRN, | | PST | | | | | Starting [facility] 11/23/17 at 0815, | | | | | | | Anesthesia Intra-op | | | | | | + +---------+ +--------+-------+------+ +---+---+ | | | +---+---+ + +-------+ +---------+---+---+ | ePHEDrine 50 mg/mL injection | Given | | 12.5 mg | | | | PRN, Starting Michelle 11/23/17 at | | 8 8:10 | | | | | 0814, Anesthesia Intra-op | | PST | | | | + +-------+ +---------+---+---+ +-------+ +---------+---+---+ | Given | | 12.5 mg | | | | | 8 8:12 | | | | | | PST | | | | +-------+ +---------+---+---+ | Given | | 12.5 mg | | | | | 8 8:14 | | | | | | PST | | | | +-------+ +---------+---+---+ +---+---+ | | | +---+---+ + +-------+ +--------+---+---+ | EPINEPHrine 1 mg/mL injection | Given | | 10 mcg | | | | Intravenous, PRN, Anaphylaxis, | | 8 13:09 | | | | | Starting Michelle 11/23/17 at 0922, | | PST | | | | | Anesthesia Intra-op | | | | | | + +-------+ +--------+---+---+ +-------+ +--------+---+---+ | Given | | 10 mcg | | | | | 8 13:19 | | | | | | PST | | | | +-------+ +--------+---+---+ | Given | | 10 mcg | | | | | 8 13:21 | | | | | | PST | | | | +-------+ +--------+---+---+ +---+---+ | | | +---+---+ + +-------+ +--------+---+---+ | fentaNYL (PF) injection PRN, | Given | | 50 mcg | | | | Pain, Starting Michelle 11/23/17 at | | 8 13:38 | | | | | 1338, Anesthesia Intra-op | | PST | | | | + +-------+ +--------+---+---+ +---+---+ | | | +---+---+ + +-------+ +------+---+---+ | HYDROmorphone (DILAUDID) 2 | Given | | 1 mg | | | | mg/mL injection PRN, Pain, | | 8 8:05 | | | | | Starting Michelle 11/23/17 at 0805, | | PST | | | | | Anesthesia Intra-op | | | | | | + +-------+ +------+---+---+ +-------+ +------+---+---+ | Given | | 1 mg | | | | | 8 12:34 | | | | | | PST | | | | +-------+ +------+---+---+ +---+---+ | | | +---+---+ + +-------+ +-------+---+---+ | ketamine 50 mg/mL injection | Given | | 75 mg | | | | Intravenous, PRN, Starting Michelle | | 8 8:17 | | | | | 11/23/17 at 0817, Anesthesia | | PST | | | | | Intra-op | | | | | | + +-------+ +-------+---+---+ +---+---+ | | | +---+---+ + +-------+ +-------+---+---+ | ketamine 50 mg/mL injection | Given | | 50 mg | | | | PRN, Starting Michelle 11/23/17 at | | 8 8:19 | | | | | 0819, Anesthesia Intra-op | | PST | | | | + +-------+ +-------+---+---+ +---+---+ | | | +---+---+ [...] | | +---+---+ + +-------+ +-------+---+---+ | lidocaine (PF) 2% injection | Given | | 60 mg | | | | PRN, Starting Michelle 11/23/17 at | | 8 8:08 | | | | | 0808, Anesthesia Intra-op | | PST | | | | + +-------+ +-------+---+---+ +-------+ +--------+---+---+ | Given | | 200 mg | | | | | 8 8:12 | | | | | | PST | | | | +-------+ +--------+---+---+ | Given | | 200 mg | | | | | 8 8:14 | | | | | | PST | | | | +-------+ +--------+---+---+ +---+---+ | | | +---+---+ + +-------+ +-----+---+---+ | magnesium sulfate 500 mg/mL | Given | | 2 g | | | | injection Intravenous, PRN, | | 8 8:15 | | | | | Starting Michelle 11/23/17 at 0815, | | PST | | | | | Anesthesia Intra-op | | | | | | + +-------+ +-----+---+---+ +---+---+ | | | +---+---+ + +-------+ +------+---+---+ | midazolam (VERSED) 1 mg/mL | Given | | 2 mg | | | | injection Intravenous, PRN, | | 8 8:04 | | | | | Anxiety, Starting Michelle 11/23/17 at | | PST | | | | | 0804, Anesthesia Intra-op | | | | | | + +-------+ +------+---+---+ +---+---+ | | | +---+---+ + +-------+ +------+---+---+ | ondansetron (ZOFRAN) injection | Given | | 4 mg | | | | PRN, Nausea, Vomiting, Starting | | 8 8:08 | | | | | Michelle 11/23/17 at 0808, Anesthesia | | PST | | | | | Intra-op | | | | | | + +-------+ +------+---+---+ +---+---+ | | | +---+---+ + +---------+ +---------+-------+---+ | phenylephrine (ERICKA-SYNEPHRINE) | New Bag | | 30 | 0.2 | | | 10 mg/mL injection Intravenous, | | 8 11:37 | mcg/min | mL/hr | | | CONTINUOUS PRN, Starting Michelle | | PST | | | | | 11/23/17 at 1137, Anesthesia | | | | | | | Intra-op | | | | | | + +---------+ +---------+-------+---+ + + +---------+-------+---+ | Rate/Dose Change | | 15 | 0.1 | | | | 8 13:46 | mcg/min | mL/hr | | | | PST | | | | + + +---------+-------+---+ +---+---+ | | | +---+---+ + +-------+ +---------+---+---+ | phenylephrine (ERICKA-SYNEPHRINE) | Given | | 100 mcg | | | | 100 mcg/mL injection | | 8 11:30 | | | | | Intravenous, PRN, Starting Michelle | | PST | | | | | 11/23/17 at 0814, Anesthesia | | | | | | | Intra-op | | | | | | + +-------+ +---------+---+---+ +-------+ +---------+---+---+ | Given | | 100 mcg | | | | | 8 12:45 | | | | | | PST | | | | +-------+ +---------+---+---+ | Given | | 100 mcg | | | | | 8 12:57 | | | | | | PST | | | | +-------+ +---------+---+---+ +---+---+ | | | +---+---+ + +-------+ +--------+---+---+ | propofol (DIPRIVAN) injection | Given | | 150 mg | | | | Intravenous, PRN, Starting Michelle | | 8 8:08 | | | | | 11/23/17 at 0808, Anesthesia | | PST | | | | | Intra-op | | | | | | + +-------+ +--------+---+---+ +---+---+ | | | +---+---+ + +---------+ + +-------+---+ | propofol (DIPRIVAN) injection | New Bag | | 50 | 19.5 | | | Intravenous, CONTINUOUS PRN, | | 8 8:15 | mcg/kg/m | mL/hr | | | Starting [facility] 11/23/17 at 0815, | | PST | in | | | | Anesthesia Intra-op | | | | | | + +---------+ + +-------+---+ +---+---+ | | | +---+---+ + +-------+ +--------+---+---+ | ropivacaine (NAROPIN) 5 mg/mL | Given | | 15 mLs | | | | (0.5%) injection PERINEURAL, | | 8 8:11 | | | | | PRN, Starting [facility] 11/23/17 at | | PST | | | | | 0811, Anesthesia Intra-op | | | | | | + +-------+ +--------+---+---+ +-------+ +--------+---+---+ | Given | | 15 mLs | | | | | 8 8:14 | | | | | | PST [...] +-----+---+---+ +---+---+ | | | +---+---+ + +-------+ +---------+---+---+ | vasopressin (PITRESSIN) | Given | | 1 Units | | | | injection Intravenous, PRN, | | 8 10:29 | | | | | Starting Michelle 11/23/17 at 1029, | | PST | | | | | Anesthesia Intra-op | | | | | | + +-------+ +---------+---+---+ +---+---+ | | | +---+---+ + +-------+ +------+---+---+ | vecuronium (NORCURON) injection | Given | | 2 mg | | | | Intravenous, PRN, Ventilator | | 8 10:38 | | | | | Dyssynchrony, Starting Michelle | | PST | | | | | 11/23/17 at 0807, Anesthesia | | | | | | | Intra-op | | | | | | + +-------+ +------+---+---+ +-------+ +------+---+---+ | Given | | 2 mg | | | | | 8 11:13 | | | | | | PST | | | | +-------+ +------+---+---+ | Given | | 1 mg | | | | | 8 11:36 | | | | | | PST | | | | +-------+ +------+---+---+ +---+---+ | | | +---+---+ in this encounter"
--- OUTSIDE RECORDS SUMMARY | 2018-02-06 23:17 | XMS | Encounter Summary ---
Demographics + + + | Address | [address] | | | [place] [address] | + + + | Home Phone [...] Author | [facility] | | | and Shaunana [...] Team Providers + +------+ + | Care Die Storage Worker Name | Role | Phone | + +------+ + | Alberto Christine | PCP | | + +------+ + Reason for Visit + + + | Reason | Comments | + + + | Case Management | Pre discharge planning | + + + Encounter Details +--------+ + + + + | Date | Type | Department | Care Team | Description | +--------+ + + + + | 11/16/ | Telephone | [facility] | Heidy Bethea, | Case Management (Pre | | 2018 | | MED CTR CASE | RN | discharge planning) | | | | MANAGEMENT [address] | | | | | | [place], | | | | | | [place] [address] | | | | | | [phone] | | | +--------+ + + + [...] [place], | | | | | | [place] [address] | | | | | | [phone] | | | | | | | [...] | | | | | | [place] [address] | | | | | | [phone] | | | | | | | [...] | | | | | | [place] [address] | | | | | | [phone] | | | | | | | [...] | | | | | | [place] [address] | | | | | | [phone] | | | | | | | [...] | | | | | | [place] [address] | | | | | | [phone] | | | | | | | | +--------+---------+ + + + | 02/27/ | Office | Rehabilitation | Manuel Sparks, | | | 2017 | Visit | | DO [address] | | | | | | [address] [place], | | | | | | [place] [address] | | | | | | [phone] | | | | | | | [...] [place], | | | | | | [place] [address] | | | | | | [phone] | | | | | | | [...] | | | | | | [place] [address] | | | | | | [phone] | | | | | | | | +--------+---------+ + + + as of this encounter Visit Diagnoses Not on filein this encounter"
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
--- OUTSIDE RECORDS SUMMARY | 2018-02-06 23:17 | XMS | Encounter Summary ---
Demographics + + + | Address | [address] | | | [place] [address] | + + + | Home Phone [...] + + | Author | [facility] | | | and [place]unana | + + + | Organization | [facility] | | | [...] Team Providers + +------+ + | Care Disabilities Caregiver Name | Role | Phone | + +------+ + | Alberto Christine | PCP | | + +------+ + Reason for Visit + + + | Reason | Comments | + + + | Medical Clearance | | + + + Encounter Details +--------+ + + + + | Date | Type | Department | Care Team | Description | +--------+ + + + + | 11/14/ | Telephone | [facility] [place] | Manuel Sparks, | Medical Clearance | | 2017 | | NEUROSURGERY [address] | DO [address] | | | | | [address] | [address] [place], | | | | | [place], [place] | [place] [address] | | | | | [address] | [phone] | | | | | [phone] | | | +--------+ + + + [...] | | | | | | [place] [address] | | | | | | [phone] | | | | | | | [...] | | | | | | [place] [address] | | | | | | [phone] | | | | | | | [...] | | | | | | [place] [address] | | | | | | [phone] | | | | | | | [...] | | | | | | [place] [address] | | | | | | [phone] | | | | | | | [...] | | | | | | [place] [address] | | | | | | [phone] | | | | | | | | +--------+---------+ + + + | 02/27/ | Office | Rehabilitation | Manuel Sparks, | | | 2017 | Visit | | DO [address] | | | | | | [address] [place], | | | | | | [place] [address] | | | | | | [phone] | | | | | | | | | | | | Himanshu Champion | | | | | | D, PT | | +--------+---------+ + + + | 03/01/ | Office | Rehabilitation | Manuel Sparks, | | 2017 | Visit | | DO [address] | | | | | | [address] [place], | | | | | | [place] [address] | | | | | | [phone] | | | | | | | | | | | | Himanshu Champion | | | | | | D, PT | | +--------+---------+ + + + | 03/29/ | Office | Cardiology | Prem Call, | | | 2017 | Visit | | MD [address] | | | | | | [place], | | | | | | [place] [address] | | | | | | [phone] | | | | | | | | +--------+---------+ + + + as of this encounter Visit Diagnoses Not on filein this encounter"
--- OUTSIDE RECORDS SUMMARY | 2018-02-06 23:18 | XMS | Encounter Summary ---
Demographics + + + | Address | [address] | | | [place] [address] | + + + | Home Phone | | + + + | Preferred Language | Unknown | + + + | Marital Status | | + + + | Bahai Affiliation | 1073 | + + + | Race | Unknown | + + + | Ethnic Group | Unknown | + + + Author + + + | Author | [facility] | | | and Shaunana [...] Team Providers + +------+ + | Care Dormitory Keeper Name | Role | Phone | + [...] | | | | CENTER [address] | [place], [place] | bilateral sciatica | | | | [place], [place] | [address] | (Primary Dx) | | | | [address] | | | | | | [phone] | | | +--------+ + + + [...] | | | | | | [place] [address] | | | | | | [phone] | | | | | | | [...] | | | | | | [place] [address] | | | | | | [phone] | | | | | | | [...] | | | | | | [place] [address] | | | | | | [phone] | | | | | | | [...] [place], | | | | | | [place] [address] | | | | | | [phone] | | | | | | | [...] | | | | | | [place] [address] | | | | | | [phone] | | | | | | | | +--------+---------+ + + + | 02/27/ | Office | Rehabilitation | Manuel Sparks, | | | 2017 | Visit | | DO [address] | | | | | | [address] [place], | | | | | | [place] [address] | | | | | | [phone] | | | | | | | [...] | | | | | | [place] [address] | | | | | | [phone] | | | | | | | | | | | | Himanshu Champion | | | | | | D, PT | | +--------+---------+ + + + | 03/29/ | Office | Cardiology | Prem Call, | | | 2017 | Visit | | [address] | | | | | | [place], | | | | | | [place] [address] | | | | | | [phone] | | | | | | | [...] | | | | | spasms, Starting [facility] 02/01/18 at | | | | | | | 0418 | | | | | | + + + +-------+------+------+ +---+---+ | | | +---+---+ in this encounter"
--- OUTSIDE RECORDS SUMMARY | 2018-02-06 23:18 | XMS | Encounter Summary ---
Demographics + + + | Address | [address] | | | [place] [address] | + + + | Home Phone [...] | Author | [facility] | | | and [...] Team Providers + +------+ + | Care Painting Instructor Name | Role | Phone | + +------+ + | Alberto Christine | PCP | | + +------+ + Encounter Details +--------+ + + + + | Date | Type | Department | Care Team | Description | +--------+ + + + + | 11/09/ | Preadmit | [facility] | Manuel Sparks, | Preoperative | | 2018 | Visit | [facility] | DO [address] | clearance (Primary | | | | CLINIC [address] | [address] [place], | Dx); Chronic | | | | [place], [place] | [place] [address] | bronchitis, | | | | [address] | [phone] | unspecified chronic | | | | [phone] | | bronchitis type | | | | | | ([facility]) | +--------+ + + + + Social [...] | Visit | | DO [address] [facility] | | | | | | [address] [place], | | | | | | [place] [address] | | | | | | [phone] | | | | | | | [...] | | | | | | [place] [address] | | | | | | [phone] | | | | | | | [...] | | | | | | [place] [address] | | | | | | [phone] | | | | | | | [...] | | | | | | [place] [address] | | | | | | [phone] | | | | | | | [...] | | | | | [place] [address] | | | | | | [phone] | | | | | | | | +--------+---------+ + + + | 02/27/ | Office | Rehabilitation | Manuel Sparks, | | | 2017 | Visit | | DO [address] | | | | | | [address] [place], | | | | | | [place] [address] | | | | | | [phone] | | | | | | | [...] | | | | | | [place] [address] | | | | | | [phone] | | | | | | | | | | | | Himanshu Champion | | | | | | D, PT | | +--------+---------+ + + + | 03/29/ | Office | Cardiology | Prem Call, | | | 2017 | Visit | | [address] | | | | | | [place], | | | | | | [place] [address] | | | | | | [phone] | | | | | | | | +--------+---------+ + + + + +--------+ + + | Name | Priori | Associated Diagnoses | Order Schedule | | | ty | | | + +--------+ + + | XR Chest 2 VW | Routin | Chronic | Expected: | | | e | bronchitis, | 11/09/2017, Expires: | | | | unspecified chronic | 11/09/2018 | | | | bronchitis type | | | | | ([facility]) | | + +--------+ + + as of this encounter Results Culture, MRSA (11/09/2017 1250) + + + + | Component | Value | Ref Range | + + + + | Culture | Negative for MRSA by chromogenic agar | | | | method | | + + + + + + + | Specimen | Performing Laboratory | + + + | Respiratory - Nares | [facility] [address] | | | [place] [address] | + + + in this encounter Visit Diagnoses + + | Diagnosis | + + | Preoperative clearance - Primary | + + | Preoperative examination, unspecified | + + | Chronic bronchitis, unspecified chronic bronchitis type (HCC) | + +"
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
--- OUTSIDE RECORDS SUMMARY | 2018-02-06 23:18 | XMS | Continuity of Care Document ---
Demographics + + + | Address | [address] | | | [place] [address] | + + + | Home Phone | | + + + | Preferred Language | Unknown | + + + | Marital Status | Unknown | + + + | Restorationism Affiliation | Unknown | + + + | Race | Unknown | + + + | Ethnic Group | Unknown | + + + Author + + + | Author | [facility] | + + + | Organization | [facility] | + + + | Address | Unknown | + + + | Phone | Unavailable | + + + Care Team Providers + + + + | Care Iron Melter Name | Role | Phone | + + + + | Unknown | Unavailable | Unavailable | + + + + Insurance Providers + + + + + | Payer Name | Policy Number | Subscriber Name | Relationship | + + + + + | MEDICARE CRITICAL | [id number] | | SAME PATIENT | | ACCESS | | | | + + + + + Chief Complaint and Reason for Visit + + + | Reason for Visit | BACK PAIN | + + + Problems Active Medical Problems + + + +--------+ | Problem | Onset Date | Recorded Date | Status | + + + +--------+ | Acute low back pain | Unknown | 05/09/17 | Active | + + + +--------+ Medications Current Home Medications + +--------+-------+-------+ + + + + | Medicati | Dose | Units | Route | Directio | Days/Qty | Instruct | Start | | on | | | | ns | | ions | Date | + +--------+-------+-------+ + + + + | Cholecal | 50,000 | UNIT | [...] | | | + +--------+-------+-------+ + + + + | Folic | 1 | MG | ORAL | ONCE | | | | | Acid 1 | | | | DAILY | | | | | MG | | | | | | | | | TABLET | | | | | | | | + +--------+-------+-------+ + + + + | Gabapent | 100 | MG | ORAL | THREE | 30 | | 05/09/17 | | in 100 | | | | TIMES | | | | | MG | | | | DAILY | | | | | CAPSULE | | | | | | | | + +--------+-------+-------+ + + + + | Lamotrig | 150 | MG | [...] | | | + +--------+-------+-------+ + + + + | Levothyr | 100 | MCG | ORAL | EVERY | | | | | oxine | | | | MORNING | | | | | Sodium | | | | BEFORE | | | | | 100 MCG | | | | MEAL | | | | | TABLET | | | | | | | | + +--------+-------+-------+ + + + + | Ranitidi | 150 | MG | ORAL | ONCE | | | | | ne Hcl | | | | DAILY | | | | | 150 MG | | | | | | | | | TABLET | | | | | | | | + +--------+-------+-------+ + + + + | Topirama | 100 | MG | ORAL | TWICE | | | | | te 100 | | | | DAILY | | | | | MG | | | | | | | | | TABLET | | | | | | | | + +--------+-------+-------+ + + + + Past Home Medications + + +---------+ + [...] + + + + | Status | Date Recorded | + + + | Not | May 09, 2017 | + + + Hospital Discharge Instructions No hospital discharge instructions. Plan of Care + + + | Discharge Date | 05/09/17 | + + + | Disposition | DISCHARGE HOME ROUTINE HOME | + + + | Condition at Discharge | Stable | + + + | Instructions/Education Provided | Back Pain (ED) | + + + | Forms Provided | Home Medications/Allergy Form | + + + | Prescriptions | See Medications Section | + + + | Additional Instructions/Education | f/u with pcp soon to adjust medication | + + + Functional Status + + + + | Query | Response | Date Recorded | + + + + | Weight LB: | 150.00 | May 09, 2017 7:54pm | + + + + | KG: | 68.03 | May 09, 2017 7:54pm | + + + + | HEIGHT: FT. | 5 | May 09, 2017 7:54pm | + + + + | IN. | 3.00 | May 09, 2017 7:54pm | + + + + Allergies, Adverse [...] + + + | Blood Pressure | 05/09/17 9:13pm | 105/64 | + + + + | Temperature | 05/09/17 9:13pm | 97.8 F | + + + + | Respiratory Rate | 05/09/17 9:13pm | 16 | + + + + | Pulse Rate | 05/09/17 9:13pm | 58 | + + + + | Bedside Pulse Oximetry | 05/09/17 9:13pm | 97 | + + + + | Height | 05/09/17 7:54pm | 5 ft 3 in | + + + + | Height | 05/09/17 7:54pm | 160.02 cm | + + + + | Weight | 05/09/17 7:54pm | 150 lb | + + + + | Weight | 05/09/17 7:54pm | 68.03 kg | + + + + | Body Mass Index | 05/09/17 7:54pm | 26.6 kg/m2 | + + + + Results [...] | 1:05pm | 1:16pm | | | [place] | | | | | | | [...] | | | | | | | [place], | | | | | | | | | [place] | | | | | | | | | [address] | + + +---------+-------+ + + + [...] | | | | | | | [place], | | | | | | | | | [place] | | | | | | | | | [address] | + + +---------+-------+ + + + [...] | | | | | | | [address] | + + +---------+-------+ + + + + Procedures No Known History of Procedures. Encounters + + + + + + | Encounter | Location | Arrival/Admit | Discharge/Depar | Attending | | | | Date | t Date | Provider | + + + + + + | Departed | [facility] | 05/09/17 7:45pm | 05/09/17 9:10pm | [facility] | | | Andrea E | + + + + + + | Departed | [facility] | 04/11/17 2:33pm | 04/11/17 3:10pm | [facility] | Emergency | [facility] | | | | + + + + + + | Departed | [facility] | 12/10/16 | 12/10/16 1:39pm | [facility] Siddiqu[facility] | | Emergency | Hospital | 11:56am | | K | + + + + + + + + + | Encounter Diagnosis | Onset Date | + + + | Acute low back pain | | + + +"
--- OUTSIDE RECORDS SUMMARY | 2018-02-06 23:18 | XMS | Encounter Summary ---
Demographics + + + | Address | [address] | | | [place] [address] | + + + | Home Phone | | + + + | Preferred Language | Unknown | + + + | Marital Status | | + + + | Latter Day Affiliation | 1073 | + + + | Race | Unknown | + + + | Ethnic Group | Unknown | + + + Author + + + | Author | [facility] | | | and [place] | + + + | Organization | [facility] | | [...] Team Providers + +------+ + | Care Theatrical Scenic Designer Name | Role | Phone | + +------+ + | Alberto Christine | PCP | | + +------+ + Reason for Visit + + + | Reason | Comments | + + + | Pre-op Exam | Dr. Bridger PONCE L4-S1 | + + + Evaluate & Treat (Routine) + + [...] Surgery | | Manuel Macdonald, | Matthew Guzman, | | | Required | | Osteoarthrit | [address] | MD, FACS [address] | | | | | is of spine | [address] | [address] | | | | | with | [address] | [place], | | | | | radiculopath | [place], | [place] [address] | | | | | y, lumbar | [place] [address] | Phone: | | | | | region | Phone: | [phone] | | | | | Lumbar | [phone] | Fax: | | | | | stenosis | Fax: | [phone] | | | | | Lumbar | [phone] | | | | | | radiculopath [...] Description | +--------+---------+ + + + | 11/08/ | Office | [facility] | Matthew Garnica | Osteoarthritis of | | 2017 | Visit | SURGERY [address] | MD Thomas, FACS [address] | spine with | | | | [place], [place] | [facility] | radiculopathy, | | | | [address] | [place] [address] | lumbar region | | | | [phone] | [phone] | (Primary Dx); Lumbar | | | [...] + | Blood Pressure | 92/58 | 11/08/20171349 PST | + + + + | Pulse | 57 | 11/08/20171349 PST | + + + + | Temperature | 36.3 C (97.3 F) | 11/08/20171349 PST | + + + + | Respiratory Rate | - | - | + + + + | Oxygen Saturation | 98% | 11/08/20171349 PST | + + + + | Inhaled Oxygen | - | - | | Concentration | | | + + + + | Weight | 67.3 kg (148 lb 5.9 | 11/08/2017 1350 PST | | | oz) | | + + + + | Height | 160 cm (5' 3") | 11/08/20171349 PST | + + + + | Body Mass Index | 26.28 | 11/08/20171349 PST | + + + + in [...] Progress Notes Matthew Garnica MD, FACS - 11/08/2017 1410 PSTFormatting of this note may be different from the original. HISTORY OF PRESENT ILLNESS Patient Identification: Clare Courtney 1980 Is a 37 y.o. female , a patient of MARY King. Patient is here with her caregiver. Physician notes: Patient arrives today for Pre-Op visit for L4-5, L5-S1 Anterior Lumbar Interbody Fusion wit h Posterolateral Fusion on 11/23/[address] Sparks. Patient was Originally scheduled to undergo her procedure on 10/02/2017 but was post poned due to concerns regarding her aftercare following surgery. Patient presented to [facility] ER on 10/05/2017 with the chief complaint of RIGHT Hip pain and l ow back pain. Patient was seen on 10/07/2017 at [facility] for chest pain, according to ER all testing came cristy k normal. RECENT IMAGING: UNENHANCED MRI LUMBAR SPINE 10/19/2017 8:30 AM FINDINGS: Five non rib-bearing, lumbar type vertebrae are suggested on the coronal sequence. There is minimal rightward lumbar curvature. Vertebral height and alignment are otherwise maintained, without evident fracture, spondylolysis or spondylolisthesis. Benign hemangiomata are again visible within the L2 and L3 vertebral bodies. The conus medullaris is unremarkable, terminating at T12. Imaged intra-abdominal and paraspinal structures are unremarkable. The T10-11, T11-12, T12-L1 and L1-2 levels are unremarkable on provided sagittal images through the region. L2-3: Facet joint effusions without disc pathology or stenosis. L3-4: Facet joint effusions without significant disc pathology or stenosis. L4-5: Disc desiccation, moderate to severe, progressive disc space narrowing, progressive Modic endplate hyperintensity, and annular tear are present. The previously described central disc protrusion has partially resolved along with encroachment on the descending L5 nerve roots. There is no residual central canal stenosis. Underlying generalized disc bulge again minimally narrows the foramina. Small facet joint effusions persist. L5-S1: Disc desiccation, mild disc space narrowing, annular tear and a central disc protrusion persist, again approximating but not appreciably deviating the courses of the descending S1 nerve roots within the subarticular recesses. There is no central canal or foraminal stenosis. Trace facet joint effusions persist. IMPRESSION - 1. PROGRESSIVE DEGENERATIVE DISC DISEASE AT L4-5 COMPARED WITH MRI OF MAY 2016 WITH PARTIAL RESOLUTION OF THE PREVIOUSLY DESCRIBED CENTRAL DISC PROTRUSION AND LESS ENCROACHMENT ON THE DESCENDING L5 NERVE ROOTS. 2. SIMILAR DEGENERATIVE DISC DISEASE AT L5-S1 WITH POTENTIAL ENCROACHMENT ON THE DESCENDING S1 NERVE ROOTS. Dictated and Signed by: Raghu Ly MD Electronically signed: 10/19/2017 9:42 AM RECENT LAB VALUES: Ref. Range 10/21/2017 03:30 WBC Latest Ref Range: 4.0 - 11.0 K/uL 5.8 RBC COUNT Latest Ref Range: 3.70 - 5.20 M/uL 4.21 Hgb Latest Ref Range: 11.5 - 16.0 g/dL 13.1 Hct, Final Latest Ref Range: 34.0 - 47.0 % 38.8 MCV Latest Ref Range: 83.0 - 101.0 fL 92.2 MCH Latest Ref Range: 28.0 - 35.0 pg 31.2 MCHC Latest Ref Range: 32.0 - 36.0 g/dL 33.8 RDW-CV Latest Ref Range: <15.0 % 14.4 Platelet Count Latest Ref Range: 140 - 440 K/uL 184 MPV Latest Units: fL 8.2 Absolute Neutrophils Latest Ref Range: 1.80 - 8.50 K/uL 3.70 Absolute Lymphocytes Latest Ref Range: 0.60 - 3.20 K/uL 1.00 Absolute Monocytes Latest Ref Range: 0.00 - 1.00 K/uL 0.60 Absolute Eosinophils Latest Ref Range: 0.00 - 0.40 K/uL 0.40 Absolute Basophils Latest Ref Range: 0.00 - 0.10 K/uL 0.10 % Neutrophils Latest Ref Range: 45.0 - 82.0 % 64.4 % Lymphocytes Latest Ref Range: 20.0 - 45.0 % 17.9 (L) % Monocytes Latest Ref Range: 4.0 - 12.0 % 10.4 % Eosinophils Latest Ref Range: 0.0 - 5.0 % 6.1 (H) % Basophils Latest Ref Range: 0.0 - 1.0 % 1.2 (H) NA Latest Ref Range: 136 - 149 mmol/L 133 (L) K Latest Ref Range: 3.5 - 5.1 mmol/L 3.5 Chloride Latest Ref Range: 98 - 109 mmol/L 108 Carbon dioxide Latest Ref Range: 24 - 31 mmol/L 20 (L) ANION GAP Latest Ref Range: 3 - 16 mmol/L 5 GLUCOSE Latest Ref Range: 70 - 109 mg/dL 98 BUN Latest Ref Range: 7 - 18 mg/dL 5 (L) Creatinine Latest Ref Range: 0.60 - 1.30 mg/dL 0.65 BUN/CREA Unknown 7.7 ALBUMIN Latest Ref Range: 3.2 - 5.0 g/dL 3.4 Albumin/Globulin ratio Latest Ref Range: 0.8 - 2.0 1.9 Total protein Latest Ref Range: 6.0 - 7.8 g/dL 5.2 (L) EGFR IF NOT Latest Ref Range: >=60 mL/min/1.73m2 >60 Calcium Latest Ref Range: 8.3 - 10.5 mg/dL 8.6 ALK PHOS Latest Ref Range: 40 - 110 U/L 189 (H) ALT (SGPT) (REF) Latest Ref Range: 6 - 45 U/L 51 (H) AST (SGOT) (REF) Latest Ref Range: 10 - 42 U/L 154 (H) BILIRUBIN TOTAL Latest Ref Range: 0.1 - 1.5 mg/dL 0.6 GLOBULIN Latest Ref Range: 2.1 - 3.8 g/dL 1.8 (L) Lipase Latest Ref Range: 0 - 60 U/L 33 Troponin I Latest Ref Range: <0.06 ng/mL 0.01 My previous office visit note from 09/07/2017 Physician notes: Patient arrives today for consult on L4-5, L5-S1 Anterior Lumbar Interbody Fusion with Post erolateral Fusion scheduled for 10/02/[address] Sparks. Patient has previously had a C4-5 and C5-6 Anterior Cervical Discectomy with Fusion and Melody ting on May 06, [address] Manuel Sparks. Pervious abdominal surgeries include gastric bypass surgery in 1996, abdominoplasty in 1997 , tubal ligation 1998, abodminal hernia repair, section, cholecystectomy and hyster ectomy. Patient states pain goes down the front of her legs. She reports pain when standing. States she is only able to stand for about 5 minutes before pain starts and her legs feel like the y are going to give out, she then has to sit down. Patient states she is not on pain pills. She does not suffer from constipation. Patient states she used to weight over 400 lbs, the n got gastric bypass surgery, then abdominoplasty. Cardiac: Patient has seen mica machine operator Dr. Call for chest pain. RISK: Current every day smoker of about 16 years--estimated PAST MEDICAL HISTORY Past Medical History: Diagnosis [...] sprain Scabies Seizures (HCC) 05/02/[address] [facility] Shortness of breath Sinusitis, acute Stroke ([facility]) TMJ syndrome Tobacco use Traumatic bursitis Vitamin B deficiency 12/10/2009 Past Surgical History: Procedure Laterality Date ABDOMINAL HERNIA REPAIR 2-3 ABDOMINOPLASTY 1998 CARPAL TUNNEL RELEASE 2009 CERVICAL SPINE SURGERY Anterior 05/06/2016 Procedure: C4-5 and C5-6 Anterior Cervical Discectomy with Fusion and Plating ; Surgeon: Manuel Sparks DO; Location: [facility] MAIN OR SECTION 1998, 1997 CHOLECYSTECTOMY [...] skin Medications: Outpatient Encounter Prescriptions as of 11/08/2017 Medication Sig Dispense Refill aluminum & magnesium [...] 50 mg by mouth 2 times daily. Facility-Administered Encounter Medications as of 11/08/2017 Medication Dose Route Frequency Provider Last Rate Last Dose vancomycin 1 g in sodium chloride 0.9% 250 mL IVPB 1 g Intravenous Prior to Incision Kely Sparks DO Family History: Her family history includes Allergies [...] drink alcohol or use drugs. PHYSICAL EXAM BP 92/58 | Pulse 57 | Temp 36.3 C (97.3 F) (Temporal) | Ht 1.6 m (5' 3") | Wt 67.3 kg (148 lb 5.9 oz) | LMP (LMP Unknown) | SpO2 98% | BMI 26.28 kg/m Body mass index is 26.28 kg/m. PE: General Appearance: Alert, cooperative, no distress, appears stated age Head: Normocephalic, without obvious abnormality, atraumatic Eyes: PERRL, conjunctiva/corneas clear, EOM's intact, sclera non-icteric Ears: Adequate hearing bilateral Nose: Nares normal, septum midline, mucosa normal, no drainage or sinus tenderness Lungs: No accessory muscle use, breath sounds are clear bilaterally, no wheezes, crackles or rhonchi Heart: Regular rate and rhythm, no murmur Abdomen: Soft, non-tender, non-tender, no pulsatile nor other masses. Extremities: Extremities normal, atraumatic, no cyanosis, clubbing, or edema, no gangrene o r ulceration. Pulses: Radial pulses 2+ and symmetric Femoral and popliteal pulses 2+ and symmetric Skin: Warm and dry Neurologic: Gait normal, face symetric, equal plasma processor and plantar flexion. Assessment 1. Osteoarthritis of spine with radiculopathy, lumbar region 2. Lumbar radiculopathy 3. Neurogenic claudication 4. Chronic midline low back pain with bilateral sciatica 5. Spinal stenosis of lumbar region, unspecified whether neurogenic claudication present Plan Patient is a candidate for L4-5, L5-S1 Anterior Lumbar Interbody Fusion with Posterolateral Fusion ( anterior approach will be more complex due to prior abdominoplasty). Risks and possible complications including bleeding, infection, sexual dysfunction, injur y to arteries, veins, bowels, ureter, and nerves (dysesthesia), unforeseen complications, life-threatening events and even was explained. No guarantees given or implied. Cristiane ent understands and wishes to proceed. Bowel prep instructions reviewed with patient and a copy given to patient, Follow up with Dr. Sparks Post OP Matthew Garnica MD, FACS Vascular and General Surgery I Veena Delgadillo am acting as a scribe on behalf of, and in the presence of Matthew atkins MD, FACS. I have reviewed and edited this note. Veena Delgadillo CMA 11/08/17 I, Matthew Garnica MD, FACS, personally performed the services described in this docume ntation, as scribed by Veena Delgadillo CMA in my presence, and it is both accurate and complet e. Veena Delgadillo CMA 11/08/2017 14:55 CC: Wilver King this encounter Plan of [...] | | | | | | [place] [address] | | | | | | [phone] | | | | | | | [...] | | | | | | [place] [address] | | | | | | [phone] | | | | | | | [...] | | | | | | [place] [address] | | | | | | [phone] | | | | | | | [...] | | | | | | [place] [address] | | | | | | [phone] | | | | | | | [...] | | | | | [place] [address] | | | | | | [phone] | | | | | | | | +--------+---------+ + + + | 02/27/ | Office | Rehabilitation | Manuel Sparks, | | | 2017 | Visit | | DO [address] | | | | | | [address] [place], | | | | | | [place] [address] | | | | | | [phone] | | | | | | | [...] | | | | | | [place] [address] | | | | | | [phone] | | | | | | | | | | | | Himanshu Champion | | | | | | D, PT | | +--------+---------+ + + + | 03/29/ | Office | Cardiology | Prem Call, | | | 2017 | Visit | | MD [address] | | | | | | [place], | | | | | | [place] [address] | | | | | | [phone] | | | | | | | [...]
--- OUTSIDE RECORDS SUMMARY | 2018-02-06 23:18 | XMS | Encounter Summary ---
Demographics + + + | Address | [address] | | | [place] [address] | + + + | Home Phone [...] | Author | [facility] | | | and [place] [...] Team Providers + +------+ + | Care [employer] Fruit Crop Farmer Name | Role | Phone | + +------+ + | Alberto Christine | PCP | | + +------+ + Encounter Details +--------+ + + + + | Date | Type | Department | Care Team | Description | +--------+ + + + + | 11/14/ | Orders Only | [facility] | Manuel Sparks, | Other spondylosis | | 2018 | | NEUROSURGERY [address] | DO [address] | with radiculopathy, | | | | [address] | [address] [place], | lumbar region | | | | [place], [place] | [place] [address] | (Primary Dx); S/P | | | | [address] | [phone] | lumbar fusion | | | | [phone] | | | +--------+ + + + [...] | | | | | | [place] [address] | | | | | | [phone] | | | | | | | [...] | | | | | | [place] [address] | | | | | | [phone] | | | | | | | [...] | | | | | | [place] [address] | | | | | | [phone] | | | | | | | [...] | | | | | | [place] [address] | | | | | | [phone] | | | | | | | [...] | | | | | [place] [address] | | | | | | [phone] | | | | | | | | +--------+---------+ + + + | 02/27/ | Office | Rehabilitation | Manuel Sparks, | | | 2017 | Visit | | DO [address] | | | | | | [address] [place], | | | | | | [place] [address] | | | | | | [phone] | | | | | | | [...] | | | | | | [place] [address] | | | | | | [phone] | | | | | | | | | | | | Himanshu Champion | | | | | | D, PT | | +--------+---------+ + + + | 03/29/ | Office | Cardiology | [place], | | | 2017 | Visit | | [address] | | | | | | [place], | | | | | | [place] [address] | | | | | | [phone] | | | | | | | [...] | Other spondylosis with radiculopathy, lumbar region - Primary | + + | S/P lumbar fusion | + + | Arthrodesis status | + +"
--- OUTSIDE RECORDS SUMMARY | 2018-02-06 23:18 | XMS | Continuity of Care Document ---
Demographics + + + | Address | [address] | | | [place] [address] | + + + | Home Phone | | + + + | Preferred Language | Unknown | + + + | Marital Status | Unknown | + + + | Church Affiliation | Unknown | + + + | Race | Unknown | + + + | Ethnic Group | Unknown | + + + Author + + + | Author | [facility] | + + + | Organization | [facility] | + + + | Address | Unknown | + + + | Phone | Unavailable | + + + Care Team Providers + + + + | Care Dry Mill Operator Name | Role | Phone | + + + + | Alberto Christine | Unavailable | | + + + + Insurance Providers + + + + + | Payer Name | Policy Number | Subscriber Name | Relationship | + + + + + | MEDICARE CRITICAL | [id number] | | SAME PATIENT | | ACCESS | | | | + + + + + Chief Complaint and Reason for Visit + + + | Reason for Visit | LLQ PAIN X 3 WEEKS | + + + Problems Active Medical [...] + + + | Discharge Date | 07/17/17 | + + + | Disposition | DISCHARGE HOME ROUTINE HOME | + + + | Condition at Discharge | Stable | + + + | Instructions/Education Provided | Abdominal Pain (ED) | + + + | Forms Provided | Home Medications/Allergy Form | + + + | Prescriptions | See Medications Section | + + + | Referrals | Alberto Christine - | + + + | Additional Instructions/Education | Follow up with Alberto Christine, even though | | | you have appt for next month, call and ask | | | for an ER follw up visGeovanna have inclosed | | | the blood work which we did tonight which | | | you can share with him. He should be able | | | to see the Ultrasound which was done last | | | week on [facility]'s site. This was mainly | | | done on the upper abdomen. Since you live | | | in [place], I have notordered an | | | ultrasound for tomorrow here as I think | | | your Primary Care is best to make further | | | decision on any other imaging. | + + + Functional Status + + + + | Query | Response | Date Recorded | + + + + | Weight LB: | 145.00 | July 17, 2017 7:32pm | + + + + | KG: | 65.77 | July 17, 2017 7:32pm | + + + + | HEIGHT: FT. | 5 | July 17, 2017 7:32pm | + + + + | IN. | 3.00 | July 17, 2017 7:32pm | + + + + Allergies, Adverse [...] + + + | Blood Pressure | 07/17/17 7:32pm | 130/70 | + + + + | Temperature | 07/17/17 7:32pm | 97.3 F | + + + + | Respiratory Rate | 07/17/17 7:32pm | 20 | + + + + | Pulse Rate | 07/17/17 7:32pm | 103 | + + + + | Bedside Pulse Oximetry | 07/17/17 7:32pm | 98 | + + + + | Height | 07/17/17 7:32pm | 5 ft 3 in | + + + + | Height | 07/17/17 7:32pm | 160.02 cm | + + + + | Weight | 07/17/17 7:32pm | 145 lb | + + + + | Weight | 07/17/17 7:32pm | 65.77 kg | + + + + | Body Mass Index | 07/17/17 7:32pm | 25.7 kg/m2 | + + + + Results [...] + + + + | Hemoglob | 11.5 | G/dL | L | 11.6-15. | 07/17/17 | 07/17/17 | | | in | | | | 5 | 8:30pm | 8:36pm | | + + +---------+-------+ + + + + | Hematocr | 34.4 | % | L | 35-46 | 07/17/17 | 07/17/17 | | | it | | | | | 8:30pm | 8:36pm | | + + +---------+-------+ + + + + | Red | 3.87 | M/uL | | 3.80-5.2 | 07/17/17 | 07/17/17 | | | Blood | | | | 0 | 8:30pm | 8:36pm | | | Count | | | | | | | | + + +---------+-------+ + + + + | Mean | 88.9 | fL | | 81.0-100 | 07/17/17 | 07/17/17 | | | Corpuscu | | | | .0 | 8:30pm | 8:36pm | | | lar | | | | | | | | | Volume | | | | | | | | + + +---------+-------+ + + + + | Mean | 29.7 | pg | | 27.0-34. | 07/17/17 | 07/17/17 | | | Corpuscu | | | | 0 | 8:30pm | 8:36pm | | | lar | | | | | | | | | Hemoglob | | | | | | | | | in | | | | | | | | + + +---------+-------+ + + + + | Mean | 33.4 | g/dL | | 33.0-35. | 07/17/17 | 07/17/17 | | | Corpuscu | | | | 5 | 8:30pm | 8:36pm | | | lar | | | | | | | | | Hemoglob | | | | | | | | | in | | | | | | | | | Concent | | | | | | | | + + +---------+-------+ + + + + | Red Cell | 15.9 | % | H | 11.0-15. | 07/17/17 | 07/17/17 | | | | | | | 0 | 8:30pm | 8:36pm | | | Distribu | | | | | | | | | tion | | | | | | | | | Width | | | | | | | | + + +---------+-------+ + + + + | Platelet | 291 | K/uL | | 150-400 | 07/17/17 | 07/17/17 | | | Count | | | | | 8:30pm | 8:36pm | | + + +---------+-------+ + + + + | White | 7.5 | K/uL | | 4.8-10.8 | 07/17/17 | 07/17/17 | | | Blood | | | | | 8:30pm | 8:36pm | | | Count | | | | | | | | + + +---------+-------+ + + + + | Neutroph | 58.3 | % | | 40.0-80. | 07/17/17 | 07/17/17 | | | ils (%) | | | | 0 | 8:30pm | 8:36pm | | | (Auto) | | | | | | | | + + +---------+-------+ + + + + | Lymphocy | 26.3 | % | | 15.0-45. | 07/17/17 | 07/17/17 | | | dea (%) | | | | 0 | 8:30pm | 8:36pm | | | (Auto) | | | | | | | | + + +---------+-------+ + + + + | Monocyte | 8.5 | % | | 0.0-12.0 | 07/17/17 | 07/17/17 | | | s (%) | | | | | 8:30pm | 8:36pm | | | (Auto) | | | | | | | | + + +---------+-------+ + + + + | Eosinoph | 5.9 | % | | 0.0-7.0 | 07/17/17 | 07/17/17 | | | ils (%) | | | | | 8:30pm | 8:36pm | | | (Auto) | | | | | | | | + + +---------+-------+ + + + + | Basophil | 1.0 | % | | 0.0-2.0 | 07/17/17 | 07/17/17 | | | s (%) | | | | | 8:30pm | 8:36pm | | | (Auto) | | | | | | | | + + +---------+-------+ + + + + | Nucleate | 0 | | | | 07/17/17 | 07/17/17 | | | d RBC | | | | | 8:30pm | 8:36pm | | | Relative | | | | | | | | | Count | | | | | | | | | (auto) | | | | | | | | + + +---------+-------+ + + + + | Absolute | 4.40 | k/uL | | 2.00-7.3 | 07/17/17 | 07/17/17 | | | | | | | 0 | 8:30pm | 8:36pm | | | Neutroph | | | | | | | | | ils | | | | | | | | | (auto) | | | | | | | | + + +---------+-------+ + + + + | Absolute | 2.0 | K/uL | | 1.20-3.2 | 07/17/17 | 07/17/17 | | | | | | | 0 | 8:30pm | 8:36pm | | | Lymphocy | | | | | | | | | dea | | | | | | | | | (auto) | | | | | | | | + + +---------+-------+ + + + + | Absolute | 0.60 | K/uL | | 0.30-0.8 | 07/17/17 | 07/17/17 | | | | | | | 0 | 8:30pm | 8:36pm | | | Monocyte | | | | | | | | | s (auto) | | | | | | | | + + +---------+-------+ + + + + | Absolute | 0.40 | K/uL | | 0.00-0.5 | 07/17/17 | 07/17/17 | | | | | | | 0 | 8:30pm | 8:36pm | | | Eosinoph | | | | | | | | | ils | | | | | | | | | (auto) | | | | | | | | + + +---------+-------+ + + + + | Absolute | 0.10 | K/uL | | 0.00-0.1 | 07/17/17 | 07/17/17 | | | | | | | 0 | 8:30pm | 8:36pm | | | Basophil | | | | | | | | | s (auto) | | | | | | | | + + +---------+-------+ + + + + | Nucleate | 0 | /100WBC | | 0-0 | 07/17/17 | 07/17/17 | | | d RBC | | | | | 8:30pm | 8:36pm | | | Absolute | | | | | | | | | Count | | | | | | | | | (auto) | | | | | | | | + + +---------+-------+ + + + + | Erythroc | 17 | mm/hr | | 0-20 | 07/17/17 | 07/17/17 | | | yte | | | | | 8:30pm | 9:08pm | | | Sediment | | | | | | | | | ation | | | | | | | | | Rate | | | | | | | | + + +---------+-------+ + + + + | Urine | URINE | | | | 17 | 07/17/17 | | | Source | | | | | 8:30pm | 8:41pm | | + + +---------+-------+ + + + + | Urine | YELLOW | | | YELLOW | 07/17/17 | 07/17/17 | | | Color | | | | | 8:30pm | 8:41pm | | + + +---------+-------+ + + + + | Urine | CLEAR | | | CLEAR | 07/17/17 | 07/17/17 | | | Appearan | | | | | 8:30pm | 8:41pm | | | ce | | | | | | | | + + +---------+-------+ + + + + | Urine | 1.030 | | | 1.000-1. | 07/17/17 | 07/17/17 | | | Specific | | | | 030 | 8:30pm | 8:41pm | | | [place] | | | | | | | | + + +---------+-------+ + + + + | Urine pH | 5.0 | | | 5.0 - | 07/17/17 | 07/17/17 | | | | | | | 8.0 | 8:30pm | 8:41pm | | + + +---------+-------+ + + + + | Urine | NEGATIVE | mg/dL | | NEGATIVE | 18/17 | 18/17 | | | Protein | | | | | 8:30pm | 8:41pm | | + + +---------+-------+ + + + + | Urine | NORMAL | mg/dL | | NEGATIVE | 07/17/17 | 07/17/17 | | | Glucose | | | | | 8:30pm | 8:41pm | | | (UA) | | | | | | | | + + +---------+-------+ + + + + | Urine | NEGATIVE | mg/dL | | NEGATIVE | 18/17 | 07/17/17 | | | Ketones | | | | | 8:30pm | 8:41pm | | + + +---------+-------+ + + + + | Urine | NEGATIVE | Cristopher/ul | | NEGATIVE | 07/17/17 | 07/17/17 | | | Occult | | | | | 8:30pm | 8:41pm | | | Blood | | | | | | | | + + +---------+-------+ + + + + | Urine | NEGATIVE | mg/dL | | NEGATIVE | 07/17/17 | 07/17/17 | | | Bilirubi | | | | | 8:30pm | 8:41pm | | | n | | | | | | | | + + +---------+-------+ + + + + | Urine | NEGATIVE | Arelis/uL | | NEGATIVE | 07/17/17 | 07/17/17 | | | Leukocyt | | | | | 8:30pm | 8:41pm | | | e | | | | | | | | | Esterase | | | | | | | | + + +---------+-------+ + + + + | Urine | NEGATIVE | | | NEGATIVE | 07/17/17 | 07/17/17 | | | Nitrite | | | | | 8:30pm | 8:41pm | | + + +---------+-------+ + + + + | Urine | NORMAL | mg/dL | | < 2.0 | 07/17/17 | 07/17/17 | | | Urobilin | | | | | 8:30pm | 8:41pm | | | ogen | | | | | | | | + + +---------+-------+ + + + + | N/A | NOT | | | | 07/17/17 | 07/17/17 | | | | INDICATE | | | | 8:30pm | 8:41pm | | | | D | | | | | | | + + +---------+-------+ + + + + | Urine | CULT NOT | | | | 07/17/17 | 07/17/17 | | | Culture | | | | | 8:30pm | 8:41pm | | | Indicate | INDICATE | | | | | | | | d | D | | | | | | | + + +---------+-------+ + + + + | Sodium | 140 | mmol/L | | 136-145 | 07/17/17 | 07/17/17 | | | Level | | | | | 8:30pm | 8:50pm | | + + +---------+-------+ + + + + | Potassiu | 3.8 | mmol/L | | 3.5-5.1 | 07/17/17 | 07/17/17 | | | m Level | | | | | 8:30pm | 8:50pm | | + + +---------+-------+ + + + + | Chloride | 113 | mmol/L | H | 98-107 | 07/17/17 | 07/17/17 | | | Level | | | | | 8:30pm | 8:50pm | | + + +---------+-------+ + + + + | Carbon | 18 | mmol/L | L | 23-29 | 07/17/17 | 07/17/17 | | | Dioxide | | | | | 8:30pm | 8:50pm | | | Level | | | | | | | | + + +---------+-------+ + + + + | Anion | 12.8 | mmol/L | | 5-16 | 07/17/17 | 07/17/17 | | | Gap | | | | | 8:30pm | 8:50pm | | + + +---------+-------+ + + + + | Creatini | 0.5 | mg/dL | L | 0.6-1.3 | 07/17/17 | 07/17/17 | | | ne | | | | | 8:30pm | 8:50pm | | + + +---------+-------+ + + + + | Blood | 14 | mg/dL | | 6-20 | 07/17/17 | 07/17/17 | | | Urea | | | | | 8:30pm | 8:50pm | | | Nitrogen | | | | | | | | + + +---------+-------+ + + + + | BUN/Crea | 28.0 | Ratio | H | 7.0-24.0 | 07/17/17 | 07/17/17 | | | tinine | | | | | 8:30pm | 8:50pm | | | Ratio | | | | | | | | + + +---------+-------+ + + + + | Glucose | 97.0 | mg/dL | | 65-110 | 07/17/17 | 07/17/17 | | | Level | | | | | 8:30pm | 8:50pm | | + + +---------+-------+ + + + + | Calcium | 8.8 | mg/dL | | 8.6-10.0 | 07/17/17 | 07/17/17 | | | Level | | | | | 8:30pm | 8:50pm | | + + +---------+-------+ + + + + | Serum | 6.1 | g/dL | | 6.0-8.3 | 07/17/17 | 07/17/17 | | | Total | | | | | 8:30pm | 8:50pm | | | Protein | | | | | | | | + + +---------+-------+ + + + + | Albumin | 3.6 | g/dL | | 3.5-5.0 | 07/17/17 | 07/17/17 | | | | | | | | 8:30pm | 8:50pm | | + + +---------+-------+ + + + + | Globulin | 2.5 | g/dL | | 2.3-3.5 | 07/17/17 | 07/17/17 | | | | | | | | 8:30pm | 8:50pm | | + + +---------+-------+ + + + + | Albumin/ | 1.4 | CALC | | 1.1-2.2 | 07/17/17 | 07/17/17 | | | Globulin | | | | | 8:30pm | 8:50pm | | | Ratio | | | | | | | | + + +---------+-------+ + + + + | Total | 0.2 | mg/dL | L | 0.3-1.2 | 07/17/17 | 07/17/17 | | | Bilirubi | | | | | 8:30pm | 8:50pm | | | n | | | | | | | | + + +---------+-------+ + + + + | Alanine | 531 | IU/L | H | 14-54 | 07/17/17 | 07/17/17 | | | Aminotra | | | | | 8:30pm | 8:50pm | | | nsferase | | | | | | | | | | | | | | | | | | (ALT/SGP | | | | | | | | | T) | | | | | | | | + + +---------+-------+ + + + + | Alkaline | 120 | IU/L | | 50-136 | 07/17/17 | 07/17/17 | | | | | | | | 8:30pm | 8:50pm | | | Phosphat | | | | | | | | | ase | | | | | | | | + + +---------+-------+ + + + + | Aspartat | 27 | IU/L | | 15-41 | 07/17/17 | 07/17/17 | | | e Amino | | | | | 8:30pm | 8:50pm | | | Transf | | | | | | | | | (AST/SGO | | | | | | | | | T) | | | | | | | | + + +---------+-------+ + + + + | Estimat | > 60 | | | >60 | 09/18/17 | 09/18/17 | Limitati | | Glomerul | | | | | 8:30pm | 8:50pm | ons | | ar | | [...] + | Departed | [facility] | 07/17/17 7:27pm | 07/17/17 | [facility] | | Emergency | Hospital | | 11:28pm | | + + + + + + | Departed | [facility] | 05/09/17 7:45pm | 05/09/17 9:10pm | [facility] | | Emergency | Hospital | | | Andrea Saenz | + + + + + + | Departed | [facility] | 04/11/17 2:33pm | 04/11/17 3:10pm | [facility] | | Emergency | Hospital | | | | + + + + + +"
--- OUTSIDE RECORDS SUMMARY | 2018-02-06 23:18 | XMS | Encounter Summary ---
Demographics + + + | Address | [address] | | | [place] [address] | + + + | Home Phone | | + + + | Preferred Language | Unknown | + + + | Marital Status | | + + + | Rastafarian Affiliation | [id number] | + + + | Race | Unknown | + + + | Ethnic Group | Unknown | + + + Author + + + | Author | [facility] | | | and [place] | + + + | Organization | [facility] | | [...] Team Providers + +------+ + | Care Case Management Rn Name | Role | Phone | + +------+ + | Alberto Christine | PCP | | + +------+ + Encounter Details +--------+ + + + + | Date | Type | Department | Care Team | Description | +--------+ + + + + | 11/09/ Hospital | [facility] | Manuel Sparks, | | | 2018 | Encounter | MED CTR XRAY [address] | DO [address] | | | | | [place] | [address] [place], | | | | | [place] [address] | [place] [address] | | | | | [phone] | [phone] | | | | | | | [...] | | Take 1 tablet by | | | 11/07/19 | | | HYDROcodone-acetamin | mouth every 6 hours | | | 18 | 8 | | ophen (NORCO) 5-325 | as needed. | | | | | | mg [...] + + + +---------+ + + | Lactulose SOLN | Take 30 mLs by mouth | 240 mL | 1 | 05/07/20 | | | | every 6 hours as | | | 16 | 8 | | | needed | | | | | | | (Constipation). | | | | | + + + +---------+ + + | LORazepam (ATIVAN) | Take one every night | 30 | 0 | 07/07/20 | | | 1 mg tablet | at bedtime. | tablet | | 17 | 8 | + + + +---------+ + + | | Take 1 tablet by | 15 | 0 | 10/21/20 | | | oxyCODONE-acetaminop | mouth every 6 hours | tablet | | 17 | 8 | | hen (PERCOCET) 5-325 | as needed for Pain. | | | | | | mg per tablet | | | | | | + + + +---------+ + + | polyethylene | Take 17 g by mouth | | | 08/07/20 | | | glycol (MIRALAX) | as needed. | | | 17 | 8 | | powder | | | | | | + + + +---------+ + + | promethazine | Take 1 tablet by | 56 | 0 | 06/13/20 | | | (PHENERGAN) 25 mg | mouth every 4 hours | tablet | | 17 | 8 | | tablet | as needed. | | | | | + + + +---------+ + + | tiZANidine | Take 4 mg by mouth | | | 08/08/20 | | | (ZANAFLEX) 4 mg | every 6 hours as | | | 17 | 8 | | tablet | needed. | | | | | + + + +---------+ + + as of this encounter Plan of Treatment +--------+---------+ + + + | Date | Type | Specialty | Care Team | Description | +--------+---------+ + + + | 04/12/ | Office | Rehabilitation | Manuel Sparks, | | | 2017 | Visit | | DO [address] | | | | | | [address] [place], | | | | | | [place] [address] | | | | | | [phone] | | | | | | | [...] | | | | | | [place] [address] | | | | | | [phone] | | | | | | | [...] | | | | | | [place] [address] | | | | | | [phone] | | | | | | | [...] | | | | | | [place] [address] | | | | | | [phone] | | | | | | | | | | | | Himanshu Champion | | | | | | D, PT | | +--------+---------+ + + + | 02/22/ | Office | General Surgery | Matthew Garinca | | | 2017 | Visit | | I, , FACS [address] | | | | [address] [place] | | | | | | [place] [address] | | | | | | [phone] | | | | | | | | +--------+---------+ + + + | 02/27/ | Office | Rehabilitation | Manuel Sparks, | | | 2017 | Visit | | DO [address] | | | | | | [address] [place], | | | | | | [place] [address] | | | | | | [phone] | | | | | | | [...] [place], | | | | | | [place] [address] | | | | | | [phone] | | | | | | | | | | | | Himanshu Champion | | | | | | D, PT | | +--------+---------+ + + + | 03/29/ | Office | Cardiology | Prem Call, | | | 2017 | Visit | | [address] | | | | | | [place], | | | | | | [place] [address] | | | | | | [phone] | | | | | | | | +--------+---------+ + + + as of this encounter Visit Diagnoses Not on filein this encounter"
--- OUTSIDE RECORDS SUMMARY | 2018-02-06 23:18 | XMS | Encounter Summary ---
Demographics + + + | Address | [address] | | | [place] [address] | + + + | Home Phone | | + + + | Preferred Language | Unknown | + + + | Marital Status | | + + + | Scientology Affiliation | [id number] | + + + | Race | Unknown | + + + | Ethnic Group | Unknown | + + + Author + + + | Author | [facility] | | | and [place] | [...] Team Providers + +------+ + | Care High Energy Forming Equipment Operator Name | Role | Phone | [...] back pain, with | | | | [place], [place] | [place] | sciatica presence | | | | [phone] | [phone] | unspecified (Primary | | | | [phone] | | Dx) | +--------+---------+ + + [...] out of a chair, walked to the [facility] step up and sit down without grimacing [...] was a chronic pain center in the [facility]. Patient already knew of the facility. Patient [...] | | | | | | [place] [address] | | | | | | [phone] | | | | | | | [...] | | | | | | [place] [address] | | | | | | [phone] | | | | | | | [...] | | | | | | [place] [address] | | | | | | [phone] | | | | | | | [...] | | | | | | [place] [address] | | | | | | [phone] | | | | | | | [...] | | | | | [place] [address] | | | | | | [phone] | | | | | | | | +--------+---------+ + + + | 02/27/ | Office | Rehabilitation | Manuel Sparks, | | | 2017 | Visit | | DO [address] | | | | | | [address] [place], | | | | | | [place] [address] | | | | | | [phone] | | | | | | | [...] | | | | | | [place] [address] | | | | | | [phone] | | | | | | | | | | | | Himanshu Champion | | | | | | Luz[place], PT | | +--------+---------+ + + + | 03/29/ | Office | Cardiology | Prem Call, | | | 2017 | Visit | | MD [address] | | | | | | [place], | | | | | | [place] [address] | | | | | | [phone] | | | | | | | | +--------+---------+ + + + as of this encounter Visit Diagnoses + + | Diagnosis | + + | Chronic bilateral low back pain, with sciatica presence unspecified - Primary | + +
--- OUTSIDE RECORDS SUMMARY | 2018-02-06 23:18 | XMS | Clinical Summary ---
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 and | | | underwent a | [...] type | | | | | | ([facility]) | +--------+ +---+ + + | 11/09/ [...] | | | | | | [place] [address] | | | | | | [phone] | | | | | | | [...] | | | | | | [place] [address] | | | | | | [phone] | | | | | | | [...] | | | | | | [place] [address] | | | | | | [phone] | | | | | | | [...] | | | | | | [place] [address] | | | | | | [phone] | | | | | | | [...] | | | | | [place] [address] | | | | | | [phone] | | | | | | | | +--------+---------+ + + + | 02/27/ | Office | | Manuel Sparks, | | | 2017 | Visit | | DO [address] | | | | | | [address] [place], | | | | | | [place] [address] | | | | | | [phone] | | | | | | | [...] | | | | | | [place] [address] | | | | | | [phone] | | | | | | | | | | | | Himanshu Champion | | | | | | D, PT | | +--------+---------+ + + + | 03/29/ | Office | | Prem Call, | | | 2017 | Visit | | [place] [address] | | | | | | [place], | | | | | | [place] [address] | | | | | | [phone] | | | | | | | [...] +--------+--------+ +--------+--------+--------+ | Imp Spn Spcr Anatomic [id number] | Generi | Anteri | ESTELLAOR | | 02/15/ | [id number] | | - [id number]: Qty: 1 | c | or: | [...] +--------+--------+ +--------+--------+--------+ | Imp Spn Spcr Anatomic [id number] | Generi | Anteri | SOFAMOR | | 02/10/ | [id number] | | - [id number]: Qty: 1 | c | or: | [...] +--------+--------+ +--------+--------+--------+ | Imp Mary Jo Sext [id number] | Generi | N/A: | [facility] - | | | [id number] | | Solera - [id number]: | c | Spine | MEDT | | | 5060 / | | Qty: 2 on 11/23/2017 by | | Lumbar | | | | / | | Manuel Sparks DO | | | | | | | + +--------+--------+ +--------+--------+--------+ | Imp Spn Cage Sm 12deg 16mm - | Generi | N/A: | [facility] - | | 08/20/ | [id number] | | [id number]: Qty: 1 on | c | Spine | MEDT | | 2022 | 6 / | | 11/23/2017 by Manuel Sparks | | Lumbar | | | | /[id number] | | A, DO | | | | | | | + +--------+--------+ +--------+--------+--------+ | Imp Spn Plt Alif 20mm - | Generi | N/A: | [facility] - | | 09/07/ | [id number] | | [id number]: Qty: 1 on | c | Spine | MEDT | | 2024 | 0 / | | 11/23/2017 by Manuel Sparks | | Lumbar | | | | /[id number] | | A, DO | | | | | | 92W | + +--------+--------+ +--------+--------+--------+ | Imp Spn Plt Alif 16mm - | Generi | N/A: | [facility] - | | 09/07/ | [id number] | | [id number]: Qty: 1 on | c | Spine | MEDT | | 2024 | 6 / | | 11/23/2017 by Manuel Sparks | | Lumbar | | | | /[id number] | | DO Renae | | | | | | 25W | + +--------+--------+ +--------+--------+--------+ | Kimberly Han Pls 1cc Aseptic | Graft | Anteri | [facility] - | | 11/25/ | [id number] | | - [id number]: Qty: 1 | | or: | MEDT [...] | [facility] - | | 07/28/ | [id number] | | - [id number]: Qty: 1 | | or: | MEDT [...] | [facility] - | | 10/29/ | [id number] | | [id number]: Qty: 1 on | | Spine | MEDT | | 2017 | 0 / | | 11/23/2017 by Manuel Sparks | | Lumbar | | | | /[id number] | | DO Renae | | | | | | [id number] | + +--------+--------+ +--------+--------+--------+ | Putty Jonathan 10cc Dbm - | Graft | N/A: | [facility] - | | 09/11/ | [id number] | | [id number]: Qty: 1 | | Spine | MEDT | | 2020 | | | on 11/23/2017 by Bridger, | | Lumbar | | | | /[id number] | | Manuel Macdonald DO | | | | | | 2-021 | | | | | | | | / | + +--------+--------+ +--------+--------+--------+ | Plate Cerv [place] Trans | Plate | Anteri | SOFAMOR | | | [id number] | | 40mm - [id number]: | | or: | GRISEL - DIV [...] | Anteri | SOFAMOR | | | 868879 | | [id number]: Qty: 6 on | | or: | [...] | | 08/23/ | [id number] | | [id number]: Qty: 4 on | | Spine | MEDT | | 2024 | 5 / | | 11/23/2017 by Manuel Saprks | | Lumbar | | | | /[id number] | | A DO | | | | | | 71W | + +--------+--------+ +--------+--------+--------+ | Screw 25mm - | Screw | N/A: | [facility] - | | 05/22/ | [id number] | | [id number]: Qty: 2 on | | Spine | MEDT | | 2024 | 5 / | | 11/23/2017 by Manuel Sparks | | Lumbar | | | | /[id number] | | A, DO | | | | | | 23W | + +--------+--------+ +--------+--------+--------+ | Screw 25mm - | Screw | N/A: | [facility] - | | 06/15/ | [id number] | | [id number]: Qty: 1 on | | Spine | MEDT | | 2024 | 5 / | | 11/23/2017 by Manuel Sparks | | Lumbar | | | | /[id number] | | Renae DO | | | | | | 54W | + +--------+--------+ +--------+--------+--------+ | Screw 4.75 Xtb Kelly Mas | Screw | | [facility] - | | | 593815 | | 7.5x55 - [id number]: | | | MEDT | | | 03251 | | Qty: 1 on 11/23/2017 by | | | | | | / / | | Manuel Sparks DO | | | | | | | + +--------+--------+ +--------+--------+--------+ | Screw 4.75 Xtb Kelly Mas | Screw | | [facility] - | | | 868620 | | 7.5x50 - [id number]: | | | MEDT | | | 98814 | | Qty: 1 on 11/23/2017 by | | | | | | / / | | Manuel Sparks DO | | | | | | | + +--------+--------+ +--------+--------+--------+ | Screw 4.75 Xtb Kelly Mas | Screw | | [facility] - | | | 923760 | | 7.5x40 - [id number]: | | | MEDT | | | 41616 | | Qty: 2 on 11/23/2017 by | | | | | | / / | | Manuel Sparks DO | | | | | | | + +--------+--------+ +--------+--------+--------+ | Screw 4.75 Xtb Kelly Mas | Screw | | [facility] - | | | 950433 | | 7.5x35 - [id number]: | | | MEDT | | | 54587 | | Qty: 1 on 11/23/2017 by | | | | | | / / | | Manuel Sparks DO | | | | | | | + +--------+--------+ +--------+--------+--------+ | Screw 4.75 Xtb Kelly Mas | Screw | | [facility] - | | | 645920 | | 6.5x60 - [id number]: | | | MEDT | | | 62490 | | Qty: 1 on 11/23/2017 by | | | | | | / / | | Manuel Sparks DO | | | | | | | + +--------+--------+ +--------+--------+--------+ | Screw Set Slra Perc Ti 4.75 - | Screw | N/A: | [facility] - | | | 864164 | | [id number]: Qty: 6 | | Spine | MEDT | | | 0 / / | | on 11/23/2017 by Bridger, | | Lumbar | | | | | Chanelle Macdonald DO | | | | | | | + +--------+--------+ +--------+--------+--------+ | Interbody Small,12mm,12 | | N/A: | [facility] - | | 07/02/ | [id number] | | DegreeImplanted: Qty: 1 on | [...] | | [facility] - | | | 867953 | | 6.5x65 - [id number]: | | | MEDT | | | 18766 | | Qty: 1 on 11/23/2017 | [...] | + + + | Blood | [facility] [address] | | | [place] [address] | + + + TSH (01/27/20181913) + + + + | Component | Value | Ref Range | + + + + | TSH | 0.10 (L)Comment: This is a third generation | 0.45 - 5.33 uIU/mL | | | TSH test. | | + + + + + + + | Specimen | Performing Laboratory | + + + | Blood | [facility] [address] | | | [place] [address] | + + + Lipase (01/27/20181913) + +-------+ + | Component | Value | Ref Range | + +-------+ + | LIPASE | 34 | 0 - 60 U/L | + +-------+ + + + + | Specimen | Performing Laboratory | + + + | Blood | [facility] [address] | | | [place] [address] | + + + Ethanol (01/27/2018 1914) + +-------+ + | Component | Value | Ref Range | + +-------+ + | ALCOHOL, | <5 | <400 mg/dL | | SERUM/PLASMA | | | + +-------+ + + + + | Specimen | Performing Laboratory | + + + | Blood | [facility] [address] | | | [place] [address] | + + + Acetaminophen Level (01/27/20181913) + +-------+ + | Component | Value | Ref Range | + +-------+ + | Acetaminophen Level | <10 | <10 ug/mL | + +-------+ + + + + | Specimen | Performing Laboratory | + + + | Blood | [facility] [address] | | | [place] [address] | + + + Salicylate Level (01/27/20181913) + +-------+ + | Component | Value | Ref Range | + +-------+ + | Salicylate | <4.0 | <30.0 mg/dL | + +-------+ + + + + | Specimen | Performing Laboratory | + + + | Blood | [facility] [address] | | | [place] [address] | + + + Comprehensive Metabolic Panel [...] GLOMERULAR FILTRATION | >=60 mL/min/1.73m2 | | GHANAIAN | RATE,ESTIMATED mL/min/1.07j0Uott than | | | | 60 Chronic [...] + + + | Blood | [facility] | | | [place] [address] | + + + Drugs of Abuse, Screen, Urine (01/27/2018 098)Only the most recent of 2 results within [...] | Urine - Urine, clean | [facility] | | catch | [place] [address] | + + + ECG 12 lead [...] | | | | KAILEE DENG MD ([id number]) on 01/29/2018 | | | | 6:07:15 [...] Urine | [facility] [address] [facility] | | | [place] [address] | + + + XR Knee Left [...] + + | Wound - Abdomen | [facility] [address] | | | [place] [address] | + + + CT Abdomen Pelvis w Contrast (12/05/2017 1238) + + | Narrative | + + | CT ABDOMEN PELVIS W CONTRAST 12/05/2017 11:58 AM HISTORY: UNILAT LEG SWELLING & DVT | | PELVIS CALL REPORT [phone]. COMPARISON: Multiple priors PROTOCOL: Axial | | [...] UNILAT LEG SWELLING & DVT PELVISCALL REPORT [phone].COMPARISON: | | Multiple priorsPROTOCOL: Axial images of [...] + + + | Blood | [facility] [address] | | | [place] [address] | + + + B Type Natriuretic Peptide (12/04/2017 1503) + +-------+ + | Component | Value | Ref Range | + +-------+ + | BNP | 94 | <100 pg/mL | + +-------+ + + + + | Specimen | Performing Laboratory | + + + | Blood | [facility] [address] | | | [place] [address] | + + + VAS Lower Extremity [...] | | the ordering provider, by the car conditioner, immediately following the exam. | | Dictated [...] to the ordering provider, by the | |car conditioner, immediately following the exam. | | | | | |Dictated and Signed by: Jairo Powell MD | | Electronically signed: 12/04/2017 4:13 PM | + + CBC with Differential (12/04/2017 7250)Only the most recent of 5 results within [...] | + + + | Blood | [facility] [address] | | | [place] [address] | + + + Lactic Acid (12/04/20171335) + +-------+ + | Component | Value | Ref Range | + +-------+ + | LACTATE | 1.5 | 0.5 - 2.2 mmol/L | + +-------+ + + + + | Specimen | Performing Laboratory | + + + | Blood | [facility] | | | [place] [address] | + + + POC Blood Gases [...] | + + + | | [facility] [address] | | | [place] [address] | + + + XR Chest AP [...] GLOMERULAR FILTRATION | >=60 mL/min/1.73m2 | | GHANAIAN | RATE,ESTIMATED mL/min/1.42y4Bjhm than | | | | 60 Chronic [...] | + + + | Blood | [facility] [address] | | | [place] [address] | + + + POC Glucose (11/27/2017 [...] + + + | Blood | [facility] [address] | | | [place] [address] | + + + Slide Review, Peripheral [...] | + + + | Blood | [facility] [address] | | | [place] [address] | + + + + + | [...] | + + + + | Specific [place] | 1.011 | 1.001 - 1.030 | [...] + | Urine - Urine, Wright | [facility] [address] | | catheter | [place] [address] | + + + Culture, Urine (11/24/2017 1154) + + + + | Component | Value | Ref Range | + + + + | Culture | No Growth | | + + + + + + + | Specimen | Performing Laboratory | + + + | Urine - Urine, Wright | [facility] [address] | | catheter | [place] [address] | + + + Influenza A and [...] + + + | Respiratory - | [facility] [address] | | Nasopharynx | [place] [address] | + + + Culture, Blood (11/24/2017 [...] + + | Blood - Peripheral | [facility] [address] | | Blood | [place] [address] | + + + Magnesium (11/24/2017 0446) + +---------+ + | Component | Value | Ref Range | + +---------+ + | MG | 1.5 (L) | 1.8 - 2.5 mg/dL | + +---------+ + + + + | Specimen | Performing Laboratory | + + + | Blood | [facility] [address] | | | [place] [address] | + + + Hepatic Function Panel [...] + + + | Blood | [facility] [address] | | | [place] [address] | + + + Culture, MRSA (11/23/20172102)Only [...] + | Respiratory - Nares | [facility] [address] | | | [place] [address] | + + + [place] David Statdashawn [...] Image placed into patients | | chart. [id number] Please see anesthesia record or flowsheet for [...] given. Image | | placed into patients chart.[id number] see anesthesia record or flowsheet for | [...] given. Image placed into patients chart. | |[id number] | | | | | |Please see [...] | Elaina Palomo MD - 11/23/2017 0824 [facility] Anesthesia Airway Placement11/23/2017 | | 8:00Preprocedure check: [...] | + + + | Blood | [facility] [address] | | | [place] [address] | + + + XR Chest 2 [...] | myron | | | 4546 | [address] | + +--------+ +--------+ + + | CLARE CHAVEZ | Third | Self | [birth year] | Home: | [address] | | | [place] | | 1979 | [phone] | [place] | | | [place] | | | [phone] | [address] | | | ity | | | | | + +--------+ +--------+ + +
--- OUTSIDE RECORDS SUMMARY | 2018-02-06 23:18 | XMS | Clinical Summary ---
Demographics + + + | Address | [address] | | | [place] [address] | + + + | Home Phone | | + + + | Preferred Language | Unknown | + + + | Marital Status | | + + + | Islam Affiliation | Unknown | + + + | Race | White | + + + | Ethnic Group | Not or | + + + Author + + + | Author | [facility] | + + + | Organization | [facility] | + + + | Address | [address] [place] [address] | | | [place] [address] | + + + | Phone | | + + + Care Team Providers + + + + | Care Sorting And Folding Supervisor Name | Role | Phone | + + + + Unavailable | Unavailable | + + + + Conditions or Problems No information available. Medications No information available. Medications Administered No information available. Allergies, Adverse Reactions, Alerts No information available. Results +------+------+-------+------+-------+------+ + | Date | Name | Value | Unit | Range | Flag | Descriptio | | | | | | | | n | +------+------+-------+------+-------+------+ + + + | Lab Report: CMP, CBC, PLT & AUTO DIFF, URINALYSIS | + + + + + + + +---+ + | | YOSELYN-GE-sok | CULT NOT | | | | GE use | | | | INDICATED | | | | only - for | | | | | | | | LinkLogic | | | | | | | | import | | | | | | | | when terms | | | | | | | | are not | | | | | | | | otherwise | | | | | | | | specified | + + + + + +---+ + | | UROBILINOG | NORMAL | | < 2.0 | | urobilinog | | | EN | | | | | en, urine, | | | | | | | | | | | | | | | | semiquanti | | | | | | | | tative | | | | | | | | (dipstick) | + + + + + +---+ + | | NITRITE | NEGATIVE | | NEGATIVE | | nitrite, | | | URN | | | | | urine, | | | | | | | | semiquanti | | | | | | | | tative | + + + + + +---+ + | | WBC DIPSTK | NEGATIVE | | NEGATIVE | | leukocyte | | | U | | | | | esterase, | | | | | | | | urine, by | | | | | | | | dipstick | + + + + + +---+ + | | BILIRUBIN | NEGATIVE | | NEGATIVE | | bilirubin, | | | UR | | | | | urine | + + + + + +---+ + | | BLOOD UR | NEGATIVE | | NEGATIVE | | blood in | | | DIP | | | | | urine | | | | | | | | (hemoglobi | | | | | | | | n) by | | | | | | | | dipstick | + + + + + +---+ + | | KETONES | NEGATIVE | | NEGATIVE | | ketones, | | | URN | | | | | urine, by | | | | | | | | test strip | + + + + + +---+ + | | PROTEIN, | NEGATIVE | | NEGATIVE | | Albumin | | | URN | | | | | [Presence] | | | | | | | | in Urine | + + + + + +---+ + | | PH URINE | 5.0 | | 5.0 - 8.0 | | pH, urine, | | | | | | | | | | | | | | | | semiquanti | | | | | | | | tative | + + + + + +---+ + | | SPEC GR | 1.030 | | 1.000-1.03 | | specific | | | URIN | | | 0 | | gravity, | | | | | | | | urine | + + + + + +---+ + | | APPEARANCE | CLEAR | | CLEAR | | appearance | | | U | | | | | , urine | + + + + + +---+ + | | UA COLOR | YELLOW | | YELLOW | | urine | | | | | | | | color | + + + + + +---+ + | | BASOPH | 0.10 | 10*3/mm3 | 0.00-0.10 | | basophil | | | COUNT | | | | | count, | | | | | | | | blood | + + + + + +---+ + | | EOS COUNT | 0.40 | 10*3/mm3 | 0.00-0.50 | | eosinophil | | | | | | | | count, | | | | | | | | blood | + + + + + +---+ + | | MONOCYTE | 0.60 | 10*3/mm3 | 0.30-0.80 | | monocyte | | | CNT | | | | | count, | | | | | | | | blood | + + + + + +---+ + | | LYMPH | 2.0 | 10*3/mm3 | 1.20-3.20 | | lymphocyte | | | COUNT | | | | | count, | | | | | | | | blood | + + + + + +---+ + | | ANC | 4.40 | 10*3/mm3 | 2.00-7.30 | | neutrophil | | | | | | | | count, | | | | | | | | blood | + + + + + +---+ + | | % BASO | 1.0 | % | 0.0-2.0 | | basophils | | | AUTO | | | | | as percent | | | | | | | | of blood | | | | | | | | leukocytes | | | | | | | | , | | | | | | | | automated | | | | | | | | count | + + + + + +---+ + | | % EOS AUTO | 5.9 | % | 0.0-7.0 | | eosinophil | | | | | | | | s as | | | | | | | | percent of | | | | | | | | blood | | | | | | | | leukocytes | + + + + + +---+ + | | MONOCYTE % | 8.5 | % | 0.0-12.0 | | monocytes | | | | | | | | as percent | | | | | | | | of blood | | | | | | | | leukocytes | + + + + + +---+ + | | LYMPHS % | 26.3 | % | 15.0-45.0 | | lymphocyte | | | | | | | | s as | | | | | | | | percent of | | | | | | | | blood | | | | | | | | leukocytes | + + + + + +---+ + | | PMN % | 58.3 | % | 40.0-80.0 | | neutrophil | | | | | | | | s as | | | | | | | | percent of | | | | | | | | blood | | | | | | | | leukocytes | + + + + + +---+ + | | WBC | 7.5 | 10*3/mm3 | 4.8-10.8 | | leukocyte | | | | | | | | count, | | | | | | | | blood | + + + + + +---+ + | | PLATELETS | 291 | 10*3/mm3 | 150-400 | | platelet | | | | | | | | count | + + + + + +---+ + | | RDW | 15.9 | % | 11.0-15.0 | H | red blood | | | | | | | | cell | | | | | | | | distributi | | | | | | | | on width | + + + + + +---+ + | | MCHC | 33.4 | G/DL | 33.0-35.5 | | mean | | | | | | | | corpuscula | | | | | | | | r | | | | | | | | hemoglobin | | | | | | | | | | | | | | | | concentrat | | | | | | | | ion, RBC | + + + + + +---+ + | | MCH | 29.7 | pg | 27.0-34.0 | | mean | | | | | | | | corpuscula | | | | | | | | r | | | | | | | | hemoglobin | | | | | | | | , RBC | + + + + + +---+ + | | MCV | 88.9 | fL | 81.0-100.0 | | mean | | | | | | | | corpuscula | | | | | | | | r volume, | | | | | | | | RBC | + + + + + +---+ + | | RBC | 3.87 M/UL | 10*6/mm3 | 3.80-5.20 | | erythrocyt | | | | | | | | e (RBC) | | | | | | | | count | + + + + + +---+ + | | HCT | 34.4 | % | 35-46 | L | hematocrit | | | | | | | | , blood | + + + + + +---+ + | | HGB | 11.5 | g/dL | 11.6-15.5 | L | hemoglobin | | | | | | | | , blood | + + + + + +---+ + | | EGFR | > 60 | mL/min/1.7 | >60 | | Estimated | | | | | 3m2 | | | Glomerular | | | | | | | | | | | | | | | | Filtration | | | | | | | | Rate | | | | | | | | (calc) | + + + + + +---+ + | | SGOT (AST) | 27 | U/L | 15-41 | | aspartate | | | | | | | | aminotrans | | | | | | | | ferase | | | | | | | | (SGOT), | | | | | | | | serum | + + + + + +---+ + | | ALK PHOS | 120 | U/L | 50-136 | | alkaline | | | | | | | | phosphatas | | | | | | | | e, serum | + + + + + +---+ + | | SGPT (ALT) | 531 | U/L | 14-54 | H | alanine | | | | | | | | aminotrans | | | | | | | | ferase | | | | | | | | (SGPT), | | | | | | | | serum | + + + + + +---+ + | | BILI TOTAL | 0.2 | mg/dL | 0.3-1.2 | L | bilirubin, | | | | | | | | serum, | | | | | | | | total | + + + + + +---+ + | | A/G RATIO | 1.4 CALC | | 1.1-2.2 | | albumin/gl | | | | | | | | obulin | | | | | | | | ratio, | | | | | | | | serum | + + + + + +---+ + | | GLOBULIN | NORMAL | | NEGATIVE | | globulin, | | | | | | | | serum | + + + + + +---+ + | | ALBUMIN | 3.6 | g/dL | 3.5-5.0 | | albumin, | | | | | | | | serum | + + + + + +---+ + | | PROTEIN, | 6.1 | g/dL | 6.0-8.3 | | protein, | | | TOT | | | | | total, | | | | | | | | serum | + + + + + +---+ + | | CALCIUM | 8.8 | mg/dL | 8.6-10.0 | | calcium, | | | | | | | | serum | + + + + + +---+ + | | GLUCOSE | 97.0 | mg/dL | 65-110 | | blood | | | SER | | | | | glucose | + + + + + +---+ + | | BUN/CREAT | 28.0 Ratio | | 7.0-24.0 | H | urea | | | | | | | | nitrogen/c | | | | | | | | reatinine | | | | | | | | ratio, | | | | | | | | serum | + + + + + +---+ + | | BUN | 14 | mg/dL | 6-20 | | urea | | | | | | | | nitrogen, | | | | | | | | blood | + + + + + +---+ + | | CREATININE | 0.5 | mg/dL | 0.6-1.3 | L | creatinine | | | | | | | | , serum | + + + + + +---+ + | | ANION GAP | 12.8 | mmol/L | 5-16 | | anion gap, | | | | | | | | serum | + + + + + +---+ + | | CO2 | 18 | mmol/L | 23-29 | L | carbon | | | | | | | | dioxide, | | | | | | | | venous | | | | | | | | blood | + + + + + +---+ + | | CHLORIDE | 113 | mmol/L | 98-107 | H | chloride, | | | | | | | | serum | + + + + + +---+ + | | POTASSIUM | 3.8 | mmol/L | 3.5-5.1 | | potassium, | | | | | | | | serum | + + + + + +---+ + | | SODIUM | 140 | mmol/L | 136-145 | | sodium, | | | | | | | | serum | + + + + + +---+ + + + | Lab Report: SEDIMENTATION RATE | + + + +-----+----+------+------+---+ + | | ESR | 17 | mm/h | 0-20 | | erythrocyt | | | | | | | | e | | | | | | | | sedimentat | | | | | | | | ion rate | + +-----+----+------+------+---+ + Plan of Care No information available. Procedures No information available. Vital Signs No information available. Immunizations No information available. Advance Directives No information available. Chief Complaint No information available. Family History No information available. GE General Observations Section narrative not generated History of Past Illness No information available. History of Present Illness No information available. Review of Systems No information available."
--- OUTSIDE RECORDS SUMMARY | 2018-02-06 23:19 | XMS | Encounter Summary ---
Demographics + + + | Address | [address] | | | [place] [address] | + + + | Home Phone [...] | [facility] | | [...] Phone | + + +---------+ + | Ealine Zambrano | ECON | Unknown | | + + +---------+ + | Rosalia Zambrano | ECON | Unknown | | + + +---------+ + Care Team Providers + +------+ + | Care Social Media Strategist Name | Role | Phone | + [...] + + | 01/17/ | Emergency | [facility] | Levon Lott, | Acute bilateral low | | 2018 | | [facility] | MD [address] | back pain without | | | | CENTER [address] | [place] | sciatica (Primary | | | | [place] | [address] | Dx) | | | | [address] | | | | | | [phone] | | | +--------+ + + + [...] Into and Out of Bed, Back Safety (Botswanan)in this encounter Medications at Time of Discharge [...] | | | | | [place] in [facility] | | | | | | | [...] [place], | | | | | | [place] [address] | | | | | | [phone] | | | | | | | [...] | | | | | | [place] [address] | | | | | | [phone] | | | | | | | [...] | | | | | | [place] [address] | | | | | | [phone] | | | | | | | [...] | | | | | | [place] [address] | | | | | | [phone] | | | | | | | [...] | | | | | [place] [address] | | | | | | [phone] | | | | | | | | +--------+---------+ + + + | 02/27/ | Office | Rehabilitation | Manuel Sparks, | | | 2017 | Visit | | DO [address] | | | | | | [address] [place], | | | | | | [place] [address] | | | | | | [phone] | | | | | | | [...] | | | | | | [place] [address] | | | | | | [phone] | | | | | | | | | | | | Himanshu Champion | | | | | | D, PT | | +--------+---------+ + + + | 03/29/ | Office | Cardiology | HelderPrem wilson, | | | 2017 | Visit | | MD [address] | | | | | | [place], | | | | | | [place] [address] | | | | | | [phone] | | | | | | | [...] | | | | | | | [address] | | | | | | + + + + +------+------+ +---+---+ | | | +---+---+ in this encounter
--- OUTSIDE RECORDS SUMMARY | 2018-02-06 23:19 | XMS | Encounter Summary ---
Demographics + + + | Address | [address] | | | [place] [address] | + + + | Home Phone | | + + + | Preferred Language | Unknown | + + + | Marital Status | | + + + | Buddhist Affiliation | 1073 | + + + | Race | Unknown | + + + | Ethnic Group | Unknown | + + + Author + + + | Author | [facility] | | | and Shaunana [...] Team Providers + +------+ + | Care Electronic Integrated Systems Mechanic Name | Role | Phone | [...] | | | | | | [place] [address] | | | | | | | Phone: | | | | | | | [phone] | | | | | | | Fax: | | | | | | | [phone] | | + + + + + [...] | lumbar fusion | | | | [place], [place] | [place] [address] | | | | | [address] | [phone] | | | | | [phone] | | | +--------+---------+ + + + [...] from the original. 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 Back pain with radiation Benign essential hypertension 10/1999 Bipolar 1 disorder ([facility]) Bipolar disorder ([facility]) has been admitted for overdose as well Bronchitis, acute Calf pain, left Candidiasis of vulva and vagina Cervical radiculitis Chest pain CHF (congestive heart failure) ([facility]) Constipation Contusion, lower leg COPD (chronic obstructive pulmonary disease) ([facility]) Cubital tunnel syndrome DDD (degenerative disc disease), lumbar Depression 10/1993 Disorder of liver DM type 2 (diabetes mellitus, type 2) ([facility]) diet controlled Drug abuse Dysuria Emphysema of lung ([facility]) Encounter for blood transfusion Eustachian tube dysfunction Exposure to STD Fall Flaccid hemiplegia and hemiparesis Affecting right wrist Folate deficiency anemia Full dentures Full dentures uppper & lower Gangrene ([facility]) Complication of abdominal surgery Headache Heart murmur [...] Rotator cuff sprain Scabies Seizures ([facility]) 05/02/2010 diagnosed at [facility] Shortness of breath Sinusitis, acute Stroke ([facility]) TMJ syndrome Tobacco use Traumatic bursitis Vitamin [...] | | | | | [address] [place], | | | | | | [place] [address] | | | | | | [phone] | | | | | | | [...] | | | | | | [place] [address] | | | | | | [phone] | | | | | | | [...] | | | | | | [place] [address] | | | | | | [phone] | | | | | | | [...] | | | | | | [place] [address] | | | | | | [phone] | | | | | | | [...] | | | | | | [place] [address] | | | | | | [phone] | | | | | | | | +--------+---------+ + + + | 02/27/ | Office | Rehabilitation | Manuel Sparks, | | | 2017 | Visit | | DO [address] | | | | | | [address] [place], | | | | | | [place] [address] | | | | | | [phone] | | | | | | | [...] | | | | | | [place] [address] | | | | | | [phone] | | | | | | | | | | | | Himanshu Champion | | | | | | D, PT | | +--------+---------+ + + + | 03/29/ | Office | Cardiology | HelderrashidreyesPrem, | | | 2017 | Visit | | MD [address] | | | | | | [place], | | | | | | [place] [address] | | | | | | [phone] | | | | | | | [...]
--- OUTSIDE RECORDS SUMMARY | 2018-02-06 23:19 | XMS | Encounter Summary ---
Demographics + + + | Address | [address] | | | [place] [address] | + + + | Home Phone | | + + + | Preferred Language | Unknown | + + + | Marital Status | | + + + | Anglican Affiliation | 1073 | + + + | Race | Unknown | + + + | Ethnic Group | Unknown | + + + Author + + + | Author | [facility] | | | and Shaunana | + + + | Organization | [facility] | | | [...] Team Providers + +------+ + | Care Sinker Puller Name | Role | Phone | + [...] [place], | | | | | [place], [place] | [place] [address] | | | | | [address] | [phone] | | | | | [phone] | | | +--------+--------+ + + + [...] [place], | | | | | | [place] [address] | | | | | | [phone] | | | | | | | [...] | | | | | | [place] [address] | | | | | | [phone] | | | | | | | [...] | | | | | | [place] [address] | | | | | | [phone] | | | | | | | [...] | | | | | | [place] [address] | | | | | | [phone] | | | | | | | [...] | | | | | | [place] [address] | | | | | | [phone] | | | | | | | | +--------+---------+ + + + | 02/27/ | Office | Rehabilitation | Manuel Sparks, | | | 2017 | Visit | | DO [address] | | | | | | [address] [place], | | | | | | [place] [address] | | | | | | [phone] | | | | | | | [...] [place], | | | | | | [place] [address] | | | | | | [phone] | | | | | | | | | | | | Himanshu Champion | | | | | | D, PT | | +--------+---------+ + + + | 03/29/ | Office | Cardiology | Prem Call, | | | 2017 | Visit | | [address] | | | | | | [place], | | | | | | [place] [address] | | | | | | [phone] | | | | | | | | +--------+---------+ + + + as of this encounter Visit Diagnoses Not on filein this encounter"
--- OUTSIDE RECORDS SUMMARY | 2018-02-06 23:19 | XMS | Encounter Summary ---
Demographics + + + | Address | [address] | | | [place] [address] | + + + | Home Phone | | + + + | Preferred Language | Unknown | + + + | Marital Status | | + + + | Taoism Affiliation | 1073 | + + + | Race | Unknown | + + + | Ethnic Group | Unknown | + + + Author + + + | Author | [facility] | | | and Shaunana | + + + | Organization | [facility] | | | [...] Team Providers + +------+ + | Care Control Panel Builder Name | Role | Phone | + [...] + + | 01/18/ | Telephone | [facility] | Manuel Sparks, | Rx/Medication Pick | | 2017 | | NEUROSURGERY [address] | DO [address] | Up; Medication | | | | [address] | [address] [place], | Management | | | | [place] | [place] [address] | | | | | [address] | [phone] | | | | | [phone] | | | +--------+ + + + [...] | | | | | | [place] [address] | | | | | | [phone] | | | | | | | [...] | | | | | | [place] [address] | | | | | | [phone] | | | | | | | [...] | | | | | | [place] [address] | | | | | | [phone] | | | | | | | [...] | | | | | | [place] [address] | | | | | | [phone] | | | | | | | [...] | | | | | [place] [address] | | | | | | [phone] | | | | | | | | +--------+---------+ + + + | 02/27/ | Office | Rehabilitation | Manuel Sparks, | | | 2017 | Visit | | DO [address] | | | | | | [address] [place], | | | | | | [place] [address] | | | | | | [phone] | | | | | | | [...] [place], | | | | | | [place] [address] | | | | | | [phone] | | | | | | | | | | | | Himanshu Champion | | | | | | D, PT | | +--------+---------+ + + + | 03/29/ | Office | Cardiology | Prem Call, | | | 2017 | Visit | | [address] | | | | | | [place], | | | | | | [place] [address] | | | | | | [phone] | | | | | | | | +--------+---------+ + + + as of this encounter Visit Diagnoses Not on filein this encounter"
--- OUTSIDE RECORDS SUMMARY | 2018-02-06 23:19 | XMS | Encounter Summary ---
Demographics + + + | Address | [address] | | | [place] [address] | + + + | Home Phone | | + + + | Preferred Language | Unknown | + + + | Marital Status | | + + + | Pentecostalism Affiliation | 1073 | + + + | Race | Unknown | + + + | Ethnic Group | Unknown | + + + Author + + + | Author | [facility] | | | and Shaunana | + + + | Organization | [facility] | | [...] Team Providers + +------+ + | Care Farmworker Fur Name | Role | Phone | + [...] + + | 01/22/ | Telephone | [facility] | Matthew Garnica | No Show | | 2018 | | SURGERY [address] | MD Thomas, FACS [address] | | | | | [address] [place], [place] | [address] [facility] | | | | | [address] | [place] [address] | | | | | [phone] | [phone] | | | | | | | [...] | | | | | | [place] [address] | | | | | | [phone] | | | | | | | [...] | | | | | | [place] [address] | | | | | | [phone] | | | | | | | [...] | | | | | | [place] [address] | | | | | | [phone] | | | | | | | [...] | | | | | | [place] [address] | | | | | | [phone] | | | | | | | [...] | | | | | [place] [address] | | | | | | [phone] | | | | | | | | +--------+---------+ + + + | 02/27/ | Office | Rehabilitation | Manuel Sparks, | | | 2017 | Visit | | DO [address] | | | | | | [address] [place], | | | | | | [place] [address] | | | | | | [phone] | | | | | | | [...] | | | | | | [place] [address] | | | | | | [phone] | | | | | | | [...] | | | | | | [place] [address] | | | | | | [phone] | | | | | | | | +--------+---------+ + + + as of this encounter Visit Diagnoses Not on filein this encounter"
--- OUTSIDE RECORDS SUMMARY | 2018-02-06 23:19 | XMS | Encounter Summary ---
Demographics + + + | Address | [address] | | | [place] [address] | + + + | Home Phone | | + + + | Preferred Language | Unknown | + + + | Marital Status | | + + + | Judaism Affiliation | 1073 | + + + | Race | Unknown | + + + | Ethnic Group | Unknown | + + + Author + + + | Author | [facility] | | | and Shaunana | + + + | Organization | [facility] | | | and [...] Team Providers + +------+ + | Care Oil Well Cable Tool Operator Name | Role | Phone | [...] | [place], | of drugs ([facility]); | | | | [place], [place] | [place] [address] | Arthralgia, | | | | [address] | [phone] | unspecified joint | | | | [phone] | | | +--------+ + + + [...] | Visit | | DO [address] [facility] | | | | | | [address] [place], | | | | | | [place] [address] | | | | | | [phone] | | | | | | | [...] | | | | | | [place] [address] | | | | | | [phone] | | | | | | | [...] | | | | | | [place] [address] | | | | | | [phone] | | | | | | | [...] | | | | | | [place] [address] | | | | | | [phone] | | | | | | | [...] | | | | | [place] [address] | | | | | | [phone] | | | | | | | | +--------+---------+ + + + | 02/27/ | Office | Rehabilitation | Manuel Sparks, | | | 2017 | Visit | | DO [address] | | | | | | [address] [place], | | | | | | [place] [address] | | | | | | [phone] | | | | | | | [...] | | | | | | [place] [address] | | | | | | [phone] | | | | | | | | | | | | Himanshu Champion | | | | | | D, PT | | +--------+---------+ + + + | 03/29/ | Office | Cardiology | Prem Call, | | | 2017 | Visit | | [address] | | | | | | [place], | | | | | | [place] [address] | | | | | | [phone] | | | | | | | [...] Urine | [facility] | | | [place] [address] | + + + Drugs of Abuse, [...] + + + | Urine | [facility] [address] | | | [place] [address] | + + + in this encounter [...]
--- OUTSIDE RECORDS SUMMARY | 2018-02-06 23:19 | XMS | Encounter Summary ---
Demographics + + + | Address | [address] | | | [place] [address] | + + + | Home Phone [...] + + + | Author | [facility] | | | and Shaunana | + + + | Organization | [facility] | | | [...] Team Providers + +------+ + | Care Air Launch Weapons Technician Name | Role | Phone | [...] | | | | [place] | [place] [address] | | | | | [address] | [phone] | | | | | [phone] | | | +--------+ + + + [...] [place], | | | | | | [place] [address] | | | | | | [phone] | | | | | | | [...] | | | | | | [place] [address] | | | | | | [phone] | | | | | | | [...] | | | | | | [place] [address] | | | | | | [phone] | | | | | | | [...] | | | | | | [place] [address] | | | | | | [phone] | | | | | | | [...] | | | | | | [place] [address] | | | | | | [phone] | | | | | | | | +--------+---------+ + + + | 02/27/ | Office | Rehabilitation | Manuel Sparks, | | | 2017 | Visit | | DO [address] | | | | | | [address] [place], | | | | | | [place] [address] | | | | | | [phone] | | | | | | | [...] [place], | | | | | | [place] [address] | | | | | | [phone] | | | | | | | | | | | | Himanshu Champion | | | | | | D, PT | | +--------+---------+ + + + | 03/29/ | Office | Cardiology | Prem Call, | | | 2017 | Visit | | [address] | | | | | | [place], | | | | | | [place] [address] | | | | | | [phone] | | | | | | | | +--------+---------+ + + + as of this encounter Visit Diagnoses Not on filein this encounter"
--- OUTSIDE RECORDS SUMMARY | 2018-02-06 23:19 | XMS | Encounter Summary ---
Demographics + + + | Address | [address] | | | [place] [address] | + + + | Home Phone | | + + + | Preferred Language | Unknown | + + + | Marital Status | | + + + | Latter-Day Affiliation | 1073 | + + + | Race | Unknown | + + + | Ethnic Group | Unknown | + + + Author + + + | Author | [facility] | | | and Shaunana [...] Team Providers + +------+ + | Care Applied Biology Professor Name | Role | Phone | [...] | | | | CENTER [address] | [facility] | | | | | [place] | [place] [address] | | | | | [address] | [phone] | | | | | [phone] | | | +--------+ + + + [...] | | | | | Susie in [facility] | | | | | | | [facility] and must | | | | | [...] | | | | | | [place] [address] | | | | | | [phone] | | | | | | | [...] | | | | | | [place] [address] | | | | | | [phone] | | | | | | | [...] | | | | | | [place] [address] | | | | | | [phone] | | | | | | | [...] | | | | | | [place] [address] | | | | | | [phone] | | | | | | | [...] | | | | | [place] [address] | | | | | | [phone] | | | | | | | | +--------+---------+ + + + | 02/27/ | Office | Rehabilitation | Manuel Sparks, | | | 2017 | Visit | | DO [address] | | | | | | [address] [place], | | | | | | [place] [address] | | | | | | [phone] | | | | | | | | | | | | Himanshu Champion | | | | | | D, PT | | +--------+---------+ + + + | 03/01/ | Office | Rehabilitation | Manuel Sparks, | | | 2017 | Visit | | DO [address] | | | | | | [facility] [address] [place], | | | | | | [place] [address] | | | | | | [phone] | | | | | | | | | | | | Himanshu Champion | | | | | | D, PT | | +--------+---------+ + + + | 03/29/ | Office | Cardiology | Prem Call, | | | 2017 | Visit | | MD [address] | | | | | | [place], | | | | | | [place] [address] | | | | | | [phone] | | | | | | | [...]
--- OUTSIDE RECORDS SUMMARY | 2018-02-06 23:19 | XMS | Encounter Summary ---
Demographics + + + | Address | [address] | | | [place] [address] | + + + | Home Phone | | + + + | Preferred Language | Unknown | + + + | Marital Status | | + + + | Moravian Affiliation | 1073 | + + + | Race | Unknown | + + + | Ethnic Group | Unknown | + + + Author + + + | Author | [facility] | | | and Shaunana | + + + | Organization | [facility] | | [...] Team Providers + +------+ + | Care Embedded Software Architect Name | Role | Phone | + [...] [address] | [address] [place] | | | | | [facility] | [address] [place] | | | | | [place], [place] | [address] | | | | | [address] | | | | | | [phone] | | | +--------+ + + + [...] | | | | | | [place] [address] | | | | | | [phone] | | | | | | | [...] | | | | | | [place] [address] | | | | | | [phone] | | | | | | | [...] | | | | | | [place] [address] | | | | | | [phone] | | | | | | | [...] | | | | | | [place] [address] | | | | | | [phone] | | | | | | | [...] | | | | | | [place] [address] | | | | | | [phone] | | | | | | | | +--------+---------+ + + + | 02/27/ | Office | Rehabilitation | Manuel Sparks, | | | 2017 | Visit | | DO [address] | | | | | | [address] [place], | | | | | | [place] [address] | | | | | | [phone] | | | | | | | [...] [place], | | | | | | [place] [address] | | | | | | [phone] | | | | | | | [...] | | | | | | [place] [address] | | | | | | [phone] | | | | | | | | +--------+---------+ + + + as of this encounter Visit Diagnoses Not on filein this encounter"
--- OUTSIDE RECORDS SUMMARY | 2018-02-06 23:19 | XMS | Encounter Summary ---
Demographics + + + | Address | [address] | | | [place] [address] | + + + | Home Phone | | + + + | Preferred Language | Unknown | + + + | Marital Status | | + + + | Restoration Affiliation | 1073 | + + + | Race | Unknown | + + + | Ethnic Group | Unknown | + + + Author + + + | Author | [facility] [...] Team Providers + +------+ + | Care Vest Maker Name | Role | Phone | + [...] | | | | | [place] [address] | | | | | | [phone] | | | +--------+ + + + [...] [place] Marquez, PT - 01/22/2018 [facility] [address] [place] [address] Cancellation/No Show Date: 01/22/2018 Patient Information Patient Name: Clare Courtney Date [...] | | | | | | [place] [address] | | | | | | [phone] | | | | | | | [...] | | | | | | [place] [address] | | | | | | [phone] | | | | | | | [...] | | | | | | [place] [address] | | | | | | [phone] | | | | | | | [...] | | | | | | [place] [address] | | | | | | [phone] | | | | | | | [...] | | | | | [place] [address] | | | | | | [phone] | | | | | | | | +--------+---------+ + + + | 02/27/ | Office | Rehabilitation | Manuel Sparks, | | | 2017 | Visit | | DO [address] | | | | | | [address] [place], | | | | | | [place] [address] | | | | | | [phone] | | | | | | | [...] | | | | | | [place] [address] | | | | | | [phone] | | | | | | | [...] | | | | | | [place] [address] | | | | | | [phone] | | | | | | | | +--------+---------+ + + + as of this encounter Visit Diagnoses Not on filein this encounter"
--- OUTSIDE RECORDS SUMMARY | 2018-02-06 23:19 | XMS | Encounter Summary ---
Demographics + + + | Address | [address] | | | [place] [address] | + + + | Home Phone [...] + | Author | [facility] | | | and Shaunana | [...] Team Providers + +------+ + | Care Ground Equipment Mechanic Name | Role | Phone | [...] [place], | | | | | [place], [place] | [place] [address] | | | | | [address] | [phone] | | | | | [phone] | | | +--------+ + + + [...] | | | | | | [place] [address] | | | | | | [phone] | | | | | | | [...] | | | | | | [place] [address] | | | | | | [phone] | | | | | | | [...] | | | | | | [place] [address] | | | | | | [phone] | | | | | | | [...] | | | | | | [place] [address] | | | | | | [phone] | | | | | | | [...] | | | | | [place] [address] | | | | | | [phone] | | | | | | | | +--------+---------+ + + + | 02/27/ | Office | Rehabilitation | Manuel Sparks, | | | 2017 | Visit | | DO [address] | | | | | | [address] [place], | | | | | | [place] [address] | | | | | | [phone] | | | | | | | [...] | | | | | | [place] [address] | | | | | | [phone] | | | | | | | | | | | | Himanshu Champion | | | | | | D, PT | | +--------+---------+ + + + | 03/29/ | Office | Cardiology | Prem Call, | | | 2017 | Visit | | [address] | | | | | | [place], | | | | | | [place] [address] | | | | | | [phone] | | | | | | | | +--------+---------+ + + + as of this encounter Visit Diagnoses Not on filein this encounter"
--- OUTSIDE RECORDS SUMMARY | 2018-02-06 23:19 | XMS | Encounter Summary ---
Demographics + + + | Address | [address] | | | [place] [address] | + + + | Home Phone | | + + + | Preferred Language | Unknown | + + + | Marital Status | | + + + | Yazidi Affiliation | 1073 | + + + | Race | Unknown | + + + | Ethnic Group | Unknown | + + + Author + + + | Author | [facility] | | | and Shaunana | + + + | Organization | [facility] | | [...] Team Providers + +------+ + | Care Culture Room Worker Name | Role | Phone | [...] | | | | [place] | [place] [address] | | | | | [address] | [phone] | | | | | [phone] | | | +--------+ + + + [...] | | | | | | [place] [address] | | | | | | [phone] | | | | | | | [...] | | | | | | [place] [address] | | | | | | [phone] | | | | | | | [...] | | | | | | [place] [address] | | | | | | [phone] | | | | | | | | | | | | Himanshu Champion | | | | | | D, PT | | +--------+---------+ + + + | 02/22/ | Office | Rehabilitation | Mnauel Sparks, | | | 2017 | Visit | | DO [address] | | | | | | [address] [place], | | | | | | [place] [address] | | | | | | [phone] | | | | | | | [...] | | | | | | [place] [address] | | | | | | [phone] | | | | | | | | +--------+---------+ + + + | 02/27/ | Office | Rehabilitation | Manuel Sparks, | | | 2017 | Visit | | DO [address] | | | | | | [address] [place], | | | | | | [place] [address] | | | | | | [phone] | | | | | | | [...] | | | | | | [place] [address] | | | | | | [phone] | | | | | | | [...] | | | | | | [place] [address] | | | | | | [phone] | | | | | | | | +--------+---------+ + + + as of this encounter Visit Diagnoses + + | Diagnosis | + + | Medication management - Primary | + + | Encounter for other specified aftercare | + +"
--- OUTSIDE RECORDS SUMMARY | 2018-02-06 23:19 | XMS | Encounter Summary ---
Demographics + + + | Address | [address] | | | [place] [address] | + + + | Home Phone [...] | [facility] | | | and Shaunana [...] Team Providers + +------+ + | Care Radio Engineering Teacher Name | Role | Phone | + [...] | | | | CENTER [address] | [place] | unspecified | | | | [place], [place] | [phone] | laterality (Primary | | | | [address] | | Dx) | | | | [phone] | | | +--------+ + + + [...] | | | | | | [facility] in [facility] | | | | | | | [facility] Wi and must | | | | | [...] | | | | | | [place] [address] | | | | | | [phone] | | | | | | | [...] | | | | | | [place] [address] | | | | | | [phone] | | | | | | | [...] | | | | | | [place] [address] | | | | | | [phone] | | | | | | | [...] | | | | | | [place] [address] | | | | | | [phone] | | | | | | | [...] | | | | | [place], [place] [address] | | | | | | [phone] | | | | | | | | +--------+---------+ + + + | 02/27/ | Office | Rehabilitation | Manuel Sparks, | | | 2017 | Visit | | DO [address] | | | | | | [address] [place], | | | | | | [place] [address] | | | | | | [phone] | | | | | | | [...] | | | | | | [place] [address] | | | | | | [phone] | | | | | | | | | | | | Himanshu Champion | | | | | | D, PT | | +--------+---------+ + + + | 03/29/ | Office | Cardiology | Prem Call, | | | 2017 | Visit | | [address] | | | | | | [place], | | | | | | [place] [address] | | | | | | [phone] | | | | | | | [...] HOUR PRN, | | | Pain, Starting [facility] 01/25/18 at | | | 1153 | | + +---+ | | | + +---+ in this encounter"
--- OUTSIDE RECORDS SUMMARY | 2018-02-06 23:19 | XMS | Encounter Summary ---
Demographics + + + | Address | [address] | | | [place] [address] | + + + | Home Phone | | + + + | Preferred Language | Unknown | + + + | Marital Status | | + + + | Samaritan Affiliation | 1073 | + + + | Race | Unknown | + + + | Ethnic Group | Unknown | + + + Author + + + | Author | [facility] | | | and Shaunana | + + + | Organization | [facility] | | [...] Providers + +------+ + | Care Wire Drawing Setter Name | Role | Phone | + [...] + + | 01/15/ | Emergency | [facility] | Zane Jones, | Fall from bed, | | 2017 | | MED CTR EMERGENCY | MD [address] | initial encounter | | | | CENTER [address] | [place] | (Primary Dx); Acute | | | | [place] | [address] | pain of left | | | | [address] | | shoulder; Acute | | | | [phone] | | post-operative pain | +--------+ + [...] cannot be sent through Care Everywhere.Fall Prevention (Kazakh)i n this encounter Medications at Time of [...] | | | | | | [place] [address] | | | | | | [phone] | | | | | | | [...] | | | | | | [place] [address] | | | | | | [phone] | | | | | | | [...] | | | | | | [place] [address] | | | | | | [phone] | | | | | | | [...] [place], | | | | | | [place] [address] | | | | | | [phone] | | | | | | | [...] | | | | | | [place] [address] | | | | | | [phone] | | | | | | | | +--------+---------+ + + + | 02/27/ | Office | Rehabilitation | Manuel Sparks, | | | 2017 | Visit | | DO [address] | | | | | | [address] [place], | | | | | | [place] [address] | | | | | | [phone] | | | | | | | [...] | | | | | | [place] [address] | | | | | | [phone] | | | | | | | | | | | | Himanshu Champion | | | | | | D, PT | | +--------+---------+ + + + | 03/29/ | Office | Cardiology | Prem Call, | | | 2017 | Visit | | [address] | | | | | | [place], | | | | | | [place] [address] | | | | | | [phone] | | | | | | | [...]
--- OUTSIDE RECORDS SUMMARY | 2018-02-06 23:19 | XMS | Encounter Summary ---
Demographics + + + | Address | [address] | | | [place] [address] | + + + | Home Phone | | + + + | Preferred Language | Unknown | + + + | Marital Status | | + + + | Nondenominational Affiliation | 1073 | + + + | Race | Unknown | + + + | Ethnic Group | Unknown | + + + Author + + + | Author | [facility] | | | and Shaunana | + + + | Organization | [facility] | | | [...] Team Providers + +------+ + | Care Routeman Name | Role | Phone | + [...] | | | | | | | [place] [address] | | | | | | | Phone: | | | | | | | [phone] | | | | | | | Fax: | | | | | | | [phone] | | + + + + + + + Encounter Details +--------+---------+ + + + | Date | Type | Department | Care Team | Description | +--------+---------+ + + + | 01/26/ | Office | [facility] | Manuel Sparks, | Chronic midline low | | 2018 | Visit | [facility] | DO [address] | back pain with | | | | [address] [place] | [address] [place], | bilateral sciatica | | | | [place] [address] | [place] [address] | (Primary Dx); Lumbar | | | | [phone] | [phone] | spondylosis; S/P | | | | [...] note may be different from the original. [facility] [address] [place] [address] Physical Therapy Initial Assessment Date: 01/26/2018 Patient [...] History Narrative Lives: in [place] Grew up: [place], [place] Has previously lived in: [facility] and [place], [place] Exposure to toxic chemicals: no Exposure to asbestos: no Exposure to tuberculosis: no Has had a PPD or Quantiferon before: no Has pets at home: dog, denies being allergic to these Has ever owned birds: yes, in [facility] Other animal exposures: no Hobbies: gambling Encounter [...] Asthma, moderate persistent, uncomplicated 04/21/2015 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 Back pain with radiation Benign essential hypertension 10/1999 Bipolar 1 disorder (HCC) Bipolar disorder (HCC) has been admitted for overdose as well Bronchitis, acute Calf pain, left Candidiasis of vulva and vagina Cervical radiculitis Chest pain CHF (congestive heart failure) ([facility]) Constipation Contusion, lower leg COPD (chronic obstructive pulmonary disease) ([facility]) Cubital tunnel syndrome DDD (degenerative disc disease), lumbar Depression 10/1993 Disorder of liver DM type 2 (diabetes mellitus, type 2) ([facility]) diet controlled Drug abuse Dysuria Emphysema of lung ([facility]) Encounter for blood transfusion Eustachian tube dysfunction Exposure to STD Fall Flaccid hemiplegia and hemiparesis Affecting right wrist Folate deficiency anemia Full dentures Full dentures uppper & lower Gangrene ([facility]) Complication of abdominal surgery Headache Heart murmur [...] airway disease Rotator cuff sprain Scabies Seizures ([facility]) 05/02/2010 diagnosed at [facility] Shortness of breath Sinusitis, acute Stroke ([facility]) TMJ syndrome Tobacco use Traumatic bursitis Vitamin B deficiency 12/10/2009 Past Surgical History: Procedure Laterality Date ABDOMINAL HERNIA REPAIR 2-3 ABDOMINOPLASTY 1998 CARPAL TUNNEL RELEASE 2009 CERVICAL SPINE SURGERY Anterior 05/06/2016 Procedure: C4-5 and C5-6 Anterior Cervical Discectomy with Fusion and Plating ; Surgeon: Manuel Sparks DO; Location: [facility] MAIN OR SECTION 1998, 1997 CHOLECYSTECTOMY ENDOSCOPY 12/2014 Dr. Marin GASTRIC BYPASS SURGERY 1996 HYSTERECTOMY LAMINECTOMY N/A 11/23/2017 Procedure: L4-5, L5-S1 Anterior Lumbar Interbody Fusion w/ Posterolateral Fusion; Surgeon : Manuel Sparks DO; Location: [facility] MAIN OR TONSILLECTOMY AND ADENOIDECTOMY 1990 TUBAL [...] Rehab Precautions Office Visit from 01/26/2018 in [facility] Rehab Precautions Precautions [...] 01/26/2018 Certification To: 03/23/2018 Treatment Plan/Interventions PT [id number] - Therapeutic [id number] - Neuromuscular [id number] - Gait Macario [id number] - Therapeutic Ylyurbrbti25500 - Manual [id number] - Self Care/Home [id number] 13 - Aquatic Therapy/Exercises Patient and/or family [...] | | | | | | [place] [address] | | | | | | [phone] | | | | | | | | | | | | Himanshu Champion | | | | | | D, PT | | +--------+---------+ + + + | 02/15/ | Office | Rehabilitation | Manuel pSarks, | | | 2017 | Visit | | DO [address] | | | | | | [address] [place], | | | | | | [place] [address] | | | | | | [phone] | | | | | | | [...] | | | | | | [place] [address] | | | | | | [phone] | | | | | | | [...] | | | | | | [place] [address] | | | | | | [phone] | | | | | | | [...] | | | | | [place] [address] | | | | | | [phone] | | | | | | | | +--------+---------+ + + + | 02/27/ | Office | Rehabilitation | Manuel Sparks, | | | 2017 | Visit | | DO [address] | | | | | | [address] [place], | | | | | | [place] [address] | | | | | | [phone] | | | | | | | [...] | | | | | | [place] [address] | | | | | | [phone] | | | | | | | | | | | | Himanshu Champion | | | | | | Luzma, PT | | +--------+---------+ + + + | 03/29/ | Office | Cardiology | Prem Call, | | | 2017 | Visit | | MD [address] | | | | | | [place], | | | | | | [place] [address] | | | | | | [phone] | | | | | | | [...]
--- OUTSIDE RECORDS SUMMARY | 2018-02-06 23:19 | XMS | Encounter Summary ---
Demographics + + + | Address | [address] | | | [place] [address] | + + + | Home Phone [...] | [facility] | | | and Shaunana [...] Team Providers + +------+ + | Care Rail Car Maintenance Mechanic Name | Role | Phone | [...] + + | 01/27/ | Emergency | [facility] | Levon Lott, | Laceration of | | 2018 - | | MED CTR EMERGENCY | [address] | multiple sites of | | | | CENTER [address] | [place] | left upper | | 01/28/ | | [place] | [address] [address] [place] | extremity, initial | | 2018 | | [address] | MD Jamie [address] | encounter (Primary | | | | [phone] | ST [place] | Dx); Bipolar | | | | | [address] | affective disorder, | | | | [...] | | | | | | | [facility] | | | | | | [...] | | | | | | [place] [address] | | | | | | [phone] | | | | | | | [...] | | | | | | [place] [address] | | | | | | [phone] | | | | | | | [...] | | | | | | [place] [address] | | | | | | [phone] | | | | | | | [...] | | | | | | [place] [address] | | | | | | [phone] | | | | | | | [...] | | | | | [place] [address] | | | | | | [phone] | | | | | | | | +--------+---------+ + + + | 02/27/ | Office | Rehabilitation | Manuel Sparks, | | | 2017 | Visit | | DO [address] | | | | | | [address] [place], | | | | | | [place] [address] | | | | | | [phone] | | | | | | | [...] | | | | | | [place] [address] | | | | | | [phone] | | | | | | | | | | | | Himanshu Champion | | | | | | D, PT | | +--------+---------+ + + + | 03/29/ | Office | Cardiology | Prem Call, | | | 2017 | Visit | | [address] | | | | | | [place], | | | | | | [place] [address] | | | | | | [phone] | | | | | | | [...] + + + | Blood | [facility] [address] | | | [place] [address] | + + + Ethanol (01/27/2018 1914) + +-------+ + | Component | Value | Ref Range | + +-------+ + | ALCOHOL, | <5 | <400 mg/dL | | SERUM/PLASMA | | | + +-------+ + + + + | Specimen | Performing Laboratory | + + + | Blood | [facility] [address] | | | [place] [address] | + + + Acetaminophen Level (01/27/20181913) + +-------+ + | Component | Value | Ref Range | + +-------+ + | Acetaminophen Level | <10 | <10 ug/mL | + +-------+ + + + + | Specimen | Performing Laboratory | + + + | Blood | [facility] [address] | | | [place] [address] | + + + Salicylate Level (01/27/20181913) + +-------+ + | Component | Value | Ref Range | + +-------+ + | Salicylate | <4.0 | <30.0 mg/dL | + +-------+ + + + + | Specimen | Performing Laboratory | + + + | Blood | [facility] [address] | | | [place] [address] | + + + Lipase (01/27/20181913) + +-------+ + | Component | Value | Ref Range | + +-------+ + | LIPASE | 34 | 0 - 60 U/L | + +-------+ + + + + | Specimen | Performing Laboratory | + + + | Blood | [facility] [address] | | | [place] [address] | + + + Comprehensive Metabolic Panel [...] GLOMERULAR FILTRATION | >=60 mL/min/1.73m2 | | MAURITANIAN | RATE,ESTIMATED mL/min/1.11n4Xtcu than | | | | 60 Chronic [...] | + + + | Blood | [facility] [address] | | | [place] [address] | + + + CBC w/ Auto [...] | + + + | Blood | [facility] [address] | | | [place] [address] | + + + Drugs of Abuse, [...] | Urine - Urine, clean | [facility] [address] | | catch | [place] [address] | + + + ECG 12 lead [...] | | | | KAILEE DENG MD ([id number]) on 01/29/2018 | | | | 6:07:15 [...] | | + +--------+ +---------+------+ + | idysyuh-pmktmhunqi-bflvpkjon | Given | | 0.5 mLs | [...]
--- OUTSIDE RECORDS SUMMARY | 2018-02-06 23:20 | XMS | Encounter Summary ---
Demographics + + + | Address | [address] | | | [place] [address] | + + + | Home Phone | | + + + | Preferred Language | Unknown | + + + | Marital Status | | + + + | Oriental Orthodox Affiliation | 1073 | + + + | Race | Unknown | + + + | Ethnic Group | Unknown | + + + Author + + + | Author | [facility] | | | and Shaunana | + + + | Organization | [facility] | | | [...] Team Providers + +------+ + | Care Circulation Crew Leader Name | Role | Phone | + [...] + + | 01/05/ | Telephone | [facility] | Manuel Sparks, | ED Follow-up; Case | | 2018 | | NEUROSURGERY [address] | DO [address] | Management (possible | | | | [address] | [address] [place], | SNF placement) | | | | [place], [place] | [place] [address] | | | | | [address] | [phone] | | | | | [phone] | | | +--------+ + + + [...] | | | | | | [place] [address] | | | | | | [phone] | | | | | | | [...] | | | | | | [place] [address] | | | | | | [phone] | | | | | | | [...] | | | | | | [place] [address] | | | | | | [phone] | | | | | | | [...] | | | | | | [place] [address] | | | | | | [phone] | | | | | | | [...] | | | | | [place] [address] | | | | | | [phone] | | | | | | | | +--------+---------+ + + + | 02/27/ | Office | Rehabilitation | Manuel Sparks, | | | 2017 | Visit | | DO [address] | | | | | | [address] [place], | | | | | | [place] [address] | | | | | | [phone] | | | | | | | [...] | | | | | | [place] [address] | | | | | | [phone] | | | | | | | | | | | | Himanshu Champion | | | | | | Luzma PT | | +--------+---------+ + + + | 03/29/ | Office | Cardiology | Prem Call, | | | 2017 | Visit | | [address] | | | | | | [place], | | | | | | [place] [address] | | | | | | [phone] | | | | | | | | +--------+---------+ + + + as of this encounter Visit Diagnoses Not on filein this encounter"
--- OUTSIDE RECORDS SUMMARY | 2018-02-06 23:20 | XMS | Encounter Summary ---
Demographics + + + | Address | [address] | | | [place] [address] | + + + | Home Phone | | + + + | Preferred Language | Unknown | + + + | Marital Status | | + + + | Lutheran Affiliation | 1073 | + + + | Race | Unknown | + + + | Ethnic Group | Unknown | + + + Author + + + | Author | [facility] | | | and [...] Team Providers + +------+ + | Care Electrical Contacts Adjuster Name | Role | Phone | + [...] + + | 01/04/ | Emergency | [facility] | Jaguar [place], | Left-sided low back | | 2018 | | MED CTR EMERGENCY | MD [address] | pain with left-sided | | | | CENTER [address] | [place], [place] | sciatica, | | | | [place], [place] | [address] | unspecified | | | | [address] | | chronicity (Primary | | | | [phone] | | Dx) | +--------+ + + [...] | | | | | | [place] [address] | | | | | | [phone] | | | | | | | [...] | | | | | | [place] [address] | | | | | | [phone] | | | | | | | [...] | | | | | | [place] [address] | | | | | | [phone] | | | | | | | [...] [place], | | | | | | [place] [address] | | | | | | [phone] | | | | | | | [...] | | | | | | [place] [address] | | | | | | [phone] | | | | | | | | +--------+---------+ + + + | 02/27/ | Office | Rehabilitation | Manuel Sparks, | | | 2017 | Visit | | DO [address] | | | | | | [address] [place], | | | | | | [place] [address] | | | | | | [phone] | | | | | | | [...] | | | | | | [place] [address] | | | | | | [phone] | | | | | | | | | | | | Himanshu Champion | | | | | | D, PT | | +--------+---------+ + + + | 03/29/ | Office | Cardiology | Perm Call, | | | 2017 | Visit | | [place] [address] | | | | | | [place], | | | | | | [place] [address] | | | | | | [phone] | | | | | | | [...]
--- OUTSIDE RECORDS SUMMARY | 2018-02-06 23:20 | XMS | Encounter Summary ---
Demographics + + + | Address | [address] | | | [place] [address] | + + + | Home Phone | | + + + | Preferred Language | Unknown | + + + | Marital Status | | + + + | Confucianist Affiliation | 1073 | + + + | Race | Unknown | + + + | Ethnic Group | Unknown | + + + Author + + + | Author | [facility] | | | and Shaunana | + + + | Organization | [facility] | | | and [...] Team Providers + +------+ + | Care Community Support Specialist Name | Role | Phone | [...] [place], | | | | | [place], [place] | [place] [address] | | | | | [address] | [phone] | | | | | [phone] | | | +--------+--------+ + + + [...] | | | | | | [place] [address] | | | | | | [phone] | | | | | | | [...] | | | | | | [place] [address] | | | | | | [phone] | | | | | | | [...] | | | | | | [place] [address] | | | | | | [phone] | | | | | | | [...] | | | | | | [place] [address] | | | | | | [phone] | | | | | | | [...] | | | | | | [place] [address] | | | | | | [phone] | | | | | | | | +--------+---------+ + + + | 02/27/ | Office | Rehabilitation | Manuel Sparks, | | | 2017 | Visit | | DO [address] | | | | | | [address] [place], | | | | | | [place] [address] | | | | | | [phone] | | | | | | | [...] [place], | | | | | | [place] [address] | | | | | | [phone] | | | | | | | [...] | | | | | | [place] [address] | | | | | | [phone] | | | | | | | | +--------+---------+ + + + as of this encounter Visit Diagnoses Not on filein this encounter"
--- OUTSIDE RECORDS SUMMARY | 2018-02-06 23:20 | XMS | Encounter Summary ---
Demographics + + + | Address | [address] | | | [place] [address] | + + + | Home Phone [...] | Author | [facility] | | | and Shaunana [...] Team Providers + +------+ + | Care Career Agent Name | Role | Phone | + [...] [place], | | | | | [place], [place] | [place] [address] | | | | | [address] | [phone] | | | | | [phone] | | | +--------+ + + + [...] | | | | | | [place] [address] | | | | | | [phone] | | | | | | | [...] | | | | | | [place] [address] | | | | | | [phone] | | | | | | | [...] | | | | | | [place] [address] | | | | | | [phone] | | | | | | | [...] | | | | | | [place] [address] | | | | | | [phone] | | | | | | | [...] | | | | | [place] [address] | | | | | | [phone] | | | | | | | | +--------+---------+ + + + | 02/27/ | Office | Rehabilitation | Manuel Sparks, | | | 2017 | Visit | | DO [address] | | | | | | [address] [place], | | | | | | [place] [address] | | | | | | [phone] | | | | | | | [...] | | | | | | [place] [address] | | | | | | [phone] | | | | | | | [...] | | | | | | [place] [address] | | | | | | [phone] | | | | | | | | +--------+---------+ + + + as of this encounter Visit Diagnoses Not on filein this encounter"
--- OUTSIDE RECORDS SUMMARY | 2018-02-06 23:20 | XMS | Encounter Summary ---
Demographics + + + | Address | [address] | | | [place] [address] | + + + | Home Phone | | + + + | Preferred Language | Unknown | + + + | Marital Status | | + + + | Yazidi Affiliation | 1073 | + + + | Race | Unknown | + + + | Ethnic Group | Unknown | + + + Author + + + | Author | [facility] | | | and Shaunana | + + + | Organization | [facility] | | [...] Team Providers + +------+ + | Care Commercial Agent Name | Role | Phone | [...] Status post | Patience | [address] | | | | | lumbar | [facility] | [place], | | | | | spinal | [address] | [place] | | | | | fusion | [address] | [address] | | | | | Radiculopath | [place], | Phone: | | | | | y, lumbar | [place] [address] | [phone] | | | | | region | Phone: | Fax: | | | | | Spinal | [phone] | [phone] | | | | | stenosis, | Fax: | | | | | | lumbar | [phone] | | | | | | region [...] + + | 12/29/ | Office | [facility] | Patience Ordaz | Status post lumbar | | 2017 | Visit | NEUROSURGERY [address] | [address] | spinal fusion | | | | [address] | [address] [place], | (Primary Dx); Lumbar | | | | [place], [place] | [place] [address] | radiculopathy | | | | [address] | [phone] | | | | | [phone] | | | +--------+---------+ + + + [...] Instructions Patient Instructions - German Mony Rocky, Nuclear Plant Instrument Technician - 12/29/2017 0830 PSTYou may now slowly [...] like sleeping, showering, do not use the [employer] race for these activities any longer but [...] your back and use good technique when poultry picking machine tender things and bending. in this encounter Progress Notes Patience Ordaz PA-C - 12/29/2017 0830 PSTFormatting of this note may be different f rom the original. 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 Back pain with radiation Benign essential hypertension 10/1999 Bipolar 1 disorder ([facility]) Bipolar disorder ([facility]) has been admitted for overdose as well Bronchitis, acute Calf pain, left Candidiasis of vulva and vagina Cervical radiculitis Chest pain CHF (congestive heart failure) ([facility]) Constipation Contusion, lower leg COPD (chronic obstructive pulmonary disease) ([facility]) Cubital tunnel syndrome DDD (degenerative disc disease), lumbar Depression 10/1993 Disorder of liver DM type 2 (diabetes mellitus, type 2) ([facility]) diet controlled Drug abuse Dysuria Emphysema of lung ([facility]) Encounter for blood transfusion Eustachian tube dysfunction Exposure to STD Fall Flaccid hemiplegia and hemiparesis Affecting right wrist Folate deficiency anemia Full dentures Full dentures uppper & lower Gangrene ([facility]) Complication of abdominal surgery Headache Heart murmur [...] airway disease Rotator cuff sprain Scabies Seizures ([facility]) 05/02/2010 diagnosed at [facility] Shortness of breath Sinusitis, acute Stroke ([facility]) TMJ syndrome Tobacco use Traumatic bursitis Vitamin [...] | | | | | | [place] [address] | | | | | | [phone] | | | | | | | [...] | | | | | | [place] [address] | | | | | | [phone] | | | | | | | [...] | | | | | | [place] [address] | | | | | | [phone] | | | | | | | [...] | | | | | | [place] [address] | | | | | | [phone] | | | | | | | [...] [place] | | | | | | [place] [address] | | | | | | [phone] | | | | | | | | +--------+---------+ + + + | 02/27/ | Office | Rehabilitation | Manuel Sparks, | | | 2017 | Visit | | DO [address] | | | | | | [address] [place], | | | | | | [place] [address] | | | | | | [phone] | | | | | | | [...] | | | | | | [place] [address] | | | | | | [phone] | | | | | | | | | | | | Himanshu Champion | | | | | | D, PT | | +--------+---------+ + + + | 03/29/ | Office | Cardiology | Prem Call, | | | 2017 | Visit | | MD [address] [place] | | | | | | [place], | | | | | | [place] [address] | | | | | | [phone] | | | | | | | [...]
--- OUTSIDE RECORDS SUMMARY | 2018-02-06 23:20 | XMS | Encounter Summary ---
Demographics + + + | Address | [address] | | | [place] [address] | + + + | Home Phone [...] | Author | [facility] | | [...] Team Providers + +------+ + | Care Engraving Press Operator Name | Role | Phone | [...] [place], | | | | | [place], [place] | [place] [address] | | | | | [address] | [phone] | | | | | [phone] | | | +--------+ + + + [...] | | | | | | [place] [address] | | | | | | [phone] | | | | | | | [...] | | | | | | [place] [address] | | | | | | [phone] | | | | | | | [...] | | | | | | [place] [address] | | | | | | [phone] | | | | | | | [...] | | | | | | [place] [address] | | | | | | [phone] | | | | | | | [...] | | | | | [place] [address] | | | | | | [phone] | | | | | | | | +--------+---------+ + + + | 02/27/ | Office | Rehabilitation | Manuel Sparks, | | | 2017 | Visit | | DO [address] | | | | | | [address] [place], | | | | | | [place] [address] | | | | | | [phone] | | | | | | | [...] | | | | | | [place] [address] | | | | | | [phone] | | | | | | | | | | | | Himanshu Champion | | | | | | D, PT | | +--------+---------+ + + + | 03/29/ | Office | Cardiology | Prem Call, | | | 2017 | Visit | | MD Janette Hale | | | | | | [place], | | | | | | [place] [address] | | | | | | [phone] | | | | | | | | +--------+---------+ + + + as of this encounter Visit Diagnoses Not on filein this encounter"
--- OUTSIDE RECORDS SUMMARY | 2018-02-06 23:20 | XMS | Encounter Summary ---
Demographics + + + | Address | [address] | | | [place] [address] | + + + | Home Phone | | + + + | Preferred Language | Unknown | + + + | Marital Status | | + + + | Shinto Affiliation | 1073 | + + + | Race | Unknown | + + + | Ethnic Group | Unknown | + + + Author + + + | Author | [facility] | [...] Team Providers + +------+ + | Care Jewelry Repairer Name | Role | Phone | + +------+ + | Alberto Christine | PCP | | + +------+ + Encounter Details +--------+ + + + + | Date | Type | Department | Care Team | Description | +--------+ + + + + | 12/28/ | Hospital | [facility] | Manuel Sparks, | Other spondylosis | | 2018 | Encounter | MED CTR XRAY [address] | DO [address] | with radiculopathy, | | | | [place] | [address] [place], | lumbar region; S/P | | | | [place] [address] | [place] [address] | lumbar fusion | | | | [phone] | [phone] | | | | | | | [...] | | | | | | [place] [address] | | | | | | [phone] | | | | | | | [...] | | | | | | [place] [address] | | | | | | [phone] | | | | | | | [...] [address] | | | | | | [phone] | | | | | | | [...] | | | | | | [place] [address] | | | | | | [phone] | | | | | | | [...] | | | | | | [place] [address] | | | | | | [phone] | | | | | | | | +--------+---------+ + + + | 02/27/ | Office | Rehabilitation | Manuel Sparks, | | | 2017 | Visit | | DO [address] | | | | | | [address] [place], | | | | | | [place] [address] | | | | | | [phone] | | | | | | | [...] [place], | | | | | | [place] [address] | | | | | | [phone] | | | | | | | | | | | | Himanshu Champion | | | | | | D, PT | | +--------+---------+ + + + | 03/29/ | Office | Cardiology | Prem Call, | | | 2017 | Visit | | [address] | | | | | | [place], | | | | | | [place] [address] | | | | | | [phone] | | | | | | | [...]
--- OUTSIDE RECORDS SUMMARY | 2018-02-06 23:20 | XMS | Encounter Summary ---
Demographics + + + | Address | [address] | | | [place] [address] | + + + | Home Phone | | + + + | Preferred Language | Unknown | + + + | Marital Status | | + + + | Caodaism Affiliation | 1073 | + + + | Race | Unknown | + + + | Ethnic Group | Unknown | + + + Author + + + | Author | [facility] | | | and Shaunana | + + + | Organization | [facility] | | [...] Team Providers + +------+ + | Care Bin Packer Name | Role | Phone | + [...] | Manuel Macdonald DO | [address] | | | | | radiculopath | [address] | [place], | | | | | y S/P | [address] | [place] | | | | | lumbar | [address] | [address] | | | | | fusion | [place], | Phone: | | | | | Procedures | [place] [address] | [phone] | | | | | MRI Lumbar | Phone: | Fax: | | | | | Spine wo | [phone] | [phone] | | | | | Contrast | Fax: | | | | | | | [phone] | | +--------+--------+ + + + + [...] | Manuel Macdonald DO | [address] | | | | | radiculopath | [address] | [place], | | | | | y S/P | [address] | [place] | | | | | lumbar | [address] | [address] | | | | | fusion | [place], | Phone: | | | | | Procedures | [place] [address] | [phone] | | | | | MRI Lumbar | Phone: | Fax: | | | | | Spine wo | [phone] | [phone] | | | | | Contrast | Fax: | | | | | | | [phone] | | +--------+--------+ + + + + [...] | Manuel Macdonald DO | [address] | | | | | radiculopath | [address] | [place], | | | | | y S/P | [address] | [place] | | | | | lumbar | [address] | [address] | | | | | fusion | [place], | Phone: | | | | | Procedures | [place] [address] | [phone] | | | | | MRI Lumbar | Phone: | Fax: | | | | | Spine wo | [phone] | [phone] | | | | | Contrast | Fax: | | | | | | | [phone] | | +--------+--------+ + + + + Encounter Details +--------+ + + + + | Date | Type | Department | Care Team | Description | +--------+ + + + + | /06/ | Hospital | [facility] | Manuel Sparks, | Lumbar | | 2018 | Encounter | MED CTR MRI [address] | DO [address] | radiculopathy; S/P | | | | [address] [place], | [address] [place], | lumbar fusion | | | | [place] [address] | [place] [address] | | | | | [phone] | [phone] | | | | | | | [...] | | | | | | [place] [address] | | | | | | [phone] | | | | | | | [...] | | | | | | [place] [address] | | | | | | [phone] | | | | | | | [...] | | | | | | [place] [address] | | | | | | [phone] | | | | | | | [...] | | | | | | [place] [address] | | | | | | [phone] | | | | | | | [...] | | | | | [place] [address] | | | | | | [phone] | | | | | | | | +--------+---------+ + + + | 02/27/ | Office | Rehabilitation | Manuel Sparks, | | | 2017 | Visit | | DO [address] | | | | | | [address] [place], | | | | | | [place] [address] | | | | | | [phone] | | | | | | | [...] | | | | | | [place] [address] | | | | | | [phone] | | | | | | | | | | | | Himanshu Champion | | | | | | Luzma PT | | +--------+---------+ + + + | 03/29/ | Office | Cardiology | Prem Call, | | | 2017 | Visit | | [address] | | | | | | [place], | | | | | | [place] [address] | | | | | | [phone] | | | | | | | [...]
--- OUTSIDE RECORDS SUMMARY | 2018-02-06 23:20 | XMS | Encounter Summary ---
Demographics + + + | Address | [address] | | | [place] [address] | + + + | Home Phone | | + + + | Preferred Language | Unknown | + + + | Marital Status | | + + + | Holiness Affiliation | 1073 | + + + | Race | Unknown | + + + | Ethnic Group | Unknown | + + + Author + + + | Author | [facility] | | | and Shaunana | + + + | Organization | [facility] | | [...] Team Providers + +------+ + | Care Registered Nurse Hh Case Manager Name | Role | Phone | [...] [place], | | | | | [place], [place] | [place] [address] | | | | | [address] | [phone] | | | | | [phone] | | | +--------+ + + + [...] | | | | | | [place] [address] | | | | | | [phone] | | | | | | | [...] | | | | | | [place] [address] | | | | | | [phone] | | | | | | | [...] | | | | | | [place] [address] | | | | | | [phone] | | | | | | | [...] | | | | | | [place] [address] | | | | | | [phone] | | | | | | | [...] | | | | | [place] [address] | | | | | | [phone] | | | | | | | | +--------+---------+ + + + | 02/27/ | Office | Rehabilitation | Manuel Sparks, | | | 2017 | Visit | | DO [address] | | | | | | [address] [place], | | | | | | [place] [address] | | | | | | [phone] | | | | | | | [...] | | | | | | [place] [address] | | | | | | [phone] | | | | | | | [...] | | | | | | [place] [address] | | | | | | [phone] | | | | | | | | +--------+---------+ + + + as of this encounter Visit Diagnoses Not on filein this encounter"
--- OUTSIDE RECORDS SUMMARY | 2018-02-06 23:20 | XMS | Encounter Summary ---
Demographics + + + | Address | [address] | | | [place] [address] | + + + | Home Phone [...] | Author | [facility] | | | [...] Team Providers + +------+ + | Care C Architect Name | Role | Phone | [...] + + | 12/19/ | Office | [facility] | Juan David Haile, | Encounter for | | 2017 | Visit | NEUROSURGERY [address] | [place] [address] | postoperative wound | | | | [address] | [address] [place] | check (Primary Dx) | | | | [place] | [place] [address] | | | | | [address] | [phone] | | | | | [phone] | | | +--------+---------+ + + + [...] Instructions - Juan David Haile PA - 12/19/2017 1000 PSTI [...] ambulance. The above note was dictated using [employer] Insight voice recognition software. It may have not [...] | | | | | | [place] [address] | | | | | | [phone] | | | | | | | [...] | | | | | | [place] [address] | | | | | | [phone] | | | | | | | [...] | | | | | | [place] [address] | | | | | | [phone] | | | | | | | [...] | | | | | | [place] [address] | | | | | | [phone] | | | | | | | [...] | | | | | [place] [address] | | | | | | [phone] | | | | | | | | +--------+---------+ + + + | 02/27/ | Office | Rehabilitation | Manuel Sparks, | | | 2017 | Visit | | DO [address] | | | | | | [address] [place], | | | | | | [place] [address] | | | | | | [phone] | | | | | | | [...] | | | | | | [place] [address] | | | | | | [phone] | | | | | | | | | | | | Himanshu Champion | | | | | | Luzma, PT | | +--------+---------+ + + + | 03/29/ | Office | Cardiology | Prem Call, | | | 2017 | Visit | | MD [address] | | | | | | [place], | | | | | | [place] [address] | | | | | | [phone] | | | | | | | | +--------+---------+ + + + as of this encounter Visit Diagnoses + + | Diagnosis | + + | Encounter for postoperative wound check - Primary | + + | Other specified aftercare following surgery | + +
--- OUTSIDE RECORDS SUMMARY | 2018-02-06 23:20 | XMS | Encounter Summary ---
Demographics + + + | Address | [address] | | | [place] [address] | + + + | Home Phone | | + + + | Preferred Language | Unknown | + + + | Marital Status | | + + + | Alevism Affiliation | 1073 | + + + | Race | Unknown | + + + | Ethnic Group | Unknown | + + + Author + + + | Author | [facility] | | | and Shaunana [...] Team Providers + +------+ + | Care Home Care Nurse Name | Role | Phone | + [...] + + | 12/18/ | Emergency | [facility] | Darian Ventura | Scott (Primary Dx); | | 2017 | | MED CTR EMERGENCY | MD Deon [address] | Chronic low back | | | | CENTER [address] | [address] [place] | pain, unspecified | | | | [place], [place] | [place] [address] | back pain | | | | [address] | [phone] | laterality, with | | | | [phone] | | sciatica presence | | | [...] | | | | | | [place] [address] | | | | | | [phone] | | | | | | | [...] | | | | | | [place] [address] | | | | | | [phone] | | | | | | | [...] | | | | | | [place] [address] | | | | | | [phone] | | | | | | | [...] | | | | | | [place] [address] | | | | | | [phone] | | | | | | | [...] | | | | | | [place] [address] | | | | | | [phone] | | | | | | | | +--------+---------+ + + + | 02/27/ | Office | Rehabilitation | Manuel Sparks, | | | 2017 | Visit | | DO [address] | | | | | | [address] [place], | | | | | | [place] [address] | | | | | | [phone] | | | | | | | [...] | | | | | | [place] [address] | | | | | | [phone] | | | | | | | | | | | | Himanshu Champion | | | | | | D, PT | | +--------+---------+ + + + | 03/29/ | Office | Cardiology | Prem Call, | | | 2017 | Visit | | [place] [address] | | | | | | [place], | | | | | | [place] [address] | | | | | | [phone] | | | | | | | [...]
--- OUTSIDE RECORDS SUMMARY | 2018-02-06 23:20 | XMS | Encounter Summary ---
Demographics + + + | Address | [address] | | | [place] [address] | + + + | Home Phone | | + + + | Preferred Language | Unknown | + + + | Marital Status | | + + + | Anabaptism Affiliation | 1073 | + + + | Race | Unknown | + + + | Ethnic Group | Unknown | + + + Author + + + | Author | [facility] | | | and Shaunana | + + + | Organization | [facility] | | | and [...] Team Providers + +------+ + | Care Heavy Duty Mechanic Farm Equipment Name | Role | Phone | + [...] | Manuel Macdonald DO | [address] | | | | | radiculopath | [address] | [place], | | | | | y S/P | [address] | [place] | | | | | lumbar | [address] | [address] | | | | | fusion | [place], | Phone: | | | | | Procedures | [place] [address] | [phone] | | | | | MRI Lumbar | Phone: | Fax: | | | | | Spine wo | [phone] | [phone] | | | | | Contrast | Fax: | | | | | | | [phone] | | +--------+--------+ + + + + [...] | lumbar fusion | | | | [place], [place] | [place] [address] | | | | | [address] | [phone] | | | | | [phone] | | | +--------+ + + + [...] | | | | | | [place] [address] | | | | | | [phone] | | | | | | | [...] | | | | | | [place] [address] | | | | | | [phone] | | | | | | | [...] | | | | | | [place] [address] | | | | | | [phone] | | | | | | | [...] | | | | | | [place] [address] | | | | | | [phone] | | | | | | | [...] | | | | | [place] [address] | | | | | | [phone] | | | | | | | | +--------+---------+ + + + | 02/27/ | Office | Rehabilitation | Manuel Sparks, | | | 2017 | Visit | | DO [address] | | | | | | [address] [place], | | | | | | [place] [address] | | | | | | [phone] | | | | | | | [...] | | | | | | [place] [address] | | | | | | [phone] | | | | | | | | | | | | Himanshu Champion | | | | | | D, PT | | +--------+---------+ + + + | 03/29/ | Office | Cardiology | Prem Call, | | | 2018 | Visit | | MD [facility] | | | | | | [place], | | | | | | [place] [address] | | | | | | [phone] | | | | | | | [...]
--- OUTSIDE RECORDS SUMMARY | 2018-02-06 23:20 | XMS | Encounter Summary ---
Demographics + + + | Address | [address] | | | [place] [address] | + + + | Home Phone [...] | [facility] | | | and Shaunana [...] Team Providers + +------+ + | Care Drop Wire Aligner Name | Role | Phone | + [...] | radiculopath | [place], | [place] [address] | | | | | y, lumbar | [place] [address] | Phone: | | | | | region | Phone: | [phone] | | | | | Lumbar | [phone] | Fax: | | | | | stenosis | Fax: | [phone] | | | | | Lumbar | [phone] | | | | | | radiculopath [...] + + | 12/25/ | Office | [facility] | FieldMatthew | Osteoarthritis of | | 2018 | Visit | SURGERY [address] | MD Thomas, FACS [address] | spine with | | | | [place], [place] | [address] [facility] | radiculopathy, | | | | [address] | [place] [address] | lumbar region | | | | [phone] | [phone] | (Primary Dx); Lumbar | | | [...] conveyed to the ordering provider, by the necktie maker, immediately following the exam. Dictated and Signed [...] Asthma, moderate persistent, uncomplicated 04/21/2015 Problem list mothercraft nurse utility Back pain with radiation Benign [...] sprain Scabies Seizures (HCC) 05/02/2010 diagnosed at [facility] Shortness of breath Sinusitis, acute Stroke ([facility]) TMJ syndrome Tobacco use Traumatic bursitis Vitamin B deficiency 12/10/2009 Past Surgical History: Procedure Laterality Date ABDOMINAL HERNIA REPAIR 2-3 ABDOMINOPLASTY 1998 CARPAL TUNNEL RELEASE 2009 CERVICAL SPINE SURGERY Anterior 05/06/2016 Procedure: C4-5 and C5-6 Anterior Cervical Discectomy with Fusion and Plating ; Surgeon: Manuel Sparks DO; Location: [facility] MAIN OR SECTION 1998, 1997 CHOLECYSTECTOMY ENDOSCOPY 12/2014 Dr. Marin GASTRIC BYPASS SURGERY 1996 HYSTERECTOMY LAMINECTOMY N/A 11/23/2017 Procedure: L4-5, L5-S1 Anterior Lumbar Interbody Fusion w/ Posterolateral Fusion; Surgeon : Manuel Sparks DO; Location: [facility] MAIN OR TONSILLECTOMY AND ADENOIDECTOMY [...] reviewed and edited this note. Veena Delgadillo [facility] 12/25/17 I, Matthew Garnica MD, FACS, personally performed the services described in this docume ntation, as scribed by Veena Delgadillo CMA in my presence, and it is both accurate and complet e. Veena Delgadillo, [facility] 12/25/2017 14:49 CC: Wilver King this encounter [...] | | | | | | [place] [address] | | | | | | [phone] | | | | | | | [...] | | | | | | [place] [address] | | | | | | [phone] | | | | | | | [...] | | | | | | [place] [address] | | | | | | [phone] | | | | | | | [...] | | | | | | [place] [address] | | | | | | [phone] | | | | | | | [...] | | | | | | [place] [address] | | | | | | [phone] | | | | | | | | +--------+---------+ + + + | 02/27/ | Office | Rehabilitation | Manuel Sparks, | | | 2017 | Visit | | DO [address] | | | | | | [address] [place], | | | | | | [place] [address] | | | | | | [phone] | | | | | | | [...] | | | | | | [place] [address] | | | | | | [phone] | | | | | | | | | | | | Himanshu Champion | | | | | | Luzma, PT | | +--------+---------+ + + + | 03/29/ | Office | Cardiology | Prem Call, | | | 2017 | Visit | | MD [address] | | | | | | [place], | | | | | | [place] [address] | | | | | | [phone] | | | | | | | [...]
--- OUTSIDE RECORDS SUMMARY | 2018-02-06 23:21 | XMS | Encounter Summary ---
Demographics + + + | Address | [address] | | | [place] [address] | + + + | Home Phone | | + + + | Preferred Language | Unknown | + + + | Marital Status | | + + + | Buddhist Affiliation | 1073 | + + + | Race | Unknown | + + + | Ethnic Group | Unknown | + + + Author + + + | Author | [facility] | | | and Shaunana | + + + | Organization | [facility] | | | [...] Team Providers + +------+ + | Care Engineering Test Mechanic Name | Role | Phone | [...] [place], | | | | | [place], [place] | [place] [address] | | | | | [address] | [phone] | | | | | [phone] | | | +--------+ + + + [...] | | | | | | [place] [address] | | | | | | [phone] | | | | | | | [...] | | | | | | [place] [address] | | | | | | [phone] | | | | | | | [...] | | | | | | [place] [address] | | | | | | [phone] | | | | | | | [...] | | | | | | [place] [address] | | | | | | [phone] | | | | | | | [...] | | | | | [place] [address] | | | | | | [phone] | | | | | | | | +--------+---------+ + + + | 02/27/ | Office | Rehabilitation | Manuel Sparks, | | | 2017 | Visit | | DO [address] | | | | | | [address] [place], | | | | | | [place] [address] | | | | | | [phone] | | | | | | | [...] | | | | | | [place] [address] | | | | | | [phone] | | | | | | | [...] | | | | | | [place] [address] | | | | | | [phone] | | | | | | | | +--------+---------+ + + + as of this encounter Visit Diagnoses Not on filein this encounter"
--- OUTSIDE RECORDS SUMMARY | 2018-02-06 23:21 | XMS | Encounter Summary ---
Demographics + + + | Address | [address] | | | [place] [address] | + + + | Home Phone | | + + + | Preferred Language | Unknown | + + + | Marital Status | | + + + | Spiritism Affiliation | 1073 | + + + | Race | Unknown | + + + | Ethnic Group | Unknown | + + + Author + + + | Author | [facility] | | | and Shaunana | [...] Team Providers + +------+ + | Care Nitric Acid Concentrator Operator Name | Role | Phone | [...] + + | 12/13/ | Office | [facility] | Juan David Haile, | Encounter for | | 2017 | Visit | NEUROSURGERY [address] | [place] [address] | postoperative wound | | | | [address] | [address] [place] | check (Primary Dx) | | | | [place], [place] | [place] [address] | | | | | [address] | [phone] | | | | | [phone] | | | +--------+---------+ + + + [...] different from e original. 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 Back pain with radiation Benign essential hypertension 10/1999 Bipolar 1 disorder ([facility]) Bipolar disorder ([facility]) has been admitted for overdose as well Bronchitis, acute Calf pain, left Candidiasis of vulva and vagina Cervical radiculitis Chest pain CHF (congestive heart failure) ([facility]) Constipation Contusion, lower leg COPD (chronic obstructive pulmonary disease) ([facility]) Cubital tunnel syndrome DDD (degenerative disc disease), lumbar Depression 10/1993 Disorder of liver DM type 2 (diabetes mellitus, type 2) ([facility]) diet controlled Drug abuse Dysuria Emphysema of lung ([facility]) Encounter for blood transfusion Eustachian tube dysfunction Exposure to STD Fall Flaccid hemiplegia and hemiparesis Affecting right wrist Folate deficiency anemia Full dentures Full dentures uppper & lower Gangrene ([facility]) Complication of abdominal surgery Headache Heart murmur [...] airway disease Rotator cuff sprain Scabies Seizures ([facility]) 05/02/2010 diagnosed at [facility] Shortness of breath Sinusitis, acute Stroke ([facility]) TMJ syndrome Tobacco use Traumatic bursitis [...] | | | | | | [place] [address] | | | | | | [phone] | | | | | | | [...] | | | | | | [place] [address] | | | | | | [phone] | | | | | | | [...] | | | | | | [place] [address] | | | | | | [phone] | | | | | | | [...] | | | | | | [place] [address] | | | | | | [phone] | | | | | | | [...] | | | | | [place] [address] | | | | | | [phone] | | | | | | | | +--------+---------+ + + + | 02/27/ | Office | Rehabilitation | Manuel Sparks, | | | 2017 | Visit | | DO [address] | | | | | | [address] [place], | | | | | | [place] [address] | | | | | | [phone] | | | | | | | [...] | | | | | | [place] [address] | | | | | | [phone] | | | | | | | | | | | | Himanshu Champion | | | | | | D, PT | | +--------+---------+ + + + | 03/29/ | Office | Cardiology | Prem Call, | | | 2017 | Visit | | MD [address] | | | | | | [place], | | | | | | [place] [address] | | | | | | [phone] | | | | | | | | +--------+---------+ + + + as of this encounter Visit Diagnoses + + | Diagnosis | + + | Encounter for postoperative wound check - Primary | + + | Other specified aftercare following surgery | + +
--- OUTSIDE RECORDS SUMMARY | 2018-02-06 23:21 | XMS | Encounter Summary ---
Demographics + + + | Address | [address] | | | [place] [address] | + + + | Home Phone | | + + + | Preferred Language | Unknown | + + + | Marital Status | | + + + | Pentecostalism Affiliation | 1073 | + + + | Race | Unknown | + + + | Ethnic Group | Unknown | + + + Author + + + | Author | [facility] | | | and Shaunana | + + + | Organization | [facility] | | [...] Team Providers + +------+ + | Care Inspectors And Regulatory Officers Name | Role | Phone | + [...] + + | 12/05/ | Refill | [facility] | Manuel Sparks, | Medication Refill; | | 2017 | | NEUROSURGERY [address] | DO [address] | Coordination Of Care | | | | [address] | [address] [place], | (PCP, OP CM, ED); | | | | [place] | [place] [address] | Results, Imaging | | | | [address] | [phone] | | | | | [phone] | | | +--------+--------+ + + + [...] | | | | | | [place] [address] | | | | | | [phone] | | | | | | | [...] | | | | | | [place] [address] | | | | | | [phone] | | | | | | | [...] | | | | | | [place] [address] | | | | | | [phone] | | | | | | | [...] | | | | | | [place] [address] | | | | | | [phone] | | | | | | | [...] | | | | | [place] [address] | | | | | | [phone] | | | | | | | | +--------+---------+ + + + | 02/27/ | Office | Rehabilitation | Manuel Sparks, | | | 2017 | Visit | | DO [address] | | | | | | [address] [place], | | | | | | [place] [address] | | | | | | [phone] | | | | | | | [...] | | | | | | [place] [address] | | | | | | [phone] | | | | | | | | | | | | Himanshu Champion | | | | | | D, PT | | +--------+---------+ + + + | 03/29/ | Office | Cardiology | Prem Call, | | | 2017 | Visit | | MD [address] | | | | | | [place], | | | | | | [place] [address] | | | | | | [phone] | | | | | | | | +--------+---------+ + + + as of this encounter Visit Diagnoses Not on filein this encounter"
--- OUTSIDE RECORDS SUMMARY | 2018-02-06 23:21 | XMS | Encounter Summary ---
Demographics + + + | Address | [address] | | | [place] [address] | + + + | Home Phone | | + + + | Preferred Language | Unknown | + + + | Marital Status | | + + + | Scientologist Affiliation | 1073 | + + + | Race | Unknown | + + + | Ethnic Group | Unknown | + + + Author + + + | Author | [facility] | | | and [...] Team Providers + +------+ + | Care Cafe Associate Name | Role | Phone | + [...] + + | 12/05/ | Emergency | [facility] | Deon Mckeon | Back pain, | | 2017 | | MED CTR EMERGENCY | Steven Nye MD | unspecified back | | | | CENTER [address] | [address] | location, | | | | [place], [place] | [place], [place] | unspecified back | | | | [address] | [address] | pain laterality, | | | | [phone] | | unspecified | | | | [...] | | | | | | [place] [address] | | | | | | [phone] | | | | | | | [...] | | | | | | [place] [address] | | | | | | [phone] | | | | | | | [...] | | | | | | [place] [address] | | | | | | [phone] | | | | | | | [...] | | | | | | [place] [address] | | | | | | [phone] | | | | | | | [...] | | | | | [place], [place] [address] | | | | | | [phone] | | | | | | | | +--------+---------+ + + + | 02/27/ | Office | Rehabilitation | Manuel Sparks, | | | 2017 | Visit | | DO [address] | | | | | | [address] [place], | | | | | | [place] [address] | | | | | | [phone] | | | | | | | [...] | | | | | | [place] [address] | | | | | | [phone] | | | | | | | | | | | | Himanshu Champion | | | | | | D, PT | | +--------+---------+ + + + | 03/29/ | Office | Cardiology | Prem Call, | | | 2017 | Visit | | [address] | | | | | | [place], | | | | | | [place] [address] | | | | | | [phone] | | | | | | | [...]
--- OUTSIDE RECORDS SUMMARY | 2018-02-06 23:21 | XMS | Encounter Summary ---
Demographics + + + | Address | [address] | | | [place] [address] | + + + | Home Phone [...] | Author | [facility] | | | and [...] Team Providers + +------+ + | Care Channel Marketing Manager Name | Role | Phone | + +------+ + | Alberto Christine | PCP | | + +------+ + Encounter Details +--------+ + + + + | Date | Type | Department | Care Team | Description | +--------+ + + + + | 12/06/ | Orders Only | [facility] | Patience Odraz | Status post lumbar | | 2018 | | NEUROSURGERY [address] | KWAKU Hahn [address] | spinal fusion; Wound | | | | [address] | [place], | drainage | | | | [place], [place] | [place] [address] | | | | | [address] | [phone] | | | | | [phone] | | | +--------+ + + + [...] | Visit | | DO [address] [facility] | | | | | | [address] [place], | | | | | | [place] [address] | | | | | | [phone] | | | | | | | [...] | | | | | | [place] [address] | | | | | | [phone] | | | | | | | [...] | | | | | | [place] [address] | | | | | | [phone] | | | | | | | [...] | | | | | | [place] [address] | | | | | | [phone] | | | | | | | [...] | | | | | [place] [address] | | | | | | [phone] | | | | | | | | +--------+---------+ + + + | 02/27/ | Office | Rehabilitation | Manuel Sparks, | | | 2017 | Visit | | DO [address] | | | | | | [address] [place], | | | | | | [place] [address] | | | | | | [phone] | | | | | | | [...] | | | | | | [place] [address] | | | | | | [phone] | | | | | | | | | | | | Himanshu Champion | | | | | | D, PT | | +--------+---------+ + + + | 03/29/ | Office | Cardiology | Prem Call, | | | 2017 | Visit | | MD [address] [place] | | | | | | [place], | | | | | | [place] [address] | | | | | | [phone] | | | | | | | [...] + | Wound - Abdomen | [facility] [place]ette [place] | | | [place] [address] | + + + in this encounter Visit Diagnoses + + | Diagnosis | + + | Status post lumbar spinal fusion | + + | Arthrodesis status | + + | Wound drainage | + + | Injury, other and unspecified, other specified sites, including multiple | + +"
--- OUTSIDE RECORDS SUMMARY | 2018-02-06 23:21 | XMS | Encounter Summary ---
Demographics + + + | Address | [address] | | | [place] [address] | + + + | Home Phone [...] | Author | [facility] | [...] Team Providers + +------+ + | Care Setup Operator Name | Role | Phone | [...] Status | | | | [address] | [place], | post lumbar spinal | | | | [place], [place] | [place] [address] | fusion | | | | [address] | [phone] | | | | | [phone] | | | +--------+ + + + [...] | Visit | | DO [address] [facility] | | | | | | [address] [place], | | | | | | [place] [address] | | | | | | [phone] | | | | | | | [...] | | | | | | [place] [address] | | | | | | [phone] | | | | | | | [...] | | | | | | [place] [address] | | | | | | [phone] | | | | | | | [...] | | | | | | [place] [address] | | | | | | [phone] | | | | | | | [...] | | | | | [place] [address] | | | | | | [phone] | | | | | | | | +--------+---------+ + + + | 02/27/ | Office | Rehabilitation | Manuel Sparks, | | | 2017 | Visit | | DO [address] | | | | | | [address] [place], | | | | | | [place] [address] | | | | | | [phone] | | | | | | | [...] | | | | | | [place] [address] | | | | | | [phone] | | | | | | | | | | | | Himanshu Champion | | | | | | D, PT | | +--------+---------+ + + + | 03/29/ | Office | Cardiology | Prem Call, | | | 2017 | Visit | | [address] [place] | | | | | | [place], | | | | | | [place] [address] | | | | | | [phone] | | | | | | | [...] + | Wound - Abdomen | [facility] | | | [place] [address] | + + + in this encounter Visit Diagnoses + + | Diagnosis | + + | Wound drainage - Primary | + + | Injury, other and unspecified, other specified sites, including multiple | + + | Status post lumbar spinal fusion | + + | Arthrodesis status | + +"
--- OUTSIDE RECORDS SUMMARY | 2018-02-06 23:21 | XMS | Encounter Summary ---
Demographics + + + | Address | [address] | | | [place] [address] | + + + | Home Phone | | + + + | Preferred Language | Unknown | + + + | Marital Status | | + + + | Nondenominational Affiliation | 1073 | + + + | Race | Unknown | + + + | Ethnic Group | Unknown | + + + Author + + + | Author | [facility] | | | and Shaunana | + + + | Organization | [facility] | | | and [...] Team Providers + +------+ + | Care General House Worker Name | Role | Phone | [...] + + | 12/06/ | Office | [facility] | Patience Ordaz | S/P lumbar fusion | | 2018 | Visit | NEUROSURGERY [address] | KWAKU Hahn [address] | (Primary Dx); Wound | | | | [address] | [place], | infection after | | | | [place] | [place] [address] | surgery, initial | | | | [address] | [phone] | encounter; Overuse | | | | [phone] | | of medication | +--------+---------+ + [...] Progress Notes Patience Ordaz PA-C - 12/06/2017 6201 PSTFormatting of this note may be different f rom the original. 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 Back pain with radiation Benign essential hypertension 10/1999 Bipolar 1 disorder (HCC) Bipolar disorder (HCC) has been admitted for overdose as well Bronchitis, acute Calf pain, left Candidiasis of vulva and vagina Cervical radiculitis Chest pain CHF (congestive heart failure) (HCC) Constipation Contusion, lower leg COPD (chronic obstructive pulmonary disease) ([facility]) Cubital tunnel syndrome DDD (degenerative disc disease), lumbar Depression 10/1993 Disorder of liver DM type 2 (diabetes mellitus, type 2) ([facility]) diet controlled Drug abuse Dysuria Emphysema of lung ([facility]) Encounter for blood transfusion Eustachian [...] airway disease Rotator cuff sprain Scabies Seizures ([facility]) 05/02/2010 diagnosed at [facility] Shortness of breath Sinusitis, acute Stroke ([facility]) TMJ syndrome Tobacco use Traumatic bursitis Vitamin B deficiency 12/10/2009 PAST SURGICAL HISTORY: Past Surgical History: Procedure Laterality Date ABDOMINAL HERNIA REPAIR 2-3 ABDOMINOPLASTY 1997 CARPAL TUNNEL RELEASE 2009 CERVICAL SPINE SURGERY Anterior 05/06/2016 Procedure: C4-5 and C5-6 Anterior Cervical Discectomy with Fusion and Plating ; Surgeon: Manuel Sparks DO; Location: [facility] MAIN OR SECTION 1998, 1997 CHOLECYSTECTOMY ENDOSCOPY 12/2014 Dr. 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 Back pain with radiation Benign essential hypertension 10/1999 Bipolar 1 disorder (HCC) Bipolar disorder (HCC) has been admitted for overdose as well Bronchitis, acute Calf pain, left Candidiasis of vulva and vagina Cervical radiculitis Chest pain CHF (congestive heart failure) ([facility]) Constipation Contusion, lower leg COPD (chronic obstructive pulmonary disease) ([facility]) Cubital tunnel syndrome DDD (degenerative disc disease), lumbar Depression 10/1993 Disorder of liver DM type 2 (diabetes mellitus, type 2) ([facility]) diet controlled Drug abuse Dysuria Emphysema of lung ([facility]) Encounter for blood transfusion Eustachian tube dysfunction Exposure to STD Fall Flaccid hemiplegia and hemiparesis Affecting right wrist Folate deficiency anemia Full dentures Full dentures uppper & lower Gangrene ([facility]) Complication of abdominal surgery Headache [...] sprain Scabies Seizures (HCC) 05/02/2010 diagnosed at [facility] Shortness of breath Sinusitis, acute Stroke ([facility]) TMJ syndrome Tobacco use Traumatic [...] [place], | | | | | | [place] [address] | | | | | | [phone] | | | | | | | [...] | | | | | | [place] [address] | | | | | | [phone] | | | | | | | [...] | | | | | | [place] [address] | | | | | | [phone] | | | | | | | [...] | | | | | | [place] [address] | | | | | | [phone] | | | | | | | [...] | | | | | | [place] [address] | | | | | | [phone] | | | | | | | | +--------+---------+ + + + | 02/27/ | Office | Rehabilitation | Manuel Sparks, | | | 2017 | Visit | | DO [address] | | | | | | [address] [place], | | | | | | [place] [address] | | | | | | [phone] | | | | | | | [...] | | | | | | [place] [address] | | | | | | [phone] | | | | | | | [...] [place], | | | | | | [place] [address] | | | | | | [phone] | | | | | | | [...]
--- OUTSIDE RECORDS SUMMARY | 2018-02-06 23:21 | XMS | Encounter Summary ---
Demographics + + + | Address | [address] | | | [place] [address] | + + + | Home Phone [...] Author | [facility] | | | and Shaunana | + [...] Team Providers + +------+ + | Care Rack Production Worker Name | Role | Phone | [...] | Leg | Alberto B, | [address] | | | | | swelling | PREFORM PLATE MAKER [address] | [place], | | | | | Deep venous | [address] | [place] [address] | | | | | thrombosis | [place], | Phone: | | | | | of pelvic | [place] | [phone] | | | | | vein | [address] | Fax: | | | | | Procedures | Phone: | [phone] | | | | | CT Abdomen | [phone] | | | | | | Pelvis w | Fax: | | | | | | Contrast | [phone] | | +--------+--------+ + + + + Encounter Details +--------+ + + + + | Date | Type | Department | Care Team | Description | +--------+ + + + + | 12/05/ | Ancillary | [facility] | Alberto Christine, | Leg swelling; Deep | | 2018 | Orders | MED CTR XRAY [address] | PREFORM PLATE MAKER [address] | venous thrombosis of | | | | [place] | [place], [place] | pelvic vein | | | | [place] [address] | [address] | | | | | [phone] | [phone] | | | | | | | [...] | | | | | | [place] [address] | | | | | | [phone] | | | | | | | [...] | | | | | | [place] [address] | | | | | | [phone] | | | | | | | [...] | | | | | | [place] [address] | | | | | | [phone] | | | | | | | [...] | | | | | | [place] [address] | | | | | | [phone] | | | | | | | [...] | | | | | [place] [address] | | | | | | [phone] | | | | | | | | +--------+---------+ + + + | 02/27/ | Office | Rehabilitation | Manuel Sparks, | | | 2017 | Visit | | DO [address] | | | | | | [address] [place], | | | | | | [place] [address] | | | | | | [phone] | | | | | | | [...] [place], | | | | | | [place] [address] | | | | | | [phone] | | | | | | | | | | | | Himanshu Champion | | | | | | D, PT | | +--------+---------+ + + + | 03/29/ | Office | Cardiology | Prem Call, | | | 2018 | Visit | | MD Janette Hale | | | | | | [place], | | | | | | [place] [address] | | | | | | [phone] | | | | | | | | +--------+---------+ + + + as of this encounter Results CT Abdomen Pelvis w Contrast (12/05/2017 1238) + + | Narrative | + + | CT ABDOMEN PELVIS W CONTRAST 12/05/2017 11:58 AM HISTORY: UNILAT LEG SWELLING & DVT | | PELVIS CALL REPORT [phone]. COMPARISON: Multiple priors PROTOCOL: Axial | | [...] UNILAT LEG SWELLING & DVT PELVISCALL REPORT [phone].COMPARISON: | | Multiple priorsPROTOCOL: Axial images of [...]
--- OUTSIDE RECORDS SUMMARY | 2018-02-06 23:21 | XMS | Encounter Summary ---
Demographics + + + | Address | [address] | | | [place] [address] | + + + | Home Phone [...] Author | [facility] | | | and Sahunana | + + + | Organization | [...] Team Providers + +------+ + | Care Squirt Machine Operator Name | Role | Phone [...] | Leg | Alberto B, | [address] [place] | | | | | swelling | APPLICATIONS ARCHITECT [address] | [place], | | | | | Deep venous | [address] | [place] [address] | | | | | thrombosis | [place], | Phone: | | | | | of pelvic | [place] | [phone] | | | | | vein | [address] | Fax: | | | | | Procedures | Phone: | [phone] | | | | | CT Abdomen | [phone] | | | | | | Pelvis w | Fax: | | | | | | Contrast | [phone] | | +--------+--------+ + + + + [...] | Leg | Alberto B, | [address] [place] | | | | | swelling | APPLICATIONS ARCHITECT [address] | [place], | | | | | Deep venous | [address] | [place] [address] | | | | | thrombosis | [place], | Phone: | | | | | of pelvic | [place] | [phone] | | | | | vein | [address] | Fax: | | | | | Procedures | Phone: | [phone] | | | | | CT Abdomen | [phone] | | | | | | Pelvis w | Fax: | | | | | | Contrast | [phone] | | +--------+--------+ + + + + [...] | Leg | Alberto B, | [address] [place] | | | | | swelling | APPLICATIONS ARCHITECT [address] | [place], | | | | | Deep venous | [address] | [place] [address] | | | | | thrombosis | [place], | Phone: | | | | | of pelvic | [place] | [phone] | | | | | vein | [address] | Fax: | | | | | Procedures | Phone: | [phone] | | | | | CT Abdomen | [phone] | | | | | | Pelvis w | Fax: | | | | | | Contrast | [phone] | | +--------+--------+ + + + + Encounter Details +--------+ + + + + | Date | Type | Department | Care Team | Description | +--------+ + + + + | 12/05/ | Hospital | [facility] | Alberto Christine, | Leg swelling; Deep | | 2018 | Encounter | MED CTR CT [address] | APPLICATIONS ARCHITECT [address] [facility] [address] | venous thrombosis of | | | | [place], | [place], [place] | pelvic vein | | | | [place] [address] | [address] | | | | | [phone] | [phone] | | | | | | | [...] [place], | | | | | | [place] [address] | | | | | | [phone] | | | | | | | [...] | | | | | | [place] [address] | | | | | | [phone] | | | | | | | [...] | | | | | | [place] [address] | | | | | | [phone] | | | | | | | [...] | | | | | | [place] [address] | | | | | | [phone] | | | | | | | | | | | | Himanshu Champion | | | | | | D, PT | | +--------+---------+ + + + | 02/22/ | Office | General Surgery | Matthew Garnica | | | 2017 | Visit | | MD Guzman FACS [address] | | | | | | [address] [place] | | | | | | [place] [address] | | | | | | [phone] | | | | | | | | +--------+---------+ + + + | 02/27/ | Office | Rehabilitation | Manuel Sparks, | | | 2017 | Visit | | DO [address] | | | | | | [address] [place], | | | | | | [place] [address] | | | | | | [phone] | | | | | | | [...] | | | | | | [place] [address] | | | | | | [phone] | | | | | | | | | | | | Himanshu Champion | | | | | | Luzma PT | | +--------+---------+ + + + | 03/29/ | Office | Cardiology | [place] Sri[place]er, | | | 2017 | Visit | | [address] [place] | | | | | | [place], | | | | | | [place] [address] | | | | | | [phone] | | | | | | | | +--------+---------+ + + + as of this encounter Results CT Abdomen Pelvis w Contrast (12/05/2017 1238) + + | Narrative | + + | CT ABDOMEN PELVIS W CONTRAST 12/05/2017 11:58 AM HISTORY: UNILAT LEG SWELLING & DVT | | PELVIS CALL REPORT [phone]. COMPARISON: Multiple priors PROTOCOL: Axial | | [...] UNILAT LEG SWELLING & DVT PELVISCALL REPORT [phone].COMPARISON: | | Multiple priorsPROTOCOL: Axial images of [...]
--- OUTSIDE RECORDS SUMMARY | 2018-02-06 23:21 | XMS | Encounter Summary ---
Demographics + + + | Address | [address] | | | [place] [address] | + + + | Home Phone | | + + + | Preferred Language | Unknown | + + + | Marital Status | | + + + | Temple Affiliation | 1073 | + + + | Race | Unknown | + + + | Ethnic Group | Unknown | + + + Author + + + | Author | and [facility] | | | and Shaunana | + + + | Organization | and [facility] | | | and [...] Team Providers + +------+ + | Care Conche Operator Name | Role | Phone | + +------+ + | Alberot Christine | PCP | | + +------+ [...] | | | | CENTER [address] | [address] | Dx); Acute bilateral | | | | [place], [place] | [place], [place] | low back pain | | | | [address] | [address] | without sciatica | | | | [phone] | | | +--------+ + + + [...] | | | | | | [place] [address] | | | | | | [phone] | | | | | | | [...] | | | | | | [place] [address] | | | | | | [phone] | | | | | | | [...] | | | | | | [place] [address] | | | | | | [phone] | | | | | | | [...] | | | | | | [place] [address] | | | | | | [phone] | | | | | | | [...] | | | | | [place] [address] | | | | | | [phone] | | | | | | | | +--------+---------+ + + + | 02/27/ | Office | Rehabilitation | Manuel Sparks, | | | 2017 | Visit | | DO [address] | | | | | | [address] [place], | | | | | | [place] [address] | | | | | | [phone] | | | | | | | [...] | | | | | | [place] [address] | | | | | | [phone] | | | | | | | | | | | | Himanshu Champion | | | | | | D, PT | | +--------+---------+ + + + | 03/29/ | Office | Cardiology | Prem Call, | | | 2017 | Visit | | [address] [facility] | | | | | | [place], | | | | | | [place] [address] | | | | | | [phone] | | | | | | | [...]
--- OUTSIDE RECORDS SUMMARY | 2018-02-06 23:21 | XMS | Encounter Summary ---
Demographics + + + | Address | [address] | | | [place] [address] | + + + | Home Phone | | + + + | Preferred Language | Unknown | + + + | Marital Status | | + + + | Jainism Affiliation | 1073 | + + + | Race | Unknown | + + + | Ethnic Group | Unknown | + + + Author + + + | Author | [facility] | | | and Shaunana | + + + | Organization | [facility] | | | and [place] | + + + | Address | Unknown | + + + | Phone | Unavailable | + + + Support + + +---------+ + | Name | Relationship | Address | Phone | + + +---------+ + | Elaine Zambrano | ECON | Unknown | | + + +---------+ + | Rosalia Zmabrano | ECON | Unknown | | + + +---------+ + Care Team Providers + +------+ + | Care Wheel Press Operator Name | Role | Phone [...] | | | | | | [place] [address] | | | | | | [phone] | | | +--------+ + + + [...] | | | | | | [place] [address] | | | | | | [phone] | | | | | | | [...] | | | | | | [place] [address] | | | | | | [phone] | | | | | | | [...] | | | | | | [place] [address] | | | | | | [phone] | | | | | | | [...] | | | | | | [place] [address] | | | | | | [phone] | | | | | | | [...] | | | | | [place] [address] | | | | | | [phone] | | | | | | | | +--------+---------+ + + + | 02/27/ | Office | Rehabilitation | Manuel Sparks, | | | 2017 | Visit | | DO [address] | | | | | | [address] [place], | | | | | | [place] [address] | | | | | | [phone] | | | | | | | [...] | | | | | | [place] [address] | | | | | | [phone] | | | | | | | [...] | | | | | | [place] [address] | | | | | | [phone] | | | | | | | | +--------+---------+ + + + as of this encounter Visit Diagnoses Not on filein this encounter"
--- OUTSIDE RECORDS SUMMARY | 2018-02-06 23:22 | XMS | Encounter Summary ---
Demographics + + + | Address | [address] | | | [place] [address] | + + + | Home Phone | | + + + | Preferred Language | Unknown | + + + | Marital Status | | + + + | Episcopal Affiliation | 1073 | + + + | Race | Unknown | + + + | Ethnic Group | Unknown | + + + Author + + + | Author | [facility] | | | and Shaunana | + + + | Organization | [facility] | | | [...] Team Providers + +------+ + | Care Systems Trainer Name | Role | Phone | + [...] | | | | | [address] | [address] [place], [place] | | | | | [place], [place] | [address] | | | | | [address] | | | | | | [phone] | | | +--------+ + + + [...] +----+---+ + + | | 0 | [place] | | | | 8 | 43-degrees [...] +----+---+ + + | | 1 | [place] off | | | | 4 | [...] 3 | | alert. Spoke to hospitalist. Sheridan what we could stop the | | [...] 11/26/172256 by | | eral | by Paitence Moon RN); Forearm; | Mona Abbott RN | Saul Bose RN | | IV | whqx-exd-ojicml catheter system; | | | | | [...] | Marie Montana | | IV | bpsl-gwz-pxgbix catheter system; | | JASON Whitlock | [...] procedure; All | Ariadna Encarnacion RN | Stvee Serrano RN | | Cathet | elements; [...] | | | | | | [place] [address] | | | | | | [phone] | | | | | | | [...] | | | | | | [place] [address] | | | | | | [phone] | | | | | | | [...] | | | | | | [place] [address] | | | | | | [phone] | | | | | | | [...] | | | | | | [place] [address] | | | | | | [phone] | | | | | | | [...] | | | | | [place] [address] | | | | | | [phone] | | | | | | | | +--------+---------+ + + + | 02/27/ | Office | Rehabilitation | Manuel Sparks, | | | 2017 | Visit | | DO [address] | | | | | | [address] [place], | | | | | | [place] [address] | | | | | | [phone] | | | | | | | [...] | | | | | | [place] [address] | | | | | | [phone] | | | | | | | | | | | | Himanshu Champion | | | | | | D, PT | | +--------+---------+ + + + | 03/29/ | Office | Cardiology | Prem Call, | | | 2017 | Visit | | [address] | | | | | | [place], | | | | | | [place] [address] | | | | | | [phone] | | | | | | | [...] Image placed into patients | | chart. [id number] Please see anesthesia record or flowsheet for [...] given. Image | | placed into patients chart.[id number] see anesthesia record or flowsheet for | [...] given. Image placed into patients chart. | |[id number] | | | | | |Please see [...] | Ney Palomo MD - 11/23/2017 0824 [facility] Anesthesia Airway Placement11/23/2017 | | 8:00Preprocedure [...] PST | | | | | Starting [facility] 11/23/17 at 0815, | | | | [...] mcg/kg/m | mL/hr | | | Starting [facility] 11/23/17 at 0815, | | PST | in | | | | Anesthesia Intra-op | | | | | | + +---------+ + +-------+---+ +---+---+ | | | +---+---+ + +-------+ +--------+---+---+ | ropivacaine (NAROPIN) 5 mg/mL | Given | | 15 mLs | | | | (0.5%) injection PERINEURAL, | | 8 8:11 | | | | | PRN, Starting [facility] 11/23/17 at | | PST | | [...]
--- OUTSIDE RECORDS SUMMARY | 2018-02-06 23:22 | XMS | Encounter Summary ---
Demographics + + + | Address | [address] | | | [place] [address] | + + + | Home Phone [...] + | Author | [facility] | | | and [...] Team Providers + +------+ + | Care Wool Carder Name | Role | Phone | + [...] [place], | | | | | [place], [place] | [place] [address] | | | | | [address] | [phone] | | | | | [phone] | | | +--------+ + + + [...] | | | | | | [place] [address] | | | | | | [phone] | | | | | | | [...] | | | | | | [place] [address] | | | | | | [phone] | | | | | | | [...] | | | | | | [place] [address] | | | | | | [phone] | | | | | | | [...] | | | | | | [place] [address] | | | | | | [phone] | | | | | | | [...] | | | | | | [place] [address] | | | | | | [phone] | | | | | | | | +--------+---------+ + + + | 02/27/ | Office | Rehabilitation | Manuel Sparks, | | | 2017 | Visit | | DO [address] | | | | | | [address] [place], | | | | | | [place] [address] | | | | | | [phone] | | | | | | | [...] [place], | | | | | | [place] [address] | | | | | | [phone] | | | | | | | | | | | | Himanshu Champion | | | | | | D, PT | | +--------+---------+ + + + | 03/29/ | Office | Cardiology | Prem Call, | | | 2017 | Visit | | MD Janette Hale | | | | | | [place], | | | | | | [place] [address] | | | | | | [phone] | | | | | | | | +--------+---------+ + + + as of this encounter Visit Diagnoses Not on filein this encounter"
--- OUTSIDE RECORDS SUMMARY | 2018-02-06 23:22 | XMS | Encounter Summary ---
Demographics + + + | Address | [address] | | | [place] [address] | + + + | Home Phone | | + + + | Preferred Language | Unknown | + + + | Marital Status | | + + + | Evangelical Affiliation | 1073 | + + + | Race | Unknown | + + + | Ethnic Group | Unknown | + + + Author + + + | Author | [facility] | | | and Shaunana [...] Team Providers + +------+ + | Care Feed Research Aide Name | Role | Phone | + [...] [place], | | | | | [place], [place] | [place] [address] | | | | | [address] | [phone] | | | | | [phone] | | | +--------+ + + + [...] | | | | | | [place] [address] | | | | | | [phone] | | | | | | | [...] | | | | | | [place] [address] | | | | | | [phone] | | | | | | | [...] | | | | | | [place] [address] | | | | | | [phone] | | | | | | | [...] | | | | | | [place] [address] | | | | | | [phone] | | | | | | | [...] | | | | | | [place] [address] | | | | | | [phone] | | | | | | | | +--------+---------+ + + + | 02/27/ | Office | Rehabilitation | Manuel Sparks, | | | 2017 | Visit | | DO [address] | | | | | | [address] [place], | | | | | | [place] [address] | | | | | | [phone] | | | | | | | [...] [place], | | | | | | [place] [address] | | | | | | [phone] | | | | | | | [...] | | | | | | [place] [address] | | | | | | [phone] | | | | | | | | +--------+---------+ + + + as of this encounter Visit Diagnoses Not on filein this encounter"
--- OUTSIDE RECORDS SUMMARY | 2018-02-06 23:22 | XMS | Encounter Summary ---
Demographics + + + | Address | [address] | | | [place] [address] | + + + | Home Phone | | + + + | Preferred Language | Unknown | + + + | Marital Status | | + + + | Jehovah'S Witness Affiliation | 1073 | + + + | Race | Unknown | + + + | Ethnic Group | Unknown | + + + Author + + + | Author | 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 Guardado Emergency Room has been recommended for this patient. The patient has chosen: [facility]--[x] [place] [facility].-- [] Other: Reason for triage recommendation: Out of Scope of Practice or Complex Medical Needs Suspected Cardiac: [] Seizures: [] Advanced Respiratory Condition: [] Head Injury with LOC: [] Pre- Problems: [] Victim of Crime: [] Child/Elder Abuse: [] Severe Abdominal Pain: [] "Worst pain in life": [] Need for IV Medication: [] After-hours Radiology Reading needs by [facility]: [] Patient with complex workup needs [...] | | | | | | [place] [address] | | | | | | [phone] | | | | | | | [...] | | | | | | [place] [address] | | | | | | [phone] | | | | | | | [...] | | | | | | [place] [address] | | | | | | [phone] | | | | | | | [...] | | | | | | [place] [address] | | | | | | [phone] | | | | | | | [...] | | | | | [place] [address] | | | | | | [phone] | | | | | | | | +--------+---------+ + + + | 02/27/ | Office | Rehabilitation | Manuel Sparks, | | | 2017 | Visit | | DO [address] | | | | | | [address] [place], | | | | | | [place] [address] | | | | | | [phone] | | | | | | | [...] | | | | | | [place] [address] | | | | | | [phone] | | | | | | | | | | | | Himanshu Champion | | | | | | D, PT | | +--------+---------+ + + + | 03/29/ | Office | Cardiology | HeldersriblakeSrihelder, | | | 2017 | Visit | | MD Janette Hale | | | | | | [place], | | | | | | [place] [address] | | | | | | [phone] | | | | | | | | +--------+---------+ + + + as of this encounter Visit Diagnoses + + | Diagnosis | + + | Patient left after triage - Primary | + +
--- OUTSIDE RECORDS SUMMARY | 2018-02-06 23:22 | XMS | Encounter Summary ---
Demographics + + + | Address | [address] | | | [place] [address] | + + + | Home Phone [...] Author | [facility] | | | [...] Team Providers + +------+ + | Care Watch Manufacturing Supervisor Name | Role | Phone | [...] + | 11/16/ | Telephone | [facility] | Heidy Bethea, | Case Management (Pre | | 2018 | | MED CTR CASE | RN | discharge planning) | | | | MANAGEMENT [address] | | | | | | [place], | | | | | | [place] [address] | | | | | | [phone] | | | +--------+ + + + [...] [place], | | | | | | [place] [address] | | | | | | [phone] | | | | | | | [...] | | | | | | [place] [address] | | | | | | [phone] | | | | | | | [...] | | | | | | [place] [address] | | | | | | [phone] | | | | | | | [...] [place], | | | | | | [place] [address] | | | | | | [phone] | | | | | | | | | | | | Himanshu Champion | | | | | | D, PT | | +--------+---------+ + + + | 02/22/ | Office | General Surgery | Matthew Garnica | | | 2017 | Visit | | MD [address] | | | | | | [address] | | | | | | [place] [address] | | | | | | [phone] | | | | | | | | +--------+---------+ + + + | 02/27/ | Office | Rehabilitation | Manuel Sparks, | | | 2017 | Visit | | DO [address] | | | | | | [address] [place], | | | | | | [place] [address] | | | | | | [phone] | | | | | | | [...] [place], | | | | | | [place] [address] | | | | | | [phone] | | | | | | | | | | | | Himanshu Champion | | | | | | D, PT | | +--------+---------+ + + + | 03/29/ | Office | Cardiology | Prem Call, | | | 2017 | Visit | | [address] | | | | | | [place], | | | | | | [place] [address] | | | | | | [phone] | | | | | | | | +--------+---------+ + + + as of this encounter Visit Diagnoses Not on filein this encounter"
--- OUTSIDE RECORDS SUMMARY | 2018-02-06 23:22 | XMS | Encounter Summary ---
Demographics + + + | Address | [address] | | | [place] [address] | + + + | Home Phone [...] + | Author | [facility] | | | and Shaunana [...] | + + +---------+ + | Rosalia Zambraon | ECON | Unknown | | + + +---------+ + Care Team Providers + +------+ + | Care Telephone Interviewer Name | Role | Phone | + [...] | | | | | | | NE LUMBAR | | | | | | | SPINE | | | | | | | FUSION,ANTER | | | | | | | APPRCH NE | | | | | | | [...] | | | | | | SEGMENTS NE | | | | | | | INSJ | | | | | | | BIOMCHN DEV | | | | | | | INTERVERTEBR | | | | | | | AL DSC SPC | | | | | | | W/ARTHRD NE | | | | | | | INSJ | | | | | | | BIOMCHN DEV | | | | | | | INTERVERTEBR | | | | | | | AL DSC SPC | | | | | | | W/ARTHRD NE | | | | | | | ARTHRODESIS | | | | | | | | | | | | | | POSTERIOR/PO | | | | | | | STEROLATERAL | | | | | | | LUMBAR NE | | | | | | | SPINE | | | | | | | FUSN,POST | | | | | | | TECH,EA | | | | | | | ADDNL SGMT | | | | | | | NE SPINE | | | | | | [...] Interbody | | | | [address] | [address] [place], | Fusion w/ | | | | [place], [place] | [place] [address] | Posterolateral | | | | [phone] | [phone] | Fusion | | | | [phone] | | | +--------+---------+ + + + [...] Tobacco use disorder SEIZURE DISORDER- NEUROLOGIST AT [facility] Anemia VITAMIN B12 DEFICIENCY BIPOLAR DISORDER UNSPECIFIED [...] of admission the patient was admitted to [facility] and underwent a L4-S1 fusion . Patient was transferred to PACU and then to the neurosurgical floor. In brief, e hospital stay was complicated with an ICU stay for hypotension and then transferred to city hospital floor, the patient mobilized well with physical [...] Electronically signed by: Yeni Ordaz, 11/27/2017 9:12 [facility] Instructions Patience Ordaz [...] month post op appointment before your appointment. [phone] [employer]. [address] [place] [id number]. All righ ts reserved. This information is [...] Courtney : 1980: Age: 37 y.o. MedRec: [id number] PCP: MARY King Admission date: 11/23/2017 Hospital [...] home replacement dose SEIZURE DISORDER- NEUROLOGIST AT [facility] : Continue the Lamictal Diabetes mellitus type [...] monitor pvrs Manuel Sparks DO - 11/26/2017 09 PSTFormatting of this note may be di [...] Courtney : 1980: Age: 37 y.o. MedRec: [id number] PCP: MARY King Admission date: 11/23/2017 Hospital [...] home replacement dose SEIZURE DISORDER- NEUROLOGIST AT [facility] : Continue the Lamictal Diabetes mellitus type [...] 11/26/2017 8:36 Louisa Neri MD - 11/25/2017 0920 PSTFormatting of this note may b e different from the original. HOSPITALIST PROGRESS NOTE Patient: Clare Courtney : 1980: Age: 37 y.o. MedRec: [id number] PCP: MARY King Admission date: 11/23/2017 Hospital [...] PH UA 5.0 5.0 - 8.0 Specific Boon 1.011 1.001 - 1.030 PROTEIN UA Negative [...] home replacement dose SEIZURE DISORDER- NEUROLOGIST AT [facility] : Continue the Lamictal Diabetes mellitus type [...] PH UA 5.0 5.0 - 8.0 Specific Boon 1.011 1.001 - 1.030 PROTEIN UA Negative [...] Courtney : 1980: Age: 37 y.o. MedRec: [id number] PCP: MARY King Admission date: 11/23/2017 Hospital [...] home replacement dose SEIZURE DISORDER- NEUROLOGIST AT [facility] : Continue the Lamictal Diabetes mellitus type [...] | | | | | | [place] [address] | | | | | | [phone] | | | | | | | | | | | | Himasnhu Champion | | | | | | D, PT | | +--------+---------+ + + + | 02/15/ | Office | Rehabilitation | Manuel Sparks, | | | 2017 | Visit | | DO [address] | | | | | | [address] [place], | | | | | | [place] [address] | | | | | | [phone] | | | | | | | [...] | | | | | | [place] [address] | | | | | | [phone] | | | | | | | [...] | | | | | | [place] [address] | | | | | | [phone] | | | | | | | [...] | | | | | [place] [address] | | | | | | [phone] | | | | | | | | +--------+---------+ + + + | 02/27/ | Office | Rehabilitation | Manuel Sparks, | | | 2017 | Visit | | DO [address] | | | | | | [address] [place], | | | | | | [place] [address] | | | | | | [phone] | | | | | | | [...] | | | | | | [place] [address] | | | | | | [phone] | | | | | | | | | | | | Himanshu hCampion | | | | | | D, PT | | +--------+---------+ + + + | 03/29/ | Office | Cardiology | Prem Call, | | | 2017 | Visit | | [address] | | | | | | [place], | | | | | | [place] [address] | | | | | | [phone] | | | | | | | [...] GLOMERULAR FILTRATION | >=60 mL/min/1.73m2 | | BULGARIAN | RATE,ESTIMATED mL/min/1.81s4Exey than | | | | 60 Chronic [...] + + + | Blood | [facility] [address] | | | [place] [address] | + + + CBC with Differential [...] | + + + | Blood | [facility] [address] | | | [place] [address] | + + + POC Glucose (11/27/201745) + +-------+ + | Component | Value | Ref Range | + +-------+ + | Glucose, POC | 108 | 70 - 109 mg/dL | + +-------+ + + + + | Specimen | Performing Laboratory | + + + | Blood | [facility] [address] | | | [place] [address] | + + + POC Glucose (11/26/20172035) + +---------+ + | Component | Value | Ref Range | + +---------+ + | Glucose, POC | 140 (H) | 70 - 109 mg/dL | + +---------+ + + + + | Specimen | Performing Laboratory | + + + | Blood | [facility] [address] | | | [place] [address] | + + + POC Glucose (11/26/2017 1719) + +-------+ + | Component | Value | Ref Range | + +-------+ + | Glucose, POC | 89 | 70 - 109 mg/dL | + +-------+ + + + + | Specimen | Performing Laboratory | + + + | Blood | [facility] [address] | | | [place] [address] | + + + POC Glucose (11/26/2017 1142) + +-------+ + | Component | Value | Ref Range | + +-------+ + | Glucose, POC | 81 | 70 - 109 mg/dL | + +-------+ + + + + | Specimen | Performing Laboratory | + + + | Blood | [facility] | | | [place] [address] | + + + POC Glucose (11/26/2017809) + +-------+ + | Component | Value | Ref Range | + +-------+ + | Glucose, POC | 108 | 70 - 109 mg/dL | + +-------+ + + + + | Specimen | Performing Laboratory | + + + | Blood | [facility] [address] | | | [place] [address] | + + + POC Glucose (11/26/2017718) + +-------+ + | Component | Value | Ref Range | + +-------+ + | Glucose, POC | 77 | 70 - 109 mg/dL | + +-------+ + + + + | Specimen | Performing Laboratory | + + + | Blood | [facility] [address] | | | [place] [address] | + + + Slide Review, Peripheral [...] + + + | Blood | [facility] [address] | | | [place] [address] | + + + + + | [...] | + + + | Blood | [facility] [address] | | | [place] [address] | + + + Basic Metabolic Panel [...] GLOMERULAR FILTRATION | >=60 mL/min/1.73m2 | | BULGARIAN | RATE,ESTIMATED mL/min/1.91w3Xkqj than | | | | 60 Chronic [...] | + + + | Blood | [facility] [address] | | | [place] [address] | + + + POC Glucose (11/25/20172018) + +-------+ + | Component | Value | Ref Range | + +-------+ + | Glucose, POC | 82 | 70 - 109 mg/dL | + +-------+ + + + + | Specimen | Performing Laboratory | + + + | Blood | [facility] [address] | | | [place] [address] | + + + POC Glucose (11/25/2017 1616) + +-------+ + | Component | Value | Ref Range | + +-------+ + | Glucose, POC | 95 | 70 - 109 mg/dL | + +-------+ + + + + | Specimen | Performing Laboratory | + + + | Blood | [facility] [address] | | | [place] [address] | + + + POC Glucose (11/25/20175) + +-------+ + | Component | Value | Ref Range | + +-------+ + | Glucose, POC | 89 | 70 - 109 mg/dL | + +-------+ + + + + | Specimen | Performing Laboratory | + + + | Blood | [facility] | | | [place] [address] | + + + POC Glucose (11/25/2017729) + +-------+ + | Component | Value | Ref Range | + +-------+ + | Glucose, POC | 81 | 70 - 109 mg/dL | + +-------+ + + + + | Specimen | Performing Laboratory | + + + | Blood | [facility] | | | [place] [address] | + + + POC Glucose (11/24/20171952) + +-------+ + | Component | Value | Ref Range | + +-------+ + | Glucose, POC | 99 | 70 - 109 mg/dL | + +-------+ + + + + | Specimen | Performing Laboratory | + + + | Blood | [facility] [address] | | | [place] [address] | + + + POC Glucose (11/24/2017 1750) + +-------+ + | Component | Value | Ref Range | + +-------+ + | Glucose, POC | 102 | 70 - 109 mg/dL | + +-------+ + + + + | Specimen | Performing Laboratory | + + + | Blood | [facility] [address] | | | [place] [address] | + + + Culture, Urine (11/24/2017 1154) + + + + | Component | Value | Ref Range | + + + + | Culture | No Growth | | + + + + + + + | Specimen | Performing Laboratory | + + + | Urine - Urine, Wright | [facility] [address] | | catheter | [place] [address] | + + + Urinalysis with Microscopic with Culture if Indicated (11/24/2017 1153) + + + + | Component | Value | Ref Range | + + + + | COLOR | Yellow | Light Yellow, | | | | Yellow, Straw | + + + + | CLARITY | Clear | Clear | + + + + | PH UA | 5.0 | 5.0 - 8.0 | + + + + | Specific Boon | 1.011 | 1.001 - 1.030 | [...] + | Urine - Urine, Wright | [facility] [address] | | catheter | [place] [address] | + + + Influenza A and [...] + + + | Respiratory - | [facility] [address] | | Nasopharynx | [place] [address] | + + + POC Glucose (11/24/2017 113) + +---------+ + | Component | Value | Ref Range | + +---------+ + | Glucose, POC | 115 (H) | 70 - 109 mg/dL | + +---------+ + + + + | Specimen | Performing Laboratory | + + + | Blood | [facility] [address] | | | [place] [address] | + + + Culture, Blood (11/24/2017 112) + + + + | Component | Value | Ref Range | + + + + | Culture | No growth after 5 days incubation. | | + + + + + + + | Specimen | Performing Laboratory | + + + | Blood - Peripheral | [facility] [address] | | Blood | [place] [address] | + + + Culture, Blood (11/24/20171124) + + + + | Component | Value | Ref Range | + + + + | Culture | No growth after 5 days incubation. | | + + + + + + + | Specimen | Performing Laboratory | + + + | Blood - Peripheral | [facility] [address] | | Blood | [place] [address] | + + + XR Chest AP [...] | + + + | Blood | [facility] [address] | | | [place] [address] | + + + Hepatic Function Panel [...] + + + | Blood | [facility] | | | [place] [address] | + + + Magnesium (11/24/2017445) + +---------+ + | Component | Value | Ref Range | + +---------+ + | MG | 1.5 (L) | 1.8 - 2.5 mg/dL | + +---------+ + + + + | Specimen | Performing Laboratory | + + + | Blood | [facility] [address] | | | [place] [address] | + + + CBC with Differential [...] | + + + | Blood | [facility] [address] | | | [place] [address] | + + + Basic Metabolic Panel [...] GLOMERULAR FILTRATION | >=60 mL/min/1.73m2 | | BULGARIAN | RATE,ESTIMATED mL/min/1.44t3Rqyc than | | | | 60 Chronic [...] | + + + | Blood | [facility] [address] | | | [place] [address] | + + + POC Glucose (11/23/20172235) + +-------+ + | Component | Value | Ref Range | + +-------+ + | Glucose, POC | 101 | 70 - 109 mg/dL | + +-------+ + + + + | Specimen | Performing Laboratory | + + + | Blood | [facility] [address] | | | [place] [address] | + + + Basic Metabolic Panel [...] GLOMERULAR FILTRATION | >=60 mL/min/1.73m2 | | BULGARIAN | RATE,ESTIMATED mL/min/1.84u4Ktfr than | | | | 60 Chronic [...] | + + + | Blood | [facility] [address] | | | [place] [address] | + + + CBC with Differential [...] | + + + | Blood | [facility] [address] | | | [place] [address] | + + + Culture, MRSA (11/23/20172102) + + + + | Component | Value | Ref Range | + + + + | Culture | Negative for MRSA by chromogenic agar | | | | method | | + + + + + + + | Specimen | Performing Laboratory | + + + | Respiratory - Nares | [facility] [address] | | | [place] [address] | + + + XR Lumbar Spine [...] | + + + | Blood | [facility] [address] | | | [place] [address] | + + + Type and Screen [...] | + + + | Blood | [facility] [address] | | | [place] [address] | + + + in this encounter [...] | | | Site | | Starting [facility] 11/23/17 at 1112, | | PST | [...] scheduled: AC, | | | NPO, Daytime 2843-5103 Use NIGHT | | | DOSE for doses scheduled: | | | HS, 3AM, Nighttime 0124-5623 | | + +---+ | | | [...] | | | + +---+ | rizatriptan (MAXALT-SET DECORATOR) | | | disintegrating tablet 5 mg | | | (Patient Own Med) 5 mg, Oral, | | | DAILY PRN, MAY REPEAT X 1, | | | Migraine, Starting [facility] 11/23/17 at | | | 2122 | | + +---+ | | | + +---+ + +-------+ +--------+---+ + | ropivacaine (NAROPIN) 2 mg/mL | Given | | 60 mLs | | Surgical | | (0.2%) injection PRN, Starting | | 8 14:01 | | | Site | | [facility] 11/23/17 at 1401, Intra-op | | PST [...]
--- OUTSIDE RECORDS SUMMARY | 2018-02-06 23:22 | XMS | Encounter Summary ---
Demographics + + + | Address | [address] | | | [place] [address] | + + + | Home Phone [...] + | Author | [facility] | | [...] Team Providers + +------+ + | Care Industrial Equipment Mechanic Name | Role | Phone [...] [place], | | | | | [place], [place] | [place] [address] | | | | | [address] | [phone] | | | | | [phone] | | | +--------+ + + + [...] | | | | | | [place] [address] | | | | | | [phone] | | | | | | | [...] | | | | | | [place] [address] | | | | | | [phone] | | | | | | | [...] | | | | | | [place] [address] | | | | | | [phone] | | | | | | | [...] | | | | | | [place] [address] | | | | | | [phone] | | | | | | | [...] | | | | | | [place] [address] | | | | | | [phone] | | | | | | | | +--------+---------+ + + + | 02/27/ | Office | Rehabilitation | Manuel Sparks, | | | 2017 | Visit | | DO [address] | | | | | | [address] [place], | | | | | | [place] [address] | | | | | | [phone] | | | | | | | [...] [place], | | | | | | [place] [address] | | | | | | [phone] | | | | | | | [...] | | | | | | [place] [address] | | | | | | [phone] | | | | | | | | +--------+---------+ + + + as of this encounter Visit Diagnoses Not on filein this encounter"
--- OUTSIDE RECORDS SUMMARY | 2018-02-06 23:22 | XMS | Encounter Summary ---
Demographics + + + | Address | [address] | | | [place] [address] | + + + | Home Phone [...] + | Author | [facility] | | | and Shaunana | + + + | Organization | [facility] [place] | | | and [...] Providers + +------+ + | Care Marketing Community Liaison Name | Role | Phone | + [...] | | | | | | | MT LUMBAR | | | | | | | SPINE | | | | | | | FUSION,ANTER | | | | | | | APPRCH MT | | | | | | | [...] | | | | | | SEGMENTS MT | | | | | | | INSJ | | | | | | | BIOMCHN DEV | | | | | | | INTERVERTEBR | | | | | | | AL DSC SPC | | | | | | | W/ARTHRD MT | | | | | | | INSJ | | | | | | | BIOMCHN DEV | | | | | | | INTERVERTEBR | | | | | | | AL DSC SPC | | | | | | | W/ARTHRD MT | | | | | | | ARTHRODESIS | | | | | | | | | | | | | | POSTERIOR/PO | | | | | | | STEROLATERAL | | | | | | | LUMBAR MT | | | | | | | SPINE | | | | | | | FUSN,POST | | | | | | | TECH,EA | | | | | | | ADDNL SGMT | | | | | | | MT SPINE | | | | | | [...] + + | 11/23/ | Hospital | [facility] | BridgerManuel nickerson Renae, | S/P lumbar fusion | | 2018 - | Encounter | [facility] | DO [address] | (Primary Dx); | | | | [address] [place] | [address] [place], | Right-sided low back | | 11/27/ | | [place] [address] | [place] [address] | pain without | | 2018 | | [phone] | [phone] | sciatica, | | | | | | unspecified | | | | | | chronicity; | | | | | | Hypotension due to | | | | | | drugs; Symptomatic | | | | | | hypotension; Seizure | | | | | | ([facility]); ONESIMO (acute | | | | | | kidney injury) | | | | | | ([facility]); Degenerative | | | | [...] Tobacco use disorder SEIZURE DISORDER- NEUROLOGIST AT [facility] Anemia VITAMIN B12 DEFICIENCY BIPOLAR DISORDER [...] of admission the patient was admitted to [facility] and underwent a L4-S1 fusion . Patient [...] Electronically signed by: Yeni Ordaz, 11/27/2017 9:12 [facility] Discharge Instructions Patience Ordaz PA-C [...] month post op appointment before your appointment. [id number] [facility]. [address] [place] [address], [place] [address]. All righ ts reserved. This information is [...] Courtney : 1980: Age: 37 y.o. MedRec: [id number] PCP: MARY King Admission date: 11/23/2017 Hospital [...] home replacement dose SEIZURE DISORDER- NEUROLOGIST AT [facility] : Continue the Lamictal Diabetes mellitus [...] monitor pvrs Manuel Sparks DO - 11/26/2017 0900 PSTFormatting of this note may be di [...] Courtney : 1980: Age: 37 y.o. MedRec: [id number] PCP: MARY King Admission date: 11/23/2017 Hospital [...] She is off from [place].. Moved to [facility] with the tele and if she remained stable for the next 24-48h, she can be moved to [facility] ( per primary team) Influenza B : Was started on Tamiflu and complete for 5 days. She is getting better Hypothyroidism : Continue the home replacement dose SEIZURE DISORDER- NEUROLOGIST AT [facility] : Continue the Lamictal Diabetes mellitus [...] Courtney : 1980: Age: 37 y.o. MedRec: [id number] PCP: MARY King Admission date: 11/23/2017 Hospital [...] PH UA 5.0 5.0 - 8.0 Specific Devine 1.011 1.001 - 1.030 PROTEIN UA Negative [...] home replacement dose SEIZURE DISORDER- NEUROLOGIST AT [facility] : Continue the Lamictal Diabetes mellitus [...] PH UA 5.0 5.0 - 8.0 Specific Devine 1.011 1.001 - 1.030 PROTEIN UA Negative [...] Courtney : 1980: Age: 37 y.o. MedRec: [id number] PCP: MARY King Admission date: 11/23/2017 Hospital [...] home replacement dose SEIZURE DISORDER- NEUROLOGIST AT [facility] : Continue the Lamictal Diabetes mellitus [...] | | | | | | [place] [address] | | | | | | [phone] | | | | | | | [...] | | | | | | [place] [address] | | | | | | [phone] | | | | | | | [...] | | | | | | [place] [address] | | | | | | [phone] | | | | | | | [...] | | | | | | [place] [address] | | | | | | [phone] | | | | | | | [...] | | | | | | [place] [address] | | | | | | [phone] | | | | | | | | +--------+---------+ + + + | 02/27/ | Office | Rehabilitation | Manuel Sparks, | | | 2017 | Visit | | DO [address] | | | | | | [address] [place], | | | | | | [place] [address] | | | | | | [phone] | | | | | | | [...] [place], | | | | | | [place] [address] | | | | | | [phone] | | | | | | | | | | | | Himanshu Champion | | | | | | D, PT | | +--------+---------+ + + + | 03/29/ | Office | Cardiology | Prem Call, | | | 2017 | Visit | | MD [address] | | | | | | [place], | | | | | | [place] [address] | | | | | | [phone] | | | | | | | [...] GLOMERULAR FILTRATION | >=60 mL/min/1.73m2 | | NIUEAN | RATE,ESTIMATED mL/min/1.09m6Xaar than | | | | 60 Chronic [...] | + + + | Blood | [facility] | | | [place] [address] | + + + CBC with Differential [...] | + + + | Blood | [facility] [address] | | | [place] [address] | + + + POC Glucose (11/27/2017 0645) + +-------+ + | Component | Value | Ref Range | + +-------+ + | Glucose, POC | 108 | 70 - 109 mg/dL | + +-------+ + + + + | Specimen | Performing Laboratory | + + + | Blood | [facility] [address] | | | [place] [address] | + + + POC Glucose (11/26/20172035) + +---------+ + | Component | Value | Ref Range | + +---------+ + | Glucose, POC | 140 (H) | 70 - 109 mg/dL | + +---------+ + + + + | Specimen | Performing Laboratory | + + + | Blood | [facility] [address] | | | [place] [address] | + + + POC Glucose (11/26/20171718) + +-------+ + | Component | Value | Ref Range | + +-------+ + | Glucose, POC | 89 | 70 - 109 mg/dL | + +-------+ + + + + | Specimen | Performing Laboratory | + + + | Blood | [facility] [address] | | | [place] [address] | + + + POC Glucose (11/26/2017 1142) + +-------+ + | Component | Value | Ref Range | + +-------+ + | Glucose, POC | 81 | 70 - 109 mg/dL | + +-------+ + + + + | Specimen | Performing Laboratory | + + + | Blood | [facility] [address] | | | [place] [address] | + + + POC Glucose (11/26/2017809) + +-------+ + | Component | Value | Ref Range | + +-------+ + | Glucose, POC | 108 | 70 - 109 mg/dL | + +-------+ + + + + | Specimen | Performing Laboratory | + + + | Blood | [facility] [address] | | | [place] [address] | + + + POC Glucose (11/26/201719) + +-------+ + | Component | Value | Ref Range | + +-------+ + | Glucose, POC | 77 | 70 - 109 mg/dL | + +-------+ + + + + | Specimen | Performing Laboratory | + + + | Blood | [facility] [address] | | | [place] [address] | + + + Slide Review, Peripheral [...] + + + | Blood | [facility] | | | [place] [address] | + + + + + | [...] | + + + | Blood | [facility] [address] | | | [place] [address] | + + + Basic Metabolic Panel [...] GLOMERULAR FILTRATION | >=60 mL/min/1.73m2 | | NIUEAN | RATE,ESTIMATED mL/min/1.16e8Abve than | | | | 60 Chronic [...] | + + + | Blood | [facility] [address] | | | [place] [address] | + + + POC Glucose (11/25/20172018) + +-------+ + | Component | Value | Ref Range | + +-------+ + | Glucose, POC | 82 | 70 - 109 mg/dL | + +-------+ + + + + | Specimen | Performing Laboratory | + + + | Blood | [facility] [address] | | | [place] [address] | + + + POC Glucose (11/25/2017 1616) + +-------+ + | Component | Value | Ref Range | + +-------+ + | Glucose, POC | 95 | 70 - 109 mg/dL | + +-------+ + + + + | Specimen | Performing Laboratory | + + + | Blood | [facility] [address] | | | [place] [address] | + + + POC Glucose (11/25/2017 1315) + +-------+ + | Component | Value | Ref Range | + +-------+ + | Glucose, POC | 89 | 70 - 109 mg/dL | + +-------+ + + + + | Specimen | Performing Laboratory | + + + | Blood | [facility] [address] | | | [place] [address] | + + + POC Glucose (11/25/2017729) + +-------+ + | Component | Value | Ref Range | + +-------+ + | Glucose, POC | 81 | 70 - 109 mg/dL | + +-------+ + + + + | Specimen | Performing Laboratory | + + + | Blood | [facility] [address] | | | [place] [address] | + + + POC Glucose (11/24/20171952) + +-------+ + | Component | Value | Ref Range | + +-------+ + | Glucose, POC | 99 | 70 - 109 mg/dL | + +-------+ + + + + | Specimen | Performing Laboratory | + + + | Blood | [facility] [address] | | | [place] [address] | + + + POC Glucose (11/24/20171749) + +-------+ + | Component | Value | Ref Range | + +-------+ + | Glucose, POC | 102 | 70 - 109 mg/dL | + +-------+ + + + + | Specimen | Performing Laboratory | + + + | Blood | [facility] [address] | | | [place] [address] | + + + Culture, Urine (11/24/2017 1154) + + + + | Component | Value | Ref Range | + + + + | Culture | No Growth | | + + + + + + + | Specimen | Performing Laboratory | + + + | Urine - Urine, Wright | [facility] [address] | | catheter | [place] [address] | + + + Urinalysis with Microscopic [...] | + + + + | Specific Devine | 1.011 | 1.001 - 1.030 | [...] + | Urine - Urine, Wright | [facility] [address] | | catheter | [place] [address] | + + + Influenza A and [...] + + + | Respiratory - | [facility] [address] | | Nasopharynx | [place] [address] | + + + POC Glucose (11/24/2017 1131) + +---------+ + | Component | Value | Ref Range | + +---------+ + | Glucose, POC | 115 (H) | 70 - 109 mg/dL | + +---------+ + + + + | Specimen | Performing Laboratory | + + + | Blood | [facility] [address] | | | [place] [address] | + + + Culture, Blood (11/24/20171124) + + + + | Component | Value | Ref Range | + + + + | Culture | No growth after 5 days incubation. | | + + + + + + + | Specimen | Performing Laboratory | + + + | Blood - Peripheral | [facility] [address] | | Blood | [place] [address] | + + + Culture, Blood (11/24/2017 1125) + + + + | Component | Value | Ref Range | + + + + | Culture | No growth after 5 days incubation. | | + + + + + + + | Specimen | Performing Laboratory | + + + | Blood - Peripheral | [facility] [address] | | Blood | [place] [address] | + + + XR Chest AP [...] + + + | Blood | [facility] | | | [place] [address] | + + + Hepatic Function Panel [...] | + + + | Blood | [facility] [address] | | | [place] [address] | + + + Magnesium (11/24/2017 0446) + +---------+ + | Component | Value | Ref Range | + +---------+ + | MG | 1.5 (L) | 1.8 - 2.5 mg/dL | + +---------+ + + + + | Specimen | Performing Laboratory | + + + | Blood | [facility] [address] | | | [place] [address] | + + + CBC with Differential [...] | + + + | Blood | [facility] [address] | | | [place] [address] | + + + Basic Metabolic Panel [...] GLOMERULAR FILTRATION | >=60 mL/min/1.73m2 | | NIUEAN | RATE,ESTIMATED mL/min/1.88n8Cmhz than | | | | 60 Chronic [...] | + + + | Blood | [facility] [address] | | | [place] [address] | + + + POC Glucose (11/23/20172235) + +-------+ + | Component | Value | Ref Range | + +-------+ + | Glucose, POC | 101 | 70 - 109 mg/dL | + +-------+ + + + + | Specimen | Performing Laboratory | + + + | Blood | [facility] [address] | | | [place] [address] | + + + Basic Metabolic Panel [...] GLOMERULAR FILTRATION | >=60 mL/min/1.73m2 | | NIUEAN | RATE,ESTIMATED mL/min/1.84g2Uftm than | | | | 60 Chronic [...] + + + | Blood | [facility] [address] | | | [place] [address] | + + + CBC with Differential [...] + + + | Blood | [facility] [address] | | | [place] [address] | + + + Culture, MRSA (11/23/20172102) + + + + | Component | Value | Ref Range | + + + + | Culture | Negative for MRSA by chromogenic agar | | | | method | | + + + + + + + | Specimen | Performing Laboratory | + + + | Respiratory - Nares | [facility] [address] | | | [place] [address] | + + + XR Lumbar Spine [...] | + + + | Blood | [facility] [address] | | | [place] [address] | + + + Type and Screen [...] + + + | Blood | [facility] [address] | | | [place] [address] | + + + in this encounter [...] Low | | | Blood Sugar, Starting [facility] 11/23/17 | | | at 1748 | [...] | | | | First dose on [facility] 11/23/17 at 2130 | | PST | [...] | | | | | Intravenous, ONCE, [facility] 11/23/17 at | | PST [...] | | | | | Pain, Starting [facility] 11/23/17 at | | | | | [...] scheduled: AC, | | | NPO, Daytime 2089-7909 Use NIGHT | | | DOSE for doses scheduled: | | | HS, 3AM, Nighttime 5293-8239 | | + +---+ | | | [...] | | | DAILY, First dose on [facility] 11/23/17 | | PST | | | [...] | | | | | | | [facility] 11/23/17 at 2014, Initial | | | [...] | | | | | | Starting [facility] 11/23/17 at 1700, | | | | [...] | | | + +---+ | rizatriptan (MAXALT-INDUSTRIAL TWISTING MACHINE OPERATOR) | | | disintegrating tablet 5 mg [...] | | | | First dose on [facility] 11/23/17 at | | PST [...] | PST | | | | | [facility] 11/23/17 at 0645, Pre-op | | | | | | + +---------+ +--------+-------+---+ +---+---+ | | | +---+---+ + +-------+ +-------+---+---+ | topiramate (TOPAMAX) tablet 50 | Given | | 50 mg | | | | mg 50 mg, Oral, 2 TIMES DAILY, | | 8 8:51 | | | | | First dose on [facility] 11/23/17 at | | PST [...] | | | | First dose on [facility] 11/23/17 at | | | | | [...]
--- OUTSIDE RECORDS SUMMARY | 2018-02-06 23:22 | XMS | Encounter Summary ---
Demographics + + + | Address | [address] | | | [place] [address] | + + + | Home Phone | | + + + | Preferred Language | Unknown | + + + | Marital Status | | + + + | Anabaptism Affiliation | 1073 | + + + | Race | Unknown | + + + | Ethnic Group | Unknown | + + + Author + + + | Author | [facility] | | | and Shaunana | + + + | Organization | [facility] [place] | | | [...] Team Providers + +------+ + | Care Bath Mixer Name | Role | Phone | [...] + + | 11/28/ | Emergency | [facility] | Deon Mckeon | Left leg pain | | 2018 | | MED CTR EMER[facility] | Steven Nye MD | (Primary Dx) | | | | CENTER [address] | [address] | | | | | [place] | [place] | | | | | [address] | [id number] | | | | | [phone] | | | +--------+ + + + [...] [place], | | | | | | [place] [id number] | | | | | | [phone] | | | | | | | [...] | | | | | | [place] [address] | | | | | | [phone] | | | | | | | [...] | | | | | | [place] [address] | | | | | | [phone] | | | | | | | [...] | | | | | | [place] [address] | | | | | | [phone] | | | | | | | [...] | | | | | [place] [address] | | | | | | [phone] | | | | | | | | +--------+---------+ + + + | 02/27/ | Office | Rehabilitation | Manuel Sparks, | | | 2017 | Visit | | DO [address] | | | | | | [address] [place], | | | | | | [place] [address] | | | | | | [phone] | | | | | | | [...] | | | | | | [place] [address] | | | | | | [phone] | | | | | | | | | | | | Himanshu Champion | | | | | | D, PT | | +--------+---------+ + + + | 03/29/ | Office | Cardiology | Prem Call, | | | 2017 | Visit | | [address] | | | | | | [place], | | | | | | [place] [address] | | | | | | [phone] | | | | | | | [...] the ordering provider, by the | | guide domestic tour, immediately following the exam. Dictated and Signed [...] the exam.Dictated and Signed by: Jairo Powell MD | [...] to the ordering provider, by the | |guide domestic tour, immediately following the exam. | | | [...]
--- OUTSIDE RECORDS SUMMARY | 2018-02-06 23:22 | XMS | Encounter Summary ---
Demographics + + + | Address | [address] | | | [place] [address] | + + + | Home Phone | | + + + | Preferred Language | Unknown | + + + | Marital Status | | + + + | Synagogue Affiliation | 1073 | + + + | Race | Unknown | + + + | Ethnic Group | Unknown | + + + Author + + + | Author | [facility] | | | and Shaunana | + + + | Organization | [facility] [place] | | | and [...] Team Providers + +------+ + | Care Barn And Property Manager Name | Role | Phone | [...] | | | [place] | [place] [address] | | | | | [address] | [phone] | | | | | [phone] | | | +--------+ + + + [...] | | | | | | [place] [address] | | | | | | [phone] | | | | | | | [...] | | | | | | [place] [address] | | | | | | [phone] | | | | | | | [...] | | | | | | [place] [address] | | | | | | [phone] | | | | | | | [...] | | | | | | [place] [address] | | | | | | [phone] | | | | | | | [...] | | | | | | [place] [address] | | | | | | [phone] | | | | | | | | +--------+---------+ + + + | 02/27/ | Office | Rehabilitation | Manuel Sparks, | | | 2017 | Visit | | DO [address] | | | | | | [address] [place], | | | | | | [place] [address] | | | | | | [phone] | | | | | | | [...] | | | | | | [place] [address] | | | | | | [phone] | | | | | | | [...] | | | | | | [place] [address] | | | | | | [phone] | | | | | | | | +--------+---------+ + + + as of this encounter Visit Diagnoses Not on filein this encounter"
--- OUTSIDE RECORDS SUMMARY | 2018-02-06 23:22 | XMS | Encounter Summary ---
Demographics + + + | Address | [address] | | | [place] [address] | + + + | Home Phone [...] Author | [facility] | | | and [...] Team Providers + +------+ + | Care Truck Supervisor Name | Role | Phone | [...] + + | 12/04/ | Emergency | [facility] | [place], | Hypotension, | | 2018 | | MED CTR EMERGENCY | MD [address] | unspecified | | | | [address] | [address] | hypotension type | | | | [place], [place] | [place] [address] | (Primary Dx); | | | | [address] | [phone] | Polypharmacy; Leg | | | | [phone] | | swelling | +--------+ + + [...] | | | | | | [place] [address] | | | | | | [phone] | | | | | | | [...] | | | | | | [place] [address] | | | | | | [phone] | | | | | | | [...] | | | | | | [place] [address] | | | | | | [phone] | | | | | | | [...] [place], | | | | | | [place] [address] | | | | | | [phone] | | | | | | | [...] | | | | | [place] [address] | | | | | | [phone] | | | | | | | | +--------+---------+ + + + | 02/27/ | Office | Rehabilitation | Manuel Sparks, | | | 2017 | Visit | | DO [address] | | | | | | [address] [place], | | | | | | [place] [address] | | | | | | [phone] | | | | | | | [...] [place], | | | | | | [place] [address] | | | | | | [phone] | | | | | | | | | | | | Himanshu Champion | | | | | | D, PT | | +--------+---------+ + + + | 03/29/ | Office | Cardiology | Prem Call, | | | 2017 | Visit | | MD [address] | | | | | | [place], | | | | | | [place] [address] | | | | | | [phone] | | | | | | | [...] | + + + | Blood | [facility] [address] | | | [place] [address] | + + + B Type Natriuretic Peptide (12/04/2017 1503) + +-------+ + | Component | Value | Ref Range | + +-------+ + | BNP | 94 | <100 pg/mL | + +-------+ + + + + | Specimen | Performing Laboratory | + + + | Blood | [facility] [address] | | | [place] [address] | + + + VAS Lower Extremity [...] | | the ordering provider, by the resident service coordinator, immediately following the exam. | | Dictated [...] to the ordering provider, by the | |resident service coordinator, immediately following the exam. | | [...] | + + + | Blood | [facility] [address] | | | [place] [address] | + + + Lactic Acid (12/04/2017 1336) + +-------+ + | Component | Value | Ref Range | + +-------+ + | LACTATE | 1.5 | 0.5 - 2.2 mmol/L | + +-------+ + + + + | Specimen | Performing Laboratory | + + + | Blood | [facility] [address] | | | [place] [address] | + + + POC Blood Gases [...] Laboratory | + + + | | [facility] [address] | | | [place] [address] | + + + XR Chest AP [...] | Procedure Note | + + | hKris Beckwith Results In - 12/04/2017 1443 PST [...] GLOMERULAR FILTRATION | >=60 mL/min/1.73m2 | | ERITREAN | RATE,ESTIMATED mL/min/1.41n3Wdwe than | | | | 60 Chronic [...] | + + + | Blood | [facility] [address] | | | [place] [address] | + + + in this encounter [...] | | | | | ONCE, [facility] 12/04/17 at 1230, For 1 | [...] | | | | | ONCE, [facility] 12/04/17 at 1345, For 1 | | | | | | | dose | | | | | | + +---------+ +--------+-------+---+ +---+---+ | | | +---+---+ in this encounter
--- OUTSIDE RECORDS SUMMARY | 2018-02-06 23:22 | XMS | Encounter Summary ---
Demographics + + + | Address | [address] | | | [place] [address] | + + + | Home Phone [...] | Author | [facility] | | | and [...] Team Providers + +------+ + | Care Bench Technician Name | Role | Phone | [...] [place] | | | | | | [place] | | | | | | [address] | | | | | | [phone] | | | +--------+ + + + [...] | | | | | | [place] [address] | | | | | | [phone] | | | | | | | [...] | | | | | | [place] [address] | | | | | | [phone] | | | | | | | [...] | | | | | | [place] [address] | | | | | | [phone] | | | | | | | [...] | | | | | | [place] [address] | | | | | | [phone] | | | | | | | [...] | | | | | [place], [place] [address] | | | | | | [phone] | | | | | | | | +--------+---------+ + + + | 02/27/ | Office | Rehabilitation | Manuel Sparks, | | | 2017 | Visit | | DO [address] | | | | | | [address] [place], | | | | | | [place] [address] | | | | | | [phone] | | | | | | | [...] | | | | | | [place] [address] | | | | | | [phone] | | | | | | | | | | | | Himanshu Champion | | | | | | D, PT | | +--------+---------+ + + + | 03/29/ | Office | Cardiology | Prem Call, | | | 2017 | Visit | | MD [address] | | | | | | [place], | | | | | | [place] [address] | | | | | | [phone] | | | | | | | | +--------+---------+ + + + as of this encounter Visit Diagnoses Not on filein this encounter"
--- OUTSIDE RECORDS SUMMARY | 2018-02-06 23:22 | XMS | Encounter Summary ---
Demographics + + + | Address | [address] | | | [place] [address] | + + + | Home Phone | | + + + | Preferred Language | Unknown | + + + | Marital Status | | + + + | Jain Affiliation | 1073 | + + + | Race | Unknown | + + + | Ethnic Group | Unknown | + + + Author + + + | Author | [facility] | | | and Shaunana | + + + | Organization | [facility] | | | [...] Providers + +------+ + | Care Medical Transcription Radiology Name | Role | Phone | + [...] | lumbar region | | | | [place], [place] | [place] [address] | (Primary Dx); S/P | | | | [address] | [phone] | lumbar fusion | | | | [phone] | | | +--------+ + + + [...] | | | | | | [place] [address] | | | | | | [phone] | | | | | | | [...] | | | | | | [place] [address] | | | | | | [phone] | | | | | | | [...] | | | | | | [place] [address] | | | | | | [phone] | | | | | | | [...] | | | | | | [place] [address] | | | | | | [phone] | | | | | | | [...] | | | | | [place] [address] | | | | | | [phone] | | | | | | | | +--------+---------+ + + + | 02/27/ | Office | Rehabilitation | Manuel Sparks, | | | 2017 | Visit | | DO [address] | | | | | | [address] [place], | | | | | | [place] [address] | | | | | | [phone] | | | | | | | [...] | | | | | | [place] [address] | | | | | | [phone] | | | | | | | | | | | | Himanshu Champion | | | | | | D, PT | | +--------+---------+ + + + | 03/29/ | Office | Cardiology | HeldersriblakeSrihelder, | | | 2017 | Visit | | [address] | | | | | | [place], | | | | | | [place] [address] | | | | | | [phone] | | | | | | | [...]
--- OUTSIDE RECORDS SUMMARY | 2018-02-06 23:23 | XMS | Encounter Summary ---
Demographics + + + | Address | [address] | | | [place] [address] | + + + | Home Phone [...] | [facility] | | | and Shaunana [...] Team Providers + +------+ + | Care Daycare Worker Name | Role | Phone | + +------+ + | Alberto Christine | PCP | | + +------+ + Encounter Details +--------+ + + + + | Date | Type | Department | Care Team | Description | +--------+ + + + + | 11/09/ Hospital | [facility] | Manuel Sparks, | | | 2018 | Encounter | MED CTR XRAY [address] | DO [address] | | | | | [place] | [address] [place], | | | | | [place] [address] | [place] [address] | | | | | [phone] | [phone] | | | | | | | [...] | | | | | | [place] [address] | | | | | | [phone] | | | | | | | [...] | | | | | | [place] [address] | | | | | | [phone] | | | | | | | [...] | | | | | | [place] [address] | | | | | | [phone] | | | | | | | [...] | | | | | | [place] [address] | | | | | | [phone] | | | | | | | [...] | | | | | [place] [address] | | | | | | [phone] | | | | | | | | +--------+---------+ + + + | 02/27/ | Office | Rehabilitation | Manuel Sparks, | | | 2017 | Visit | | DO [address] | | | | | | [address] [place], | | | | | | [place] [address] | | | | | | [phone] | | | | | | | [...] [place], | | | | | | [place] [address] | | | | | | [phone] | | | | | | | [...] | | | | | | [place] [address] | | | | | | [phone] | | | | | | | | +--------+---------+ + + + as of this encounter Visit Diagnoses Not on filein this encounter"
--- OUTSIDE RECORDS SUMMARY | 2018-02-06 23:23 | XMS | Encounter Summary ---
Demographics + + + | Address | [address] | | | [place] [address] | + + + | Home Phone | | + + + | Preferred Language | Unknown | + + + | Marital Status | | + + + | Roman Catholic Affiliation | 1073 | + + + | Race | Unknown | + + + | Ethnic Group | Unknown | + + + Author + + + | Author | [facility] | | | and Sahunana | + + + | Organization | [facility] | | | [...] Team Providers + +------+ + | Care Blow Torch Burner Name | Role | Phone | + [...] | | | | CLINIC [address] | [address] [place], | Dx); Chronic | | | | [place], [place] | [place] [address] | bronchitis, | | | | [address] | [phone] | unspecified chronic | | | | [phone] | | bronchitis type | | | [...] | Visit | | DO [address] [facility] | | | | | | [address] [place], | | | | | | [place] [address] | | | | | | [phone] | | | | | | | [...] | | | | | | [place] [address] | | | | | | [phone] | | | | | | | [...] | | | | | | [place] [address] | | | | | | [phone] | | | | | | | | | | | | iHmanshu Champion | | | | | | D, PT | | +--------+---------+ + + + | 02/22/ | Office | Rehabilitation | Manuel Sparks, | | | 2017 | Visit | | DO [address] | | | | | | [address] [place], | | | | | | [place] [address] | | | | | | [phone] | | | | | | | [...] | | | | | [place] [address] | | | | | | [phone] | | | | | | | | +--------+---------+ + + + | 02/27/ | Office | Rehabilitation | Manuel Sparks, | | | 2017 | Visit | | DO [address] | | | | | | [address] [place], | | | | | | [place] [address] | | | | | | [phone] | | | | | | | [...] | | | | | | [place] [address] | | | | | | [phone] | | | | | | | | | | | | Himanshu Champion | | | | | | D, PT | | +--------+---------+ + + + | 03/29/ | Office | Cardiology | Prem Call, | | | 2017 | Visit | | [address] | | | | | | [place], | | | | | | [place] [address] | | | | | | [phone] | | | | | | | [...] + | Respiratory - Nares | [facility] [address] | | | [place] [address] | + + + in this encounter Visit Diagnoses + + | Diagnosis | + + | Preoperative clearance - Primary | + + | Preoperative examination, unspecified | + + | Chronic bronchitis, unspecified chronic bronchitis type (HCC) | + +"
--- OUTSIDE RECORDS SUMMARY | 2018-02-06 23:23 | XMS | Encounter Summary ---
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 | Role | Phone | [...] | | radiculopath | [place], | [place] [address] | | | | | y, lumbar | [place] [address] | Phone: | | | | | region | Phone: | [phone] | | | | | Lumbar | [phone] | Fax: | | | | | stenosis | Fax: | [phone] | | | | | Lumbar | [phone] | | | | | | radiculopath [...] + + | 11/08/ | Office | [facility] | Matthew Garnica | Osteoarthritis of | | 2017 | Visit | SURGERY [address] | MD Thomas, FACS [address] | spine with | | | | [address] [place], [place] | [facility] | radiculopathy, | | | | [address] | [place] [address] | lumbar region | | | | [phone] | [phone] | (Primary Dx); Lumbar | | | [...] her aftercare following surgery. Patient presented to [facility] ER on 10/05/2017 with the chief complaint of RIGHT Hip pain and l ow back pain. Patient was seen on 10/07/2017 at [facility] for chest pain, according to ER [...] surgery, then abdominoplasty. Cardiac: Patient has seen station cleaning porter Dr. Call for chest pain. RISK: Current [...] sprain Scabies Seizures (HCC) 05/02/2010 diagnosed at [facility] Shortness of breath Sinusitis, acute Stroke ([facility]) TMJ syndrome Tobacco use Traumatic bursitis Vitamin B deficiency 12/10/2009 Past Surgical History: Procedure Laterality Date ABDOMINAL HERNIA REPAIR 2-3 ABDOMINOPLASTY 1998 CARPAL TUNNEL RELEASE 2009 CERVICAL SPINE SURGERY Anterior 05/06/2016 Procedure: C4-5 and C5-6 Anterior Cervical Discectomy with Fusion and Plating ; Surgeon: Manuel Sparks DO; Location: [facility] MAIN OR SECTION 1998, 1997 CHOLECYSTECTOMY [...] dry Neurologic: Gait normal, face symetric, equal slicing machine feeder and plantar flexion. Assessment 1. Osteoarthritis of [...] | | | | | | [place] [address] | | | | | | [phone] | | | | | | | [...] | | | | | | [place] [address] | | | | | | [phone] | | | | | | | [...] | | | | | | [place] [address] | | | | | | [phone] | | | | | | | [...] | | | | | | [place] [address] | | | | | | [phone] | | | | | | | [...] | | | | | [place] [address] | | | | | | [phone] | | | | | | | | +--------+---------+ + + + | 02/27/ | Office | Rehabilitation | Manuel Sparks, | | | 2017 | Visit | | DO [address] | | | | | | [address] [place], | | | | | | [place] [address] | | | | | | [phone] | | | | | | | [...] | | | | | | [place] [address] | | | | | | [phone] | | | | | | | | | | | | Himanshu Champion | | | | | | D, PT | | +--------+---------+ + + + | 03/29/ | Office | Cardiology | Prem Call, | | | 2017 | Visit | | MD [address] | | | | | | [place], | | | | | | [place] [address] | | | | | | [phone] | | | | | | | [...]
--- OUTSIDE RECORDS SUMMARY | 2018-02-06 23:23 | XMS | Encounter Summary ---
Demographics + + + | Address | [address] | | | [place] [address] | + + + | Home Phone | | + + + | Preferred Language | Unknown | + + + | Marital Status | | + + + | Orthodox Affiliation | 1073 | + + + | Race | Unknown | + + + | Ethnic Group | Unknown | + + + Author + + + | Author | [facility] | | | and Shaunana [...] Providers + +------+ + | Care Ground Wood Supervisor Name | Role | Phone | [...] + + | 11/09/ | Office | [facility] | Juan David Haile, | Lumbar radiculopathy | | 2018 | Visit | NEUROSURGERY [address] | [place] [address] | (Primary Dx); | | | | [address] | [address] [place] | Spinal stenosis, | | | | [place], [place] | [place] [address] | lumbar region, | | | | [address] | [phone] | without neurogenic | | | | [phone] | | claudication; | | | | [...] from th blake marmolejo. NADYA Chaudhry [address] [facility] [address] [place], [place] [address] FAX: NEUROSURGERY HISTORY AND PHYSICAL EXAMINATION CHIEF [...] Benign essential hypertension 10/1999 Bipolar 1 disorder ([facility]) Bipolar disorder ([facility]) has been admitted for overdose as well Bronchitis, acute Calf pain, left Candidiasis of vulva and vagina Cervical radiculitis Chest pain CHF (congestive heart failure) ([facility]) Constipation Contusion, lower leg COPD (chronic obstructive pulmonary disease) ([facility]) Cubital tunnel syndrome DDD (degenerative disc [...] sprain Scabies Seizures (HCC) 05/02/2010 diagnosed at [facility] Shortness of breath Sinusitis, acute Stroke ([facility]) TMJ syndrome Tobacco use Traumatic bursitis Vitamin B deficiency 12/10/2009 PAST SURGICAL HISTORY: Past Surgical History: Procedure Laterality Date ABDOMINAL HERNIA REPAIR 2-3 ABDOMINOPLASTY 1998 CARPAL TUNNEL RELEASE 2009 CERVICAL SPINE SURGERY Anterior 05/06/2016 Procedure: C4-5 and C5-6 Anterior Cervical Discectomy with Fusion and Plating ; Surgeon: Manuel Sparks DO; Location: [facility] MAIN OR SECTION 1998, 1997 [...] has no apparent deficits with short or bed bug exterminator memory. CRANIAL NERVES: Fundoscopic Exam: The optic [...] Benign essential hypertension 10/1999 Bipolar 1 disorder ([facility]) Bipolar disorder ([facility]) has been admitted for overdose as well Bronchitis, acute Calf pain, left Candidiasis of vulva and vagina Cervical radiculitis Chest pain CHF (congestive heart failure) ([facility]) Constipation Contusion, lower leg COPD (chronic obstructive pulmonary disease) ([facility]) Cubital tunnel syndrome DDD (degenerative disc disease), lumbar Depression 10/1993 Disorder of liver DM type 2 (diabetes mellitus, type 2) ([facility]) diet controlled Drug abuse Dysuria Emphysema of lung ([facility]) Encounter for blood transfusion Eustachian tube [...] sprain Scabies Seizures (HCC) 05/02/2010 diagnosed at [facility] Shortness of breath Sinusitis, acute Stroke [...] | | | | | | [place] [address] | | | | | | [phone] | | | | | | | [...] | | | | | | [place] [address] | | | | | | [phone] | | | | | | | [...] | | | | | | [place] [address] | | | | | | [phone] | | | | | | | [...] | | | | | | [place] [address] | | | | | | [phone] | | | | | | | [...] | | | | | [place] [address] | | | | | | [phone] | | | | | | | | +--------+---------+ + + + | 02/27/ | Office | Rehabilitation | Manuel Sparks, | | | 2017 | Visit | | DO [address] | | | | | | [address] [place], | | | | | | [place] [address] | | | | | | [phone] | | | | | | | [...] | | | | | | [place] [address] | | | | | | [phone] | | | | | | | | | | | | Himanshu Champion | | | | | | D, PT | | +--------+---------+ + + + | 03/29/ | Office | Cardiology | Prem Call, | | | 2017 | Visit | | [address] | | | | | | [place], | | | | | | [place] [address] | | | | | | [phone] | | | | | | | [...]
[2018-02-06] MEDS ORDERED: DICLOFENAC SODI75 MG PO (23:37)
== END 2018-02-06 23:48 | disposition home or self-care (01) ==
LOC: ED 22:34
DX: M54.5 Low back pain (principal); K21.9 Gastro-esophageal reflux disease without esophagitis; I25.2 Old myocardial infarction; E11.9 Type 2 diabetes mellitus without complications; I11.0 Hypertensive heart disease with heart failure; I50.9 Heart failure, unspecified; F17.200 Nicotine dependence, unspecified, uncomplicated; Z88.7 Allergy status to serum and vaccine; Z88.0 Allergy status to penicillin; Z88.8 Allergy status to other drugs, medicaments and biological substances; Z88.6 Allergy status to analgesic agent; Z79.899 Other long term (current) drug therapy; Z98.890 Other specified postprocedural states
CPT/HCPCS: 99283